=== PATIENT | male | born 1955 | race Caucasian/White ===

== ENCOUNTER 2025-03-08 08:56 | Outpatient (AMB) | payer MEDICARE, SELFPAY ==
--- NOTE | 2025-03-08 09:00 | A.OFFPC_ITS ---
Vital Signs 03/08/25 09:28 Height 5 ft 3 in Weight 154 lb BMI 27.3 BP 122/62 Blood Pressure Location Rt brachial Pulse 94 Pulse Source Pulse Oximeter Temp 97.7 F Pulse Oximetry (%) 96 Intake Visit Reasons: establish care Intake Note: Had a stroke back in April also has been getting shots in his right eye thinks it's from the stroke and two months ago he said he had pain in his chest and when he took a deep breath it hurt went to [facility] now has a hear monitor. He would like an order for complete blood work has not had any in awhile. Patient also ststa that he has been loosing wait since he stopped drinking. Allergies No Known Allergies Allergy (Verified 03/08/25 10:34) Medication List - Last Reconciled 03/08/25 by Martha Benedict PA-C apixaban (Eliquis) 5 mg PO BID metoprolol succinate ER 50 mg PO DAILY rosuvastatin 10 mg PO DAILY sertraline 50 mg PO DAILY umeclidinium-vilanterol 62.5-25 mcg/actuation (Anoro Ellipta) 1 inh inhalation DAILY HPI establish care HPI Details The patient is a 69-year-old male presenting for establishment of primary care and management of multiple chronic conditions. The patient has a history of atrial flutter, which was diagnosed following an episode of shortness of breath. He was prescribed Eliquis and metoprolol to manage the condition, and a heart monitor was used for a week to assess his heart rhythm. The patient reports no current chest pain or shortness of breath. Currently being followed by [facility]. He experienced a stroke on April 24, 2024, with MRI findings showing left cerebellar and occipital infarcts without residual deficits. He has not had recent blood work since the event. The patient has a history of emphysema and is currently using Ellipta for management. He quit smoking in 2014 after many years of tobacco use. He is on rosuvastatin for hyperlipidemia and sertraline for depression and anxiety, which he feels are well-controlled. He denies any thoughts of self-harm and does not feel the need for a therapist. The patient has a history of chronic venous hypertension with ulcer, varicose veins, and rosacea. He has not been wearing compression stockings recently. Preventative care includes a planned colonoscopy, which was delayed due to his use of Eliquis. He has a family history of prostate cancer, as his father had it, but it was not the cause of . Social History - Lives with , Nicolle - Former smoker, quit in 2014 - Reports dietary changes to include jonathan sh foods and reduced sugar intake [facility] Medical History Overweight with body mass index (BMI) of 27 to 27.9 in adult CVA (cerebral vascular accident) Atrial flutter Varicose veins of both lower extremities Rosacea Hyperlipidemia Emphysema/COPD Chronic venous hypertension Depression Anxiety Establishing care with new doctor, encounter for Surgical History History of colonoscopy Questionnaire PHQ-9 Over the last 2 weeks, how often have you been bothered by any of the following problems? 1. Little interest or pleasure in doing things: several days 2. Feeling down, depressed, or hopeless: several days 3. Trouble falling or staying asleep, or sleeping too much: several days 4. Feeling tired or having little energy: several days 5. Poor appetite or overeating: not at all 6. Feeling bad about yourself - or that you are a failure or have let yourself or your family down: not at all 7. Trouble concentrating on things, such as reading the newspaper or watching television: not at all 8. Moving or speaking so slowly that other people could have noticed. Or the opposite - being so fidgety or restless that you have been moving around a lot more than usual: not at all 9. Thoughts that you would be better off or of hurting yourself in some way: not at all Total score: 4 Depression Screening Interpretation: Positive Depression Screening Follow-up: Existing condition and In treatment (On Sertraline ) Depression Screening Done: Yes 92725 - PHQ-9 Billing: Yes Source: Developed by Drs. Ryan Staley, Ivory Abraham, Mata Weinberg and colleagues, with an educational vesna from [employer]. Thrive Questionnaire Date Thrive assessed: 03/08/25 I am a: Patient What is your living situation today?: I have a steady place to live Within the past 12 months, did the food you bought not last and you didn't have the money to get more?: Never true Within the past 12 months, did you worry whether your food would run out before you got money to buy more?: Never true Do you have trouble paying for medicines?: No Do you have trouble getting transportation to medical appointments?: No Do you have trouble paying your heating and electricity bill?: No Do you have trouble taking care of your child, family member or friend?: No Do you have trouble with day-to-day activities such as bathing, preparing meals, shopping, managing finances, etc.?: No Are you currently unemployed and looking for a job?: No Are you interested in more education?: No THRIVE Score: 0 AUDIT C Alcohol Use Questionnaire (AUDIT-C) 1. How often do you have a drink containing alcohol?: 2-4 times a month 2. How many drinks containing alcohol do you have on a typical day when you are drinking?: 3 or 4 3. How often do you have six or more drinks on one occasion?: Never Total Score: 3 Score Reviewed/Action Taken: No Review of Systems Const Details: - Cardiovascular: Denies chest pain, denies dizziness, denies leg swelling - Respiratory: Denies dyspnea - Gastrointestinal: Denies abdominal pain, denies black or bloody stools - Neurological: Denies unintentional weight loss Physical exam (Primary Care) Vital Signs: Last Vital Signs Temp 97.7 F 03/08/25 09:28 Pulse 94 03/08/25 09:28 BP 122/62 03/08/25 09:28 Pulse Ox 96 03/08/25 09:28 Care Plan Goal for BP management: <140/90 at Goal BMI result Body Mass Index 27.3 BMI Assessment/Plan discussion: High BMI High, discussed plan: lifestyle, weight reduction, dietary, physical activity, alcohol moderation and other PHQ-9: PHQ-9 Score PHQ-9: Total score 4 03/08/25 09:31 Depression Screening Interpretation: Positive Depression Screening Follow-up: Existing condition and In treatment (On Sertraline ) Thrive Assessment: Date of Thrive Assessment Date Thrive assessed 03/08/25 03/08/25 09:28 Const Other: Appearance: Alert. Oriented X3. No acute distress. Head: Normal external exam. Normocephalic. Atraumatic. Eyes: Pupils are equal, round, and reactive to light. Extraocular movements intact. Conjunctiva and sclera normal. Eyelids normal. Ears: External auditory canal normal. Tympanic membranes normal. Throat: Pharynx normal. Uvula midline. Moist mucous membranes. Neck: Normal inspection. Neck supple. Full range of motion. No adenopathy. Thyroid Normal. No meningeal signs. No neck mass noted. Cardiovascular: Normal heart rate and rhythm. Heart sound normal. No murmurs noted. Pulses normal throughout. Respiratory: No respiratory distress. Painless inspiration. Breath sounds normal. No wheezes/rales/rhonchi noted. Chest nontender. No accessory muscle usage noted or decreased air movement noted. Abdomen: Soft and nontender. Bowel sounds normal in all 4 quadrants. No distention noted. No organomegaly noted. No visible injury noted. Back: No costovertebral angle tenderness. Full range of motion noted. Skin: Skin warm and dry. Normal skin color. Normal skin turgor. No rashes/lesions/lacerations noted. Extremities: No lower extremity edema. Extremities exhibit normal range of motion. Extremities nontender. Neuro: Oriented X 3. No motor deficit. No sensory deficit. Reflexes normal. Results Reviewed Results Reviewed: - MRI (April 24, 2024): Left cerebellar and occipital infarcts without residual deficits - CTA (April 2024): No significant cerebral atherosclerosis - TTE: Unremarkable - 30-day Holter monitor: Normal Coding Level of Care Code New Pt Level 4 (50792) Complex EM visit Add On G2211 Diagnoses Establishing care with new doctor, encounter for Z76. Atrial flutter I48.92 Anxiety F41.9 Depression F32.A Emphysema/COPD J43.9 Hyperlipidemia E78.5 CVA (cerebral vascular accident) I63.9 Overweight with body mass index (BMI) of 27 to 27.9 in adult E66.3; Z68.27 Varicose veins of both lower extremities I83.93 Rosacea L71.9 Chronic venous hypertension I87.309 Additional Codes PHQ-9 - 86939 - PHQ-9 Billing: Yes ([id number]) Assessment & Plan Assessment & Plan (1) Establishing care with new doctor, encounter for: Code(s): Z76.89 - Persons encountering health services in other specified circumstances Category: Medical (2) Atrial flutter: Code(s): I48.92 - Unspecified atrial flutter Category: Medical Plan: The patient is currently managed with Eliquis and metoprolol for atrial flutter. A heart monitor was used for a week to assess his heart rhythm, and he reports no current symptoms of chest pain or dyspnea. Condition is chronic and stable will continue to monitor. (3) Anxiety: Code(s): F41.9 - Anxiety disorder, unspecified Category: Medical Plan: The patient is on sertraline for anxiety and reports feeling well-controlled without the need for additional therapy. Condition is chronic and stable will continue to monitor. (4) Depression: Code(s): F32.A - Depression, unspecified Category: Medical Plan: The patient is on sertraline for depression and reports feeling well-controlled without the need for additional therapy. Condition is chronic and stable continue to monitor. (5) Emphysema/COPD: Code(s): J43.9 - Emphysema, unspecified Category: Medical Plan: The patient is using Ellipta for management of emphysema and has a history of smoking cessation since 2014. Condition is chronic and stable continue to monitor. (6) Hyperlipidemia: Code(s): E78.5 - Hyperlipidemia, unspecified Category: Medical Plan: The patient is on rosuvastatin for hyperlipidemia management. Condition is chronic and stable will continue to monitor. (7) CVA (cerebral vascular accident): Comment: MRI brain on 04/24/2024 revealed left cerebellar and left occipital infarcts without residual defects. TTE unremarkable at that time. Thirty day ambulatory event monitor at that time normal. Code(s): I63.9 - Cerebral infarction, unspecified Category: Medical Plan: The patient experienced a stroke on April 24, 2024, with MRI findings showing left cerebellar and occipital infarcts without residual deficits. He has not had recent blood work since the event, and further evaluation is planned. Condition is stable will continue to monitor. (8) Overweight with body mass index (BMI) of 27 to 27.9 in adult: Code(s): E66.3 - Overweight; Z68.27 - Body mass index [BMI] 27.0-27.9, adult Category: Medical Plan: Patient has improved diet and exercise regimen. Condition is chronic and stable continue to monitor. (9) Varicose veins of both lower extremities: Code(s): I83.93 - Asymptomatic varicose veins of bilateral lower extremities Category: Medical Plan: The patient has a history of chronic venous hypertension without ulcer and varicose veins. He has not been wearing compression stockings recently, which may need to be addressed. Condition is chronic and stable will continue to monitor. (10) Rosacea: Comment: Being followed by Dermatology Code(s): L71.9 - Rosacea, unspecified Category: Medical Plan: The patient has a history of rosacea, and dietary changes have been made to manage the condition. Condition is chronic and stable continue to monitor. (11) Chronic venous hypertension: Code(s): I87.309 - Chronic venous hypertension (idiopathic) without complications of unspecified lower extremity Category: Medical Plan: The patient has a history of chronic venous hypertension without ulcer and varicose veins. He has not been wearing compression stockings recently, which may need to be addressed. Condition is chronic and stable will continue to monitor. Plan Plan Patient was informed and verbally consented to the use of an ambient scribe for clinic note documentation during this visit. 1. Atrial Flutter The patient is currently managed with Eliquis and metoprolol for atrial flutter. A heart monitor was used for a week to assess his heart rhythm, and he reports no current symptoms of chest pain or dyspnea. 2. Emphysema The patient is using Ellipta for management of emphysema and has a history of smoking cessation since 2014. 3. Hyperlipidemia The patient is on rosuvastatin for hyperlipidemia management. 4. Depression The patient is on sertraline for depression and reports feeling well-controlled without the need for additional therapy. 5. Anxiety The patient is on sertraline for anxiety and reports feeling well-controlled without the need for additional therapy. 6. Stroke The patient experienced a stroke on April 24, 2024, with MRI findings showing left cerebellar and occipital infarcts without residual deficits. He has not had recent blood work since the event, and further evaluation is planned. 7. Chronic Venous Hypertension With Ulcer The patient has a history of chronic venous hypertension without ulcer and varicose veins. He has not been wearing compression stockings recently, which may need to be addressed. Condition is chronic and stable will continue to monitor. 8. Rosacea The patient has a history of rosacea, and dietary changes have been made to manage the condition. 9. Preventative Care: Colonoscopy A colonoscopy is planned but has been delayed due to the patient's use of Eliquis. During the visit, we discussed the management of the patient's atrial flutter with Eliquis and metoprolol, and the use of a heart monitor to assess his heart rhythm. We also reviewed his history of stroke and the need for further blood work to monitor his condition. The patient was advised on the importance of continuing his current medications for hyperlipidemia, depression, and anxiety, and the potential need for compression stockings for his chronic venous hypertension. Preventative care measures, including a delayed colonoscopy due to Eliquis use, were also discussed. Orders: Orders C Reactive Protein Today Z00.00 - Encounter for general adult medical examination without abnormal findings Lipid Panel Today Z00.00 - Encounter for general adult medical examination without abnormal findings Liver Panel Today Z00.00 - Encounter for general adult medical examination without abnormal findings Hemoglobin A1c Today Z00.00 - Encounter for general adult medical examination without abnormal findings PSA,Total (Free>4and<10) Today Z00.00 - Encounter for general adult medical examination without abnormal findings Complete Blood Count Auto Diff Today Z00.00 - Encounter for general adult medical examination without abnormal findings Comprehensive Antimony. Panel Fast Today Z00.00 - Encounter for general adult medical examination without abnormal findings Vitamin B12 and Folate Today Z00.00 - Encounter for general adult medical examination without abnormal findings Vitamin D 25-OH Total Today Z00.00 - Encounter for general adult medical examination without abnormal findings Magnesium Today Z00.00 - Encounter for general adult medical examination without abnormal findings TSH reflex Free T4 Today Z00.00 - Encounter for general adult medical examination without abnormal findings Patient Instructions: - Continue taking Eliquis and metoprolol as prescribed. - Use Ellipta daily for emphysema management. - Maintain current diet with fresh foods and reduced sugar intake. - Schedule and complete blood work as discussed. - Plan for a colonoscopy once cleared from Eliquis use. - Consider wearing compression stockings for venous hypertension.
[2025-03-08 09:28] VITALS: BP 122/62; PULSE 94; TEMP 36.5; O2SAT 96; BMI 27.3
== END 2025-03-08 09:52 | disposition home or self-care (01) ==
LOC: HO.HMCSH 08:56
PROVIDERS: PCP Internal Medicine; Visit Provider Physician Assistant Medical
DX: Z76.89 Persons encountering health services in other specified circumstances (principal); I48.92 Unspecified atrial flutter; F41.9 Anxiety disorder, unspecified; F32.A Depression, unspecified; J43.9 Emphysema, unspecified; E78.5 Hyperlipidemia, unspecified; I63.9 Cerebral infarction, unspecified; E66.3 Overweight; Z68.27 Body mass index [BMI] 27.0-27.9, adult; I83.93 Asymptomatic varicose veins of bilateral lower extremities; L71.9 Rosacea, unspecified; I87.309 Chronic venous hypertension (idiopathic) without complications of unspecified lower extremity

== ENCOUNTER → 2025-03-08 08:56 | Outpatient (BNVA) | payer MEDICARE, SELFPAY | PROVIDERS: PCP Internal Medicine; Visit Provider Physician Assistant Medical | DX: I48.92 Unspecified atrial flutter (principal); F41.9 Anxiety disorder, unspecified; F32.A Depression, unspecified; J43.9 Emphysema, unspecified; E78.5 Hyperlipidemia, unspecified; I63.9 Cerebral infarction, unspecified; E66.3 Overweight; Z68.27 Body mass index [BMI] 27.0-27.9, adult; I83.93 Asymptomatic varicose veins of bilateral lower extremities; L71.9 Rosacea, unspecified | CPT/HCPCS: 96127; 99202 ==

== ENCOUNTER 2025-03-11 07:16 | Outpatient (REF) | payer MEDICARE, SELFPAY ==
[2025-03-11 07:28] LABS: MANUAL DIFF FLAG NO
[2025-03-11 07:46] LABS: Basophils Percent Auto 0.5 % (0-2); Eosinophils Absolute Auto 0.1 X10*3/uL (0.0-0.4); Eosinophils Percent Auto 0.7 % (0-4); Hematocrit 39.5 % (42.0-52.0); Hemoglobin 13.2 g/dl (14.0-18.0); Imm Gran Abs Auto 0.05 X10*3/uL (0.00-0.03); Imm Gran Pct Auto 0.6 % (0.0-0.4); Lymphocytes Absolute Auto 2.3 X10*3/uL (1.2-4.9); Lymphocytes Percent Auto 26.2 % (20-40); Mean Corpuscular HGB Conc 33.4 g/dl (31.0-36.0); Mean Corpuscular Hemoglobin 29.9 pg (27.0-33.0); Mean Corpuscular Volume 89.6 fL (80.0-98.0); Mean Platelet Volume 9.2 fL (9.4-12.4); Monocytes Absolute Auto 0.8 X10*3/uL (0.1-1.2); Monocytes Percent Auto 8.7 % (2-11); Neutrophils Absolute Auto 5.6 x10*3/uL (2.0-8.3); Neutrophils Percent Auto 63.3 % (45-73); Platelet Count 331 X10*3/uL (160-400); Red Blood Count 4.41 X10*6/uL (4.60-5.80); Red Cell Distribution Width 13.2 % (11.0-16.0); White Blood Count 8.9 X10*3/uL (4.8-10.8)
[2025-03-11 07:53] LABS: Estimated Average Glucose 148 mg/dL; Hemoglobin A1c % 6.8 % (<6.0); Total Hemoglobin (HGBA1C) 3515.6325 umol/L
[2025-03-11 08:22] LABS: Alanine Aminotransferase 48 U/L (0-40); Albumin Level 3.9 g/dL (3.5-5.0); Alkaline Phosphatase 35 U/L (39-117); Anion Gap 13 (12-20); Aspartate Amino Transferase 38 U/L (5-37); Bilirubin Direct 0.2 mg/dL (0.0-0.5); Bilirubin Total 0.5 mg/dL (0.0-1.0); Blood Urea Nitrogen 10 mg/dL (9-16); C Reactive Protein 9.43 mg/dL (< or = 0.50); Calcium 9.7 mg/dL (8.4-10.2); Carbon Dioxide 26 mmol/L (22-29); Chloride 104 mmol/L (96-108); Cholesterol 120 mg/dL (<200); Estimated Glomerular Filt Rate > 60; Glucose Fasting 142 mg/dL (60-99); HDL Cholesterol 41 mg/dL (>40); LDL Cholesterol Calculated 62 mg/dL (<100); Magnesium 2.1 mg/dL (1.6-2.6); Potassium 4.2 mmol/L (3.3-5.1); Sodium 139 mmol/L (135-145); Total Protein 7.5 g/dL (6.5-8.0); Triglycerides 89 mg/dL (<150)
[2025-03-11 08:38] LABS: TSH reflex Free T4 1.67 uIU/mL (0.32-4.0); Vitamin D 25-OH Total 34.7 ng/mL (>30)
[2025-03-11 08:50] LABS: Folate 8.5 ng/mL (> or = 4.0); Vitamin B12 722 pg/mL (200-900)
[2025-03-14 13:33] LABS: Free Prostate Spec Ag 0.4 ng/mL; Percent Free Prostate Spec Ag 7 % (calc) (>25); Prostate Specific Ag Total 5.5 ng/mL (< OR = 4.0)
== END 2025-03-11 07:17 | disposition home or self-care (01) ==
LOC: HO.LAB 07:16
PROVIDERS: PCP Physician Assistant Medical; Visit Provider Physician Assistant Medical
DX: Z00.00 Encounter for general adult medical examination without abnormal findings (principal); Z12.5 Encounter for screening for malignant neoplasm of prostate; Z13.1 Encounter for screening for diabetes mellitus; Z13.0 Encounter for screening for diseases of the blood and blood-forming organs and certain disorders involving the immune mechanism; Z13.220 Encounter for screening for lipoid disorders; Z13.29 Encounter for screening for other suspected endocrine disorder
CPT/HCPCS: 36415; 80053; 80061; 80076; 82248; 82306; 82607; 82746; 83036; 83735; 84153; 84154; 84443; 85025; 86140

== ENCOUNTER 2025-03-21 11:27 | Outpatient (AMB) | payer MEDICARE, SELFPAY ==
--- NOTE | 2025-03-21 11:27 | A.OFFPC_ITS ---
Vital Signs 03/21/25 11:28 Height 5 ft 3 in Weight 151 lb 4 oz BMI 26.8 BP 128/88 Blood Pressure Location Rt brachial Position Sitting Respiration 16 Pulse 70 Pulse Source Pulse Oximeter Temp 97 F Temp Source Temporal Artery Scan Pulse Oximetry (%) 98 Oxygen Delivery Method Room Air Intake Visit Reasons: f/u abnormal lab test results Director Financial Services Required: No Accompanied by: Self / Same As Patient Allergies No Known Allergies Allergy (Verified 03/21/25 12:36) Medication List - Last Reconciled 03/21/25 by Martha Benedict PA-C alcohol swabs (Alcohol Pads) 1 pad topical TIDWMEAL apixaban (Eliquis) 5 mg PO BID blood sugar diagnostic (FreeStyle Lite Strips) CHECK GLUCOSE 3 TIMES A DAY WITH MEALS blood-glucose meter (FreeStyle Lite Meter kit) Check glucose 3 times a day before meals lancets (FreeStyle Lancets) CHECK GLUCOSE 3 TIMES A DAY WITH MEALS metformin ER (Glucophage XR) 500 mg PO DAILY metoprolol succinate ER 50 mg PO DAILY rosuvastatin 10 mg PO DAILY sertraline 50 mg PO DAILY umeclidinium-vilanterol 62.5-25 mcg/actuation (Anoro Ellipta) 1 inh inhalation DAILY Tobacco use date assessed: 03/21/25 Fall risk assessment: No Falls in past year Last assessed Fall Risk: 03/21/25 Dental Screening Dental Screen Date: 03/21/25 Did you have a dental visit in the last 12 months?: Yes Did you have a dental problem in the last 6 months where you did not have access to dental care?: No Was dental information given to patient?: Patient has dentist HPI f/u abnormal lab test results HPI Details The patient is a 69-year-old male presenting with follow-up on blood work, management of newly diagnosed diabetes mellitus, and evaluation of elevated prostate-specific antigen (PSA) levels. The patient was recently diagnosed with diabetes mellitus, with a hemoglobin A1c of 6.8, indicating elevated blood glucose levels over the past three months. Previously, his blood glucose levels ranged from 60 to 100 mg/dL, but they have now increased to an average of 142 mg/dL. The patient has been prescribed metformin 500 mg daily and reports feeling better since starting the medication. The patient has a history of elevated prostate-specific antigen (PSA) levels and has an upcoming appointment with a urologist for further evaluation. He reports urinary frequency, particularly at night, and difficulty emptying his bladder completely, which may be related to his prostate condition. The patient has mild anemia with hemoglobin levels at 13.2 g/dL and hematocrit at 39%, slightly below the normal range. The cause of anemia is being investigated, with considerations including iron deficiency. Liver enzymes are slightly elevated, with AST at 38 U/L and ALT at 48 U/L, but these are not considered concerning at this time. The patient reports a weight loss of approximately 10 pounds over the past month, which he attributes to changes in his diet and reduced alcohol consumption. Social History - Substance Use: Reports reduced alcohol consumption, with [place] beer [place] the [place]. - Weight Management: Reports a weight lo ss of approximately 10 pounds over the past month. [facility] [place] Medical History Weight loss Urinary frequency Elevated alkaline phosphatase level Elevated ALT measurement Elevated AST (SGOT) Elevated PSA Anemia Type 2 diabetes mellitus with hemoglobin A1c goal of less than 7.0% Overweight with body mass index (BMI) of 27 to 27.9 in adult CVA (cerebral vascular accident) Atrial flutter Varicose veins of both lower extremities Rosacea Hyperlipidemia Emphysema/COPD Chronic venous hypertension Depression Anxiety Establishing care with new doctor, encounter for Surgical History History of colonoscopy Family History Father Lung cancer Mother No problems noted. Social History Housing: Condominium Alcohol intake: current Alcohol intake frequency: does not drink Patient Tobacco Use Status: Former Tobacco user service: No Current occupational status: retired Cognitive needs: No Hearing needs: No Vision needs: Yes (rx glasses) Questionnaire PHQ-9 Over the last 2 weeks, how often have you been bothered by any of the following problems? 1. Little interest or pleasure in doing things: several days 2. Feeling down, depressed, or hopeless: several days 3. Trouble falling or staying asleep, or sleeping too much: several days 4. Feeling tired or having little energy: several days 5. Poor appetite or overeating: not at all 6. Feeling bad about yourself - or that you are a failure or have let yourself or your family down: not at all 7. Trouble concentrating on things, such as reading the newspaper or watching television: not at all 8. Moving or speaking so slowly that other people could have noticed. Or the opposite - being so fidgety or restless that you have been moving around a lot more than usual: not at all 9. Thoughts that you would be better off or of hurting yourself in some way: not at all Total score: 4 Depression Screening Interpretation: Positive Depression Screening Follow-up: Existing condition and In treatment (On Sertraline ) Depression Screening Done: Yes 12319 - PHQ-9 Billing: Yes Source: Developed by Drs. Ryan Staley, Ivory Abraham, Mata Weinberg and colleagues, with an educational vesna from [employer]. Thrive Questionnaire Date Thrive assessed: 03/08/25 I am a: Patient What is your living situation today?: I have a steady place to live Within the past 12 months, did the food you bought not last and you didn't have the money to get more?: Never true Within the past 12 months, did you worry whether your food would run out before you got money to buy more?: Never true Do you have trouble paying for medicines?: No Do you have trouble getting transportation to medical appointments?: No Do you have trouble paying your heating and electricity bill?: No Do you have trouble taking care of your child, family member or friend?: No Do you have trouble with day-to-day activities such as bathing, preparing meals, shopping, managing finances, etc.?: No Are you currently unemployed and looking for a job?: No Are you interested in more education?: No THRIVE Score: 0 AUDIT C Alcohol Use Questionnaire (AUDIT-C) 1. How often do you have a drink containing alcohol?: 2-4 times a month 2. How many drinks containing alcohol do you have on a typical day when you are drinking?: 3 or 4 3. How often do you have six or more drinks on one occasion?: Never Total Score: 3 Score Reviewed/Action Taken: No SHERRY-7 AMB Questionnaire SHERRY-7 Date SHERRY - 7 assessed: 03/21/25 Feeling nervous, anxious, or on edge: 0 = Not at all Not being able to stop or control worryin = Not at all Worrying too much about different things: 0 = Not at all Trouble relaxin = Not at all Being so restless that it is hard to sit still: 0 = Not at all Becoming easily annoyed or irritable: 0 = Not at all Feeling afraid as if something awful might happen: 0 = Not at all Total SHERRY-7 score (0-4 normal; 5-9 mild; 10-14 moderate; 15-21 severe): 0 Source: Developed by Drs. Ryan Staley, Ivory Abraham, Mata Weinberg and colleagues, with an educational vesna from [employer]. SHERRY-7 Assessment Billing SHERRY-7 Assessment Tool: SHERRY-7 Assessment 93636 Review of Systems Const Details: - Genitourinary: Reports urinary frequency, particularly at night. Denies abdominal pain. - Gastrointestinal: Reports no abdominal pain. - General: Reports weight loss of approximately 10 pounds over the past month. Physical exam (Primary Care) Vital Signs: Last Vital Signs Temp 97 F 03/21/25 11:28 Pulse 70 03/21/25 11:28 Resp 16 03/21/25 11:28 BP 128/88 03/21/25 11:28 Pulse Ox 98 03/21/25 11:28 Oxygen Delivery Method Room Air 03/21/25 11:28 Care Plan Goal for BP management: <140/90 at Goal BMI result Body Mass Index 26.8 BMI Assessment/Plan discussion: High BMI High, discussed plan: lifestyle, weight reduction, dietary, physical activity and alcohol moderation Tobacco/Smoking Status: Tobacco use Status Tobacco use date assessed 03/21/25 03/21/25 11:34 Patient Tobacco Use Status Former Tobacco user 03/21/25 11:34 PHQ-9: PHQ-9 Score PHQ-9: Total score 4 03/21/25 11:34 Depression Screening Interpretation: Positive Depression Screening Follow-up: Existing condition and In treatment (On Sertraline ) Thrive Assessment: Date of Thrive Assessment Date Thrive assessed 03/08/25 03/21/25 11:34 Const Other: Appearance: Alert. Oriented X3. No acute distress. Head: Normal external exam. Normocephalic. Atraumatic. Eyes: Pupils are equal, round, and reactive to light. Extraocular movements intact. Conjunctiva and sclera normal. Eyelids normal. Throat: Pharynx normal. Uvula midline. Moist mucous membranes. Neck: Normal inspection. Neck supple. Full range of motion. Cardiovascular: Normal heart rate and rhythm. Respiratory: No respiratory distress. Painless inspiration. Back: Full range of motion noted. Skin: Skin warm and dry. Normal skin color. Normal skin turgor. No rashes/lesions/lacerations noted. Extremities: Extremities exhibit normal range of motion. Results Reviewed Results Reviewed: - Labs: Hemoglobin A1c 6.8%, Hemoglobin 13.2 g/dL, Hematocrit 39%, AST 38 U/L, ALT 48 U/L. Coding Level of Care Code Est Pt Level 5 (39429) Complex EM visit Add On G2211 Diagnoses Type 2 diabetes mellitus with hemoglobin A1c goal of less than 7.0% E11.9 Elevated PSA R97.20 Anemia D64.9 Elevated AST (SGOT) R74.01 Elevated ALT measurement R74.01 Urinary frequency R35.0 Additional Codes PHQ-9 - 70261 - PHQ-9 Billing: Yes ([id number]) SHERRY-7 Assessment Billing - SHERRY-7 Assessment Tool: SHERRY-7 Assessment 22770 ([id number]) Assessment & Plan Assessment & Plan (1) Type 2 diabetes mellitus with hemoglobin A1c goal of less than 7.0%: Code(s): E11.9 - Type 2 diabetes mellitus without complications Category: Medical Plan: The patient has been diagnosed with diabetes mellitus, indicated by a hemoglobin A1c of 6.8%. He has been prescribed metformin 500 mg daily and instructed to monitor his blood glucose levels regularly, particularly before meals and when experiencing unusual symptoms. Dietary modifications have been recommended, including a list of suitable foods to manage blood sugar levels. (2) Elevated PSA: Code(s): R97.20 - Elevated prostate specific antigen [PSA] Category: Medical Plan: The patient has elevated PSA levels and is scheduled for a follow-up appointment with a urologist for further evaluation. A CAT scan of the abdomen and pelvis has been ordered to investigate urinary symptoms and potential causes of anemia. (3) Anemia: Code(s): D64.9 - Anemia, unspecified Category: Medical Plan: The patient presents with mild anemia, with hemoglobin at 13.2 g/dL and hematocrit at 39%. An iron profile and ferritin level have been ordered to determine the cause, with considerations including iron deficiency. (4) Elevated AST (SGOT): Code(s): R74.01 - Elevation of levels of liver transaminase levels Category: Medical Plan: The patient has slightly elevated liver enzymes, with AST at 38 U/L and ALT at 48 U/L. These levels are not currently concerning, but will be monitored. (5) Elevated ALT measurement: Code(s): R74.01 - Elevation of levels of liver transaminase levels Category: Medical Plan: The patient has slightly elevated liver enzymes, with AST at 38 U/L and ALT at 48 U/L. These levels are not currently concerning, but will be monitored. (6) Urinary frequency: Code(s): R35.0 - Frequency of micturition Category: Medical Plan: The patient reports urinary frequency, particularly at night, and difficulty emptying his bladder completely. A referral to a urologist has been made for further evaluation, and a CAT scan of the abdomen and pelvis has been ordered. Plan Plan Patient was informed and verbally consented to the use of an ambient scribe for clinic note documentation during this visit. 1. Diabetes Mellitus The patient has been diagnosed with diabetes mellitus, indicated by a hemoglobin A1c of 6.8%. He has been prescribed metformin 500 mg daily and instructed to monitor his blood glucose levels regularly, particularly before meals and when experiencing unusual symptoms. Dietary modifications have been recommended, including a list of suitable foods to manage blood sugar levels. 2. Elevated Prostate-Specific Antigen (Psa) The patient has elevated PSA levels and is scheduled for a follow-up appointment with a urologist for further evaluation. A CAT scan of the abdomen and pelvis has been ordered to investigate urinary symptoms and potential causes of anemia. 3. Anemia The patient presents with mild anemia, with hemoglobin at 13.2 g/dL and hematocrit at 39%. An iron profile and ferritin level have been ordered to determine the cause, with considerations including iron deficiency. 4. Elevated Liver Enzymes The patient has slightly elevated liver enzymes, with AST at 38 U/L and ALT at 48 U/L. These levels are not currently concerning, but will be monitored. 5. Urinary Frequency The patient reports urinary frequency, particularly at night, and difficulty emptying his bladder completely. A referral to a urologist has been made for further evaluation, and a CAT scan of the abdomen and pelvis has been ordered. During the visit, I discussed with the patient the diagnosis of diabetes bonifacio phillip and the importance of monitoring blood glucose levels regularly. We reviewed the use of metformin and dietary modifications to manage his condition. I explained the significance of the elevated PSA levels and the need for further evaluation by a urologist. We also discussed the mild anemia and the plan to investigate its cause through additional blood tests. The patient was informed about the slightly elevated liver enzymes, which will be monitored. A CAT scan of the abdomen and pelvis was ordered to assess urinary symptoms and potential causes of anemia. Orders: Orders Ferritin Today D64.9 - Anemia, unspecified IRON PROFILE Today D64.9 - Anemia, unspecified CT abdomen pelvis w IV con Today R35.0 - Frequency of micturition, R63.4 - Abnormal weight loss, R97.20 - Elevated prostate specific antigen [PSA] Patient Instructions: - Monitor blood glucose levels daily, especially before meals and when experiencing unusual symptoms. - Take metformin 500 mg daily as prescribed. - Follow dietary recommendations to manage blood sugar levels. - Attend the scheduled urology appointment for further evaluation of elevated PSA levels. - Complete the additional blood tests for anemia and liver function as instructed. - Await contact for scheduling the CAT scan of the abdomen and pelvis.
[2025-03-21 11:28] VITALS: BP 128/88; PULSE 70; RESP 16; TEMP 36.1; O2SAT 98; BMI 26.8
== END 2025-03-21 12:15 | disposition home or self-care (01) ==
LOC: HO.HMCSH 11:27
PROVIDERS: PCP Physician Assistant Medical; Visit Provider Physician Assistant Medical
DX: E11.9 Type 2 diabetes mellitus without complications (principal); R97.20 Elevated prostate specific antigen [PSA]; D64.9 Anemia, unspecified; R74.01 Elevation of levels of liver transaminase levels; R35.0 Frequency of micturition

== ENCOUNTER 2025-03-21 11:27 | Outpatient (REF) | payer MEDICARE, SELFPAY ==
[2025-03-21 14:08] LABS: Iron 66 mcg/dL (45-160); Percent Iron Saturation 31 % (15-50); Total Iron Binding Capacity 212 mcg/dL (228-428); Unsaturated Iron Binding 146 ug/dL
[2025-03-21 14:35] LABS: Ferritin 511 ng/mL (20-250)
[2025-03-23 17:13] LABS: Glutamic acid decarboxylase Ab <5 IU/mL (<5)
[2025-03-29 06:59] LABS: Insulin Auto Antibody <0.4 U/mL (<0.4)
== END 2025-03-21 11:28 | disposition home or self-care (01) ==
LOC: HO.LAB 11:27
PROVIDERS: PCP Physician Assistant Medical; Visit Provider Physician Assistant Medical
DX: E11.9 Type 2 diabetes mellitus without complications (principal); R97.20 Elevated prostate specific antigen [PSA]; D64.9 Anemia, unspecified; R74.01 Elevation of levels of liver transaminase levels; R35.0 Frequency of micturition
CPT/HCPCS: 36415; 82728; 83540; 86337; 86341; 96127; 99212

== ENCOUNTER 2025-03-31 12:57 | Outpatient (AMB) | payer MEDICARE, SELFPAY ==
--- NOTE | 2025-03-30 22:03 | A.OFFVIS_ITS ---
Intake Visit Reasons: elevated PSA Intake Note: New patient presents today for initial visit for elevated PSA * 03/11 Total PSA:7.40 Urology Medication:None Blood Thinner:Apixaban Antibiotic Allergies:None PVR:25ml Allergies No Known Allergies Allergy (Verified 03/31/25 13:23) Medication List - Last Reconciled 03/31/25 by Avril Wagner MD alcohol swabs (Alcohol Pads) 1 pad topical TIDWMEAL apixaban (Eliquis) 5 mg PO BID blood sugar diagnostic (FreeStyle Lite Strips) CHECK GLUCOSE 3 TIMES A DAY WITH MEALS blood-glucose meter (FreeStyle Lite Meter kit) Check glucose 3 times a day before meals lancets (FreeStyle Lancets) CHECK GLUCOSE 3 TIMES A DAY WITH MEALS lancing device Check glucose 3 times a day with meals metformin ER (Glucophage XR) 500 mg PO DAILY metoprolol succinate ER 50 mg PO DAILY rosuvastatin 10 mg PO DAILY sertraline 50 mg PO DAILY umeclidinium-vilanterol 62.5-25 mcg/actuation (Anoro Ellipta) 1 inh inhalation DAILY HPI Comments 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 History of Present Illness - The patient is a 69-year-old male presenting with elevated Prostate-Specific Antigen (PSA). - The PSA level was measured at 7.40 on 03/11/25. - The patient has a history of Benign Prostatic Hyperplasia (BPH) and underwent a procedure over 10 years ago - The patient reports nocturia, getting up several times at night, despite limiting fluid intake in the evening. - I have discussed PSA is a blood test, prostate specific antigen and is an enzyme secreted by the prostate gland. Elevated PSA may be due to multiple conditions including prostate inflammatory condition, enlarged prostate or prostate cancer. - There is a family history of prostate cancer, with the patient's father having been diagnosed and treated - prostate exam today-mild to moderately enlarged no suspicious hard nodules palpated - plan schedule prostate biopsy transrectal ultrasound guided, also we will check upper urinary tract with renal US. Results - PSA level: 7.40 on 03/11/25 [facility] Medical History Weight loss Urinary frequency Elevated alkaline phosphatase level Elevated ALT measurement Elevated AST (SGOT) Elevated PSA Anemia Type 2 diabetes mellitus with hemoglobin A1c goal of less than 7.0% Overweight with body mass index (BMI) of 27 to 27.9 in adult CVA (cerebral vascular accident) Atrial flutter Varicose veins of both lower extremities Rosacea Hyperlipidemia Emphysema/COPD Chronic venous hypertension Depression Anxiety Establishing care with new doctor, encounter for Surgical History History of colonoscopy Family History Father Lung cancer Mother No problems noted. Social History Housing: Condominium Alcohol intake: current Alcohol intake frequency: does not drink Patient Tobacco Use Status: Former Tobacco user service: No Current occupational status: retired Cognitive needs: No Hearing needs: No Vision needs: Yes (rx glasses) Review of Systems Const All systems reviewed & are unremarkable except as noted in HPI and below Reports no additional complaints Eyes Reports no additional complaints ENT Reports no additional complaints Card Reports no additional complaints Resp Reports no additional complaints GI Reports no additional complaints Reports as per HPI Musc Reports no additional complaints Skin/Breast Reports system reviewed and no additional complaints, except as documented Neuro Reports no additional complaints Psych Reports no additional complaints Endo Reports no additional complaints Ej/Lymph Reports no additional complaints Aller/Immun Reports no additional complaints Physical Exam Const General: healthy appearing, no acute distress and well developed Orientation/consciousness: patient oriented x3 HEENT Head: Yes normocephalic and Yes atraumatic Eyes Conjunctivae: conjunctivae normal Neck Neck: Yes normal visual inspection Chest Chest palpation & inspection: normal inspection of the chest Resp Effort & Inspection: normal respiratory effort GI Inspection: Yes normal to inspection Palpation (GI): Soft to palpation Other: Prostate Exam: Mild to moderately enlarged, no suspicious hard nodules palpated Neuro General: patient oriented x3 Psych Appearance: grossly normal Affect: normal affect Assessment & Plan Assessment & Plan (1) Elevated PSA: Code(s): R97.20 - Elevated prostate specific antigen [PSA] Category: Medical (2) BPH loc w urin obs/LUTS: Code(s): N40.1 - Benign prostatic hyperplasia with lower urinary tract symptoms Category: Medical (3) Urinary frequency: Code(s): R35.0 - Frequency of micturition Category: Medical (4) Family history of prostate cancer: Code(s): Z80.42 - Family history of malignant neoplasm of prostate Category: Medical Plan Plan schedule prostate biopsy transrectal ultrasound guided, also we will check upper urinary tract with renal US. Patient Instructions: The patient had an opportunity to ask questions regarding treatment plan. The patient expressed understanding and agreement with the above treatment plan. The patient is aware they should contact our office by phone for worsening of their current condition or the appearance of new symptoms. Compliance is encouraged with any medications and followup testing that is ordered. It is a privilege to be allowed the opportunity to participate in the urologic care of your patient. If you have any questions or concerns regarding treatment for the above conditions please do not hesitate to contact me. The office telephone contact is [phone]. This note is constructed in part using voice recognition software. While every effort has been made to ensure accuracy telegraph operator errors may have been included. Yours sincerely, Avril Wagner MD Scribe Plan - Not visible on output: Patient was informed and verbally consented to the use of an ambient scribe for clinic note documentation during this visit. Coding Level of Care Code New Pt Level 4 (13896) Diagnoses Elevated PSA R97.20 BPH loc w urin obs/LUTS N40.1 Urinary frequency R35.0 Family history of prostate cancer Z80.42
== END 2025-03-31 14:24 | disposition home or self-care (01) ==
LOC: HO.HUSH 12:58
PROVIDERS: PCP Physician Assistant Medical; Visit Provider Urology
DX: R97.20 Elevated prostate specific antigen [PSA] (principal); N40.1 Benign prostatic hyperplasia with lower urinary tract symptoms; R35.0 Frequency of micturition; Z80.42 Family history of malignant neoplasm of prostate; Z13.9 Encounter for screening, unspecified
CPT/HCPCS: 99204

== ENCOUNTER → 2025-03-31 12:57 | Outpatient (BNVA) | payer MEDICARE, SELFPAY | PROVIDERS: PCP Physician Assistant Medical; Visit Provider Urology | DX: R97.20 Elevated prostate specific antigen [PSA] (principal); N40.1 Benign prostatic hyperplasia with lower urinary tract symptoms; R35.0 Frequency of micturition; Z80.42 Family history of malignant neoplasm of prostate | CPT/HCPCS: 51798; 81003; 99202 ==

== ENCOUNTER 2025-04-14 13:21 | Outpatient (REF) | payer MEDICARE, SELFPAY ==
--- NOTE | ~2025-04-14 | US_ITS ---
EXAMINATION: US KIDNEY BILATERAL HISTORY: N40.1 - Benign prostatic hyperplasia with lower urinary tract symptoms TECHNIQUE: Real-time grayscale ultrasound imaging of the kidneys was performed and images were reviewed. COMPARISON: There are no prior studies available for comparison. FINDINGS: Right kidney: The right kidney measures 11.0 x 5.3 x 5.9 cm. Renal parenchymal echotexture and thickness are normal. There are no masses. There is no hydronephrosis or renal calculi. Left Kidney: The left kidney measures 11.0 x 5.3 x 5.9 cm. Renal parenchymal echotexture and thickness are normal. There are no masses. There is no hydronephrosis or renal calculi. US/US renal BI IMPRESSION: Unremarkable renal ultrasound. Electronically signed by: Ryan Mckeon MD 04/14/2025 02:10 PM EDT
--- OUTSIDE RECORDS SUMMARY | 2025-04-14 13:28 | XMS_ITS | Encounter Summary ---
Author Organization [facility] Address [address] [facility] [address] [place] [address] Phone Care Team Providers Care Delicatessen Department Manager Name Role Phone Shannon Whipple MD Primary Care Provider [phone] Alicia Thornton Primary Care Provider [phone] Reason for Referral * MRI/CAT Scan - Closed Specialty Diagnoses / Procedures Referred By Contac t Referred To Contact Radiology Diagnoses Screening for lung cancer Procedures CT Chest Lung Cancer Screening CHG COMPUTED TOMOGRAPHY THORAX LW DOSE LNG CA SCR C- Karen Madrigal PA Phone: tel: fax: [email or web address]:[email or web address] Referral ID Status Reason Start Date Expiration Date Visits Re quested Visits Authorized [id number] Closed 06/06/2023 10/06/2023 1 1 Encounter Details Date Type Department Care Team (Latest Contact Info) Description 05/05/2023 Transcribe Orders Virtual Department [address] [place] [address] Karen Madrigal PA [address] [place] [address] [email or web address] Screening for lung cancer (Primary Dx) Social History Tobacco Use Types Packs/Day Years Used Date Smoking Tobacco: Former Cigarettes Q uit: 04/10/2016 Cigars Smokeless Tobacco: Former Alcohol Use Standard Drinks/Week Comments Yes 0 (1 standard drink = 0.6 oz pur e alcohol) 2-3 beers a day Education Answer Date Recorded Are you interested in more education? Not on lorri e 01/17/2023 Are you concerned about learning? Not on file 01/17/2023 No 01/17/2023 No 01/17/2023 Digital Access Answer Date Recorded No 02/15/2023 No 02/15/2023 Reliable internet access at home? Not on file 02/15/2023 Device with a working camera? Not on file Sex and Gender Information Value Date Recorded Sex Assigned at Male 07/23/2019 5:41 AM EDT Legal Sex Male 9:58 PM EDT Gender Identity Male 07/23/2019 5:41 AM EDT Sexual Orientation Straight 07/23/2019 5: 41 AM EDT documented as of this encounter Plan of Treatment Upcoming Encounters Date Type Department Care Team (Late st Contact Info) Description 10/11/2025 9:15 AM EST Office Visit [facility] [address] [place] [address] [address] [facility], [address] [place], [place] [id number] Jaguar Palacios DO [address] [place] [address] [place] [id number] [email or web address] documented as of this encounter Results * CT CHEST LUNG CANCER SCREENING ANNUAL (07/10/2023 4:45 PM EDT) Anatomical Region Laterality Modality Chest Computed Tomogra phy 07/11/2023 5:52 PM EDT Impressions 07/11/2023 10:32 PM EDT Lung-RADS Category: 2. The identified nodule/s have a very low likelihood of becoming a clinically active cancer, due to size and/or lack of growth. RECOMMENDATION: Continue CT Chest Lung Screening Annual exam if patient meets eligibility criteria. To order, please type CT CHEST SCREENING ([email or web address]) and select ANNUAL for patient program status. CITATION: Explanation of the Lung-RADS categories can be found at: [email or web address] Narrative 07/11/2023 10:[address] CHEST LUNG CANCER SCREENING ANNUAL TECHNIQUE: Low dose multidetector CT of the chest was performed without intravenous contrast using tailored dose modulation techniques. COMPARISON: Chest CT 03/21/2022. FINDINGS: Devices/Tubes/Lines: None. Lungs: Central airways are patent. Mild emphysema. 5 mm subpleural left lower lobe nodule on 4:209, stable. No new or enlarging pulmonary nodules. Pleura: Normal. No pleural effusion or pneumothorax. Mediastinum: Left atrial enlargement. Moderate to severe coronary artery calcifications. Aortic calcification. Lymph Nodes: Normal. No enlarged supraclavicular, axillary, mediastinal, or hilar lymph nodes. Upper Abdomen: Partially imaged upper abdomen demonstrates a benign segment 7 hepatic cyst, otherwise grossly unremarkable by low-dose, noncontrast technique. Chest Wall: Normal. No chest wall mass. Bones: Spine degenerative changes. No suspicious focal osseous lesion. Procedure Note Hakeem Grajeda MD - 07/11/2023 CT CHEST LUNG CANCER SCREENING ANNUAL TECHNIQUE: Low dose multidetector CT of the chest was performed withoutintravenous contrast using tailored dose modulation techniques. COMPARISON: Chest CT 03/21/2022. FINDINGS: Devices/Tubes/Lines: None. Lungs: Central airways are patent. Mild emphysema. 5 mm subpleural leftlower lobe nodule on 4:209, stable. No new or enlarging pulmonarynodules. Pleura: Normal. No pleural effusion or pneumothorax. Mediastinum: Left atrial enlargement. Moderate to severe coronary arterycalcifications. Aortic calcification. Lymph Nodes: Normal. No enlarged supraclavicular, axillary, mediastinal,or hilar lymph nodes. Upper Abdomen: Partially imaged upper abdomen demonstrates a benignsegment 7 hepatic cyst, otherwise grossly unremarkable by low-dose,noncontrast technique. Chest Wall: Normal. No chest wall mass. Bones: Spine degenerative changes. No suspicious focal osseous lesion. IMPRESSION: Lung-RADS Category: 2. The identified nodule/s have a very low likelihoodof becoming a clinically active cancer, due to size and/or lack ofgrowth. RECOMMENDATION: Continue CT Chest Lung Screening Annual exam if patient meets eligibilitycriteria. To order, please type CT CHEST SCREENING (CT.[email or web address]) and selectANNUAL for patient program status. CITATION: Explanation of the Lung-RADS categories can be found at:[email or web address] Karen LEWIS IMG CT CHEST Final Result documented in this encounter Visit Diagnoses Diagnosis Screening for lung cancer- Primary Screening for lung cancer documented in this encounter Care Teams Delicatessen Department Manager Relationship Specialty Start Date End Date Shannon Whipple MD [address] [place] [address] [email or web address] PCP - General 07/08/17 04/24/24 Alicia Thornton PA [address] [facility] [address] [place] [address] PCP - General Physician Laundry Housekeeper 04/25/24 documented as of this encounter Additional Source Comments The information contained in this document represents components of the legal health record. It is not the complete legal health record.[facility]
== END 2025-04-14 13:22 | disposition home or self-care (01) ==
LOC: HO.US 13:21
PROVIDERS: PCP Physician Assistant Medical; Visit Provider Urology
DX: N40.1 Benign prostatic hyperplasia with lower urinary tract symptoms (principal); R35.0 Frequency of micturition
CPT/HCPCS: 76775

== ENCOUNTER → 2025-04-14 13:24 | Outpatient (BNV) | payer MEDICARE, SELFPAY | PROVIDERS: PCP Physician Assistant Medical; Visit Provider Radiology Diagnostic Radiology | DX: N40.1 Benign prostatic hyperplasia with lower urinary tract symptoms (principal) | CPT/HCPCS: 76775 ==

== ENCOUNTER 2025-04-22 07:42 | Outpatient (REF) | payer MEDICARE, SELFPAY ==
--- OUTSIDE RECORDS SUMMARY | 2025-04-22 07:44 | XMS_ITS | Encounter Summary ---
Author Organization [facility] Address [address] [facility] [address] [place] [address] Phone Care Team Providers Care Charge Aide Name Role Phone Shannon Whipple MD Primary Care Provider [phone] Alicia Thornton Primary Care Provider [phone] Reason for Referral * MRI/CAT Scan - Closed Specialty Diagnoses / Procedures Referred By Contac t Referred To Contact Radiology Diagnoses Screening for lung cancer Procedures CT Chest Lung Cancer Screening CHG COMPUTED TOMOGRAPHY THORAX LW DOSE LNG CA SCR C- Karen Madrigal PA Phone: tel: fax: [email or web address]:[email or web address] Referral ID Status Reason Start Date Expiration Date Visits Re quested Visits Authorized [id number] Closed 06/06/2023 10/06/2023 1 1 Encounter Details Date Type Department Care Team (Latest Contact Info) Description 05/05/2023 Transcribe Orders Virtual Department [address] [place] [address] Karen aMdrigal PA [address] [place] [address] [email or web address] Screening for lung cancer (Primary Dx) [...] Description 10/11/2025 9:15 AM EST Office Visit [facility] [address] [place] [address] [address] [facility], [address] [place], [place] [id number] Jaguar Palacios DO [address] [place] [address] [place] [id number] [email or web address] documented as of this encounter Results * [...] cancer documented in this encounter Care Teams Charge Aide Relationship Specialty Start Date End Date Shannon Whipple MD [address] [place] [address] [email or web address] PCP - General 07/08/17 04/24/24 Alicia Thornton PA [address] [facility] [address] [place] [address] PCP - General Physician Crusher Tender 04/25/24 documented as of this encounter Additional Source Comments The information contained in this document represents components of the legal health record. It is not the complete legal health record.[facility]
[2025-04-22] MEDS: Lidocaine HCl 1 % MPF 5 ML VIAL 10 ML SUBCUT (08:36)
--- NOTE | 2025-04-22 08:46 | W.PM.OPN ---
Operative Note Operative Note Date of Service: 04/22/25 Narrative: PreOperative Diagnosis:? ? Elevated PSA Post Operative Diagnosis:??Elevated PSA Procedure:?1. Transrectal ultrasound guided biopsy of the prostate 12 core 2. Transrectal ultrasound measurement of prostate 3. Transrectal ultrasound guided pudendal nerve block Surgeon:?Dr Avril Wagner Anesthesia:? Local, Lidocaine plain 1% Indications for procedure: Elevated PSA-03/21/25---7.40 ng/mL Procedure: Preoperative antibiotics confirmed. After informed consent was verified the patient was placed on the procedure table in left lateral position. Patient identity confirmed. Safety pause time-out performed. Digital rectal exam performed to dilate rectal sphincter, iodine mixed with lubricant jelly 30 cc placed per rectum. Ultrasound probe was placed per rectum. The prostate was visualized. The prostate was measured width 5.10 cm, height 2.07 cm, length 4.14 cm with a volume of 22.9 mL. An ultrasound guided pudendal nerve block was performed using 10 cc of 1% lidocaine. A 12 core biopsy was performed from the left base, left mid, left apex and right base, mid, apex 2 biopsies from each section. The ultrasound probe was removed and digital palpation of the prostate for 1 minute for hemostasis was performed. The patient tolerated the procedure well. Complications: None
== END 2025-04-22 07:43 | disposition home or self-care (01) ==
LOC: HO.US 07:42
PROVIDERS: PCP Physician Assistant Medical; Visit Provider Urology
DX: R97.20 Elevated prostate specific antigen [PSA] (principal)
CPT/HCPCS: 55700; 76942; 88305; 88344; J2003

== ENCOUNTER → 2025-04-22 07:42 | Outpatient (BNV) | payer MEDICARE, SELFPAY | PROVIDERS: PCP Physician Assistant Medical; Visit Provider Urology | DX: R97.20 Elevated prostate specific antigen [PSA] (principal) | CPT/HCPCS: 55700; 76872; 76942 ==

== ENCOUNTER 2025-05-13 07:17 | Outpatient (AMB) | payer MEDICARE, SELFPAY ==
--- NOTE | 2025-05-13 07:17 | MHC.OFFVIS ---
Intake Visit Reasons: Prostate biopsy results Intake Note: patient presents today for follow up visit for prostate Biopsy results Urology Medication:None Blood Thinner:Apixaban Antibiotic Allergies:None Renal ULtrasound:04/14/2025 Biopsy done 04/22/2025 LAST PVR:25ml Roguer Required: No Accompanied by: Self / Same As Patient Allergies No Known Allergies Allergy (Verified 05/13/25 07:18) HPI Comments Details: 05/13/25--Moe is status post prostate biopsy on 04/22/2025. He is doing well post procedure. Pathology results--prostate adenocarcinoma group 1 and 2. The prostate was measured estimated volume of 22.9 mL. Renal ultrasound 04/14/2025 within normal limits. I have discussed referral for consultation to both radiation oncology and Urology Oncology for discussion on radical prostatectomy. The patient is interested in surgery. He has comorbidities including diabetes and is on blood thinner Eliquis. 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 History of Present Illness - The patient is a 69-year-old male presenting with elevated Prostate-Specific Antigen (PSA). - The PSA level was measured at 7.40 on 03/11/25. - The patient has a history of Benign Prostatic Hyperplasia (BPH) and underwent a procedure over 10 years ago - The patient reports nocturia, getting up several times at night, despite limiting fluid intake in the evening. - I have discussed PSA is a blood test, prostate specific antigen and is an enzyme secreted by the prostate gland. Elevated PSA may be due to multiple conditions including prostate inflammatory condition, enlarged prostate or prostate cancer. - There is a family history of prostate cancer, with the patient's father having been diagnosed and treated - prostate exam today-mild to moderately enlarged no suspicious hard nodules palpated - plan schedule prostate biopsy transrectal ultrasound guided, also we will check upper urinary tract with renal US. Results - PSA level: 7.40 on 03/11/25 [facility] Medical History Weight loss Urinary frequency Elevated alkaline phosphatase level Elevated ALT measurement Elevated AST (SGOT) Elevated PSA Anemia Type 2 diabetes mellitus with hemoglobin A1c goal of less than 7.0% Overweight with body mass index (BMI) of 27 to 27.9 in adult CVA (cerebral vascular accident) Atrial flutter Varicose veins of both lower extremities Rosacea Hyperlipidemia Emphysema/COPD Chronic venous hypertension Depression Anxiety Establishing care with new doctor, encounter for Surgical History History of colonoscopy Family History Father Lung cancer Mother No problems noted. Social History [facility] Alcohol intake: current Alcohol intake frequency: does not drink Patient Tobacco Use Status: Former Tobacco user service: No Current occupational status: retired Cognitive needs: No Hearing needs: No Vision needs: Yes (rx glasses) Review of Systems Const All systems reviewed & are unremarkable except as noted in HPI and below Reports no additional complaints Eyes Reports no additional complaints ENT Reports no additional complaints Card Reports no additional complaints Resp Reports no additional complaints GI Reports no additional complaints Reports as per HPI Musc Reports no additional complaints Skin/Breast Reports system reviewed and no additional complaints, except as documented Neuro Reports no additional complaints Psych Reports no additional complaints Endo Reports no additional complaints Ej/Lymph Reports no additional complaints Aller/Immun Reports no additional complaints Telehealth Telehealth Telehealth Platform: [employer] Location of provider rendering services: practice address Location of patient: address on file Patient Identification confirmed using: Name, : Yes Telehealth method: voice only Patient verbally consented to treatment: Yes Patient verbally consented to billing insurance company: Yes Patient informed of any privacy concerns related to visit: Yes Minutes spent on Phone/Video with Pt.: 14 Results Reviewed Results Reviewed: Collected: 04/22/25 Location: [facility] Received: 04/22/25 Diagnosis A: Left base lateral: Prostatic adenocarcinoma, Gail score 6 (3+3), grade group 1, 2 discontinuous foci measuring 4 mm in aggregate, involving 25% of the tissue and spanning 37.5% of the core, 1 of 2 cores involved, and high-grade prostatic intraepithelial neoplasia. B: Left base medial: Prostatic adenocarcinoma, [place] score 7 (3+4), grade group 2, 10% pattern 4, 2 discontinuous foci measuring 3.5 mm in aggregate, involving 18% of the tissue and spanning 20% of the core, 1 of 2 cores involved. C: Left mid lateral: Prostatic adenocarcinoma, [place] score 6 (3+3), grade group 1, 0.5 mm, 3% of core. D: Left mid medial: Prostatic adenocarcinoma, Gail score 6 (3+3), grade group 1, 0.2 mm, 1% of core. E: Left apex lateral: Prostatic adenocarcinoma, Gail score 7 (3+4), grade group 2, 20% pattern 4, 1.5 mm, 9% of core and high-grade prostatic intraepithelial neoplasia. F: Left apex medial: Benign prostatic tissue. G: Right base lateral: Prostatic adenocarcinoma, Gail score 7 (3+4), grade group 2, 35% pattern 4, 2 discontinuous foci measuring 7 mm in aggregate, involving 41% of the tissue and spanning 50% of the core, and high-grade prostatic intraepithelial neoplasia. H: Right base medial: Prostatic adenocarcinoma, [place] score 7 (3+4), grade group 2, 40% pattern 4, 7 mm, 32% of core and high-grade prostatic intraepithelial neoplasia. I: Right mid lateral: Prostatic adenocarcinoma, Gail score 7 (3+4), grade group 2, 30% pattern 4, 7 mm, 35% of core and high-grade prostatic intraepithelial neoplasia. J: Right mid medial: Prostatic adenocarcinoma, [place] score 7 (3+4), grade group 2, 30% pattern 4, 7 mm, 50% of core and high-grade prostatic intraepithelial neoplasia. K: Right apex lateral: Prostatic adenocarcinoma, [place] score 7 (3+4), grade group 2, 15% pattern 4, 1.5 mm, 9% of core. L: Right apex medial: Prostatic adenocarcinoma, [place] score 7 (3+4), grade group 2, 0.2 mm, 40% pattern 4, 1% of core. Patient: Moe Castro Age/Sex: 69/M MR#: [id number] Page 1 of 4 Surgical Pathology [id number] Data synopsis - Prostate needle biopsy Histologic type: Prostatic adenocarcinoma, acinar type Histologic grade: Point Lookout score: 7 (3+4) (left base medial, left apex lateral, right base lateral and medial, right mid lateral and medial, and right apex lateral and medial) 6 (3+3) (left base lateral, left mid lateral and medial) % of pattern 4: 26% % of pattern 5: 0% Grade group: 2 and 1 Tumor quantitation: Number cores positive: 11 Total number of cores: 14 % of tissue involved: 19% Periprostatic fat inv.: Not identified Seminal vesicle inv.: Not identified Perineural inv.: Not identified Lymphatic and/or vascular invasion: Not identified Clinical History Elevated PSA Microscopic Description Sections show multiple needle cores of prostate gland parenchyma which are variably involved by prostatic adenocarcinoma ranging from 1-50% of the cores. The tumor is predominantly well-formed glands (pattern 3) with a lesser amount of poorly-formed and fused glands (pattern 4) with focal cribriform structures (B). The malignant cells have mildly pleomorphic nuclei and relatively distinct nucleoli. There is no definitive evidence of perineural invasion, lymphovascular invasion, or extraprostatic extension. PIN4 multiplex stain is performed on A, D and L. There is positive P504S staining and negative HMWkeratin and p63 in invasive tumor, supporting the morphologic diagnoses. P504S, HMWkeratin and p63 are positive in prostatic intraepithelial neoplasia (Part A). Controls stain appropriately. Material Received A: Left base lateral B: Left base medial C: Left mid lateral D: Left mid medial E: Left apex lateral F: Left apex medial G: Right base lateral H: Right base medial I: Right mid lateral J: Right mid medial K: Right apex lateral L: Right apex medial Patient: Moe Castro Age/Sex: 69/M MR#: [id number] Page 2 of 4 Surgical Pathology [id number] Gross Description Received in 12 parts. A. Received in formalin labeled ?left base lateral? are 2 cylindrical portions of white soft tissue measuring 0.6 and 1.0 centimeter in length both with a diameter of 0.1 centimeter which are entirely submitted for microscopic examination, 2 pieces in cassette A. B. Received in formalin labeled ?left base medial? are 2 cylindrical portions of white soft tissue measuring 0.7 and 1.3 centimeter in length both with a diameter of 0.1 centimeter which are entirely submitted for microscopic examination, 2 pieces in cassette B. C. Received in formalin labeled ?left mid lateral? is a cylindrical portion of white soft tissue measuring 1.9 centimeter in length with a diameter of 0.1 centimeter which is entirely submitted for microscopic examination, 1 piece in cassette C. D. Received in formalin labeled ?left mid medial? is a cylindrical portion of white soft tissue measuring 1.7 centimeter in length with a diameter of 0.1 centimeter which is entirely submitted for microscopic examination, 1 piece in cassette D. E. Received in formalin labeled ?left apex lateral? is a cylindrical portion of white soft tissue measuring 1.7 centimeter in length with a diameter of 0.1 centimeter which is entirely submitted for microscopic examination, 1 piece in cassette E. F. Received in formalin labeled ?left apex medial? is a cylindrical portion of white soft tissue measuring 1.6 centimeter in length with a diameter of 0.1 centimeter which is entirely submitted for microscopic examination, 1 piece in cassette F. G. Received in formalin labeled ?right base lateral? is a cylindrical portion of white soft tissue measuring 1.7 centimeter in length with a diameter of 0.1 centimeter which is entirely submitted for microscopic examination, 1 piece in cassette G. H. Received in formalin labeled ?right base medial? is a cylindrical portion of white soft tissue measuring 2.2 centimeter in length with a diameter of 0.1 centimeter which is entirely submitted for microscopic examination, 1 piece in cassette H. I. Received in formalin labeled ?right mid lateral? is a cylindrical portion of white soft tissue measuring 2.0 centimeter in length with a diameter of 0.1 centimeter which is entirely submitted for microscopic examination, 1 piece in cassette I. J. Received in formalin labeled ?right mid medial? is a cylindrical portion of white soft tissue measuring 1.4 centimeter in length with a diameter of 0.1 centimeter which is entirely submitted for microscopic examination, 1 piece in cassette J. K. Received in formalin labeled ?right apex lateral? is a cylindrical portion of white soft tissue measuring 1.7 centimeter in length with a diameter of 0.1 centimeter which is entirely submitted for microscopic examination, 1 piece in cassette K. L. Received in formalin labeled ?right apex medial? is a cylindrical portion of white soft tissue measuring Patient: Moe Castro Age/Sex: 69/M MR#: [id number] Page 3 of 4 Surgical Pathology [id number] 1.5 centimeter in length with a diameter of 0.1 centimeter which is entirely submitted for microscopic examination, 1 piece in cassette L. ([facility]) This case was reviewed intradepartmentally. Results given to Dr. Wagner by secure text by Dr. Reece 04/27/2025 at 09:17 am. Special stains ordered and performed: Multiplex PIN4 stain (HMW keratin, p63, and P504S) on A1, D1 and L1. Copies To Avril Wagner MD [facility] [address] [place] [address] [address] [place] [address] [email or web address] Martha Benedict PA-C [facility] Adult Primary Care,[address], [address] [place] [address] NOTE: Unless otherwise stated, all tissue is formalin-fixed and paraffin-embedded. Some or all of the immunohistochemical tests reported herein may have been developed and their performance characteristics determined by [facility]. They have not been cleared or approved by the U.S. Food and Drug Administration (FDA). However, the FDA has determined that such clearance or approval is not necessary. This laboratory is certified under the Clinical Laboratory Improvement Amendments of 1988 (CLIA) as qualified to perform high complexity clinical laboratory testing. Electronically Signed By: Samantha Reece 04/27/25 0918 Patient: Moe Castro Age/Sex: 69/M MR#: [id number] Assessment & Plan Assessment & Plan (1) Elevated PSA: Code(s): R97.20 - Elevated prostate specific antigen [PSA] Category: Medical (2) BPH loc w urin obs/LUTS: Code(s): N40.1 - Benign prostatic hyperplasia with lower urinary tract symptoms Category: Medical (3) Urinary frequency: Code(s): R35.0 - Frequency of micturition Category: Medical (4) Family history of prostate cancer: Code(s): Z80.42 - Family history of malignant neoplasm of prostate Category: Medical (5) Adenocarcinoma of prostate: Code(s): C61 - Malignant neoplasm of prostate Category: Medical Plan I have discussed referral for consultation to both radiation oncology and Urology Oncology for discussion on radical prostatectomy. The patient is interested in surgery. He has comorbidities including diabetes and is on blood thinner Eliquis. Orders: Referrals Urology Referral C61 - Malignant neoplasm of prostate Radiation Oncology Referral C61 - Malignant neoplasm of prostate Patient Instructions: The patient had an opportunity to ask questions regarding treatment plan. The patient expressed understanding and agreement with the above treatment plan. The patient is aware they should contact our office by phone for worsening of their current condition or the appearance of new symptoms. Compliance is encouraged with any medications and followup testing that is ordered. It is a privilege to be allowed the opportunity to participate in the urologic care of your patient. If you have any questions or concerns regarding treatment for the above conditions please do not hesitate to contact me. The office telephone contact is [phone]. This note is constructed in part using voice recognition software. While every effort has been made to ensure accuracy data examination clerk errors may have been included. Yours sincerely, Avril Wagner MD Coding Level of Care Code Tele Est Pt Level 4 (16784) Diagnoses Elevated PSA R97.20 BPH loc w urin obs/LUTS N40.1 Urinary frequency R35.0 Family history of prostate cancer Z80.42 Adenocarcinoma of prostate C61
--- OUTSIDE RECORDS SUMMARY | 2025-05-13 07:18 | XMS_ITS | Encounter Summary ---
Author Organization [facility] Address [address] [place] [address] Phone Care Team Providers Care Modern And Contemporary Art Curator Name Role Phone Shannon Whipple MD Primary Care Provider [phone] Alicia Thornton Primary Care Provider [phone] Reason for Referral * MRI/CAT Scan - Closed Specialty Diagnoses / Procedures Referred By Contac t Referred To Contact Radiology Diagnoses Screening for lung cancer Procedures CT Chest Lung Cancer Screening CHG COMPUTED TOMOGRAPHY THORAX LW DOSE LNG CA SCR C- Karen Madrigal PA Phone: tel: fax: [email or web address] Referral ID Status Reason Start Date Expiration Date Visits Re quested Visits Authorized [id number] Closed 06/06/2023 10/06/2023 1 1 Encounter Details Date Type Department Care Team (Latest Contact Info) Description 05/05/2023 Transcribe Orders Virtual Department [address] [place] [address] Karen Madrigal PA [address] [place] [address] [email or web address] Screening for lung cancer (Primary Dx) [...] Description 10/11/2025 9:15 AM EST Office Visit [facility] [address] [place] [address] [address] [facility], [address] [place], [place] [id number] Jaguar Palacios DO [address] [place] [address] [place] [address] [email or web address] documented as of this encounter Results * [...] cancer documented in this encounter Care Teams Modern And Contemporary Art Curator Relationship Specialty Start Date End Date Sahnnon Whipple MD [address] [place] [address] [email or web address] PCP - General 07/08/17 04/24/24 Alicia Thornton PA [address] [facility] [address] [place] [address] PCP - General Physician Liquid Natural Gas Plant Operator 04/25/24 documented as of this encounter Additional Source Comments The information contained in this document represents components of the legal health record. It is not the complete legal health record.[facility]
== END 2025-05-13 13:43 | disposition home or self-care (01) ==
LOC: HO.HUSH 07:17
PROVIDERS: PCP Physician Assistant Medical; Visit Provider Urology
DX: R97.20 Elevated prostate specific antigen [PSA] (principal); N40.1 Benign prostatic hyperplasia with lower urinary tract symptoms; R35.0 Frequency of micturition; Z80.42 Family history of malignant neoplasm of prostate; C61 Malignant neoplasm of prostate
CPT/HCPCS: 99214

== ENCOUNTER 2025-05-16 11:56 | Outpatient (REF) | payer MEDICARE, SELFPAY ==
--- NOTE | ~2025-05-16 | CT_ITS ---
EXAMINATION: CT ABDOMEN AND PELVIS WITH CONTRAST CLINICAL INFORMATION: Frequency of micturition. COMPARISON: No prior CT. TECHNIQUE: Multidetector volumetric images were obtained from the superior aspect of the liver through the pubic symphysis following administration 85 mL of Omnipaque 350 intravenous contrast. Sagittal and coronal reformatted images were obtained on the technologist's workstation. Oral contrast: Yes This CT examination was performed using dose optimization techniques as appropriate, variously including the following: *Automated exposure control *Adjustment of mA and/or kV according to patient size (this includes techniques or standardized protocols for targeted exams where dose is matched to indication/reason for exam; i.e. extremities or head) *Use of iterative reconstruction technique FINDINGS: LUNG BASES: Lung bases demonstrate mild dependent atelectasis bilaterally. No effusions. Normal heart size. LIVER, GALLBLADDER, AND BILIARY TREE: The liver is normal in size, shape, and attenuation. No suspicious focal hepatic lesion or biliary ductal dilatation is present. There is a 2.1 cm simple cyst in segment 8. The gallbladder is unremarkable with no evidence of radiopaque gallstones, gallbladder wall thickening, or obvious pericholecystic inflammatory changes. PANCREAS: Mildly atrophic with a calcification in the pancreatic body. SPLEEN: Unremarkable. ADRENAL GLANDS: Unremarkable. KIDNEYS AND URETERS: The kidneys are normal in size, shape, and attenuation. No hydronephrosis, hydroureter, or calculi seen. No perinephric stranding. There is a 3 mm nonobstructing calculus in the right kidney upper pole. BLADDER: Normal in appearance. No wall thickening, calculi, or mass. GASTROINTESTINAL TRACT: The stomach, duodenum, and small bowel are normal in appearance. Normal appendix visualized. The colon is normal in course and caliber. There is moderate diverticulosis of the sigmoid, without evidence of wall thickening or acute inflammation. There is no rectal abnormality. ABDOMINAL WALL: No significant hernia is appreciated. LYMPH NODES: No abnormal lymphadenopathy is present. VASCULAR: There is heavy atheromatous calcification of the aorta and iliac arteries. There is no aneurysm. PELVIC VISCERA: Mild prostate enlargement with a possible central TURP defect. There are dystrophic prosthetic calcifications present. OSSEOUS STRUCTURES: No suspicious lytic or blastic bone lesion. There is a chronic appearing inferior endplate compression deformity of L4 with approximately 30% loss of height. There are mild degenerative changes throughout the spine, and bilateral hip joints. CT/CT abdomen pelvis w IV con IMPRESSION: 1. There are no acute findings in the abdomen or pelvis. 2. There is a 3 mm nonobstructing calculus in the right kidney upper pole. Kidneys and ureters are otherwise normal in appearance. 3. There is no abnormality of the urinary bladder. There is mild prostate enlargement. 4. There are incidental findings as described in the body of report Electronically signed by: Manuel Braga MD 05/16/2025 03:43 PM EDT
--- OUTSIDE RECORDS SUMMARY | 2025-05-16 13:23 | XMS_ITS | Encounter Summary ---
Author Organization [facility] Address [address] [facility] [address] [place] [address] Phone Care Team Providers Care Engraver Tire Mold Name Role Phone Shannon Whipple MD Primary Care Provider [phone] Alicia Thornton Primary Care Provider [phone] Reason for Referral * MRI/CAT Scan - Closed Specialty Diagnoses / Procedures Referred By Contac t Referred To Contact Radiology Diagnoses Screening for lung cancer Procedures CT Chest Lung Cancer Screening CHG COMPUTED TOMOGRAPHY THORAX LW DOSE LNG CA SCR C- Karen Madrigal PA Phone: tel: fax: [email or web address] Referral ID Status Reason Start Date Expiration Date Visits Re quested Visits Authorized [id number] Closed 06/06/2023 10/06/2023 1 1 Encounter Details Date Type Department Care Team (Latest Contact Info) Description 05/05/2023 Transcribe Orders Virtual Department [address] [place] [address] aKren Madrigal PA [address] [place] [address] [email or web address] Screening for lung cancer (Primary Dx) [...] Description 10/11/2025 9:15 AM EST Office Visit [facility] [address] [place] [address] [address] [facility], [address] [place], [place] [phone] Jaguar Palacios DO [address] [place] [address] [place] [address] [email or web address] documented as of this encounter Results * [...] cancer documented in this encounter Care Teams Engraver Tire Mold Relationship Specialty Start Date End Date Shannon Whipple MD [address] [place] [address] [email or web address] PCP - General 07/08/17 04/24/24 Alicia Thornton PA [address] [facility] [address] [place] [address] PCP - General Physician Fiber Optics Engineer 04/25/24 documented as of this encounter Additional Source Comments The information contained in this document represents components of the legal health record. It is not the complete legal health record.[facility]
[2025-05-16] MEDS: iohexoL 350 MG/ML 100 ML INFUS..BTL 85 ML IV (15:11)
[2025-05-16] MEDS: Barium Sulfate Oral (Vanilla) 450 ML ORAL.SUSP 900 ML PO (15:13)
[2025-05-17 08:43] LABS: Creatinine POC 0.7 mg/dL (0.5-1.4); GFR POC > 60
== END 2025-05-16 11:57 | disposition home or self-care (01) ==
LOC: HO.CT 11:56
PROVIDERS: PCP Physician Assistant Medical; Visit Provider Physician Assistant Medical
DX: R35.0 Frequency of micturition (principal); R63.4 Abnormal weight loss; R97.20 Elevated prostate specific antigen [PSA]
CPT/HCPCS: 74177; 82565; Q9967

== ENCOUNTER → 2025-05-16 11:59 | Outpatient (BNV) | payer MEDICARE, SELFPAY | PROVIDERS: PCP Physician Assistant Medical; Visit Provider Radiology Diagnostic Radiology | DX: N20.0 Calculus of kidney (principal) | CPT/HCPCS: 74177 ==

== ENCOUNTER 2025-05-31 11:07 | Outpatient (REF) | payer MEDICARE, SELFPAY ==
[2025-05-31 13:18] LABS: Microalbum/Creatinine Ratio Ur 45.9 ug/mg cr (<30)
--- OUTSIDE RECORDS SUMMARY | 2025-05-31 13:28 | XMS_ITS | Encounter Summary ---
Author Organization [facility] Address [address] [facility] [address] [place] [address] Phone Care Team Providers Care Leather Whitener Name Role Phone Shannon Whipple MD Primary Care Provider Alicia Thornton Primary Care Provider [phone] Encounter Details Date Type Department Care Team (Late st Contact Info) Description 05/05/2023 Procedure Pass [facility], Ct Scan - [address] [id number] Social History Tobacco Use Types Packs/Day Years [...] Care Team (Late st Contact Info) Description 06/15/2025 11:00 AM EDT Office Visit [facility] Rad Onc [address] [place] [address] Bret Sharp MD [address] [place] [address] [email or web address] 10/11/2025 9:15 AM EST Office Visit [facility] [address] [facility] [address] [facility] 3rd Floor, [address] [place] [address] Jaguar Palacios DO [address] [facility] [address] [place] [address] [email or web address] documented as of this encounter Visit Diagnoses Not on filedocumented in this encounter Care Teams Leather Whitener Relationship Specialty Start Date End Date Shannon Whipple MD [address] [place] [address] PCP - General 07/08/17 04/24/24 Alicia Thornton PA [address] [facility] 1 [place] [address] PCP - General Physician Potato Inspector 04/25/24 documented as of this encounter Additional Source Comments The information contained in this document represents components of the legal health record. It is not the complete legal health record.[facility]
--- OUTSIDE RECORDS SUMMARY | 2025-05-31 13:28 | XMS_ITS | Encounter Summary ---
Author Organization [facility] Address [address] [facility] [address] [place] [address] Phone Care Team Providers Care User Interface Designer Name Role Phone Shannon Whipple MD Primary Care Provider [phone] Shannon Whipple MD Unavailable [phone] Alicia Thornton Primary Care Provider [phone] Encounter Details Date Type Department Care Team (Latest Contact Info) Description 06/25/2018 Transcribe Orders [facility] Laboratory 30 [place] [address] Art Christie MD [address] [place] [address], [address] [address] [email or web address] BPH with urinary obstruction (Primary Dx) Social History Tobacco Use Types Packs/Day Years Used Date Smoking Tobacco: Former Cigarettes Q uit: 04/10/2016 Smokeless Tobacco: Former Sex and Gender Information Value Date Recorded Sex Assigned at Male 07/23/2019 5:41 AM EDT Legal Sex Male 9:58 PM EDT Gender Identity Male 07/23/2019 5:41 AM EDT Sexual Orientation Straight 07/23/2019 5: 41 AM EDT documented as of this encounter Plan of Treatment Upcoming Encounters Date Type Department Care Team (Late st Contact Info) Description 06/15/2025 11:00 AM EDT Office Visit [facility] [address] [place] [address] Bret Sharp MD 30 [place] [address] [email or web address] 10/11/2025 9:15 AM EST Office Visit [facility] 22 [facility] 3rd Floor, [address] [place] [address] Jaguar Palacios DO 22 [facility] [address] [place] [address] [email or web address] documented as of this encounter Results * PSA (screening) (06/25/2018 7:06 AM EDT) PSA 2.83 0 - 4.00 ng/mL [facility] Blood 06/25/2018 7:06 AM EDT 06/25/2018 7:08 AM EDT us Art Christie MD LAB BLOOD ORDERABLES Final Resu lt [facility] 30 [place] [address] documented in this encounter Visit Diagnoses Diagnosis BPH with urinary obstruction- Primary Hypertrophy of prostate with urinary obstruction and other lower urinary tract symptoms (LUTS) documented in this encounter Additional Health Concerns Infection Onset Date Last Indicated Resolved Time CoV-Exposed Comment:Recent close contact 04/03/2020 04/03/2020 04/17/2020 4:55 AM EDT documented as of this encounter Care Teams User Interface Designer Relationship Specialty Start Date End Date Shannon Whipple MD 15 [place] [address] [email or web address] PCP - General 07/08/17 04/24/24 Alicia Thornton PA [address] [place] [address] PCP - General Physician Supervisory Historian 04/25/24 Shannon Whipple MD [address] [place] [address] [email or web address] Insurance Assigned Provider 12/26/18 11/25/20 documented as of this encounter Additional Source Comments The information contained in this document represents components of the legal health record. It is not the complete legal health record.[facility]
--- OUTSIDE RECORDS SUMMARY | 2025-05-31 13:28 | XMS_ITS | Encounter Summary ---
Author Organization [facility] Address [address] [facility] [address] [place] [address] Phone Care Team Providers Care Machine Operator Replanter Name Role Phone Shannon Whipple MD Primary Care Provider [phone] Alicia Thornton Primary Care Provider [phone] Reason for Referral * MRI/CAT Scan - Closed Specialty Diagnoses / Procedures Referred By Contac t Referred To Contact Radiology Diagnoses Screening for lung cancer Procedures CT Chest Lung Cancer Screening CHG COMPUTED TOMOGRAPHY THORAX LW DOSE LNG CA SCR C- Karen Madrigal PA Phone: tel: fax: [email or web address] Referral ID Status Reason Start Date Expiration Date Visits Re quested Visits Authorized [id number] Closed 06/06/2023 10/06/2023 1 1 Encounter Details Date Type Department Care Team (Latest Contact Info) Description 05/05/2023 Transcribe Orders Virtual Department 30 [place] [address] Karen Madrigal PA [address] [place] [address] [email or web address] Screening for lung cancer (Primary Dx) [...] Description 06/15/2025 11:00 AM EDT Office Visit [facility] Rad Onc [address] [place] [address] Bret Sharp MD 30 [place] [address] [email or web address] 10/11/2025 9:15 AM EST Office Visit [facility] [address] [place] [address] 3rd Floor, [address] [place] [address] Jaguar Palacios DO 22 [facility] [address] [place] [address] [email or web address] documented as of this encounter Results * [...] cancer documented in this encounter Care Teams Machine Operator Replanter Relationship Specialty Start Date End Date Shannon Whipple MD [address] [place] [email or web address] PCP - General 07/08/17 04/24/24 Alicia Thornton PA [address] [place] [address] PCP - General Physician Sales Relationship Manager 04/25/24 documented as of this encounter Additional Source Comments The information contained in this document represents components of the legal health record. It is not the complete legal health record.[facility]
--- OUTSIDE RECORDS SUMMARY | 2025-05-31 13:28 | XMS_ITS | Encounter Summary ---
Author Organization [facility] Address [address] [facility] [address] [place] [address] Phone Care Team Providers Care News Department Intern Name Role Phone Shannon Whipple MD Primary Care Provider [phone] Alicia Thornton Primary Care Provider [phone] Encounter Details Date Type Department Care Team (Late st Contact Info) Description 03/08/2022 Procedure Pass [facility], Ct Scan - [address] [address] Social History Tobacco Use Types Packs/Day Years Used Date Smoking Tobacco: Former Cigarettes Q uit: 04/10/2016 Cigars Smokeless Tobacco: Former Alcohol Use Standard Drinks/Week Comments Yes 0 (1 standard drink = 0.6 oz pur e alcohol) 2-3 beers a day Sex and Gender Information Value Date Recorded Sex Assigned at Male 07/23/2019 5:41 AM EDT Legal Sex Male 9:58 PM EDT Gender Identity Male 07/23/2019 5:41 AM EDT Sexual Orientation Straight 07/23/2019 5: 41 AM EDT documented as of this encounter Plan of Treatment Upcoming Encounters Date Type Department Care Team (Late st Contact Info) Description 06/15/2025 11:00 AM EDT Office Visit [facility] Rad Onc 30 [place] [address] Bret Sharp MD 30 [place] [address] [email or web address] 10/11/2025 9:15 AM EST Office Visit [facility] [address] [facility] 3rd Floor, [address] [place] [address] Jaguar Palacios DO 22 [facility] [address] [place] [id number] [email or web address] documented as of this encounter Visit Diagnoses Not on filedocumented in this encounter Care Teams News Department Intern Relationship Specialty Start Date End Date Shannon Whipple MD [address] [place] [address] [email or web address] PCP - General 07/08/17 04/24/24 Alicia Thornton PA [address] [place] [address] 1 [place] [address] PCP - General Physician Water Quality Assistant 04/25/24 documented as of this encounter Additional Source Comments The information contained in this document represents components of the legal health record. It is not the complete legal health record.[facility]
--- OUTSIDE RECORDS SUMMARY | 2025-05-31 13:28 | XMS_ITS | Encounter Summary ---
Author Organization [facility] Address [address] [facility] [address] [place] [address] Phone Care Team Providers Care Forest Technician Name Role Phone Shannon Whipple MD Primary Care Provider Alicia Thornton Primary Care Provider Encounter Details Date Type Department Care Team (Latest Contact Info) Description 03/08/2022 Transcribe Orders Virtual Department 30 [place] [address] Karen Madrigal PA [address] [place] [address] [email or web address] Right foot pain (Primary Dx) Social History Tobacco Use Types [...] Description 06/15/2025 11:00 AM EDT Office [place] [facility] 30 [place] [address] Bret Sharp MD 30 [place] [address] [email or web address] 10/11/2025 9:15 AM EST Office Visit [facility] 22 [facility] 3rd Floor, [address] [place] [address] Jaguar Palacios DO 22 [facility] [address] [place], [place] [phone] [email or web address] documented as of this encounter Results * XR FOOT 3 OR MORE VIEWS (RIGHT) (03/14/2022 8:29 AM EDT) Anatomical Region Laterality Modality Foot Right Computed Radiogr aphy 03/14/2022 11:2 6 AM EDT Impressions 03/14/2022 11:27 AM EDT No acute bony abnormality. POS - [id number] Narrative 03/14/2022 11:27 AM EDT COMPARISON: 03/27/2021 FINDINGS: AP, lateral, and oblique views disclose no fracture, subluxation, or other significant interval change in the appearance of the visualized regional skeletal structures. Chronic plantar and posterior calcaneal spurring again demonstrated. Procedure Note Zi Gregory MD - 03/14/2022 COMPARISON: 03/27/2021 FINDINGS: AP, lateral, and oblique views disclose no fracture, subluxation, or othersignificant interval change in the appearance of the visualized regionalskeletal structures. Chronic plantar and posterior calcaneal spurringagain demonstrated. IMPRESSION: No acute bony abnormality. POS - [id number] Karen LEWIS IMG XR LOWER EXTREMITY Final Re sult * XR ANKLE 3 OR MORE VIEWS (RIGHT) (03/14/2022 8:26 AM EDT) Anatomical Region Laterality Modality Ankle Right Computed Radiogr aphy 03/14/2022 11:2 5 AM EDT Impressions 03/14/2022 11:26 AM EDT Probable joint effusion without acute bony abnormality apparent. POS - [id number] Narrative 03/14/2022 11:26 AM EDT COMPARISON: None FINDINGS: Frontal, lateral, and oblique views disclose no fracture, subluxation, or other acute bony abnormality. No significant arthritic change. Soft tissue density ventral to the tibiotalar joint on the lateral view suggest underlying joint effusion. Procedure Note Zi Gregory MD - 03/14/2022 COMPARISON: None FINDINGS: Frontal, lateral, and oblique views disclose no fracture, subluxation, orother acute bony abnormality. No significant arthritic change. Soft tissuedensity ventral to the tibiotalar joint on the lateral view suggestunderlying joint effusion. IMPRESSION: Probable joint effusion without acute bony abnormality apparent. POS - [id number] Karen LEWIS IMG XR LOWER EXTREMITY Final Re sult documented in this encounter Visit Diagnoses Diagnosis Right foot pain- Primary Pain in soft tissues of limb Right foot pain Pain in soft tissues of limb Right foot pain Pain in soft tissues of limb documented in this encounter Care Teams Forest Technician Relationship Specialty Start Date End Date Shannon Whipple MD [address] [place] [email or web address] PCP - General 07/08/17 04/24/24 Alicia Thornton PA [address] [facility] [address] [place] [address] PCP - General Physician Biofuels Product Development Manager 04/25/24 documented as of this encounter Additional Source Comments The information contained in this document represents components of the legal health record. It is not the complete legal health record.[facility]
--- OUTSIDE RECORDS SUMMARY | 2025-05-31 13:28 | XMS_ITS | Encounter Summary ---
Author Organization [facility] Address [address] [facility] [address] [place] [address] Phone Care Team Providers Care Area Director Of Home Health Sales Name Role Phone Sahnnon Whipple MD Primary Care Provider Shannon Whipple MD Unavailable [phone] Alicia Thornton Primary Care Provider Encounter Details Date Type Department Care Team (Late st Contact Info) Description 11/13/2018 Ancillary Orders Virtual Department 30 [place] [address] Karen Madrigal PA [address] [place] [address] [email or web address] Social History Tobacco Use Types Packs/Day Years [...] 06/15/2025 11:00 AM EDT Office Visit [facility] 30 [place] [address] Bret Sharp MD 30 [place] [address] [email or web address] 10/11/2025 9:15 AM EST Office Visit [facility] 22 [facility] 3rd Floor, [address] [place] [address] Jaguar Palacios DO 22 [facility] [address] [place] [address] [email or web address] documented as of this encounter Visit Diagnoses Not on filedocumented in this encounter Additional Health Concerns Infection Onset Date Last Indicated Resolved Time CoV-Exposed Comment:Recent close contact 04/03/2020 04/03/2020 04/17/2020 4:55 AM EDT documented as of this encounter Care Teams Area Director Of Home Health Sales Relationship Specialty Start Date End Date Shannon Whipple MD 15 [place] [address] [email or web address] PCP - General 07/08/17 04/24/24 Alicia Thornton PA [address] [facility] [address] [place] [address] PCP - General Physician Net Fisher 04/25/24 Shannon Whipple MD 15 [place] [address] [email or web address] Insurance Assigned Provider 12/26/18 11/25/20 documented as of this encounter Additional Source Comments The information contained in this document represents components of the legal health record. It is not the complete legal health record.[facility]
--- OUTSIDE RECORDS SUMMARY | 2025-05-31 13:28 | XMS_ITS | Encounter Summary ---
Author Organization [facility] Address [address] [facility] [address] [place] [address] Phone Care Team Providers Care Box Blank Machine Operator Name Role Phone Shannon Whipple MD Primary Care Provider [phone] hSannon Whipple MD Unavailable [phone] Alicia Thornton Primary Care Provider Encounter Details Date Type Department Care Team (Late st Contact Info) Description 11/06/2018 Ancillary Orders [facility], X-Ray [address] [address] Karen Madrigal PA [address] [place] [address] [email or web address] Social History Tobacco Use Types Packs/Day Years [...] Description 06/15/2025 11:00 AM EDT Office Visit [facility] Onc 30 [place] [address] Bret Sharp MD 30 [place] [address] [email or web address] 10/11/2025 9:15 AM EST Office Visit [facility] 22 [facility] 3rd Floor, [address] [place] [address] Jaguar Palacios DO 22 [facility] [address] [place], [place] [phone] [email or web address] documented as of this encounter Results * XR CHEST PA AND LATERAL 2 VIEWS (11/06/2018 3:19 PM EST) Anatomical Region Laterality Modality Chest Radiographic Jennifer ging 11/06/2018 3:22 PM EST Impressions 11/06/2018 3:23 PM EST No acute pulmonary process or explanation for cough is seen. S/S: Cough POS - [id number] Narrative 11/06/2018 3:23 PM EST COMPARISON: Chest x-ray 03/21/2015 FINDINGS: PA and lateral imaging of the chest is obtained. The heart size is normal. The lung perdomo are clear. No pneumothorax or pleural fluid is noted. The aortic contour is unchanged. There are moderately prominent degenerative changes in the thoracic spine. Procedure Note Golden Rashid MD - 11/06/2018 COMPARISON: Chest x-ray 03/21/2015 FINDINGS: PA and lateral imaging of the chest is obtained. The heart size is normal. The lung perdomo are clear. No pneumothorax or pleural fluid is noted. The aortic contour is unchanged. There are moderately prominent degenerative changes in the thoracicspine. IMPRESSION: No acute pulmonary process or explanation for cough is seen. S/S: Cough POS - [id number] Karen LEWIS IMG XR CHEST Final Result documented in this encounter Visit Diagnoses Diagnosis Cough Cough documented in this encounter Additional Health Concerns Infection Onset Date Last Indicated Resolved Time CoV-Exposed Comment:Recent close contact 04/03/2020 04/03/2020 04/17/2020 4:55 AM EDT documented as of this encounter Care Teams Box Blank Machine Operator Relationship Specialty Start Date End Date Shannon Whipple MD 15 [place] [address] PCP - General 07/08/17 04/24/24 Alicia Thornton PA [address] [facility] [address] [place] [address] PCP - General Physician Assistant Paralegal 04/25/24 Shannon Whipple MD 15 [place] [address] [email or web address] Insurance Assigned Provider 12/26/18 11/25/20 documented as of this encounter Additional Source Comments The information contained in this document represents components of the legal health record. It is not the complete legal health record.[facility]
--- OUTSIDE RECORDS SUMMARY | 2025-05-31 13:28 | XMS_ITS | Encounter Summary ---
Author Organization [facility] Address [address] [facility] [address] [place] [address] Phone Care Team Providers Care Cable Technician Name Role Phone Shannon Whipple MD Primary Care Provider [phone] Alicia Thornton Primary Care Provider [phone] Reason for Referral * MRI/CAT Scan - Closed Specialty Diagnoses / Procedures Referred By Contac t Referred To Contact Radiology Diagnoses Screening for lung cancer Procedures CT Chest Lung Cancer Screening Karen Madrigal PA Phone: tel: fax: mailto:[email or web address] Referral ID Status Reason Start Date Expiration Date Visits Re quested Visits Authorized [id number] Closed 03/08/2022 03/08/2023 1 1 Encounter Details Date Type Department Care Team (Latest Contact Info) Description 03/08/2022 Transcribe Orders Virtual Department 30 [place] [address] Karen Madrigal PA [address] [place] [address] [email or web address] Screening for lung cancer (Primary Dx) [...] Description 06/15/2025 11:00 AM EDT Office Visit [facility] Rad Onc [address] [place] [address] Bret Sharp MD [address] [place] [address] [email or web address] 10/11/2025 9:15 AM EST Office Visit [facility] [address] [place] [address] 3rd Floor, [address] [place] [address] Jaguar Palacios DO [address] [place] [address] [place] [address] [phone] [email or web address] documented as of this encounter Results * CT CHEST LUNG CANCER SCREENING ANNUAL (03/21/2022 4:09 PM EDT) Anatomical Region Laterality Modality Chest Computed Tomogra phy 03/22/2022 10:0 8 AM EDT Impressions 03/22/2022 10:18 AM EDT No suspicious pulmonary nodules demonstrated. Lung-RADS Category: 2/S. The identified solid nodule has a very low likelihood of becoming a clinically active cancer, due to size and/or lack of growth. There is a moderate amount of coronary calcifications. RECOMMENDATIONS: Continue CT Chest Lung Screening Annual exam if patient meets eligibility criteria. To order, please type CT CHEST SCREENING (CT.TH.[email or web address]) and select ANNUAL for patient program status. Recommendation for potentially significant incidental finding: follow up as clinically indicated. Explanation of the Lung-RADS categories can be found at: [email or web address] Narrative 03/22/2022 10:[address] CHEST LUNG CANCER SCREENING ANNUAL History: Lung cancer screening. Current smoker, approximately 30 pack year smoking history TECHNIQUE: Low dose multidetector CT of the chest was performed without intravenous contrast using tailored dose modulation techniques. COMPARISON: CT chest 03/27/2021 FINDINGS: Devices/Tubes/Lines: None. Lungs: Redemonstration of mild right apical paraseptal emphysema. Similar appearance of a 5 mm subpleural left lower lobe rounded opacity (image 204). Bibasilar linear atelectasis. No new pulmonary nodules or consolidation. The airways are clear. Pleura: No pleural effusion or pneumothorax. Mediastinum: Atherosclerotic calcification of the aorta and major aortic branch vessels. No thyroid nodules. There is moderate to severe coronary artery atherosclerosis. The heart is normal in size. There is no pericardial effusion. Lymph Nodes: No enlarged supraclavicular, axillary, mediastinal, or hilar lymph nodes. Upper Abdomen: Redemonstration of a hypodense lesion at the hepatic dome in keeping with hepatic cyst. Absence of intravenous contrast and low dose technique limits sensitivity for detecting small lesions, solid organ and vascular findings. No abnormality detected in the visualized upper abdomen. Chest Wall: Normal. No chest wall mass. Bones: Multilevel degenerative changes of the thoracic spine with bridging anterior osteophyte formation. No suspicious lytic or blastic lesions. Procedure Note Luli Watson MD - 03/22/2022 CT CHEST LUNG CANCER SCREENING ANNUAL History: Lung cancer screening. Current smoker, approximately 30 pack yearsmoking history TECHNIQUE: Low dose multidetector CT of the chest was performed withoutintravenous contrast using tailored dose modulation techniques. COMPARISON: CT chest 03/27/2021 FINDINGS: Devices/Tubes/Lines: None. Lungs: Redemonstration of mild right apical paraseptal emphysema. Similarappearance of a 5 mm subpleural left lower lobe rounded opacity ([id number]). Bibasilar linear atelectasis. No new pulmonary nodules orconsolidation. The airways are clear. Pleura: No pleural effusion or pneumothorax. Mediastinum: Atherosclerotic calcification of the aorta and major aorticbranch vessels. No thyroid nodules. There is moderate to severe coronaryartery atherosclerosis. The heart is normal in size. There is nopericardial effusion. Lymph Nodes: No enlarged supraclavicular, axillary, mediastinal, or hilarlymph nodes. Upper Abdomen: Redemonstration of a hypodense lesion at the hepatic domein keeping with hepatic cyst. Absence of intravenous contrast and low dosetechnique limits sensitivity for detecting small lesions, solid organ andvascular findings. No abnormality detected in the visualized upperabdomen. Chest Wall: Normal. No chest wall mass. Bones: Multilevel degenerative changes of the thoracic spine with bridginganterior osteophyte formation. No suspicious lytic or blastic lesions. IMPRESSION: No suspicious pulmonary nodules demonstrated. Lung-RADS Category: 2/S. The identified solid nodule has a very lowlikelihood of becoming a clinically active cancer, due to size and/or lackof growth. There is a moderate amount of coronary calcifications. RECOMMENDATIONS: Continue CT Chest Lung Screening Annual exam if patient meets eligibilitycriteria. To order, please type CT CHEST SCREENING (CT.TH.CHESTSCR) and selectANNUAL for patient program status. Recommendation for potentially significant incidental finding: follow upas clinically indicated. Explanation of the Lung-RADS categories can be found at:[email or web address] Karen [facility] [place] [place] CT CHEST Final Result documented in this encounter Visit Diagnoses Diagnosis Screening for lung cancer- Primary Screening for lung cancer documented in this encounter Care Teams Cable Technician Relationship Specialty Start Date End Date Shannon Whipple MD [address] [place] [phone] [email or web address] PCP - General 07/08/17 04/24/24 Alicia Thornton PA [address] [facility] 1 [place] [address] PCP - General Physician Pneumatic Tester 04/25/24 documented as of this encounter Additional Source Comments The information contained in this document represents components of the legal health record. It is not the complete legal health record.[facility]
--- OUTSIDE RECORDS SUMMARY | 2025-05-31 13:28 | XMS_ITS | Encounter Summary ---
Author Organization [facility] Address [address] [facility] [address] [place] [address] Phone Care Team Providers Care Sales Coach Name Role Phone Shannon Whipple MD Primary Care Provider [phone] Shannon Whipple MD Unavailable [phone] Alicia Thornton Primary Care Provider [phone] Encounter Details Date Type Department Care Team (Late st Contact Info) Description 07/31/2018 Procedure Pass OR Admitting Dept - Virtual Department [address] [place] [address] Social History Tobacco Use Types Packs/Day Years [...] 06/15/2025 11:00 AM EDT Office [place] [facility] Rad Onc 30 [place] [address] Bret Sharp MD 30 [place] [address] [email or web address] 10/11/2025 9:15 AM EST Office Visit [facility] [address] [facility] 3rd Floor, [address] [place] [address] Jaguar Palacios DO [address] [facility] [address] [place] [address] documented as of this encounter Visit Diagnoses Not on filedocumented in this encounter Additional Health Concerns Infection Onset Date Last Indicated Resolved Time CoV-Exposed Comment:Recent close contact 04/03/2020 04/03/2020 04/17/2020 4:55 AM EDT documented as of this encounter Care Teams Sales Coach Relationship Specialty Start Date End Date Shannon Whipple MD [address] [place] [address] [email or web address] PCP - General 07/08/17 04/24/24 Alicia Thornton PA [address] [facility] [address] [place] [address] PCP - General Physician Irs Agent 04/25/24 Shannon Whipple MD [address] [place] [address] [email or web address] Insurance Assigned Provider 12/26/18 11/25/20 documented as of this encounter Additional Source Comments The information contained in this document represents components of the legal health record. It is not the complete legal health record.[facility]
--- OUTSIDE RECORDS SUMMARY | 2025-05-31 13:29 | XMS_ITS | Encounter Summary ---
Author Organization [facility] Address [address] [facility] [address] [place] [address] Phone Care Team Providers Care Paint Pourer Name Role Phone Shannon Whipple MD Primary Care Provider Shannon Whipple MD Unavailable [phone] Alicia Thornton Primary Care Provider [phone] Encounter Details Date Type Department Care Team (Latest Contact Info) Description 10/27/2019 Transcribe Orders Virtual Department 30 [place] [address] Karen Madrigal PA [address] [place] [address] [email or web address] Encounter for screening for lung cancer (Primary Dx) Social History [...] Description 06/15/2025 11:00 AM EDT Office Visit [facility] Rad Onc 30 [place] [address] Bret Sharp MD 30 [place] [address] [email or web address] 10/11/2025 9:15 AM EST Office Visit [facility] [address] [facility] 3rd Floor, [address] [place] [address] Jaguar Palacios DO [address] [facility] [address] [place] [address] [email or web address] documented as of this encounter Visit Diagnoses Diagnosis Encounter for screening for lung cancer- Primary documented in this encounter Additional Health Concerns Infection Onset Date Last Indicated Resolved Time CoV-Exposed Comment:Recent close contact 04/03/2020 04/03/2020 04/17/2020 4:55 AM EDT documented as of this encounter Care Teams Paint Pourer Relationship Specialty Start Date End Date Shannon Whipple MD 15 [place] [address] [email or web address] PCP - General 07/08/17 04/24/24 Alicai Thornton PA [address] [address] PCP - General Physician Synchronizer 04/25/24 Shannon Whippel MD 15 [place] [address] [email or web address] Insurance Assigned Provider 12/26/18 11/25/20 documented as of this encounter Additional Source Comments The information contained in this document represents components of the legal health record. It is not the complete legal health record.[facility]
--- OUTSIDE RECORDS SUMMARY | 2025-05-31 13:29 | XMS_ITS | Encounter Summary ---
Author Organization [facility] Address [address] [place] [address] Phone Care Team Providers Care Isotope Technologist Name Role Phone Alicia Thornton Primary Care Provider [phone] Reason for Visit * Reason Onset Date Comments Atrial Fibrillation 03/03/2025 Encounter Details Date Type Department Care Team (Late st Contact Info) Description 03/03/2025 Telephone [facility] [address] [facility] 3rd Floor, [address] [place] [address] Jaguar Palacios DO 22 [facility] [address] [place] [phone] [email or web address] Atrial Fibrillation Social History Tobacco Use Types Packs/Day Years [...] with a working camera? Not on file Intimate Partner Violence Answer Date R ecorded Are you denied basic needs s uch as food, clothing, or medical care? No 01/05/2025 In the past 12 months have y ou been in a relationship with a person who hurts, threatens, or tries to control you? No 01/05/2025 Are you denied basic needs s uch as food, clothing, or medical care? No 01/05/2025 In the past 12 months have y ou been in a relationship with a person who hurts, threatens, or tries to control you? No 01/05/2025 Sex and Gender Information Value Date Recorded Sex Assigned at Male 07/23/2019 5:41 AM EDT Legal Sex Male 9:58 PM EDT Gender Identity Male 07/23/2019 5:41 AM EDT Sexual Orientation Straight 07/23/2019 5: 41 AM EDT documented as of this encounter Progress Notes * Vimal Rodriguez RN - 03/03/2025 1:47 PM EDT Received notification from [employer] 7 day monitor reporting atrial fibrillation, rate 100 bpm on 03/03 at 11:54 AM,at the time of his monitor hookup. He was seen by Dr. Palacios s/p TIA last April and s/p hospitalization at [facility] on 01/05 for Atrial flutter. He is on Eliquis, and was started on Metoprolol 50mg QD documented in this encounter Plan of Treatment Upcoming Encounters Date Type Department Care Team (Late st Contact Info) Description 06/15/2025 11:00 AM EDT Office [facility] Rad Onc 30 [place] [address] Bret Sharp MD 30 [place] [address] [email or web address] 10/11/2025 9:15 AM EST Office Visit [facility] [address] [place] [address] 3rd Floor, [address] [place] [address] Jaguar Palacios, DO 22 [facility] [address] [place] [address] [email or web address] documented as of this encounter Visit Diagnoses Not on filedocumented in this encounter Care Teams Isotope Technologist Relationship Specialty Start Date End Date Alicia Thornton PA [address] [place] [address] PCP - General Physician Newsroom Intern 04/25/24 documented as of this encounter Additional Source Comments The information contained in this document represents components of the legal health record. It is not the complete legal health record.[facility]
--- OUTSIDE RECORDS SUMMARY | 2025-05-31 13:29 | XMS_ITS | Encounter Summary ---
Author Organization [facility] Address [address] [facility] [address] [place] [address] Phone Care Team Providers Care Aged Or Disabled Care Worker Name Role Phone Shannon Whipple MD Primary Care Provider Shannon Whipple MD Unavailable [phone] Alicia Thornton Primary Care Provider [phone] Encounter Details Date Type Department Care Team (Latest Contact Info) Description 03/09/2020 Transcribe Orders [facility] Laboratory 30 [place] [address] Karen Madrigal PA [address] [place] [address] [email or web address] Hyperlipidemia, unspecified hyperlipidemia type (Primary Dx) Social History Tobacco Use Types [...] Description 06/15/2025 11:00 AM EDT Office Visit [facility] Rad Onc 30 [place] [address] Bret Sharp MD 30 [place] [address] [email or web address] 10/11/2025 9:15 AM EST Office Visit [facility] [address] [facility] 3rd Floor, [address] [place] [address] Jaguar Palacios DO [address] [facility] [address] [place] [address] [email or web address] documented as of this encounter Results * (ABNORMAL) Aspartate aminotransferase (AST) (03/09/2020 8:21 AM EDT) AST 63(H) 0 - 37 U/L [facility] Blood 03/09/2020 8:21 AM EDT 03/09/2020 8:24 AM EDT us Karen LEW[facility] LAB BLOOD ORDERABLES Final Resu lt Performing Organization Address City/[facility]/ZIP Co de Phone Number [address] [address] * (ABNORMAL) Alanine aminotransferase (ALT) (03/09/2020 8:21 AM EDT) ALT 55(H) 0 - 40 U/L [facility] Blood 03/09/2020 8:21 AM EDT 03/09/2020 8:24 AM EDT us Karen [facility] LAB BLOOD ORDERABLES Final Resu lt Performing Organization Address City/[facility]/ZIP Co de Phone Number [address] [address] * (ABNORMAL) Lipid panel (03/09/2020 8:21 AM EDT) HDL 70 mg/dL [facility] Comment: Interpretation <40 mg/dL: Low HDL cholesterol (major risk factor for CHD) Greater than or equal to 60 mg/dL: High HDL cholesterol ( negative risk factor for CHD) HDL - cholesterol is affected by a number of factors, e.g. smoking, excerise, hormones, sex and age. CHOLESTEROL 113 0 - 240 mg/dL [facility] TRIGLYCERIDES 77 30 - 160 mg/dL [facility] LDL 28(L) 50 - 129 mg/dL [facility] Comment: LDL levels in terms of risk for coronary heart disease: <100 mg/dL: Optimal 100-129 mg/dL: Near or above optimal 130-159 mg/dL: Borderline high 160-189 mg/dL: High >190 mg/dL: Very High CARDIAC RISK RATIO 1.6(L) 3.4 - 5.0 C [facility] Blood 03/09/2020 8:21 AM EDT 03/09/2020 8:24 AM EDT us Karen [facility] LAB BLOOD ORDERABLES Final Resu lt [facility] 30 [place] [address] documented in this encounter Visit Diagnoses Diagnosis Hyperlipidemia, unspecified hyperlipidemia type- Primary documented in this encounter Additional Health Concerns Infection Onset Date Last Indicated Resolved Time CoV-Exposed Comment:Recent close contact 04/03/2020 04/03/2020 04/17/2020 4:55 AM EDT documented as of this encounter Care Teams Aged Or Disabled Care Worker Relationship Specialty Start Date End Date Shannon Whipple MD 15 [place] [address] [email or web address] PCP - General 07/08/17 04/24/24 Alicia Thornton PA [address] [place] [address] PCP - General Physician Filter Plant Supervisor 04/25/24 Shannon Whipple MD [address] [place] [address] @[email or web address] Insurance Assigned Provider 12/26/18 11/25/20 documented as of this encounter Additional Source Comments The information contained in this document represents components of the legal health record. It is not the complete legal health record.[facility]
--- OUTSIDE RECORDS SUMMARY | 2025-05-31 13:29 | XMS_ITS | Encounter Summary ---
Author Organization [facility] Address [address] [place] [address] Phone Care Team Providers Care Facilities Painter Name Role Phone Alicia Thornton Primary Care Provider [phone] Encounter Details Date Type Department Care Team (Late st Contact Info) Description 02/11/2025 Procedure Pass [facility] Endoscopy Admitting Dept Virtual Department 30 [place] [address] Social History Tobacco Use Types Packs/Day Years [...] Description 06/15/2025 11:00 AM EDT Office [place] [facility] Rad Onc [address] [place] [address] Bret Sharp MD 30 [place] [address] [email or web address] 10/11/2025 9:15 AM EST Office Visit [facility] 22 [facility] 3rd Floor, [address] [place] [address] Jaguar Palacios DO 22 [facility] [address] [place] [address] [email or web address] documented as of this encounter Visit Diagnoses Not on filedocumented in this encounter Care Teams Facilities Painter Relationship Specialty Start Date End Date Alicia Thornton PA [address] [place] [address] PCP - General Physician Diesel Engineer 04/25/24 documented as of this encounter Additional Source Comments The information contained in this document represents components of the legal health record. It is not the complete legal health record.[facility]
--- OUTSIDE RECORDS SUMMARY | 2025-05-31 13:29 | XMS_ITS | Encounter Summary ---
Author Organization [facility] Address [address] [facility] [address] [place] [address] Phone Care Team Providers Care Decision Analyst Name Role Phone Shannon Whipple MD Primary Care Provider Shannon Whipple MD Unavailable Alicia Thornton Primary Care Provider [phone] Encounter Details Date Type Department Care Team (Latest Contact Info) Description 04/03/2020 Transcribe Orders Virtual Department 30 [place] [address] Karen Madrigal PA [address] [place] [address] [email or web address] Exposure to SARS virus (Primary Dx) Social History Tobacco Use Types [...] Description 06/15/2025 11:00 AM EDT Office [place] [facility] Onc 30 [place] [address] Bret Sharp MD 30 [place] [address] [email or web address] 10/11/2025 9:15 AM EST Office Visit [facility] [address] [facility] 3rd Floor, [address] [place] [address] Jaguar Palacios DO 22 [facility] [address] [place] [address] [email or web address] documented as of this encounter Results * COVID-19 PCR Order (04/03/2020 4:42 PM EDT) Specimen Source NASOPHARYNGEAL SWAB (EGG CRATER) [facility] COVID Testing Status Sent to [facility] Other 04/03/2020 4:42 PM EDT 04/03/2020 6:18 PM EDT us Karen LEWIS BODY FLUIDS AND STOOLS ORDERABL ES Final Result [facility] 30 [place] [address] documented in this encounter Visit Diagnoses Diagnosis Exposure to SARS virus- Primary Exposure to SARS-associated coronavirus documented in this encounter Additional Health Concerns Infection Onset Date Last Indicated Resolved Time CoV-Exposed Comment:Recent close contact 04/03/2020 04/03/2020 04/17/2020 4:55 AM EDT documented as of this encounter Care Teams Decision Analyst Relationship Specialty Start Date End Date Shannon Whipple MD [address] [place] [address] [email or web address] PCP - General 07/08/17 04/24/24 lAicia Thornton PA [address] [facility] [address] [place] [address] PCP - General Physician Gas Regulator Repairer Helper 04/25/24 Shannon Whipple MD 15 [place] [address] @[email or web address] Insurance Assigned Provider 12/26/18 11/25/20 documented as of this encounter Additional Source Comments The information contained in this document represents components of the legal health record. It is not the complete legal health record.[facility]
--- OUTSIDE RECORDS SUMMARY | 2025-05-31 13:29 | XMS_ITS | Encounter Summary ---
Author Organization [facility] Address [address] [employer] [facility] [address] [place] [address] Phone Care Team Providers Care Cafe Worker Name Role Phone Shannon Whipple MD Primary Care Provider Alicia Thornton Primary Care Provider [phone] Encounter Details Date Type Department Care Team (Late st Contact Info) Description 04/24/2024 Procedure Pass [facility], Ct Scan - [address] [id number] Social History Tobacco Use Types Packs/Day Years [...] as food, clothing, or medical care? No 04/24/2024 In the past 12 months have y ou been in a relationship with a person who hurts, threatens, or tries to control you? No 04/24/2024 Are you denied basic needs s uch as food, clothing, or medical care? No 04/24/2024 In the past 12 months have y ou been in a relationship with a person who hurts, threatens, or tries to control you? No 04/24/2024 Sex and Gender Information Value Date Recorded Sex Assigned at Male 07/23/2019 5:41 AM EDT Legal Sex Male 9:58 PM EDT Gender Identity Male 07/23/2019 5:41 AM EDT Sexual Orientation Straight 07/23/2019 5: 41 AM EDT documented as of this encounter Functional Status * Calculated C-SSRS Risk Score (Lifetime/Recent) Answer Date of Assessment Author No Risk Indicated 04/24/2024 5:30 PM EDT Ellen Gutierrez RN * [place] Suicide Severity Rating Scale (Screener/Recent Self-Report) Question Answer Date of Assessment Author 1. Wish to be (Past 1 Month) No 04/24/2024 5:30 PM EDT Ellen Gutierrez RN 2. Non-Specific Active Suicidal Thoughts (Past 1 Month) No 04/24/2024 5:30 PM EDT Ellen Gutierrez RN 6. Suicidal Behavior (Lifetime) No 04/24/2024 5:30 PM EDT Ellen Gutierrez RN documented as of this encounter Plan of Treatment Upcoming Encounters Date Type Department Care Team (Late st Contact Info) Description 06/15/2025 11:00 AM EDT Office Visit [facility] Rad Onc [address] [place] [address] Bret Sharp MD [address] [place] [address] [email or web address] 10/11/2025 9:15 AM EST Office Visit [facility] [address] [place] [address] 3rd Floor, [address] [place] [address] [phone] Jaguar Palacios DO [address] [place] [address] documented as of this encounter Visit Diagnoses Not on filedocumented in this encounter Care Teams Cafe Worker Relationship Specialty Start Date End Date Shannon Whipple MD 15 [place] [address] [email or web address] PCP - General 07/08/17 04/24/24 Alicia Thornton PA [address] [facility] [address] [place] [address] PCP - General Physician Citrix Administrator 04/25/24 documented as of this encounter Additional Source Comments The information contained in this document represents components of the legal health record. It is not the complete legal health record.[facility]
--- OUTSIDE RECORDS SUMMARY | 2025-05-31 13:29 | XMS_ITS | Encounter Summary ---
Author Organization [facility] Address [address] [facility] [address] [place] [address] Phone Care Team Providers Care Medical Sales Specialist Name Role Phone Shannon Whipple MD Primary Care Provider Shannon Whipple MD Unavailable [phone] Alicia Thornton Primary Care Provider [phone] Encounter Details Date Type Department Care Team (Latest Contact Info) Description 03/30/2019 Transcribe Orders [facility] Laboratory [address] [place] [address] Karen Madrigal PA [address] [place] [address] [email or web address] Elevated LFTs (Primary Dx) Social History Tobacco Use Types [...] [facility] Rad Onc [address] [place] [address] Bret Sharp MD 30 [place] [address] [email or web address] 10/11/2025 9:15 AM EST Office Visit [facility] [address] [facility] 3rd Floor, [address] [place] [address] Jaguar Palacios DO 22 [facility] [address] [place] [address] [email or web address] documented as of this encounter Results * (ABNORMAL) LFTs (hepatic panel) (03/30/2019 10:30 AM EDT) ALKALINE PHOSPHATASE 32(L) 39 - 117 U/L [facility] TOTAL BILIRUBIN 0.3 0.0 - 1.2 mg/dL [facility] DIRECT BILIRUBIN <0.2 0 - 0.3 mg/dL [facility] Bilirubin (Indirect) NOT CALCULATED 0 - 1.5 mg/dL [facility] AST 39(H) 0 - 37 U/L [facility] ALT 40 0 - 40 U/L [facility] TOTAL PROTEIN 7.2 6.5 - 8.0 g/dL [facility] ALBUMIN 3.9 3.9 - 4.8 g/dL [facility] GLOBULIN 3.3 1 - 4.8 g/dL [facility] A/G Ratio 1.18 1.00 - 4.80 RATIO [facility] Blood 03/30/2019 10:3 0 AM EDT 03/30/2019 10:33 AM EDT us Karen LEWIS LAB BLOOD ORDERABLES Final Resu lt [facility] 30 [place] [address] documented in this encounter Visit Diagnoses Diagnosis Elevated LFTs- Primary Other abnormal blood chemistry documented in this encounter Additional Health Concerns Infection Onset Date Last Indicated Resolved Time CoV-Exposed Comment:Recent close contact 04/03/2020 04/03/2020 04/17/2020 4:55 AM EDT documented as of this encounter Care Teams Medical Sales Specialist Relationship Specialty Start Date End Date Shannon Whipple MD [address] [place] [address] [email or web address] PCP - General 07/08/17 04/24/24 Alicia Thornton PA 470 [facility] [address] [place] [address] PCP - General Physician Tile Layer 04/25/24 Shannon Whipple MD [address] [place] [address] [email or web address] Insurance Assigned Provider 12/26/18 11/25/20 documented as of this encounter Additional Source Comments The information contained in this document represents components of the legal health record. It is not the complete legal health record.[facility]
--- OUTSIDE RECORDS SUMMARY | 2025-05-31 13:29 | XMS_ITS | Encounter Summary ---
Author Organization [facility] Address [address] [facility] [address] [place] [address] Phone Care Team Providers Care Activities Volunteer Name Role Phone Shannon Whipple MD Primary Care Provider Alicia Thornton Primary Care Provider Encounter Details Date Type Department Care Team (Latest Contact Info) Description 03/12/2021 Transcribe Orders [facility] [address] [place] [address] Karen Madrigal PA [address] [place] [address] [email or web address] Elevated glucose (Primary Dx); Encounter for general adult medical examination with abnormal findings; Hyperlipidemia, unspecified hyperlipidemia type; Benign prostatic hyperplasia, unspecified whether lower urinary tract symptoms present Social History Tobacco Use Types Packs/Day Years [...] Description 06/15/2025 11:00 AM EDT Office Visit [facility] Rad Onc 30 [place] [address] Bret Sharp MD 30 [place] [address] [email or web address] 10/11/2025 9:15 AM EST Office Visit [facility] [address] [facility] 3rd Floor, [address] [place] [address] Jaguar Palacios DO 22 [facility] [address] [place], [place] [phone] [email or web address] documented as of this encounter Results * CBC and differential (03/12/2021 8:11 AM EDT) WBC 5.47 4.00 - 11.00 K/uL [facility] RBC 4.46 3.90 - 5.69 M/uL [facility] HGB 14.3 12.4 - 17.3 g/dL [facility] HCT 42.0 37.0 - 51.0 % [facility] PLT 230 140 - 430 K/uL [facility] MCV 94.2 78.0 - 97.0 fL [facility] MCH 32.1 25.0 - 33.0 pg [facility] MCHC 34.0 32.0 - 36.0 g/dL [facility] RDW 12.9 11.0 - 15.0 % [facility] MPV 10.0 8.4 - 12.8 fl [facility] NRBC 0.00 0 /100 WBCs [facility] ABSOLUTE NRBC 0.00 0 K/uL [facility] DIFF METHOD Auto [facility] NEUTS 54.4 43.0 - 75.0 % [facility] LYMPHS 29.8 18.2 - 47.4 % [facility] MONOS 10.6 4.00 - 11.00 % [facility] EOS 3.7 0.0 - 8.0 % [facility] BASOS 1.1 0.0 - 2.0 % [facility] Granulocytes, immature (%) 0.4 0.0 - 0.9 % [facility] ABSOLUTE NEUTS 2.98 1.80 - 7.70 K/uL [facility] ABSOLUTE LYMPHS 1.63 1.00 - 3.10 K/uL [facility] ABSOLUTE MONOS 0.58 0.20 - 0.80 K/uL [facility] ABSOLUTE EOS 0.20 0.00 - 0.80 K/uL [facility] ABSOLUTE BASOS 0.06 0.00 - 0.09 K/uL [facility] Granulocytes, immature 0.02 0.00 - 0.05 K/uL [facility] Blood 03/12/2021 8:11 AM EDT 03/12/2021 8:13 AM EDT [facility] LAB BLOOD ORDERABLES Final Resu lt Performing Organization Address City/[facility]/ZIP Co de Phone Number [address] [address] * PSA (screening) (03/12/2021 8:11 AM EDT) PSA 2.22 0 - 4.00 ng/mL [facility] Blood 03/12/2021 8:11 AM EDT 03/12/2021 8:14 AM EDT [facility] LAB BLOOD ORDERABLES Final Resu lt Performing Organization Address City/[facility]/ZIP Co de Phone Number [address] [address] * (ABNORMAL) Hemoglobin A1c (03/12/2021 8:11 AM EDT) HEMOGLOBIN A1C 6.0(H) 4.3 - 5.8 % [facility] Blood 03/12/2021 8:11 AM EDT 03/12/2021 8:13 AM EDT Karen LEWIS LAB BLOOD ORDERABLES Final Resu lt Performing Organization Address City/[facility]/ZIP Co de Phone Number [address] [address] * (ABNORMAL) Lipid panel (03/12/2021 8:11 AM EDT) HDL 62 mg/dL [facility] Comment: Interpretation <40 mg/dL: Low HDL cholesterol (major risk factor for CHD) Greater than or equal to 60 mg/dL: High HDL cholesterol ( negative risk factor for CHD) HDL - cholesterol is affected by a number of factors, e.g. smoking, excerise, hormones, sex and age. CHOLESTEROL 141 0 - 240 mg/dL [facility] TRIGLYCERIDES 142 30 - 160 mg/dL [facility] LDL 51 50 - 129 mg/dL [facility] Comment: LDL levels in terms of risk for coronary heart disease: <100 mg/dL: Optimal 100-129 mg/dL: Near or above optimal 130-159 mg/dL: Borderline high 160-189 mg/dL: High >190 mg/dL: Very High CARDIAC RISK RATIO 2.3(L) 3.4 - 5.0 C [facility] Blood 03/12/2021 8:11 AM EDT 03/12/2021 8:13 AM EDT us Karen LEWIS LAB BLOOD ORDERABLES Final Resu lt [address] [address] * (ABNORMAL) Comprehensive metabolic panel (03/12/2021 8:11 AM EDT) SODIUM 139 133 - 146 mmol/L [facility] POTASSIUM 3.9 3.3 - 5.1 mmol/L [facility] CHLORIDE 103 96 - 108 mmol/L [facility] CO2 22 21 - 35 mmol/L [facility] BUN 15 6 - 19 mg/dL [facility] CREATININE 0.60 0.5 - 1.5 mg/dL [facility] GLUCOSE 92 70 - 99 mg/dL [facility] ALBUMIN 3.9 3.9 - 4.8 g/dL [facility] TOTAL PROTEIN 7.1 6.5 - 8.0 g/dL [facility] CALCIUM 9.1 8.4 - 10.3 mg/dL [facility] ALKALINE PHOSPHATASE 27(L) 39 - 117 U/L [facility] TOTAL BILIRUBIN 0.4 0.0 - 1.2 mg/dL [facility] AST 35 0 - 37 U/L [facility] ALT 29 0 - 40 U/L [facility] GLOBULIN 3.2 1 - 4.8 g/dL [facility] EGFR 104 >59 mL/min/1.7 3m2 [facility] Comment:Estimated glomerular filtration rate calculated using the CKD-EPI equation. ANION GAP 18 10 - 20 mmol/L [facility] Blood 03/12/2021 8:11 AM EDT 03/12/2021 8:13 AM EDT us Karen LEWIS LAB BLOOD ORDERABLES Final Resu lt [facility] [address] [place] [address] documented in this encounter Visit Diagnoses Diagnosis Elevated glucose- Primary Other abnormal glucose Encounter for general adult medical examination with abnormal findings Hyperlipidemia, unspecified hyperlipidemia type Benign prostatic hyperplasia, unspecified whether lower urinary tract symptoms present documented in this encounter Care Teams Activities Volunteer Relationship Specialty Start Date End Date Shannon Whipple MD [address] [place] [address] PCP - General 07/08/17 04/24/24 Alicia Thornton PA [address] [facility] 1 [place] [address] PCP - General Physician Electrician Locomotive 04/25/24 documented as of this encounter Additional Source Comments The information contained in this document represents components of the legal health record. It is not the complete legal health record.[facility]
--- OUTSIDE RECORDS SUMMARY | 2025-05-31 13:29 | XMS_ITS | Encounter Summary ---
Author Organization [facility] Address [address] [employer] [facility] [address] [place] [address] Phone Care Team Providers Care Transfer And Pumphouse Operator Chief Name Role Phone Shannon Whipple MD Primary Care Provider Alicia Thornton Primary Care Provider [phone] Encounter Details Date Type Department Care Team (Late st Contact Info) Description 04/24/2024 Procedure Pass [facility], [address] [address] Social History Tobacco Use Types Packs/Day Years [...] 5:30 PM EDT Ellen Gutierrez RN * [place] Suicide Severity Rating Scale (Screener/Recent Self-Report) Question Answer Date of Assessment Author 1. Wish to be (Past 1 Month) No 04/24/2024 5:30 PM EDT Ellen Gutierrez RN 2. Non-Specific Active Suicidal Thoughts (Past 1 Month) No 04/24/2024 5:30 PM EDT Ellen Guiterrez RN 6. Suicidal Behavior (Lifetime) No 04/24/2024 5:30 PM EDT Ellen Gutierrez RN documented as of this encounter Plan of Treatment Upcoming Encounters Date Type Department Care Team (Late st Contact Info) Description 06/15/2025 11:00 AM EDT Office Visit [facility] Rad Onc [address] [place] [address] Bret Sharp MD 30 [place] [address] [email or web address] 10/11/2025 9:15 AM EST Office Visit [facility] [address] [place] [address] 3rd Floor, [address] [place] [address] [phone] Jaguar Palacios DO [address] [place] [address] [place] [address] documented as of this encounter Visit Diagnoses Not on filedocumented in this encounter Care Teams Transfer And Pumphouse Operator Chief Relationship Specialty Start Date End Date Shannon Whipple MD 15 [place] [address] [email or web address] PCP - General 07/08/17 04/24/24 Alicia Thornton PA 470 [facility] [address] [place] [address] PCP - General Physician Wheel Truing Machine Tender 04/25/24 documented as of this encounter Additional Source Comments The information contained in this document represents components of the legal health record. It is not the complete legal health record.[facility]
--- OUTSIDE RECORDS SUMMARY | 2025-05-31 13:29 | XMS_ITS | Encounter Summary ---
Author Organization [facility] Address [address] [place] [address] Phone Care Team Providers Care Facility Planner Name Role Phone Alicia Thornton Primary Care Provider [phone] Reason for Visit * Auth/Cert (Routine) Specialty Diagnoses / Procedures Referred By Contac t Referred To Contact Diagnoses Screen for colon cancer Screen for colon cancer [Z12.11] Procedures MS COLONOSCOPY FLX DX W/COLLJ SPEC WHEN PFRMD MS COLONOSCOPY W/BIOPSY SINGLE/MULTIPLE MS COLSC FLX W/RMVL OF TUMOR POLYP LESION SNARE TQ COLONOSCOPY Referral ID Status Reason Start Date Expiration Date Visits Re quested Visits Authorized [id number] 1 1 Encounter Details Date Type Department Care Team (Late st Contact Info) Description 02/11/2025 Hospital Encounter [facility] Admitting Dept Virtual Department [address] [place] [address] Steve Clark MD [address] [place] [address] Social History Tobacco Use Types Packs/Day Years [...] Date of Assessment Author No Risk Indicated 01/05/2025 1:43 PM EDT Gen Hare RN * [place] Suicide Severity Rating Scale (Screener/Recent Self-Report) Question Answer Date of Assessment Author 1. Wish to be (Past 1 Month) No 025 1:43 PM EDT Gen Hare, RN 2. Non-Specific Active Suici guerrero Thoughts (Past 1 Month) No 01/05/2025 1:43 PM EDT Gen Hare, RN 6. Suicidal Behavior (Lifetime) No 5 1:43 PM EDT Gen Hare, RN documented as of this encounter Plan of Treatment Upcoming Encounters Date Type Department Care Team (Late st Contact Info) Description 06/15/2025 11:00 AM EDT Office Visit [facility] Rad Onc [address] [place] [address] Bret Sharp MD 30 [place] [address] [email or web address] 10/11/2025 9:15 AM EST Office Visit [facility] [address] [facility] 3rd Floor, [address] [place] [address] Jaguar Palacios DO 22 [facility] [address] [place] [address] [phone] [email or web address] documented as of this encounter Visit Diagnoses Not on filedocumented in this encounter Care Teams Facility Planner Relationship Specialty Start Date End Date Alicia Thornton PA [address] [facility] [address] [place] [address] PCP - General Physician Ink Blender 04/25/24 documented as of this encounter Additional Source Comments The information contained in this document represents components of the legal health record. It is not the complete legal health record.[facility]
--- OUTSIDE RECORDS SUMMARY | 2025-05-31 13:29 | XMS_ITS | Encounter Summary ---
Author Organization [facility] Address [address] [facility] [address] [place] [address] Phone Care Team Providers Care Medicine Aide Name Role Phone Shannon Whipple MD Primary Care Provider [phone] Shannon Whipple MD Unavailable [phone] Alicia Thornton Primary Care Provider [phone] Encounter Details Date Type Department Care Team (Latest Contact Info) Description 11/23/2019 Transcribe Orders [facility] [address] [address] Nan Moreira PA 10 [place] [address] Nonspecific abnormal results of liver function study (Primary Dx) Social History Tobacco Use Types [...] 06/15/2025 11:00 AM EDT Office Visit [facility] Rad Onc [address] [place] [address] Bret Sharp MD [address] [place] [address] [email or web address] 10/11/2025 9:15 AM EST Office Visit [facility] [address] [facility] 3rd Floor, [address] [place] [address] Jaguar Palacios DO [address] [facility] [address] [place] [address] [email or web address] documented as of this encounter Results * PT-INR (11/23/2019 10:14 AM EST) PT 11.0 10.2 - 12.9 sec [facility] INR 1.0 0.9 - 1.1 [facility] Comment:Therapeutic range fo r oral Vitamin K antagonists: 2.0-3.5 Blood 11/23/2019 10:1 4 AM EST 11/23/2019 10:20 AM EST us Nan LEWIS LAB BLOOD ORDERABLES Final Result [facility] [address] [place] [address] * (ABNORMAL) Lipid panel (11/23/2019 10:14 AM EST) HDL 42 mg/dL [facility] Comment: Interpretation <40 mg/dL: Low HDL cholesterol (major risk factor for CHD) Greater than or equal to 60 mg/dL: High HDL cholesterol ( negative risk factor for CHD) HDL - cholesterol is affected by a number of factors, e.g. smoking, excerise, hormones, sex and age. CHOLESTEROL 191 0 - 240 mg/dL [facility] TRIGLYCERIDES 362(H) 30 - 160 mg/dL [facility] LDL 77 50 - 129 mg/dL [facility] Comment: LDL levels in terms of risk for coronary heart disease: <100 mg/dL: Optimal 100-129 mg/dL: Near or above optimal 130-159 mg/dL: Borderline high 160-189 mg/dL: High >190 mg/dL: Very High CARDIAC RISK RATIO 4.5 3.4 - 5.0 C [facility] Blood 11/23/2019 10:1 4 AM EST 11/23/2019 10:20 AM EST us Nan LEWIS LAB BLOOD ORDERABLES Final Result [facility] [address] [place] [address] * (ABNORMAL) Comprehensive metabolic panel (11/23/2019 10:14 AM EST) SODIUM 139 133 - 146 mmol/L [facility] POTASSIUM 4.1 3.3 - 5.1 mmol/L [facility] CHLORIDE 103 96 - 108 mmol/L [facility] CO2 22 21 - 35 mmol/L [facility] BUN 12 6 - 19 mg/dL [facility] CREATININE 0.60 0.5 - 1.5 mg/dL [facility] GLUCOSE 140(H) 70 - 99 mg/dL [facility] ALBUMIN 4.1 3.9 - 4.8 g/dL [facility] TOTAL PROTEIN 7.2 6.5 - 8.0 g/dL [facility] CALCIUM 9.3 8.4 - 10.3 mg/dL [facility] ALKALINE PHOSPHATASE 32(L) 39 - 117 U/L [facility] TOTAL BILIRUBIN 0.4 0.0 - 1.2 mg/dL [facility] AST 32 0 - 37 U/L [facility] ALT 31 0 - 40 U/L [facility] GLOBULIN 3.1 1 - 4.8 g/dL [facility] EGFR 105 >59 mL/min/1.7 3m2 [facility] Comment:If patient is black, multiply result by 1.159. Estimated glomerular filtration rate calculated using the CKD-EPI equation. ANION GAP 18 10 - 20 mmol/L [facility] Blood 11/23/2019 10:1 4 AM EST 11/23/2019 10:20 AM EST Nan LEWIS LAB BLOOD ORDERABLES Final Result Performing Organization Address City/[facility] Co de Phone Number [address] [address] * Smooth Muscle Antibody (11/23/2019 10:14 AM EST) SMOOTH MUSCLE AB NEGATIVE AT 1:20 [facility] Comment: Performing Pathologist, Candelario Nesbitt M.D., Ph.D. [id number] Normal: Negative at 1:20 Blood 11/23/2019 10:1 4 AM EST 11/23/2019 10:21 AM EST Nan LEWIS LAB BLOOD ORDERABLES Final Result Performing Organization Address City/[facility]/ZIP Co de Phone Number [address] [address] * Antinuclear antibody (INGE) (11/23/2019 10:14 AM EST) INGE SCREEN ON HEP 2 Negative Negative [facility] Blood 11/23/2019 10:1 4 AM EST 11/23/2019 10:20 AM EST Nan LEWIS LAB BLOOD ORDERABLES Final Result Performing Organization Address City/[facility]/ZIP Co de Phone Number [address] [address] documented in this encounter Visit Diagnoses Diagnosis Nonspecific abnormal results of liver function study- Primary documented in this encounter Additional Health Concerns Infection Onset Date Last Indicated Resolved Time CoV-Exposed Comment:Recent close contact 04/03/2020 04/03/2020 04/17/2020 4:55 AM EDT documented as of this encounter Care Teams Medicine Aide Relationship Specialty Start Date End Date Shannon Whipple MD [address] [place] [phone] [email or web address] PCP - General 07/08/17 04/24/24 Alicia Thornton PA [address] [facility] [address] [place] [address] PCP - General Physician Aircraft Parts Assembler 04/25/24 Shannon Whipple MD [address] [place] [address] [email or web address] Insurance Assigned Provider 12/26/18 11/25/20 documented as of this encounter Additional Source Comments The information contained in this document represents components of the legal health record. It is not the complete legal health record.[facility]
--- OUTSIDE RECORDS SUMMARY | 2025-05-31 13:29 | XMS_ITS | Encounter Summary ---
Author Organization [facility] Address [address] [facility] [address] [place] [address] Phone Care Team Providers Care Shift Superintendent Name Role Phone Shannon Whipple MD Primary Care Provider [phone] Shannon Whipple MD Unavailable [phone] Alicia Thornton Primary Care Provider [phone] Encounter Details Date Type Department Care Team (Late st Contact Info) Description 11/02/2019 Procedure Pass [facility] Endoscopy Admitting Dept Virtual Department [address] [place] [address] Social History Tobacco Use Types Packs/Day Years [...] Description 06/15/2025 11:00 AM EDT Office Visit [facility] Rad Onc [address] [place] [address] Bret Sharp MD 30 [place] [address] [email or web address] 10/11/2025 9:15 AM EST Office Visit [facility] [address] [facility] 3rd Floor, [address] [place] [address] Jaguar Palacios DO [address] [facility] [address] [place] [address] documented as of this encounter Visit Diagnoses Not on filedocumented in this encounter Additional Health Concerns Infection Onset Date Last Indicated Resolved Time CoV-Exposed Comment:Recent close contact 04/03/2020 04/03/2020 04/17/2020 4:55 AM EDT documented as of this encounter Care Teams Shift Superintendent Relationship Specialty Start Date End Date Shannon Whipple MD [address] [place] [phone] [email or web address] PCP - General 07/08/17 04/24/24 Alicia Thornton PA [address] [facility] [address] [place] [address] PCP - General Physician Senior Planning Manager 04/25/24 Shannon Whipple MD [address] [place] [address] [email or web address] Insurance Assigned Provider 12/26/18 11/25/20 documented as of this encounter Additional Source Comments The information contained in this document represents components of the legal health record. It is not the complete legal health record.[facility]
--- OUTSIDE RECORDS SUMMARY | 2025-05-31 13:29 | XMS_ITS ---
Author Name Ladi Baum Address Unknown Organization [facility] Mallory downs Care Team Providers Care Coatings Inspector Name Role Phone Unavailable Primary Care Physician Unavailab le History Of Present Illness 1. This is a 69 year old male who is following up for rosacea on the face. He was seen on 2023, at which time he was prescribed Doxycycline monohydrate 50 mg capsule (Take 1 pill daily. Take with food. Avoid dairy, may cause sun sensitivity.) and the following treatment recommendationswere given: CONTINUE: doxycycline monohydrate 50 mg dailySodium sulfacetamide 10% lotion. The patient presents for further evaluation and management.The patient reports his rosacea is doing pretty good with Sodium sulfacetamide 10% lotion. Has not had to use the doxycycline for the past six months.. 2. This is a 69 year old male who is following up for seborrheic dermatitis on the face and scalp. He was seen on May 26, 2024, at which time the following treatment recommendations were given: CONTINUE: Ketoconazole cream and shampooTAC cream 0.025% for stubborn areas. PLANS: Advised to stop using Triamcinolone lotion 0.1% on face Written directions provided. The patient presents for further evaluation and management.The patient reports his scalp is a little itchy once in a while but states the shampoo seems to help, his face is doing good with keotconazole cream, has not had to use TAC0.025%Patient has no other complaint or concern at time of visit Medications Medication Generic Name RxNorm Strength Strength Unit Route Dose Dose Form Frequency Date Started Date Ended Status Indication Sig Elidel pimecrol imus 265408 1 % Topica l cream 05/04/20 21 suspend ed Appl y twic e noemí y to scal ing area s on face . ketoconazol e ketocona zole 059097 2 % Topica l shamp oo BIW 02/18/20 19 active Sham poo ever y othe r day as need ed. Leav e on for 5 alia alyssa then rins e. ketoconazol e ketocona zole 241601 2 % Topica l cream 03/27/20 22 active Appl y twic e noemí y to affe cted area s on face as need ed ketoconazol e ketocona zole 962152 2 % Topica l cream 03/21/20 21 suspend ed Appl y twic e noemí y to affe cted area s on face as need ed sulfacetami de sodium (acne) sulfacet amide sodium (acne) 9451421 10 % Topica l suspe nsion 11/29/19 22 active Appl y once noemí y to face . triamcinolo ne acetonide triamcin olone acetonid e 6181823 0.025 % Topica l cream 03/21/20 21 active Appl y twic e noemí y to rash on face for 1 week on, 1 week off as need ed. Can use in comb inat ion with keto cona zole triamcinolo ne acetonide triamcin olone acetonid e 3069114 0.1 % Topica l lotio n 05/04/20 21 suspend ed Appl y 5-10 drop s to scal p 2 week s on 1 week off as need ed for itch ing. Not for face or body fold s. Adult Low Dose Aspirin aspirin 81 mg Oral table t, delay ed relea se (ente jacobo sawyer) active doxycycline monohydrate doxycycl ine monohydr ate 7763416 100 mg Oral capsu le 01/25/20 22 suspend ed Take 1 pill twic e noemí y with food . Avoi d calc ium. May caus e sun sens itiv ity doxycycline monohydrate doxycycl ine monohydr ate 6317948 50 mg Oral table t 06/03/20 22 active take one tab noemí y for noelle cea. Take with food , do not lie down afte r taki ng doxycycline monohydrate doxycycl ine monohydr ate 4200153 50 mg Oral capsu le 05/26/20 24 suspend ed Take 1 pill noemí y. Take with food . Avoi d dair y, january caus e sun sens itiv ity. sertraline sertrali ne 75 mg Oral table t active Problems Problem Code Type Status Date of Diagnosis Da te of Resolution Rosacea (disorder) 362251509(SN OMED) Diagnosis active 05/26/2025 Seborrheic dermatitis (disorder) 66897531(SNO MED) Diagnosis active 05/26/2025 Inflamed seborrheic keratosis (disorder) 803434166(SN OMED) Diagnosis active 05/26/2024 Seborrheic dermatitis (disorder) 51111284(SNO MED) Diagnosis active 05/26/2024 Rosacea (disorder) 505593961(SN OMED) Diagnosis active 05/26/2024 Long-term current use of drug therapy (situation) 304161094(SN OMED) Diagnosis active 03/01/2024 Long-term current use of drug therapy (situation) 186556962(SN OMED) Diagnosis active 12/10/2022 Long-term current use of drug therapy (situation) 664592706(SN OMED) Diagnosis active 10/17/2022 Long-term current use of drug therapy (situation) 381389249(SN OMED) Diagnosis active 09/26/2022 Rosacea (disorder) 838888220(SN OMED) Diagnosis active 09/26/2022 Seborrheic dermatitis (disorder) 74575217(SNO MED) Diagnosis active 09/26/2022 Rosacea (disorder) 156337040(SN OMED) Diagnosis active 03/27/2022 Seborrheic dermatitis (disorder) 30147859(SNO MED) Diagnosis active 03/27/2022 Seborrheic dermatitis (disorder) 78339575(SNO MED) Diagnosis active 01/24/2022 Rosacea (disorder) 772635331(SN OMED) Diagnosis active 01/24/2022 Disorder of capillaries (disorder) 16529640(SNO MED) Diagnosis active 11/28/2021 Seborrheic dermatitis (disorder) 73106512(SNO MED) Diagnosis active 11/28/2021 Seborrheic dermatitis (disorder) 59142373(SNO MED) Diagnosis active 05/04/2021 Hemangioma of skin and subcutaneous tissue (disorder) 553967300(SN OMED) Diagnosis active 03/21/2021 Seborrheic dermatitis (disorder) 40856836(SNO MED) Diagnosis active 03/21/2021 Other seborrheic keratosis L82.1(ICD-10 ) Diagnosis active 02/17/2019 Hemangioma of skin and subcutaneous tissue D18.01(ICD-1 0) Diagnosis active 02/17/2019 Other seborrheic dermatitis L21.8(ICD-10 ) Diagnosis active 02/17/2019 Asteatosis cutis (disorder) 01733552(SNO MED) Problem active 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 Office fax number is [phone]. Encounter Diagnosis Location Date / Time Type Rosacea (L71.8)Seborrheic Dermatitis (L21.8)[facility] () [facility] 05/26/2025 12:50:00 [facility] [address] Reason For Referral No data Procedures Procedure Date Cryotherapy of skin lesion with liquid n itrogen (procedure) 05/26/2024 12:00 am [facility] Documentation of past medical history (p rocedure) Review Of Systems Provider reviewed on May 26, 2025.A focused review of systems was performed including Allergic / Immunologic and was notable for Rash. Assessment 1.RosaceaCounselingPrescription Medication Management: Discontinue Regimen - Doxycycline. He prefers to treat with topicals. .; Continue Regimen - Sodium sulfacetamide 10% lotion. No refills needed. .; Plan - Discussed intermittent course of doxycycline for flares but patient declined.;.2.Seborrheic DermatitisCounselingPrescription Medication Management: Continue Regimen - Ketoconazole 2% cream. For the face. Refills sentKetoconazole 2% shampoo. For the scalp. No refills needed. TAC 0.025% cream. For the face. As needed for flares. No refills needed. .;.3.[facility] Quality Plan of Care Future visit for 05/26/2026 - Follow up in 1 year for: Focused Visit. Other Instructions: Seborrheic dermatitis/rosacea f/u. Other Instructions: Seborrheic dermatitis/rosacea f/u. Code Detail Instructions 20300429 ketoconazole 2 % topical cream A pply twice daily to affected areas on face as needed 20300429 ketoconazole 2 % topical cream A pply twice daily to affected areas on face as needed 9730015 doxycycline monohydrate 50 mg ca psule Take 1 pill daily. Take with food. Avoid dairy, may cause sun sensitivity. 2213045 doxycycline monohydrate 50 mg ta blet take one tab daily for rosacea. Take with food, do not lie down after taking 9043899 doxycycline monohydrate 50 mg ta blet take one tab daily for rosacea. Take with food, do not lie down after taking 0819213 doxycycline monohydrate 50 mg ta blet take one tab daily for rosacea. Take with food, do not lie down after taking 2896277 doxycycline monohydrate 50 mg ta blet take one tab daily for rosacea. Take with food, do not lie down after taking 5488787 triamcinolone acetonide 0.1 % lo tion Apply 5-10 drops to scalp 2 weeks on 1 week off as needed for itching. Not for face or body folds. 5616315 doxycycline monohydrate 50 mg ta blet take one tab daily for rosacea. Take with food, do not lie down after taking 7777128 doxycycline monohydrate 50 mg ta blet take one tab daily for rosacea. Take with food, do not lie down after taking 6810254 doxycycline monohydrate 50 mg ta blet take one tab daily for rosacea. Take with food, do not lie down after taking 162918 ketoconazole 2 % shampoo Apply t o damp scalp every day, leave on 15 min then rinse. When controlled use 2 times a week for maintenance 0556128 doxycycline monohydrate 50 mg ta blet take one tab daily for rosacea. Take with food, do not lie down after taking 20300429 ketoconazole 2 % topical cream A pply twice daily to affected areas on face as needed 0918282 sulfacetamide sodium (acne) 10 % lotion (suspension) Apply once daily to face. 0408804 doxycycline monohydrate 100 mg c apsule Take 1 pill twice daily with food. Avoid calcium. May cause sun sensitivity 4293584 triamcinolone acetonide 0.1 % lo tion Apply 5-10 drops to scalp 2 weeks on 1 week off as needed for itching. Not for face or body folds. 4124470 doxycycline monohydrate 100 mg c apsule Take 1 pill twice daily with food. Avoid calcium. May cause sun sensitivity 1190795 triamcinolone acetonide 0.1 % lo tion Apply 5-10 drops to scalp 2 weeks on 1 week off as needed for itching. Not for face or body folds. 6450184 sulfacetamide sodium (acne) 10 % lotion (suspension) Apply once daily to face. 925151 ketoconazole 2 % shampoo Apply t o damp scalp every day, leave on 15 min then rinse. When controlled use 2 times a week for maintenance 5876938 triamcinolone acetonide 0.1 % lo tion Apply 5-10 drops to scalp 2 weeks on 1 week off as needed for itching. Not for face or body folds. 004475 Elidel 1 % topical cream Apply t wice daily to scaling areas on face. 664329 ketoconazole 2 % shampoo Apply t o damp scalp every day, leave on 15 min then rinse. When controlled use 2 times a week for maintenance 4053883 triamcinolone aceton ezekiel 0.025 % topical cream Apply twice daily to rash on face for 1 week on, 1 week off as needed. Can use in combination with ketoconazole 132729 ketoconazole 2 % topical cream A pply twice daily to affected areas on face as needed 026115 ketoconazole 2 % shampoo Shampoo every other day as needed. Leave on for 5 minutes then rinse. 927924 ketoconazole 2 % shampoo Shampoo every other day as needed. Leave on for 5 minutes then rinse. Instructions * I counseled the patient regarding the following:Skin care: Patient instructed to wear broad spectrum sunscreen. Moisturizers with green tints can hide redness.Expectations: Rosacea is chronic. Flushing and pimples can be triggered by: alcohol, stress, exercise, hot temperatures or spicy foods, wind and sun exposure. Telangiectasias can be improved with laser.Contact office if: Rosacea worsens or fails to improve despite months of treatment; patient develops nodules or cysts. * I counseled the patient regarding the following:Skin care: Emollients, shampoos with tar, selenium or zinc pyrithione can improve seborrheic dermatitis.Expectations: Seborrheic Dermatitis is chronic in nature with periods of remissions and flares. Flares can be triggered by stress.Contact office if: Seborrheic dermatitis worsens, or fails to improve despite several months of treatment. Social History Code Activity Start Date End Date 6702309 (SNOMED) Former smoker Sex male Vital Signs No data
--- OUTSIDE RECORDS SUMMARY | 2025-05-31 13:29 | XMS_ITS | Encounter Summary ---
Author Organization [facility] Address [address] [facility] [address] [place] [phone] Phone Care Team Providers Care Compliance Administrator Name Role Phone Shannon Whipple MD Primary Care Provider [phone] Shannon Whipple MD Unavailable [phone] Alicia Thornton Primary Care Provider [phone] Reason for Referral * MRI/CAT Scan - Closed Specialty Diagnoses / Procedures Referred By Holly zhu Referred To Contact Radiology Diagnoses Encounter for screening for lung cancer Procedures CT Chest Lung Cancer Screening Karen Madrigal PA Phone: tel: fax: [email or web address] Referral ID Status Reason Start Date Expiration Date Visits Re quested Visits Authorized [id number] Closed 11/13/2018 12/13/2018 1 1 Encounter Details Date Type Department Care Team (Late st Contact Info) Description 11/13/2018 Ancillary Orders [facility] Department [address] [place] [address] Karen Madrigal PA [address] [place] [address] [email or web address] Encounter for screening for lung cancer Social History Tobacco Use Types Packs/Day Years [...] Description 06/15/2025 11:00 AM EDT Office Visit [facility] [place] Rad Onc [address] [place] [id number] Bret Sharp MD [address] [place] [id number] [email or web address] 10/11/2025 9:15 AM EST Office Visit [facility] [address] [place] [address] 3rd [facility], [address] [place] [address] Jaguar Palacios DO [address] [place] [address] [place] [address] [email or web address] documented as of this encounter Results * CT CHEST LUNG CANCER SCREENING FOLLOW UP (11/24/2018 3:28 PM EST) Anatomical Region Laterality Modality Chest Computed Tomogra phy 11/24/2018 3:51 PM EST Impressions 11/24/2018 4:09 PM EST Stable COPD. No findings suspicious for malignancy. LUNG RAD: LUNG RAD CATEGORY 1 - NEGATIVE TOTAL CTDIvol: 1.3 mGy POS [email or web address] Narrative 11/24/2018 4:09 PM EST HISTORY: Low dose CT lung cancer screening. TECHNIQUE: Non-contrast, low dose axial CT with sagittal and coronal reconstructions. Automated exposure control utilized. COMPARISON EXAM: Chest radiograph 11/06/2018. CT chest 02/04/2017. This is a 63 year old patient referred for Low Dose CT Lung Cancer Screening (LDCT). The patient has no signs or symptoms of lung cancer and has a 30-pack year or greater history of tobacco smoking. They are a current smoker or have quit smoking within the last 15 years and have a written order for LDCT from a qualified health professional following a lung cancer screening counseling that attests to shared decision-making having taken place before their first screening CT. The patient is also offered smoking cessation material at the time of the LDCT. CT LOW DOSE LUNG CANCER SCREENING RESULTS: Lungs: No airway masses or bronchiectasis. Stable focal subpleural bronchiolectasis in the left lower lobe base. Stable hyperinflation and mild diffuse centrilobular emphysema and right apical paraseptal emphysema. Bibasilar dependent atelectasis versus scarring. No pulmonary masses, consolidation or pleural effusions. No nodules. Mediastinum and patrica: Esophagus is normal. No mediastinal or hilar lymphadenopathy. Cardiovascular:Heart is normal in size. No pericardial effusion. Stable moderate coronary artery calcified plaque. Thoracic aortic tortuosity. No aneurysm. Stable mild thoracic aorta calcified plaque. Pulmonary artery outflow tract is normal in size. Chest wall and thoracic inlet: Imaged thyroid gland is within normal limits. No supraclavicular or axillary lymphadenopathy. Stable mild bilateral gynecomastia. Upper abdomen: No adrenal gland masses. Posterior right hepatic dome bilobed hypodense lesion is relatively stable in size measuring up to 1.7 cm with Hounsfield units measuring 15. This has been present since a CT abdomen pelvis dated 07/30/2013 and consistent with a cyst. Musculoskeletal: Stable osteopenia, mild thoracic kyphosis and diffuse endplate spurring. No advanced degenerative changes, compression fractures or bone lesions. Procedure Note Eliot Owens MD - 11/24/2018 HISTORY: Low dose CT lung cancer screening. TECHNIQUE: Non-contrast, low dose axial CT with sagittal and coronalreconstructions. Automated exposure control utilized. COMPARISON EXAM: Chest radiograph 11/06/2018. CT chest 02/04/2017. This is a 63 year old patient referred for Low Dose CT Lung CancerScreening (LDCT). The patient has no signs or symptoms of lung cancer andhas a 30-pack year or greater history of tobacco smoking. They are acurrent smoker or have quit smoking within the last 15 years and have awritten order for LDCT from a qualified health professional following alung cancer screening counseling that attests to shared decision-makinghaving taken place before their first screening CT. The patient is alsooffered smoking cessation material at the time of the LDCT. CT LOW DOSE LUNG CANCER SCREENING RESULTS: Lungs: No airway masses or bronchiectasis. Stable focal subpleuralbronchiolectasis in the left lower lobe base. Stable hyperinflation andmild diffuse centrilobular emphysema and right apical paraseptalemphysema. Bibasilar dependent atelectasis versus scarring. No pulmonarymasses, consolidation or pleural effusions. No nodules. Mediastinum and patrica: Esophagus is normal. No mediastinal or hilarlymphadenopathy. Cardiovascular:Heart is normal in size. No pericardial effusion. Stablemoderate coronary artery calcified plaque. Thoracic aortic tortuosity.No aneurysm. Stable mild thoracic aorta calcified plaque. Pulmonaryartery outflow tract is normal in size. Chest wall and thoracic inlet: Imaged thyroid gland is within normallimits. No supraclavicular or axillary lymphadenopathy. Stable mildbilateral gynecomastia. Upper abdomen: No adrenal gland masses. Posterior right hepatic domebilobed hypodense lesion is relatively stable in size measuring up to 1.7cm with Hounsfield units measuring 15. This has been present since a CTabdomen pelvis dated 07/30/2013 and consistent with a cyst. Musculoskeletal: Stable osteopenia, mild thoracic kyphosis and diffuseendplate spurring. No advanced degenerative changes, compressionfractures or bone lesions. IMPRESSION: Stable COPD. No findings suspicious for malignancy. LUNG RAD: LUNG RAD CATEGORY 1 - NEGATIVE TOTAL CTDIvol: 1.3 mGy POS [email or web address] Karen BARCENAS CT CHEST Final Result documented in this encounter Visit Diagnoses Diagnosis Encounter for screening for lung cancer Encounter for screening for lung cancer documented in this encounter Additional Health Concerns Infection Onset Date Last Indicated Resolved Time CoV-Exposed Comment:Recent close contact 04/03/2020 04/03/2020 04/17/2020 4:55 AM EDT documented as of this encounter Care Teams Compliance Administrator Relationship Specialty Start Date End Date Shannon Whipple MD [address] [place] [address] [email or web address] PCP - General 07/08/17 04/24/24 Alicia Thornton PA [address] [facility] [address] [place] [address] PCP - General Physician Manager Sourcing 04/25/24 Shannon Whipple MD [address] [place] [address] [email or web address] Insurance Assigned Provider 12/26/18 11/25/20 documented as of this encounter Additional Source Comments The information contained in this document represents components of the legal health record. It is not the complete legal health record.[facility]
--- OUTSIDE RECORDS SUMMARY | 2025-05-31 13:29 | XMS_ITS | Encounter Summary ---
Author Organization [facility] Address [address] [facility] [address] [place] [phone] Phone Care Team Providers Care Door Repairman Name Role Phone Shannon Whipple MD Primary Care Provider Shannon Whipple MD Unavailable [phone] Alicia Thornton Primary Care Provider [phone] Encounter Details Date Type Department Care Team (Latest Contact Info) Description 08/09/2020 Transcribe Orders Virtual Department [address] [place] [address] Karen Madrigal PA [address] [place] [address] [email or web address] Low back pain, unspecified back pain laterality, unspecified chronicity, unspecified whether sciatica present (Primary Dx) Social History Tobacco Use Types [...] Description 06/15/2025 11:00 AM EDT Office [place] [facility] [address] [place] [address] Bret Sharp MD [address] [place] [address] [email or web address] 10/11/2025 9:15 AM EST Office Visit [facility] [address] [facility] 3rd Floor, [address] [place], [place] [id number] Jaguar Palacios DO [address] [facility] [address] [place] [address] [email or web address] documented as of this encounter Results * XR LUMBOSACRAL SPINE 4 OR MORE VIEWS (08/10/2020 10:31 AM EST) Anatomical Region Laterality Modality L-spine Computed Radiogr aphy 08/10/2020 10:5 3 AM EST Impressions 08/10/2020 10:59 AM EST Mild degenerative changes. No explanation for right-sided radicular pain. Narrative 08/10/2020 10:59 AM EST HISTORY: Lower back pain radiating down right leg. COMPARISON: CT abdomen/pelvis 07/30/2013. VIEWS: AP, lateral and bilateral oblique views. FINDINGS: Mild concavity of the inferior endplate of L4, likely due to degenerative Schmorl's node. No findings suspicious for compression fractures. Overall, disc height well-maintained. Moderate-sized bridging anterior osteophytes at T12-L1. Tiny anterior osteophytes at the levels more inferiorly. Mild facet arthropathy in the lower levels. No definite SI joint abnormalities. Diffuse calcification of the abdominal aorta. Procedure Note Stvee Liao MD - 08/10/2020 HISTORY: Lower back pain radiating down right leg. COMPARISON: CT abdomen/pelvis 07/30/2013. VIEWS: AP, lateral and bilateral oblique views. FINDINGS: Mild concavity of the inferior endplate of L4, likely due to degenerativeSchmorl's node. No findings suspicious for compression fractures. Overall, disc height well-maintained. Moderate-sized bridging anteriorosteophytes at T12-L1. Tiny anterior osteophytes at the levels moreinferiorly. Mild facet arthropathy in the lower levels. No definite SI joint abnormalities. Diffuse calcification of the abdominal aorta. IMPRESSION: Mild degenerative changes. No explanation for right-sided radicularpain. Karen LEWIS IMG XR SPINE Final Result documented in this encounter Visit Diagnoses Diagnosis Low back pain, unspecified back pain laterality, unspecified chronicity, unspecified whether sciatica present- Primary Low back pain, unspecified back pain laterality, unspecified chronicity, unspecified whether sciatica present documented in this encounter Care Teams Door Repairman Relationship Specialty Start Date End Date Shannon Whipple MD [address] [place] [id number] PCP - General 07/08/17 04/24/24 Alicia Thornton PA [address] [address] PCP - General Physician Farm Machinery Erector 04/25/24 Shannon Whipple MD [address] [place] [email or web address] Insurance Assigned Provider 12/26/18 11/25/20 documented as of this encounter Additional Source Comments The information contained in this document represents components of the legal health record. It is not the complete legal health record.[facility]
--- OUTSIDE RECORDS SUMMARY | 2025-05-31 13:29 | XMS_ITS | Clinical Summary ---
Author Organization [facility] Address [address] [facility] [address] [place] [address] Phone Care Team Providers Care Elementary Instructional Coach Name Role Phone Alicia Thornton Primary Care Provider [phone] Allergies Active Allergy Reactions Criticality Noted Date Comments Lactose Unknown 04/24/2024 Medications sertraline (ZOLOFT) 50 MG tablet Take 75 mg by mouth daily. Active rosuvastatin (CRESTOR) 10 MG tablet Take 10 mg by mouth daily. Active tiotropium (SPIRIVA HANDIHALER) 18 mcg inhalation capsule Inhale 18 mcg into the lungs daily. Active aspirin 81 mg chewable tablet Take 1 tablet (81 mg total) by mouth daily. 30 tablet 2 4 Active Additional Information Patient not taking.Reported on 03/28/2025 apixaban (ELIQUIS) 5 mg tabletIndication s:Cerebrovascula r accident (CVA) due to embolism of precerebral artery Take 1 tablet (5 mg total) by mouth 2 (two) times a day. 180 tablet 3 5 Active metFORMIN (GLUCOPHAGE-XR) 500 MG 24 hr tablet Take 1 tablet by mouth every morning. 5 Active metoprolol succinate (TOPROL-XL) 50 MG 24 hr tablet Take 1.5 tablets (75 mg total) by mouth daily. 90 tablet 3 5 Active Active Problems Problem Noted Date Diagnosed Date Atypical atrial flutter 01/26/2025 Assessment & Plan (03/28/2025 9:27 AM EDT): Nearly rate controlled I am going to bump up his metoprolol to 75 mg and switch it to the evening time Assessment & Plan (01/26/2025 12:08 PM EDT): As mentioned heart rate is elevated and erratic I am going to start him on some metoprolol and get a 1 week MCT monitor to be done in 2 to 3 weeks I will see him thereafter in follow-up. If he has not converted to sinus rhythm I will then schedule cardioversion Cerebrovascular accident (CVA) due to embolism 0 04/25/2024 Assessment & Plan (03/28/2025 9:27 AM EDT): He is now on anticoagulation with no bleeding issues in the form of Eliquis 5 twice a day Assessment & Plan (01/26/2025 12:08 PM EDT): This patient had a CVA before which he recovered from but this was all likely due to atrial fibrillation or flutter which was not diagnosed at that time Assessment & Plan (04/25/2024 3:46 PM EDT): - presented with episode of left eye vision loss - and then an episode of diplopia, nausea, episode emesis - discussed with radiology, MRI brain with small foci acute infarcts in left cerebellum and left occipital region micro areas of ischemia - eval for afib with nurse monitoring, plan for nurse monitoring at discharge - await TTE - CTA head and neck no large vessel occlusion/stenosis - neuro: Dual antiplatelet therapy -He has been continued on his home dose of rosuvastatin 10 mg daily as his LDL with this is below 36 -Hemoglobin A1c borderline 6.1 he will need follow-up with PCP for prediabetes -TSH is normal -Inflammatory markers are not elevated -Would request PT OT speech eval -He and his feel they will likely follow-[facility] with [facility] neurology as his sees them we discussed the requesting to get records to the office ahead of his visit Visual disturbance 04/24/2024 Assessment & Plan (03/28/2025 9:28 AM EDT): No further neurovascular complaints Assessment & Plan (01/26/2025 12:08 PM EDT): 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 Encounters Date Type Department Care Team Description 03/28/2025 9:30 AM EDT Office Visit [facility] [address], [address] [place] [address] Jaguar Palacios, DO Atypical atrial flutter (Primary Dx); Cerebrovascular accident (CVA) due to embolism of precerebral artery; Visual disturbance 03/24/2025 Orders Only [facility] [address], [address] [place] [address] Jaguar Palacios, DO 03/03/2025 Telephone [facility] [address], [address] [place] [address] Jaguar Palacios, DO Atrial Fibrillation 03/01/2025 Telephone [facility] [address], [address] [place] [address] Merline Moe MA from Last 3 Months Social History Tobacco Use Types Packs/Day Years Used Date Smoking Tobacco: Former Cigarettes Q uit: 04/10/2016 Cigars Smokeless Tobacco: Former Tobacco Cessation:Counseling Given: Not Answered Alcohol Use Standard Drinks/Week Comments Yes 0 [...] Orientation Straight 07/23/2019 5: 41 AM EDT Last Filed Vital Signs Vital Sign Reading Time Taken Comments Blood Pressure 120/72 03/28/2025 9:12 AM EDT Pulse 73 03/28/2025 9:12 AM EDT Temperature 36.3 C (97.3 F) 01/05/2025 5:49 PM EDT Respiratory Rate 19 01/05/2025 5:49 PM EDT Oxygen Saturation 96% 01/26/2025 11:31 AM EDT Inhaled Oxygen Concentration - - Weight 68.9 kg (152 lb) 03/28/2025 9:12 AM EDT Height 165.1 cm (5' 5 ) 03/28/2025 9:12 AM EDT Body Mass Index 25.29 03/28/2025 9:12 AM EDT Plan of Treatment Upcoming Encounters Date Type Department Care Team (Late st Contact Info) Description 06/15/2025 11:00 AM EDT Office Visit [facility] Rad Onc [address] [place] [address] Bret Sharp MD [address] [place] [address] [email or web address] 10/11/2025 9:15 AM EST Office Visit [facility] [address] [place] [address] 3rd Floor, [address] [place] [address] Jaguar Palacios DO [address] [facility] [address] [place] [address] Health Maintenance Due Date Last Done Comments Adult Td,Tdap Booster 1955 DEPRESSION SCREENING 1965 COLOGUARD 1998 FIT TEST 1998 FOBT 1998 SIGMOIDOSCOPY 1998 VIRTUAL COLONOSCOPY 1998 RSV VACCINE (1 - Risk 60-74 years 1-dose series) 2013 ABDOMINAL AORTIC ANEURYSM (AAA) SCREENING 2018 PNEUMOCOCCAL VACCINES (50+ years) (2 of 2 - PPSV23) 04/02/2020 04/02/2019 INFLUENZA VACCINE (#1) 2025 LIPID PANEL 04/24/2025 04/24/2024, 08/0 10/2022, 03/11/2022, Additional history exists COVID-19 VACCINE (3 - season) 2025 01/15/2021, 12/25/2020 CREATININE LEVEL 01/05/2026 01/05/2025, 01/2024, 04/25/2024, Additional history exists SMOKING Hx and SMOKELESS TOBACCO SCREENING 01/26/2026 01/26/2025 COLONOSCOPY 11/02/2029 11/02/2019 COLORECTAL CANCER SCREENING 11/02/2029 ZOSTER VACCINES Completed 07/06/2019, 04/02/2019 HEPATITIS C SCREENING Completed 09/20/2019 , 04/12/2019, 04/12/2019 HEPATITIS A VACCINES Aged Out No long er eligible based on patient's age to complete this topic HIB VACCINES Aged Out No longer eligi ble based on patient's age to complete this topic MENINGOCOCCAL VACCINES (ACWY) Aged Out No longer eligible based on patient's age to complete this topic MENINGOCOCCAL VACCINES (B) Aged Out N o longer eligible based on patient's age to complete this topic Medical Devices Not on file Procedures Procedure Name Priority Date/Time Associated Diagnosis Comments OUTSIDE MONITOR Routine 03/24/2025 12:55 PM EDT BASIC METABOLIC PANEL STAT 01/05/2025 1:49 PM EDT LIPID PANEL STAT 04/24/2024 5:50 PM EDT ENDOSCOPY, COLON 11/02/2019 1:01 PM EST LIVER FIBROSIS TEST Routine 09/20/2019 8 :36 AM EST Nonspecific abnormal results of liver function study from Last 3 Months or Most Recently Relevant to Health Maintenance Results * Outside Monitor Report Only (03/24/2025 12:55 PM EDT) us Jaguar Palacios DO CV CARDIAC SERVICES ORDERABLE S Final Result * (ABNORMAL) Basic metabolic panel (01/05/2025 1:49 PM EDT) SODIUM 137 133 - 146 mmol/L [facility] CHLORIDE 100 96 - 108 mmol/L [facility] POTASSIUM 3.9 3.3 - 5.1 mmol/L [facility] Comment:Specimen slightly he molyzed, result may be falsely elevated. CO2 26 21 - 35 mmol/L [facility] BUN 16 6 - 19 mg/dL [facility] CREATININE 0.80 0.5 - 1.5 mg/dL [facility] GLUCOSE 149(H) 70 - 99 mg/dL [facility] CALCIUM 10.4(H) 8.4 - 10.3 mg/dL [facility] EGFR 95 >59 mL/min/1.7 3m2 [facility] Comment:Estimated glomerular filtration rate calculated using the CKD-EPI refit equation. ANION GAP 15 10 - 20 mmol/L [facility] Blood 01/05/2025 1:49 PM EDT 01/05/2025 1:52 PM EDT us Tracy Acuña MD LAB BLOOD ORDERABLES Kamla l Result [facility] [address] [place], [place] [id number] * (ABNORMAL) Lipid panel (04/24/2024 5:50 PM EDT) HDL 70 mg/dL [facility] Comment: Interpretation <40 mg/dL: Low HDL cholesterol (major risk factor for CHD) Greater than or equal to 60 mg/dL: High HDL cholesterol ( negative risk factor for CHD) HDL - cholesterol is affected by a number of factors, e.g. smoking, excerise, hormones, sex and age. CHOLESTEROL 161 0 - 240 mg/dL [facility] TRIGLYCERIDES 277(H) 30 - 160 mg/dL [facility] LDL 36(L) 50 - 129 mg/dL [facility] Comment: LDL levels in terms of risk for coronary heart disease: <100 mg/dL: Optimal 100-129 mg/dL: Near or above optimal 130-159 mg/dL: Borderline high 160-189 mg/dL: High >190 mg/dL: Very High CARDIAC RISK RATIO 2.3(L) 3.4 - 5.0 C [facility] Blood 04/24/2024 5:50 PM EDT 04/24/2024 5:58 PM EDT us Stewart Simmons MD LAB BLOOD ORDERABLES Final Resu lt [address] [address] * ENDOSCOPY, COLON (11/02/2019 1:01 PM EST) Narrative Transcriptions Steve Parish MD - 11/02/2019 1:01 PM EST Patient Name: Moe Castro Attending MD:: STEVE PARISH MD Procedure Date: 11/02/2019 1:01 PM Date of : 1955 Age: 64 Admit Type: Outpatient Gender: Male Room: [place] [address] Referring MD: SHANNON FRANZ MD Exam Type: Colonoscopy Indications: High risk colon cancer surveillance: Personal historyof colonic polyps, Last colonoscopy: 2013 Medications: Monitored Anesthesia Care Procedure: Informed consent was obtained from the patient after discussion of the indications, limitations,alternatives, benefits, and risks of the procedure. Risksspecifically discussed include but are not limited to medication reactions, missed lesions, bleeding, perforation, orthe need for emergent surgery. Throughout the procedure, the patient's blood pressure, pulse, end-tidal CO2, and oxygen saturations were monitored continuously. The Olympus adult variable colonoscope [id number] #2 was introduced through the anus and advanced to theterminal ileum. The colonoscopy was performed withoutdifficulty. The patient tolerated the procedure well. The qualityof the bowel preparation was good. Complications: No immediate complications. Estimated blood loss:None. Findings: The perianal and digital rectal examinations werenormal. The rectum, recto-sigmoid colon, sigmoid colon,descending colon, splenic flexure, transverse colon, hepaticflexure, ascending colon, cecum, appendiceal orifice, ileocecal valve, ileum, rectum (on retroflexion) and ascendingcolon (on retroflexion) appeared normal. Impression: - The rectum, recto-sigmoid colon, sigmoid colon, descending colon, splenic flexure, transverse colon, hepatic flexure, ascending colon, cecum, appendiceal orifice, ileocecal valve and terminal ileum arenormal. - No specimens collected. Recommendation: - Discharge patient to home. - Resume previous diet. - Continue present medications. - Await pathology results. - Repeat colonoscopy in 5 years for surveillance. - Your colonoscopy was normal with no polyps orcolitis. STEVE PARISH MD 11/02/2019 1:21:19 PM This report has been signed electronically. Number of Addenda: 0 Note Initiated On: 11/02/2019 1:01 PM Procedure Code(s): --- Professional --- 34664, Colonoscopy, flexible; diagnostic, including collection of specimen(s) by brushing or washing, when performed (separateprocedure) --- Technical --- 86625, Colonoscopy, flexible; diagnostic, including collection of specimen(s) by brushing or washing, when performed (separateprocedure) Diagnosis Code(s): --- Professional --- Z86.010, Personal history of colonic polyps --- Technical --- Z86.010, Personal history of colonic polyps CPT copyright 2018 [employer]. All rights reserved. The codes documented in this report are preliminary and upon supply chain business analyst reviewmay be revised to meet current compliance requirements. Procedure Date: 11/02/2019 1:01:[address] [place] [address] Shannon Franz MD GI PROCEDURE ORDERABLES Fin al Result * (ABNORMAL) Liver fibrosis test (09/20/2019 8:36 AM EST) Fibrosis score 0.29 [facility] Interpretation (Fibrosis) SEE NOTE [facility] Comment: (NOTE) minimal fibrosis Fibro Test Score (f) Metavir Score f>=0 and f<=0.21 : F0 (no fibrosis) f>0.21 and f<=0.27 : F0-F1 (no fibrosis) f>0.27 and f<=0.31 : F1 (minimal fibrosis) f>0.31 and f<=0.48 : F1-F2 (minimal fibrosis) f>0.48 and f<=0.58 : F2 (moderate fibrosis) f>0.58 and f<=0.72 : F3 (advanced fibrosis) f>0.72 and f<=0.74 : F3-F4 (advanced fibrosis) f>0.74 and f<=1.00 : F4 (severe fibrosis) HCV Fibrosis Grade F1 [facility] NECROINFLAMM SCORE 0.14 [facility] NECROINFLAMM GRADE A0 [facility] NECROINFLAMM INTERP SEE NOTE [facility] Comment: (NOTE) no activity ActiTest Score (a) Metavir Score a>=0 and a<=0.17 : A0 (no activity) a>0.17 and a<=0.29 : A0-A1 (no activity) a>0.29 and a<=0.36 : A1 (minimal activity) a>0.36 and a<=0.52 : A1-A2 (minimal activity) a>0.52 and a<=0.60 : A2 (significant activity) a>0.60 and a<=0.62 : A2-A3 (significant activity) a>0.62 and a<=1.00 : A3 (severe activity) A2 Macroglobulin 300(H) 106 - 279 mg/dL [facility] Haptoglobin 279(H) 43 - 212 mg/dL [facility] Apolipoprotein A1 226(H) 94 - 176 mg/dL [facility] TOTAL BILIRUBIN 0.5 0.2 - 1.2 mg/dL [facility] GGT 98(H) 3 - 70 U/L [facility] ALT 30 9 - 46 U/L [facility] Specimen/Product ID [id number] [facility] Comments (Chemistry) SEE NOTE [facility] Comment: (NOTE) The reliability of results is dependent on compliance with the preanalytical and analytical conditions recommended by [employer]. The tests have to be deferred for: acute hemolysis, acute hepatitis, acute inflammation, extra hepatic cholestasis. The advice of a specialist should be sought for interpretation in chronic hemolysis and Gilbert's syndrome. The test interpretation is not validated in liver transplant patients. Isolated extreme values of one of the components should lead to caution in interpreting the results. In case of discordance between a biopsy result and a test, it is recommended to seek the advice of a specialist. The causes of these discordances could be due to a flaw of the test or to a flaw in the biopsy: i.e. a liver biopsy has a 33% variability rate for one fibrosis stage. FibroTest is interpretable for chronic hepatitis B and C, alcoholic and non alcoholic steatosis. ActiTest is interpretable for chronic hepatitis B and C. The performance characteristics have been determined by [facility]. It has not been cleared or approved by the U.S. Food and Drug Administration. Performance characteristics refer to the analytical performance of the test. Fliplingo, the associated logo, Digital Karma and all associated [employer] wiseman are the registered trademarks of [employer]. All third republican wiseman - (R) and (TM) - are the property of their respective owners. (C) [id number] [employer]. All rights reserved. Test performed at [facility] [address] [place] [address] Director: DAVID MITCHELL MD,PHD,CHARISSA Blood 09/20/2019 8:36 AM EST 09/20/2019 8:38 AM EST Nan LEWIS LAB BLOOD ORDERABLES Final Result [facility] [address] [place] [address] from Last 3 Months or Most Recently Relevant to Health Maintenance Insurance [facility] REPLAC[facility] MEDICARE REPLACEMENT [employer] PREF VALUE MEDICARE REPLACEMENT Member Subscriber Plan / Payer (Ef fective 2022-) Name:Moe Castro Relation to Subscriber:Self Name:Moe Castro Payer ID:[id number] (NAIC) Group ID:[id number] Type:Medicare Address: [address] [facility] MEDICARE REPLACEMENT [place] [id number] [facility] MEDICARE REPLACEMENT MEDICARE REPLACEMENT [place] [id number] [facility] MEDICARE REPLACEMENT MEDICARE REPLACEMENT [facility] MEDICARE REPLACEMENT Member Subscriber Plan / Payer (Ef fective 2022-) Name:Moe Castro Relation to Subscriber:Self Name:Moe Castro Payer ID:[id number] (NAIC) Group ID:[id number] Type:Medicare Address: [address] [place] [id number] [facility] MEDICARE REPLACEMENT [facility] MEDICARE REPLACEMENT [facility] MEDICARE REPLACEMENT Advance Directives For more information, please contact: [phone] (9AM - 5PM [facility], Friday-Friday) Documents on File Type Date Recorded Patient Disk Operator Expl anation Healthcare Proxy 04/27/2024 1:54 PM Healthcare Proxy 04/26/2024 9:51 AM Health Care Proxy * Full Code (Latest Code Status on File) Date Activated Date Inactivated Comments 04/24/2024 7:24 PM Question Answer Comments Code Status Confirmed With: Patient Code Status Communicated To: Inpatient Attending Healthcare Agents on File Name Relationship Healthcare Agent Relationshi p Communication Devora Castro Spouse .Primary Health Care Agent (Proxy form on file) Care Teams Elementary Instructional Coach Relationship Specialty Start Date End Date Alicia Thornton PA [address] [place] [address] PCP - General Physician Sleeve Maker 04/25/24 Additional Source Comments The information contained in this document represents components of the legal health record. It is not the complete legal health record.[facility]
--- OUTSIDE RECORDS SUMMARY | 2025-05-31 13:29 | XMS_ITS | Encounter Summary ---
Author Organization [facility] Address [address] [facility] [address] [place] [address] Phone Care Team Providers Care Retail Client Solutions Consultant Name Role Phone Shannon Whipple MD Primary Care Provider Alicia Thornton Primary Care Provider [phone] Encounter Details Date Type Department Care Team (Latest Contact Info) Description 12/06/2022 Transcribe Orders [facility] [address] [facility] 2nd [place] [address] Ladi Baum, PB [address] [place] [address] Encounter for long-term (current) use of other medications (Primary Dx) Social History Tobacco Use Types [...] Office Visit [facility] Rad Onc [address] [place] [address] Bret Sharp MD [address] [place] [address] [email or web address] 10/11/2025 9:15 AM EST Office Visit [facility] [address] [facility] 3rd Floor, [address] [place] [address] Jaguar Palacios DO [address] [facility] [address] [place] [address] [email or web address] documented as of this encounter Results * (ABNORMAL) Aspartate aminotransferase (AST) (12/06/2022 10:39 AM EDT) AST 57(H) 0 - 37 U/L [facility] Blood 12/06/2022 10:3 9 AM EDT 12/06/2022 10:42 AM EDT Ladi Baum INFECTION CONTROL RN LAB BLOOD ORDERABLES Final Result [address] [address] * (ABNORMAL) Alanine aminotransferase (ALT) (12/06/2022 10:39 AM EDT) ALT 43(H) 0 - 40 U/L [facility] Blood 12/06/2022 10:3 9 AM EDT 12/06/2022 10:42 AM EDT Ladi Baum INFECTION CONTROL RN LAB BLOOD ORDERABLES Final Result [address] [address] documented in this encounter Visit Diagnoses Diagnosis Encounter for long-term (current) use of other medications- Primary documented in this encounter Care Teams Retail Client Solutions Consultant Relationship Specialty Start Date End Date Shannon Whipple MD [address] [place] [address] [email or web address] PCP - General 07/08/17 04/24/24 Alicia Thornton PA [address] [email or web address] [address] [place] [address] PCP - General Physician Tone Artist Apprentice 04/25/24 documented as of this encounter Additional Source Comments The information contained in this document represents components of the legal health record. It is not the complete legal health record.[facility]
--- OUTSIDE RECORDS SUMMARY | 2025-05-31 13:29 | XMS_ITS | Encounter Summary ---
Author Organization [facility] Address [address] [facility] [address] [place] [address] Phone Care Team Providers Care Testboard Operator Name Role Phone Shannon Whipple MD Primary Care Provider Alicia Thornton Primary Care Provider [phone] Encounter Details Date Type Department Care Team (Late st Contact Info) Description 04/24/2024 Procedure Pass [facility], Ct Scan - [address] [id number] Social History Tobacco Use Types Packs/Day Years [...] 5:30 PM EDT Ellen Gutierrez RN * [place] Suicide Severity Rating Scale (Screener/Recent Self-Report) Question [...] Description 06/15/2025 11:00 AM EDT Office Visit [facility] Rad Onc [address] [place] [address] Bret Sharp MD [address] [place] [address] [email or web address] 10/11/2025 9:15 AM EST Office Visit [facility] [address] [place] [address] 3rd Floor, [address] [place] [phone] Jaguar Palacios DO [address] [place] [address] documented as of this encounter Visit Diagnoses Not on filedocumented in this encounter Care Teams Testboard Operator Relationship Specialty Start Date End Date Shannon Whipple MD [address] [place] [address] [email or web address] PCP - General 07/08/17 04/24/24 Alicia Thornton PA [address] [facility] [address] [place] [address] PCP - General Physician Drawing Kiln Operator 04/25/24 documented as of this encounter Additional Source Comments The information contained in this document represents components of the legal health record. It is not the complete legal health record.[facility]
--- OUTSIDE RECORDS SUMMARY | 2025-05-31 13:29 | XMS_ITS | Encounter Summary ---
Author Organization [facility] Address [address] [facility] [address] [place] [address] Phone Care Team Providers Care Process Expert Name Role Phone Shannon Whipple MD Primary Care Provider [phone] Alicia Thornton Primary Care Provider [phone] Reason for Referral * MRI/CAT Scan - Closed Specialty Diagnoses / Procedures Referred By Contac t Referred To Contact Radiology Diagnoses Pain of right heel Procedures CT Chest Lung Cancer Screening Karen Madrigal PA Phone: tel: fax: mailto: t Referral ID Status Reason Start Date Expiration Date Visits Re quested Visits Authorized [id number] Closed 03/08/2021 03/08/2022 1 1 Encounter Details Date Type Department Care Team (Latest Contact Info) Description 03/08/2021 Transcribe Orders Virtual Department [address] [place] [address] Karen Madrigal PA [address] [place] [address] [email or web address] Pain of right heel (Primary Dx) Social History Tobacco Use Types [...] Description 06/15/2025 11:00 AM EDT Office Visit [facility] Rad Onc [address] [place] [address] Bret Sharp MD [address] [place] [address] [email or web address] 10/11/2025 9:15 AM EST Office Visit [facility] [address] [place] [address] 3rd Floor, [address] [place] [address] Jaguar Palacios DO [address] [facility] [address] [place] [address] [id number] [email or web address] documented as of this encounter Results * CT CHEST LUNG CANCER SCREENING INITIAL (03/27/2021 8:19 AM EDT) Anatomical Region Laterality Modality Chest Computed Tomogra phy 03/27/2021 8:50 AM EDT Impressions 03/27/2021 9:08 AM EDT No suspicious pulmonary nodules are identified. No findings suspicious for malignancy in the thorax. No significant changes from 11/24/2018. CT chest 11/24/2018 Lung-RADS Category: Lung-RADS CATEGORY 2 - BENIGN FINDINGS Explanation of the Lung-RADS categories can be found at: https://www.acr.org/Quality-Safety/Resources/LungRADS This report has been forwarded to an automated communication system which will electronically notify appropriate providers of potentially important findings. Narrative 03/27/2021 9:08 AM EDT TECHNIQUE: Diagnostic CT CHEST LUNG CANCER SCREENING INITIAL COMPARISON: CT chest 11/24/2018. FINDINGS: Lines/tubes: None. Lungs and Airways: No suspicious pulmonary nodules or masses. A 5 mm subpleural rounded opacity with a lucent center in the lower lobe posterior laterally (image 216) does not appear significant changed. Mild paraseptal emphysema in the right apex is stable. Mild bilateral postinflammatory changes are stable. No evidence of acute infiltrates. Pleura: No pleural effusions or pneumothorax. Heart and mediastinum: The thyroid gland is normal. No significant mediastinal, hilar or axillary lymphadenopathy is seen. The heart and pericardium are within normal limits. Stable coronary artery calcifications and calcification of the aortic arch, descending thoracic aorta and abdominal aorta. Soft tissues: No evidence of chest wall masses. Abdomen: This study was performed without contrast and with lower than standard dose. These factors reduce the sensitivity for detection of small lesions in the upper abdomen. Given these technical limitations, no new focal lesion is seen within the visualized liver, spleen, pancreas, kidneys and adrenal glands. An approximate 2 cm cyst within the right lobe of the liver Bones: The visualized bony thorax is within normal limits. Procedure Note Steve Liao MD - 03/27/2021 TECHNIQUE: Diagnostic CT CHEST LUNG CANCER SCREENING INITIAL COMPARISON: CT chest 11/24/2018. FINDINGS: Lines/tubes: None. Lungs and Airways: No suspicious pulmonary nodules or masses. A 5 mmsubpleural rounded opacity with a lucent center in the lower lobeposterior laterally (image 216) does not appear significant changed. Mildparaseptal emphysema in the right apex is stable. Mild bilateralpostinflammatory changes are stable. No evidence of acute infiltrates. Pleura: No pleural effusions or pneumothorax. Heart and mediastinum: The thyroid gland is normal. No significantmediastinal, hilar or axillary lymphadenopathy is seen. The heart andpericardium are within normal limits. Stable coronary arterycalcifications and calcification of the aortic arch, descending thoracicaorta and abdominal aorta. Soft tissues: No evidence of chest wall masses. Abdomen: This study was performed without contrast and with lower thanstandard dose. These factors reduce the sensitivity for detection of smalllesions in the upper abdomen. Given these technical limitations, no newfocal lesion is seen within the visualized liver, spleen, pancreas,kidneys and adrenal glands. An approximate 2 cm cyst within the right lobeof the liver Bones: The visualized bony thorax is within normal limits. IMPRESSION: No suspicious pulmonary nodules are identified. No findings suspicious formalignancy in the thorax. No significant changes from 11/24/2018. CT chest 11/24/2018 Lung-RADS Category: Lung-RADS CATEGORY 2 - BENIGN FINDINGS Explanation of the Lung-RADS categories can be found at: https://www.acr.org/Quality-Safety/Resources/LungRADS This report has been forwarded to an automated communication system whichwill electronically notify appropriate providers of potentially importantfindings. Karen LEWIS IMG CT CHEST Final Result * XR FOOT 3 OR MORE VIEWS (RIGHT) (03/27/2021 8:17 AM EDT) Anatomical Region Laterality Modality Foot Right Computed Radiogr aphy 03/27/2021 10:2 8 AM EDT Impressions 03/27/2021 10:29 AM EDT Mild plantar calcaneal spurring and Achilles enthesopathy. No acute bony abnormality suggested. POS - [id number] Narrative 03/27/2021 10:29 AM EDT COMPARISON: None FINDINGS: Frontal, lateral, and oblique views disclose no fracture, subluxation, or other acute bony abnormality. There is accentuation the plantar arch is a 7 mm calcaneal spur present and additional mild dorsal spurring at the Achilles tendon insertion point. No evidence of erosive arthropathy. Procedure Note Zi Gregory MD - 03/27/2021 COMPARISON: None FINDINGS: Frontal, lateral, and oblique views disclose no fracture, subluxation, orother acute bony abnormality. There is accentuation the plantar arch is a7 mm calcaneal spur present and additional mild dorsal spurring at theAchilles tendon insertion point. No evidence of erosive arthropathy. IMPRESSION: Mild plantar calcaneal spurring and Achilles enthesopathy. No acute bonyabnormality suggested. POS - [id number] us Karen LEWIS IMG XR LOWER EXTREMITY Final Re sult documented in this encounter Visit Diagnoses Diagnosis Pain of right heel- Primary Pain of right heel Pain of right heel documented in this encounter Care Teams Process Expert Relationship Specialty Start Date End Date Shannon Whipple MD [address] [place] [address] [email or web address] PCP - General 07/08/17 04/24/24 Alicia Thornton PA [address] [facility] 1 [place] [address] PCP - General Physician Trucker 04/25/24 documented as of this encounter Additional Source Comments The information contained in this document represents components of the legal health record. It is not the complete legal health record.[facility]
--- OUTSIDE RECORDS SUMMARY | 2025-05-31 13:29 | XMS_ITS | Encounter Summary ---
Author Organization [facility] Address [address] [facility] [address] [place] [address] Phone Care Team Providers Care Patient Support Associate Name Role Phone Shannon Whipple MD Primary Care Provider Alicia Thornton Primary Care Provider [phone] Encounter Details Date Type Department Care Team (Late st Contact Info) Description 03/08/2021 Procedure Pass [facility], Ct Scan - [address] [address] Social History Tobacco Use Types Packs/Day Years [...] 11:00 AM EDT Office [place] [facility] Rad Onc [address] [place] [address] Bret Sharp MD [address] [place] [address] [email or web address] 10/11/2025 9:15 AM EST Office Visit [facility] [address] [facility] 3rd Floor, [address] [place] [address] Jaguar Palacios DO [address] [facility] [address] [place] [address] [id number] [email or web address] documented as of this encounter Visit Diagnoses Not on filedocumented in this encounter Care Teams Patient Support Associate Relationship Specialty Start Date End Date Shannon Whipple MD [address] [place] [address] [email or web address] PCP - General 07/08/17 04/24/24 Alicia Thornton PA [address] [place] [address] 1 [place] [address] PCP - General Physician Oil Field Rig Builder 04/25/24 documented as of this encounter Additional Source Comments The information contained in this document represents components of the legal health record. It is not the complete legal health record.[facility]
--- OUTSIDE RECORDS SUMMARY | 2025-05-31 13:30 | XMS_ITS | Encounter Summary ---
Author Organization [facility] Address [address] [facility] [address] [place] [address] Phone Care Team Providers Care Nurse Emergency Name Role Phone Shannon Whipple MD Primary Care Provider [phone] Shannon Whipple MD Unavailable [phone] Alicia Thornton Primary Care Provider [phone] Encounter Details Date Type Department Care Team (Latest Contact Info) Description 06/24/2019 Transcribe Orders [facility] Laboratory [address] [place] [address] Nan Moreira PA 10 [place] [address] Elevated triglycerides with high cholesterol (Primary Dx) Social History Tobacco Use Types [...] [facility] [place] On[facility] [address] [place] [address] Bret Sharp MD 30 [place] [address] [email or web address] 10/11/2025 9:15 AM EST Office Visit [facility] [address] [facility] 3rd Floor, [address] [place] [address] Jaguar Palacios DO 22 [facility] [address] [place] [address] [email or web address] documented as of this encounter Procedures Procedure Name Priority Date/Time Associated Diagnosis Comments COMPREHENSIVE METABOLIC PANEL Routine 06/24/2019 7:35 AM EDT Elevated triglycerides with high cholesterol SMOOTH MUSCLE ANTIBODY Routine 06/24/2019 7:35 AM EDT Elevated triglycerides with high cholesterol LIPID PANEL Routine 06/24/2019 7:35 AM EDT Elevated triglycerides with high cholesterol documented in this encounter Results * Smooth Muscle Antibody (06/24/2019 7:35 AM EDT) SMOOTH MUSCLE AB POSITIVE AT 1:160 [facility] Comment:Normal: Negative at 1:20 Blood 06/24/2019 7:35 AM EDT 06/24/2019 7:37 AM EDT us Nan LEWIS LAB BLOOD ORDERABLES Final Result [facility] [address] [place] [address] * (ABNORMAL) Lipid panel (06/24/2019 7:35 AM EDT) HDL 56 mg/dL [facility] Comment: Interpretation <40 mg/dL: Low HDL cholesterol (major risk factor for CHD) Greater than or equal to 60 mg/dL: High HDL cholesterol ( negative risk factor for CHD) HDL - cholesterol is affected by a number of factors, e.g. smoking, excerise, hormones, sex and age. CHOLESTEROL 181 0 - 240 mg/dL [facility] TRIGLYCERIDES 239(H) 30 - 160 mg/dL [facility] LDL 77 50 - 129 mg/dL [facility] Comment: LDL levels in terms of risk for coronary heart disease: <100 mg/dL: Optimal 100-129 mg/dL: Near or above optimal 130-159 mg/dL: Borderline high 160-189 mg/dL: High >190 mg/dL: Very High CARDIAC RISK RATIO 3.2(L) 3.4 - 5.0 [facility] Blood 06/24/2019 7:35 AM EDT 06/24/2019 7:39 AM EDT us Nan LEWIS LAB BLOOD ORDERABLES Final Result Performing Organization Address City/State/[facility] Co de Phone Number [address] [address] * (ABNORMAL) Comprehensive metabolic panel (06/24/2019 7:35 AM EDT) SODIUM 138 133 - 146 mmol/L [facility] POTASSIUM 4.2 3.3 - 5.1 mmol/L [facility] CHLORIDE 102 96 - 108 mmol/L [facility] CO2 23 21 - 35 mmol/L [facility] BUN 20(H) 6 - 19 mg/dL [facility] CREATININE <0.50(L) 0.5 - 1.5 mg/dL [facility] GLUCOSE 108(H) 70 - 99 mg/dL [facility] ALBUMIN 3.9 3.9 - 4.8 g/dL [facility] TOTAL PROTEIN 7.3 6.5 - 8.0 g/dL [facility] CALCIUM 9.5 8.4 - 10.3 mg/dL [facility] ALKALINE PHOSPHATASE 31(L) 39 - 117 U/L [facility] TOTAL BILIRUBIN 0.4 0.0 - 1.2 mg/dL [facility] AST 34 0 - 37 U/L [facility] ALT 31 0 - 40 U/L [facility] GLOBULIN 3.4 1 - 4.8 g/dL [facility] EGFR Not Done >59 mL/min/1.7 3m2 [facility] ANION GAP 17 10 - 20 mmol/L [facility] Blood 06/24/2019 7:35 AM EDT 06/24/2019 7:39 AM EDT us Nan LEWIS LAB BLOOD ORDERABLES Final Result [facility] [address] [place] [address] documented in this encounter Visit Diagnoses Diagnosis Elevated triglycerides with high cholesterol- Primary Mixed hyperlipidemia documented in this encounter Additional Health Concerns Infection Onset Date Last Indicated Resolved Time CoV-Exposed Comment:Recent close contact 04/03/2020 04/03/2020 04/17/2020 4:55 AM EDT documented as of this encounter Care Teams Nurse Emergency Relationship Specialty Start Date End Date Shannon Whipple MD [address] [place] [address] [email or web address] PCP - General 07/08/17 04/24/24 Alicia Thornton PA [address] [facility] 1 [place] [address] PCP - General Physician Vegetable Tester 04/25/24 Shannon Whipple MD [address] [place] [address] [email or web address] Insurance Assigned Provider 12/26/18 11/25/20 documented as of this encounter Additional Source Comments The information contained in this document represents components of the legal health record. It is not the complete legal health record.[facility]
--- OUTSIDE RECORDS SUMMARY | 2025-05-31 13:30 | XMS_ITS | Encounter Summary ---
Author Organization [facility] Address [address] [facility] [address] [place] [address] Phone Care Team Providers Care Tannery Worker Name Role Phone Shannon Whipple MD Primary Care Provider Shannon Whipple MD Unavailable [phone] Alicia Thornton Primary Care Provider Encounter Details Date Type Department Care Team (Latest Contact Info) Description 04/26/2019 Transcribe Orders Virtual Department 30 [place] [address] Karen Madrigal PA [address] [place] [address] [email or web address] Elevated LFTs (Primary Dx) Social History Tobacco [...] Description 06/15/2025 11:00 AM EDT Office Visit [facility] Rad Onc [address] [place] [address] Bret Sharp MD 30 [place] [address] [email or web address] 10/11/2025 9:15 AM EST Office Visit [facility] [address] [facility] 3rd Floor, [address] [place] [address] Jaguar Palacios DO 22 [facility] [address] [place] [address] [email or web address] documented as of this encounter Results * US Abdomen Complete (05/11/2019 9:23 AM EDT) Anatomical Region Laterality Modality Abdomen Ultrasound 05/11/2019 9:29 AM EDT Impressions 05/11/2019 9:32 AM EDT Chronic right hepatic lobe cyst. No other significant abnormality of the visualized upper abdominal visceral structures. POS - [id number] Narrative 05/11/2019 9:32 AM EDT COMPARISON: 07/30/2013 and 11/24/2018 CT studies FINDINGS: The gallbladder is within normal limits in appearance without evidence of cholelithiasis or focal wall thickening. Intrahepatic bile ducts are nondilated and the common duct is within normal limits at 4 mm in diameter. Liver is within normal limits in size and displays homogeneous parenchymal echo-texture when allowing for the presence of a chronic cyst in the right lobe measuring 1.7 x 1.6 x 1.6 cm in span. No solid hepatic mass identified. Spleen, pancreas, kidneys, and visualized portions of the upper abdominal aorta and IVC are within normal limits in size and sonographic appearance. Procedure Note Quincy Manjarrez MD - 05/11/2019 COMPARISON: 07/30/2013 and 11/24/2018 CT studies FINDINGS: The gallbladder is within normal limits in appearance without evidence ofcholelithiasis or focal wall thickening. Intrahepatic bile ducts arenondilated and the common duct is within normal limits at 4 mm indiameter. Liver is within normal limits in size and displays homogeneous parenchymalecho-texture when allowing for the presence of a chronic cyst in the rightlobe measuring 1.7 x 1.6 x 1.6 cm in span. No solid hepatic massidentified. Spleen, pancreas, kidneys, and visualized portions of the upper abdominalaorta and IVC are within normal limits in size and sonographicappearance. IMPRESSION: Chronic right hepatic lobe cyst. No other significant abnormality of thevisualized upper abdominal visceral structures. POS - [id number] us Karen LEWIS IMG US ABDOMEN Final Result documented in this encounter Visit Diagnoses Diagnosis Elevated LFTs- Primary Other abnormal blood chemistry Elevated LFTs Other abnormal blood chemistry documented in this encounter Additional Health Concerns Infection Onset Date Last Indicated Resolved Time CoV-Exposed Comment:Recent close contact 04/03/2020 04/03/2020 04/17/2020 4:55 AM EDT documented as of this encounter Care Teams Tannery Worker Relationship Specialty Start Date End Date Shannon Whipple MD [address] [place] [address] [email or web address] PCP - General 07/08/17 04/24/24 Alicia Thornton PA [address] [place] [address] PCP - General Physician Crop Duster 04/25/24 Shannon Whipple MD [address] [place] [address] [email or web address] Insurance Assigned Provider 12/26/18 11/25/20 documented as of this encounter Additional Source Comments The information contained in this document represents components of the legal health record. It is not the complete legal health record.[facility]
--- OUTSIDE RECORDS SUMMARY | 2025-05-31 13:30 | XMS_ITS | Encounter Summary ---
Author Organization [facility] Address [address] [facility] [address] [place] [address] Phone Care Team Providers Care Pulmonary Physical Therapist Name Role Phone Shannon Whipple MD Primary Care Provider [phone] Shannon Whipple MD Unavailable [phone] Alicia Thornton Primary Care Provider [phone] Encounter Details Date Type Department Care Team (Late st Contact Info) Description 03/06/2018 Ancillary Orders [facility], X-Ray - Yolanda [address] [place] [address] Karen Madrigal PA [address] [place], [place] [id number] [email or web address] Social History Tobacco Use Types Packs/Day Years Used Date Smoking Tobacco: Never Assessed Sex and Gender Information Value Date Recorded Sex Assigned at Male 07/23/2019 5:41 AM EDT Legal Sex Male 9:58 PM EDT Gender Identity Male 07/23/2019 5:41 AM EDT Sexual Orientation Straight 07/23/2019 5: 41 AM EDT documented as of this encounter Plan of Treatment Upcoming Encounters Date Type Department Care Team (Late st Contact Info) Description 06/15/2025 11:00 AM EDT Office [place] [facility] Rad Onc [address] [place] [address] Bret Sharp MD 30 [place] [address] [email or web address] 10/11/2025 9:15 AM EST Office Visit [facility] [address] [facility] 3rd Floor, [address] [place] [address] Jaguar Palacios DO 22 [facility] [address] [place] [address] documented as of this encounter Results * XR RIBS 2 VIEWS (RIGHT) (03/06/2018 1:59 PM EDT) Anatomical Region Laterality Modality Chest Radiographic Jennifer ging 03/06/2018 2:16 PM EDT Impressions 03/06/2018 2:18 PM EDT Unremarkable evaluation of the right ribs. No explanation for right chest wall pain is seen. S/S: Anterior right chest wall pain, trauma POS - [id number] Narrative 03/06/2018 2:18 PM EDT COMPARISON: Chest x-ray March 21, 2015 FINDINGS: 6 views of the right ribs are obtained. The right lung is clear. No complication of an occult rib injury is seen. In particular no pneumothorax or pleural effusion is evident. No rib fracture or explanation for right chest wall pain is seen. Procedure Note Golden Rashid MD - 03/06/2018 COMPARISON: Chest x-ray March 21, 2015 FINDINGS: 6 views of the right ribs are obtained. The right lung is clear. No complication of an occult rib injury is seen.In particular no pneumothorax or pleural effusion is evident. No rib fracture or explanation for right chest wall pain is seen. IMPRESSION: Unremarkable evaluation of the right ribs. No explanation for right chestwall pain is seen. S/S: Anterior right chest wall pain, trauma POS - [id number] Karen LEWIS IMG XR CHEST Final Result * XR SHOULDER 2 VIEWS (LEFT) (03/06/2018 1:59 PM EDT) Anatomical Region Laterality Modality Shoulder Left Radiographic Jennifer ging 03/06/2018 2:13 PM EDT Impressions 03/06/2018 2:16 PM EDT Minor arthritic changes. The most prominent finding is extensive calcific tendinitis related to the supraspinatus tendon adjacent to the greater trochanter. S/S: Left shoulder pain times months, calcific tendinitis POS - [id number] Narrative 03/06/2018 2:16 PM EDT COMPARISON: None FINDINGS: 4 views of the left shoulder are obtained. There is minor spurring in the AC joint. There is also minor spurring in the inferior glenoid. No acute bony injury or bony displacement is evident. There is calcific density evident adjacent to the greater tuberosity consistent with calcific tendinitis/bursitis. The upper left lung is clear. Procedure Note Golden Rashid MD - 03/06/2018 COMPARISON: None FINDINGS: 4 views of the left shoulder are obtained. There is minor spurring in the AC joint. There is also minor spurring inthe inferior glenoid. No acute bony injury or bony displacement is evident. There is calcific density evident adjacent to the greater tuberosityconsistent with calcific tendinitis/bursitis. The upper left lung is clear. IMPRESSION: Minor arthritic changes. The most prominent finding is extensive calcifictendinitis related to the supraspinatus tendon adjacent to the greatertrochanter. S/S: Left shoulder pain times months, calcific tendinitis POS - [id number] Karen LEWIS IMG XR UPPER EXTREMITY Final Re sult documented in this encounter Visit Diagnoses Diagnosis Pain Generalized pain Pain Generalized pain Pain Generalized pain documented in this encounter Additional Health Concerns Infection Onset Date Last Indicated Resolved Time CoV-Exposed Comment:Recent close contact 04/03/2020 04/03/2020 04/17/2020 4:55 AM EDT documented as of this encounter Care Teams Pulmonary Physical Therapist Relationship Specialty Start Date End Date Shannon Whipple MD [address] [place] [address] [email or web address] PCP - General 07/08/17 04/24/24 Alicia Thornton PA [address] [facility] [address] [place] [address] PCP - General Physician Advanced Quality Engineer 04/25/24 Shannon Whipple MD [address] [place] [address] [email or web address] Insurance Assigned Provider 12/26/18 11/25/20 documented as of this encounter Additional Source Comments The information contained in this document represents components of the legal health record. It is not the complete legal health record.[facility]
--- OUTSIDE RECORDS SUMMARY | 2025-05-31 13:30 | XMS_ITS | Encounter Summary ---
Author Organization [facility] Address [address] [facility] [address] [place] [address] Phone Care Team Providers Care Furnace Unloader Name Role Phone Alicia Thornton Primary Care Provider [phone] Encounter Details Date Type Department Care Team (Late st Contact Info) Description 04/25/2024 Procedure Pass Non-Invasive Cardiology 30 [place] [address] Social History Tobacco Use Types Packs/Day Years [...] [facility] Rad Onc [address] [place] [address] Bret Sharp MD 30 [place] [address] [email or web address] 10/11/2025 9:15 AM EST Office Visit [facility] 22 [facility] 3rd Floor, [address] [place] [address] Jaguar Palacios DO 22 [facility] [address] [place] [address] [email or web address] documented as of this encounter Visit Diagnoses Not on filedocumented in this encounter Care Teams Furnace Unloader Relationship Specialty Start Date End Date Alicia Thornton PA [address] [facility] [address] [place] [address] PCP - General Physician State Tested Nursing Assistant 04/25/24 documented as of this encounter Additional Source Comments The information contained in this document represents components of the legal health record. It is not the complete legal health record.[facility]
--- OUTSIDE RECORDS SUMMARY | 2025-05-31 13:30 | XMS_ITS | Encounter Summary ---
Author Organization [facility] Address [address] [facility] [address] [place] [address] Phone Care Team Providers Care Sports Physiologist Name Role Phone Shannon Whipple MD Primary Care Provider [phone] Shannon Whipple MD Unavailable [phone] Alicia Thornton Primary Care Provider [phone] Encounter Details Date Type Department Care Team (Latest Contact Info) Description 12/11/2017 Transcribe Orders [facility] Laboratory [address] [place] [address] Karen Madrigal PA [address] [place] [address] [email or web address] Enlarged prostate (Primary Dx) Social History Tobacco Use Types [...] Description 06/15/2025 11:00 AM EDT Office [facility] Rad Onc [address] [place] [address] Bret Sharp MD 30 [place] [address] [email or web address] 10/11/2025 9:15 AM EST Office Visit [facility] 22 [facility] 3rd Floor, [address] [place] [address] Jaguar Palacios DO 22 [facility] [address] [place] [address] documented as of this encounter Results * TSH with reflex (12/11/2017 7:19 AM EDT) Pathologist [facility] TSH 1.74 0.27 - 4.20 uIU/mL [facility] Blood 12/11/2017 7:19 AM EDT 12/11/2017 7:22 AM EDT [facility] Final Resu lt [address] [address] * Hemoglobin A1c (12/11/2017 7:19 AM EDT) Pathologist [facility] HEMOGLOBIN A1C 5.8 4.3 - 5.8 % [facility] Blood 12/11/2017 7:19 AM EDT 12/11/2017 7:22 AM EDT Critical access hospital LAB BLOOD ORDERABLES Final Resu lt [address] [address] * (ABNORMAL) CBC and differential (12/11/2017 7:19 AM EDT) Pathologist [facility] WBC 5.43 3.40 - 11.20 K/uL [facility] RBC 4.26(L) 4.50 - 5.50 M/uL [facility] HGB 13.4 13.0 - 17.0 g/dL [facility] HCT 40.8 40.0 - 51.0 % [facility] PLT 273 130 - 400 K/uL [facility] MCV 95.8 79.0 - 98.0 fL [facility] MCH 31.5 27.0 - 34.8 pg [facility] MCHC 32.8 31.5 - 36.0 g/dL [facility] RDW 12.9 10.8 - 14.6 % [facility] MPV 9.6 9.4 - 12.4 fl [facility] NRBC 0.00 /100 WBCs [facility] ABSOLUTE NRBC 0.00 K/uL [facility] DIFF METHOD Auto [facility] NEUTS 54.1 45.30 - 77.70 % [facility] LYMPHS 30.9 12.30 - 39.70 % [facility] MONOS 10.9 4.10 - 12.80 % [facility] EOS 3.1 0 - 7.2 % [facility] BASOS 0.6 0 - 2.80 % [facility] Granulocytes, immature (%) 0.4 0.0 - 0.9 % [facility] ABSOLUTE NEUTS 2.94 1.40 - 7.70 K/uL [facility] ABSOLUTE LYMPHS 1.68 0.60 - 3.20 K/uL [facility] ABSOLUTE MONOS 0.59 0.11 - 0.59 K/uL [facility] ABSOLUTE EOS 0.17 0.01 - 0.50 K/uL [facility] ABSOLUTE BASOS 0.03 0.00 - 0.08 K/uL [facility] Granulocytes, immature 0.02 0.00 - 0.05 K/uL [facility] Blood 12/11/2017 7:19 AM EDT 12/11/2017 7:22 AM EDT us Karen LEWIS LAB BLOOD ORDERABLES Final Resu lt [facility] [address] [place] [address] * (ABNORMAL) Comprehensive metabolic panel (12/11/2017 7:19 AM EDT) SODIUM 144 133 - 146 mmol/L [facility] POTASSIUM 3.9 3.3 - 5.1 mmol/L [facility] CHLORIDE 105 96 - 108 mmol/L [facility] CO2 24 21 - 35 mmol/L [facility] BUN 19 6 - 19 mg/dL [facility] CREATININE 0.60 0.5 - 1.5 mg/dL [facility] GLUCOSE 105(H) 70 - 99 mg/dL [facility] ALBUMIN 3.4(L) 3.9 - 4.8 g/dL [facility] TOTAL PROTEIN 6.8 6.5 - 8.0 g/dL [facility] CALCIUM 8.9 8.4 - 10.3 mg/dL [facility] ALKALINE PHOSPHATASE 26(L) 39 - 117 U/L [facility] TOTAL BILIRUBIN 0.4 0.0 - 1.2 mg/dL [facility] AST 36 0 - 37 U/L [facility] ALT 35 0 - 40 U/L [facility] GLOBULIN 3.4 1 - 4.8 g/dL [facility] EGFR 106 >59 mL/min/1.7 3m2 [facility] Comment:If patient is black, multiply result by 1.159. The eGFR calculation has changed from the MDRD equation to the CKD-EPI equation as of November 25, 2017. ANION GAP 19 10 - 20 mmol/L [facility] Blood 12/11/2017 7:19 AM EDT 12/11/2017 7:22 AM EDT us Karen LEWIS LAB BLOOD ORDERABLES Final Resu lt [facility] [address] [place] [address] * (ABNORMAL) Lipid panel (12/11/2017 7:19 AM EDT) HDL 60 mg/dL [facility] Comment: Interpretation: Risk Level Males Decreased >45 mg/dL Average 40-45 mg/dL Increased <40 mg/dL CHOLESTEROL 163 0 - 240 mg/dL [facility] TRIGLYCERIDES 175(H) 30 - 160 mg/dL [facility] LDL 68 50 - 129 mg/dL [facility] Comment: LDL levels in terms of risk for coronary heart disease: <100 mg/dL: Optimal 100-129 mg/dL: Near or above optimal 130-159 mg/dL: Borderline high 160-189 mg/dL: High >190 mg/dL: Very High CARDIAC RISK RATIO 2.7(L) 3.4 - 5.0 [facility] Blood 12/11/2017 7:19 AM EDT 12/11/2017 7:22 AM EDT us Karen LEWIS LAB BLOOD ORDERABLES Final Resu lt [facility] [address] [place] [address] documented in this encounter Visit Diagnoses Diagnosis Enlarged prostate- Primary Hypertrophy of prostate without urinary obstruction and other lower urinary tract symptoms (LUTS) documented in this encounter Additional Health Concerns Infection Onset Date Last Indicated Resolved Time CoV-Exposed Comment:Recent close contact 04/03/2020 04/03/2020 04/17/2020 4:55 AM EDT documented as of this encounter Care Teams Sports Physiologist Relationship Specialty Start Date End Date Shannon Whipple MD [address] [place] [address] [email or web address] PCP - General 07/08/17 04/24/24 Alicia Thornton PA [address] [place] [address] 1 [place] [address] PCP - General Physician Ethylene Plant Operator 04/25/24 Shannon Whipple MD [address] [place] [address] [email or web address] Insurance Assigned Provider 12/26/18 11/25/20 documented as of this encounter Additional Source Comments The information contained in this document represents components of the legal health record. It is not the complete legal health record.[facility]
--- OUTSIDE RECORDS SUMMARY | 2025-05-31 13:30 | XMS_ITS | Encounter Summary ---
Author Organization [facility] Address [address] [facility] [address] [place] [address] Phone Care Team Providers Care Base Filler Operator Name Role Phone Shannon Whipple MD Primary Care Provider [phone] Alicia Thornton Primary Care Provider Encounter Details Date Type Department Care Team (Late st Contact Info) Description 04/24/2024 Procedure Pass [facility] Lab 30 [place] [address] Social History Tobacco Use Types Packs/Day Years [...] 5:30 PM EDT Ellen Gutierrez RN * [place] Suicide Severity Rating Scale (Screener/Recent Self-Report) Question [...] [facility] Rad Onc [address] [place] [address] Bret Sharp MD 30 [place] [address] [email or web address] 10/11/2025 9:15 AM EST Office [facility] [address] [place] [address] 3rd Floor, [address] [place] [address] Jaguar Palacios DO 22 [facility] [address] [place] [address] [email or web address] documented as of this encounter Visit Diagnoses Not on filedocumented in this encounter Care Teams Base Filler Operator Relationship Specialty Start Date End Date Shannon Whipple MD [address] [place] [address] [email or web address] PCP - General 07/08/17 04/24/24 Alicia Thornton PA [address] [place] [address] PCP - General Physician Molded Frames Assembler 04/25/24 documented as of this encounter Additional Source Comments The information contained in this document represents components of the legal health record. It is not the complete legal health record.[facility]
--- OUTSIDE RECORDS SUMMARY | 2025-05-31 13:30 | XMS_ITS | Encounter Summary ---
Author Organization [facility] Address [address] [facility] [address] [place] [address] Phone Care Team Providers Care Hospitality House Supervisor Name Role Phone Shannon Whipple MD Primary Care Provider Shannon Whipple MD Unavailable [phone] Alicia Thornton Primary Care Provider [phone] Encounter Details Date Type Department Care Team (Latest Contact Info) Description 04/12/2019 Transcribe Orders [facility] Laboratory [address] [place] [address] Karen Madrigal PA [address] [place] [address] [email or web address] Elevated LFTs (Primary Dx) Social History Tobacco [...] 11:00 AM EDT Office [place] [facility] Rad Onc [address] [place] [address] Bret Sharp MD 30 [place] [address] [email or web address] 10/11/2025 9:15 AM EST Office Visit [facility] 22 [facility] 3rd Floor, [address] [place] [address] Jaguar Palacios DO 22 [facility] [address] [place] [address] [email or web address] documented as of this encounter Results * Anti-Mitochondrial Antibody (AMA) (04/12/2019 12:59 PM EDT) Pathologist [facility] MITOCHONDRIAL AB NEGATIVE AT 1:20 [facility] Comment:Normal: Negative at 1:20 Blood 04/12/2019 12:5 9 PM EDT 04/12/2019 1:03 PM EDT Karen LEWIS LAB BLOOD ORDERABLES Final Resu lt Performing Organization Address [facility] Co de Phone Number [address] [address] * Ceruloplasmin (04/12/2019 12:59 PM EDT) Pathologist [facility] CERULOPLASMIN 25 20 - 60 mg/dL [facility] Blood 04/12/2019 12:5 9 PM EDT 04/12/2019 1:03 PM EDT Karen LEWIS LAB BLOOD ORDERABLES Final Resu lt Performing Organization Address City/[facility]/ZIP Co de Phone Number [address] [address] * Hepatitis C antibody, qualitative (04/12/2019 12:59 PM EDT) Pathologist [facility] HCV NON-REACTIV E NON-REACTI VE [facility] Blood 04/12/2019 12:5 9 PM EDT 04/12/2019 1:02 PM EDT us Karen Blume PA LAB BLOOD ORDERABLES Final Resu lt Performing Organization Address [facility]/ZIP Co de Phone Number [address] [address] * Hepatitis B core antibody, total (04/12/2019 12:59 PM EDT) HEP B CORE AB, TOT NON-REACTI VE NON-REACTI VE [facility] Blood 04/12/2019 12:5 9 PM EDT 04/12/2019 1:02 PM EDT us Karen Blume PA LAB BLOOD ORDERABLES Final Resu lt Performing Organization Address [facility]/ZIP Co de Phone Number [address] [address] * Hepatitis B surface antigen (04/12/2019 12:59 PM EDT) HBV SURFACE ANTIGEN NON-REACTI VE NON-REACTI VE [facility] Blood 04/12/2019 12:5 9 PM EDT 04/12/2019 1:02 PM EDT Karen Estate Assistume PA LAB BLOOD ORDERABLES Final Resu lt Performing Organization Address [facility]/ZIP Co de Phone Number [address] [address] * Hepatitis B surface antibody (04/12/2019 12:59 PM EDT) HBV SURFACE ANTIBODY Negative [facility] Blood 04/12/2019 12:5 9 PM EDT 04/12/2019 1:02 PM EDT us Karen Blume PA LAB BLOOD ORDERABLES Final Resu lt [facility] [address] [place] [address] * Smooth Muscle Antibody (04/12/2019 12:59 PM EDT) SMOOTH MUSCLE AB POSITIVE AT 1:160 [facility] Comment:Normal: Negative at 1:20 Blood 04/12/2019 12:5 9 PM EDT 04/12/2019 1:03 PM EDT us Karen Rohan LEWIS LAB BLOOD ORDERABLES Final Resu lt [facility] [address] [place] [address] documented in this encounter Visit Diagnoses Diagnosis Elevated LFTs- Primary Other abnormal blood chemistry documented in this encounter Additional Health Concerns Infection Onset Date Last Indicated Resolved Time CoV-Exposed Comment:Recent close contact 04/03/2020 04/03/2020 04/17/2020 4:55 AM EDT documented as of this encounter Care Teams Hospitality House Supervisor Relationship Specialty Start Date End Date Shannon Whipple MD [address] [place] [address] [email or web address] PCP - General 07/08/17 04/24/24 Alicia Thornton PA [address] [facility] [address] [place] [address] PCP - General Physician Graphic Designer 04/25/24 Shannon Whipple MD [address] [place] [address] [email or web address] Insurance Assigned Provider 12/26/18 11/25/20 documented as of this encounter Additional Source Comments The information contained in this document represents components of the legal health record. It is not the complete legal health record.[facility]
== END 2025-05-31 11:08 | disposition home or self-care (01) ==
LOC: HO.LAB 11:07
PROVIDERS: PCP Physician Assistant Medical; Visit Provider Physician Assistant Medical
DX: E11.9 Type 2 diabetes mellitus without complications (principal)
CPT/HCPCS: 82043; 82570

== ENCOUNTER 2025-09-06 08:52 | Outpatient (AMB) | payer MEDICARE, SELFPAY ==
--- NOTE | 2025-09-06 08:53 | A.OFFPC_ITS ---
Vital Signs 09/06/25 08:56 Height 5 ft 3 in Weight 150 lb 0.2 oz BMI 26.6 BP 107/65 Blood Pressure Location Rt brachial Pulse 96 Pulse Source Pulse Oximeter Temp 96.7 F L Pulse Oximetry (%) 98 Intake Visit Reasons: Annual & 6 month f/u - see comments Intake Note: no issues he is going for radiation tomorrow. Allergies No Known Allergies Allergy (Verified 09/06/25 10:09) Medication List - Last Reconciled 09/06/25 by Martha Benedict PA-C alcohol swabs (Alcohol Pads) 1 pad topical TIDWMEAL apixaban (Eliquis) 5 mg PO BID blood sugar diagnostic (FreeStyle Lite Strips) CHECK GLUCOSE 3 TIMES A DAY WITH MEALS blood-glucose meter (FreeStyle Lite Meter kit) Check glucose 3 times a day before meals lancets (FreeStyle Lancets) CHECK GLUCOSE 3 TIMES A DAY WITH MEALS lancing device Check glucose 3 times a day with meals lisinopril 5 mg PO DAILY metformin ER 500 mg PO DAILY metoprolol succinate ER 50 mg PO DAILY rosuvastatin 10 mg PO DAILY sertraline 100 mg PO DAILY 90 days umeclidinium-vilanterol 62.5-25 mcg/actuation (Anoro Ellipta) 1 ea inhalation DAILY Tobacco use date assessed: 03/21/25 Dental Screening Dental Screen Date: 09/06/25 Did you have a dental visit in the last 12 months?: No Did you have a dental problem in the last 6 months where you did not have access to dental care?: No Was dental information given to patient?: Patient has dentist HPI HPI Comments History of Present Illness Details History of Present Illness The patient is a 70 year old male presenting for his annual physical exam and six-month follow-up. The patient has a history of prostate cancer and is scheduled to begin radiation therapy tomorrow. He opted for radiation over surgery to avoid potential complications such as infection, bleeding, and the need for a catheter. The patient carries a significant family history of prostate cancer, affecting his father and brother. His PSA level was 7.4 in February, and a subsequent biopsy showed 11 of 12 cores were positive. A prior CAT scan to check for metastasis was clean, though it did identify a benign spot on his liver and a kidney stone. The patient has type 2 diabetes mellitus, managed with metformin 500 mg daily. His hemoglobin A1c was 6.8 in February 2025 and is now 6.2. He developed microalbuminuria, noted in May, which is attributed to diabetes. The patient has a history of atrial flutter, for which he takes metoprolol extended-release 50 mg daily and Eliquis 5 mg twice a day. He also takes rosuvastatin 10 mg for hyperlipidemia, with a recent total cholesterol of 120 mg/dL and LDL of 60 mg/dL. His lab work from February 2025 indicated mild anemia with an H&H of 13.2 and 39.5, slightly elevated liver enzymes (AST 38, ALT 48), and normal B12, vitamin D, folate, and thyroid levels. He has a history of anxiety and has been taking sertraline 75 mg for a long time, reporting recent increased anxiety and stress. Regarding preventative care, a colonoscopy was due within the last year but was deferred due to a recent CVA and is currently on hold because of his ongoing prostate cancer treatment. He uses an Ellipta inhaler for a respiratory condition. Social History - Marital Status: Lives with his . - Family: He does not have any children of his own. - Functional Status: The patient is inde pendent and states he will not need help at home post-radiation. - Activity Level: Reports he has not bee n very active recently. [facility] Medical History (Updated 09/06/25 @ 10:13 by Martha Benedict PA-C) Healthcare maintenance Prostate cancer Annual physical exam Left thyroid nodule Weight loss Urinary frequency Elevated alkaline phosphatase level Elevated ALT measurement Elevated AST (SGOT) Elevated PSA Anemia Type 2 diabetes mellitus with hemoglobin A1c goal of less than 7.0% Overweight with body mass index (BMI) of 27 to 27.9 in adult CVA (cerebral vascular accident) Atrial flutter Varicose veins of both lower extremities Rosacea Hyperlipidemia Emphysema/COPD Chronic venous hypertension Depression Anxiety Establishing care with new doctor, encounter for Surgical History History of colonoscopy Family History Father Lung cancer Mother No problems noted. Social History Housing: Condominium Alcohol intake: current Alcohol intake frequency: does not drink Patient Tobacco Use Status: Former Tobacco user service: No Current occupational status: retired Cognitive needs: No Hearing needs: No Vision needs: Yes (rx glasses) Questionnaire PHQ-9 Over the last 2 weeks, how often have you been bothered by any of the following problems? 1. Little interest or pleasure in doing things: several days 2. Feeling down, depressed, or hopeless: several days 3. Trouble falling or staying asleep, or sleeping too much: several days 4. Feeling tired or having little energy: several days 5. Poor appetite or overeating: not at all 6. Feeling bad about yourself - or that you are a failure or have let yourself or your family down: not at all 7. Trouble concentrating on things, such as reading the newspaper or watching television: not at all 8. Moving or speaking so slowly that other people could have noticed. Or the opposite - being so fidgety or restless that you have been moving around a lot more than usual: not at all 9. Thoughts that you would be better off or of hurting yourself in some way: not at all Total score: 4 Depression Screening Interpretation: Positive Depression Screening Follow-up: Existing condition and In treatment (On Sertraline ) Depression Screening Done: Yes 93414 - PHQ-9 Billing: Yes Source: Developed by Drs. Ryan Staley, Ivory Abraham, Mata Weinberg and colleagues, with an educational vesna from [employer]. Thrive Questionnaire Date Thrive assessed: 03/08/25 I am a: Patient What is your living situation today?: I have a steady place to live Within the past 12 months, did the food you bought not last and you didn't have the money to get more?: Never true Within the past 12 months, did you worry whether your food would run out before you got money to buy more?: Never true Do you have trouble paying for medicines?: No Do you have trouble getting transportation to medical appointments?: No Do you have trouble paying your heating and electricity bill?: No Do you have trouble taking care of your child, family member or friend?: No Do you have trouble with day-to-day activities such as bathing, preparing meals, shopping, managing finances, etc.?: No Are you currently unemployed and looking for a job?: No Are you interested in more education?: No THRIVE Score: 0 AUDIT C Alcohol Use Questionnaire (AUDIT-C) 1. How often do you have a drink containing alcohol?: 2-4 times a month 2. How many drinks containing alcohol do you have on a typical day when you are drinking?: 3 or 4 3. How often do you have six or more drinks on one occasion?: Never Total Score: 3 Score Reviewed/Action Taken: No SHERRY-7 AMB Questionnaire SHERRY-7 Date SHERRY - 7 assessed: 03/21/25 Feeling nervous, anxious, or on edge: 0 = Not at all Not being able to stop or control worryin = Not at all Worrying too much about different things: 0 = Not at all Trouble relaxin = Not at all Being so restless that it is hard to sit still: 0 = Not at all Becoming easily annoyed or irritable: 0 = Not at all Feeling afraid as if something awful might happen: 0 = Not at all Total SHERRY-7 score (0-4 normal; 5-9 mild; 10-14 moderate; 15-21 severe): 0 Source: Developed by Drs. Ryan Staley, Ivory Abraham, Mata Weinberg and colleagues, with an educational vesna from [employer]. SHERRY-7 Assessment Billing SHERRY-7 Assessment Tool: SHERRY-7 Assessment 47945 Review of Systems Narrative Review of Systems - General: Denies unintentional weight loss and reports maintaining his weight. - Cardiovascular: Denies chest pain. - Respiratory: Denies shortness of breath on exertion, when lying flat, or with activity. - Gastrointestinal: Reports daily bowel movements of normal shape, unless he consumes cheese. Denies black or bloody stools. - Neurological: Denies recent falls. - Endocrine: Reports slight soreness in the neck when the thyroid area is palpated. - Psychiatric: Reports feeling more anxious or stressed out sometimes. - Integumentary: Denies skin lesions. - Eyes: Reports receiving monthly eye injections for a condition that is currently only being maintained. He is scheduled to try a new, more expensive treatment this week. Const All systems reviewed & are unremarkable except as noted in HPI and below Physical exam (Primary Care) Vital Signs: Last Vital Signs Temp 96.7 F L 09/06/25 08:56 Pulse 96 09/06/25 08:56 BP 107/65 09/06/25 08:56 Pulse Ox 98 09/06/25 08:56 Care Plan Goal for BP management: <140/90 at Goal BMI result Body Mass Index 26.6 Normal BMI Tobacco/Smoking Status: Tobacco use Status Tobacco use date assessed 03/21/25 09/06/25 08:55 Patient Tobacco Use Status Former Tobacco user 09/06/25 08:55 PHQ-9: PHQ-9 Score PHQ-9: Total score 4 09/06/25 09:36 Depression Screening Interpretation: Positive Depression Screening Follow-up: Existing condition and In treatment (On Sertraline ) Thrive Assessment: Date of Thrive Assessment Date Thrive assessed 03/08/25 09/06/25 08:55 Narrative Physical Exam Appearance: Alert. Oriented X3. No acute distress. Head: Normal external exam. Normocephalic. Atraumatic. Eyes: Pupils are equal, round, and reactive to light. Extraocular movements intact. Conjunctiva and sclera normal. Eyelids normal. Ears: External auditory canal normal. Tympanic membranes normal. Throat: Pharynx normal. Uvula midline. Moist mucous membranes. Neck: Normal inspection. Neck supple. Full range of motion. No adenopathy. No meningeal signs. No neck mass noted. Slight tenderness on palpation of the thyroid possible upper left thyroid nodule; ultrasound of the thyroid ordered to check for nodules. Cardiovascular: Normal heart rate and rhythm. Heart sound normal. No murmurs noted. Pulses normal throughout. Respiratory: No respiratory distress. Painless inspiration. Breath sounds normal. No wheezes/rales/rhonchi noted. Chest nontender. No accessory muscle usage noted or decreased air movement noted. Abdomen: Soft and nontender. Bowel sounds normal in all 4 quadrants. No distention noted. No organomegaly noted. No visible injury noted. Back: No costovertebral angle tenderness. Full range of motion noted. Skin: Skin warm and dry. Normal skin color. Normal skin turgor. No rashes/lesions/lacerations noted. Extremities: No lower extremity edema. Extremities exhibit normal range of motion. Extremities nontender. Neuro: Oriented X 3. No motor deficit. No sensory deficit. Reflexes normal. Office Procedures Flu Questionnaire Does the patient have a severe egg allergy?: No Does the patient have severe life threatening allergies?: No Does the patient have a fever or illness today?: No Has the patient ever had Guillain-Liberty Syndrome?: No Has the patient ever had any past reaction to a flu shot?: No Results AMB Hemoglobin A1c AMB Hemoglobin A1c 6.2 % Last Edit by LEONARDO Lancaster on 09/06/25 09:36 Immunizations Fluarix [id number] (PF) 45 mcg (15 mcg x 3)/0.5 mL IM syringe Performing Provider: Martha Benedict PA-C Performing Location: [facility] Documented (not given) by: Dona Haro on 09/06/25 09:06 Reason Not Given: Patient Refused Results Reviewed Results Reviewed: Laboratory Last Values Hgb A1c (Clinic) 6.2 % (4.0-6.0) H 09/06/25 09:35 Results - Labs (February 2025): - Hemoglobin: 13.2 g/dL and Hematocrit: 39.5%. - Platelet count: Normal. - Comprehensive Metabolic Panel: Sodium, potassium, and kidney function were normal. AST was 38 U/L (normal <37), ALT was 48 U/L (normal <40), and alkaline phosphatase was low. - Hemoglobin A1c: 6.8%. - PSA: 7.4 ng/mL. - Lipid Panel: Total cholesterol 120 mg/dL, LDL 60 mg/dL. - Vitamins/Thyroid: B12, vitamin D, folate, and thyroid levels were normal. - Labs (May): - Urinalysis: Positive for microalbuminuria. - Labs (Current Visit): - Hemoglobin A1c: 6.2%. - Procedures: - Prostate Biopsy: 11 of 12 cores positive for cancer. - Imaging: - Past CAT scan: Revealed a benign spot in the liver and a kidney stone; otherwise, it was clean with no evidence of cancer spread. Coding Level of Care Code Est Pt Prev Care >65y(31076) Add On Preventative Visit Only Diagnoses Annual physical exam Z00.00 Type 2 diabetes mellitus with hemoglobin A1c goal of less than 7.0% E11.9 Prostate cancer C61 Anxiety F41.9 Left thyroid nodule E04.1 Healthcare maintenance Z00.00 Additional Codes SHERRY-7 Assessment Billing - SHRERY-7 Assessment Tool: SHERRY-7 Assessment 45920 ([id number]) PHQ-9 - 26692 - PHQ-9 Billing: Yes ([id number]) Time Spent (min) 60 Assessment & Plan Assessment & Plan (1) Annual physical exam: Code(s): Z00.00 - Encounter for general adult medical examination without abnormal findings Category: Medical (2) Type 2 diabetes mellitus with hemoglobin A1c goal of less than 7.0%: Code(s): E11.9 - Type 2 diabetes mellitus without complications Category: Medical Plan: The patient's Hemoglobin A1c has improved to 6.2%, indicating good glycemic control on metformin 500 mg daily. However, due to microalbuminuria found in May, indicating early kidney involvement from diabetes, a kidney- protective medication is warranted. Lisinopril 5 mg daily will be initiated to reduce proteinuria and slow the progression of diabetic nephropathy. The patient's usual blood pressure is around 120 systolic, so he will be started on a low dose and monitored to ensure his blood pressure does not become too low. A follow-up visit is scheduled in one month to check for side effects. (3) Prostate cancer: Code(s): C61 - Malignant neoplasm of prostate Category: Medical Plan: The patient will begin radiation therapy tomorrow for his prostate cancer. This was decided after consultation and considering the risks of surgery. He has a strong family history of prostate cancer. It is important to follow up with his job boss regarding colonoscopy to ensure there is no cancer elsewhere. (4) Anxiety: Code(s): F41.9 - Anxiety disorder, unspecified Category: Medical Plan: The patient reports feeling more anxious and stressed, possibly related to his health issues. Although he feels his current sertraline 75 mg dose is working, an increase will be trialed to see if it provides better symptom control. The dose will be increased to sertraline 100 mg daily. He will be reassessed at the one-month follow-up visit. (5) Left thyroid nodule: Code(s): E04.1 - Nontoxic single thyroid nodule Category: Medical Plan: A palpable, slightly tender nodule, approximately 1 cm, was found on the left side of the thyroid during the physical exam. Given the finding and the patient's history of cancer, further evaluation is necessary. An ultrasound of the thyroid will be ordered to characterize the nodule. The patient will be contacted with the results as soon as they are available. (6) Healthcare maintenance: Code(s): Z00.00 - Encounter for general adult medical examination without abnormal findings Category: Medical Plan: The patient's hyperlipidemia is well-controlled on rosuvastatin 10 mg. He will continue his current medications for atrial flutter, including metoprolol and Eliquis. A prescription for his Ellipta inhaler with three refills will be sent. No new bloodwork is needed at this time, as recent labs were good. He is due for another A1c check in three months. Plan Plan Patient was informed and verbally consented to the use of an ambient scribe for clinic note documentation during this visit. 1. Type 2 Diabetes Mellitus With Chronic Kidney Disease The patient's Hemoglobin A1c has improved to 6.2%, indicating good glycemic control on metformin 500 mg daily. However, due to microalbuminuria found in May, indicating early kidney involvement from diabetes, a kidney- protective medication is warranted. Lisinopril 5 mg daily will be initiated to reduce proteinuria and slow the progression of diabetic nephropathy. The patient's usual blood pressure is around 120 systolic, so he will be started on a low dose and monitored to ensure his blood pressure does not become too low. A follow-up visit is scheduled in one month to check for side effects. 2. Prostate Cancer The patient will begin radiation therapy tomorrow for his prostate cancer. This was decided after consultation and considering the risks of surgery. He has a strong family history of prostate cancer. It is important to follow up with his job boss regarding colonoscopy to ensure there is no cancer elsewhere. 3. Anxiety The patient reports feeling more anxious and stressed, possibly related to his health issues. Although he feels his current sertraline 75 mg dose is working, an increase will be trialed to see if it provides better symptom control. The dose will be increased to sertraline 100 mg daily. He will be reassessed at the one-month follow-up visit. 4. Thyroid Nodule A palpable, slightly tender nodule, approximately 1 cm, was found on the left side of the thyroid during the physical exam. Given the finding and the patient's history of cancer, further evaluation is necessary. An ultrasound of the thyroid will be ordered to characterize the nodule. The patient will be contacted with the results as soon as they are available. 5. Health Maintenance The patient's hyperlipidemia is well-controlled on rosuvastatin 10 mg. He will continue his current medications for atrial flutter, including metoprolol and Eliquis. A prescription for his Ellipta inhaler with three refills will be sent. No new bloodwork is needed at this time, as recent labs were good. He is due for another A1c check in three months. Discussion Notes I conducted an annual physical exam and reviewed the patient's recent lab results. We discussed his diagnosis of prostate cancer, and I acknowledged his decision to proceed with radiation therapy, which begins tomorrow, as a re asonable choice to avoid surgical complications. I explained that his HgbA1c has improved to 6.2, but the presence of microalbuminuria indicates some kidney stress from diabetes. To protect his kidneys, I recommended starting a low dose of lisinopril 5 mg daily, explaining it would help stop the progression of protein spillage. I advised him to monitor his blood pressure to ensure it does not drop too low. In response to his report of increased anxiety, we discussed increasing his sertraline dose from 75 mg to 100 mg daily to see if it helps. During the physical exam, I identified a palpable nodule on his left thyroid. I explained that an ultrasound is needed to investigate this further, especially given his history of cancer, and that he will be called with the results promptly. I emphasized the importance of his family history of prostate cancer and encouraged him to ensure his male relatives are aware so they can be screened. I also reinforced the need to follow up on his deferred colonoscopy. A follow-up visit is scheduled in one month to review his response to the new medications and discuss the ultrasound results. Orders: Orders US thyroid Today E04.1 - Nontoxic single thyroid nodule Influenza [id number] Immunization Today Z23 - Encounter for immunization AMB Hemoglobin A1c Today E11.9 - Type 2 diabetes mellitus without complications Medications: New lisinopril 5 mg PO DAILY 90 tabs 3RF Changed From sertraline 75 mg (1.5 x 50 mg) PO DAILY 135 tabs 3RF 90 days To sertraline 100 mg PO DAILY 90 tabs 3RF 90 days Patient Instructions: Patient Instructions - Start taking Lisinopril 5 mg once a day to protect your kidneys from the effects of diabetes. - Please check your blood pressure at home to make sure it doesn't get too low on the new medication. - Increase your anxiety medication, Sertraline, to 100 mg once a day as prescribed. - Continue all your other current medications as prescribed, including those for cholesterol, diabetes, and your heart. - You will receive a call within a month to schedule an ultrasound of your thyroid to check the small lump that was found. Please get this done. - Talk to your brothers and other male relatives about your family's history of prostate cancer so they can talk to their own doctors about getting checked. - Follow up with your colon doctor to see when you should have your next colonoscopy. - Please return to the clinic for a follow-up appointment in one month to check on your new medications. - You will need to have your A1c lab test repeated in three months.
[2025-09-06 08:56] VITALS: BP 107/65; PULSE 96; TEMP 35.9; O2SAT 98; BMI 26.6
--- OUTSIDE RECORDS SUMMARY | 2025-09-06 09:44 | XMS_ITS | Encounter Summary ---
Author Organization [facility] Address [address] [place] [address] Phone Care Team Providers Care Vascular Neurologist Name Role Phone Shannon Whipple MD Primary Care Provider [phone] Alicia Thornton Primary Care Provider [phone] Reason for Referral * MRI/CAT Scan - Closed Specialty Diagnoses / Procedures Referred By Contac t Referred To Contact Radiology Diagnoses Screening for lung cancer Procedures CT Chest Lung Cancer Screening CHG COMPUTED TOMOGRAPHY THORAX LW DOSE LNG CA SCR C- Karen Madrigal PA Phone: tel: fax: mailto:[email or web address] Referral ID Status Reason Start Date Expiration Date Visits Re quested Visits Authorized [id number] Closed 06/06/2023 10/06/2023 1 1 Encounter Details Date Type Department Care Team (Latest Contact Info) Description 05/05/2023 Transcribe Orders Virtual Department [address] [place] [address] Karen Madrigal PA [address] [place] [address] [email or web address] Screening for lung cancer (Primary Dx) Social [...] Care Team (Late st Contact Info) Description 09/07/2025 10:20 AM EST Treatment [facility] Rad Onc [address] [place] [address] 27210 Bret Sharp MD [address] [place] [address] 59078 [email or web address] 09/08/2025 1:10 PM EST Treatment [facility] Rad Onc [address] [place] [address] Bret Sharp MD [address] [place] [address] 93297 [email or web address] 09/09/2025 10:20 AM EST Treatment [facility] Rad Onc [address] [place] [address] Bret Sharp MD [address] [place] [address] 40747 [email or web address] 09/12/2025 10:20 AM EST Treatment [facility] Rad Onc [address] [place] [address] Bret Sharp MD [address] [place] [address] 44157 [email or web address] 09/12/2025 10:30 AM EST Procedure visit [facility] Rad Onc [address] [place] [address] 6[address]99 Bret Sharp MD [address] [place] [address] 53616 [email or web address] 09/13/2025 10:20 AM EST Treatment [facility] Rad Onc [address] [place] [address] 55421 Bret Sharp MD [address] [place] [address] 36849 [email or web address] 09/14/2025 10:20 AM EST Treatment [facility] Rad Onc [address] [place] [address] 83159 Bret Sharp MD [address] [place] [address] 83102 [email or web address] 09/16/2025 10:20 AM EST Treatment [facility] Rad Onc [address] [place] [address] Bret Sharp MD [address] [place] [address] 71360 [email or web address] 09/19/2025 10:20 AM EST Treatment [facility] Rad Onc [address] [place] [address] Bret Sharp MD [address] [place] [address] 22534 [email or web address] 09/19/2025 10:30 AM EST Procedure visit [facility] Rad Onc [address] [place] [address] 05593 Bret Sharp MD [address] [place] [address] 53828 [email or web address] 09/20/2025 10:20 AM EST Treatment [facility] Rad Onc [address] [place] [address] 86793 rBet Sharp MD [address] [place] [address] 65953 [email or web address] 09/21/2025 10:20 AM EST Treatment [facility] Rad Onc [address] [place] [address] 32521 Bret Sharp MD [address] [place] [address] 14183 [email or web address] 09/23/2025 10:20 AM EST Treatment [facility] Rad Onc [address] [place] [address] 21815 Bret Sharp MD [address] [place] [address] 10704 [email or web address] 09/26/2025 10:20 AM EST Treatment [facility] Rad Onc [address] [place] [address] Bret Sharp MD [address] [place] [address] 26110 [email or web address] 09/26/2025 10:30 AM EST Procedure visit [facility] Rad Onc [address] [place] [address] 75635 Bret Sharp MD [address] [place] [address] 43692 [email or web address] 09/27/2025 10:20 AM EST Treatment [facility] Rad Onc [address] [place] [address] 56453 Bret Sharp MD [address] [place] [address] 98285 [email or web address] 09/28/2025 10:20 AM EST Treatment [facility] Rad Onc [address] [place] [address] 57900 Bret Sharp MD [address] [place] [address] 69165 [email or web address] 09/29/2025 10:20 AM EST Treatment [facility] Rad Onc [address] [place] [address] 53003 Bret Sharp MD [address] [place] [address] 07826 [email or web address] 09/30/2025 10:20 AM EST Treatment [facility] Rad Onc [address] [place] [address] Bret Sharp MD [address] [place] [address] 95712 [email or web address] 10/03/2025 10:20 AM EST Treatment [facility] Rad Onc [address] [place] [address] 17422 Bret Sharp MD [address] [place] [address] 43666 [email or web address] 10/03/2025 10:30 AM EST Procedure visit [facility] Rad Onc [address] [place] [address] 53754 Bret Sharp MD [address] [place] [address] 32893 [email or web address] 10/04/2025 10:20 AM EST Treatment [facility] Rad Onc [address] [place] [address] 26172 Bret Sharp MD [address] [place] [address] 29731 [email or web address] 10/05/2025 10:20 AM EST Treatment [facility] Rad Onc [address] [place] [address] 86519 Bret Sharp MD [address] [place] [address] 56612 [email or web address]@[email or web address] 10/06/2025 10:20 AM EST Treatment [facility] Rad Onc [address] [place] [address] 12249 Bret Sharp MD [address] [place] [address] 46127 [email or web address] 10/07/2025 10:20 AM EST Treatment [facility] Rad Onc [address] [place] [address] Bret Sharp MD [address] [place] [address] 02582 [email or web address] 10/11/2025 9:15 AM EST Office Visit [facility] [address] [facility] 3rd Floor, [address] [place] [address] Jaguar Palacios DO [address] [facility] [address] [place] [address] 10/11/2025 10:20 AM EST Treatment [facility] Rad Onc [address] [place] [address] 45060 Bret Sharp MD [address] [place] [address] 76141 [email or web address] 10/11/2025 10:30 AM EST Procedure visit [facility] Rad Onc [address] [place] [address] 81185 Bret Sharp MD [address] [place] [address] 74707 [email or web address] 10/12/2025 10:20 AM EST Treatment [facility] Rad Onc [address] [place] [address] Bret Sharp MD [address] [place] [address] 53756 [email or web address] 10/13/2025 10:20 AM EST Treatment [facility] Rad Onc [address] [place] [address] Bret Sharp MD [address] [place] [address] 68460 [email or web address] 10/14/2025 10:20 AM EST Treatment [facility] Rad Onc [address] [place] [address] 16729 Bret Sharp MD [address] [place] [address] 24156 [email or web address] 10/17/2025 10:20 AM EST Treatment [facility] Rad Onc [address] [place] [address] Bret Sharp MD [address] [place] [address] 15049 [email or web address] 10/17/2025 10:30 AM EST Procedure visit [facility] Rad Onc [address] [place] [address] 87824 Bret Sharp MD [address] [place] [address] 65050 [email or web address] 10/18/2025 10:20 AM EST Treatment [facility] Rad Onc [address] [place] [address] 73958 Bret Sharp MD [address] [place] [address] 54083 [email or web address]@[email or web address] 10/19/2025 10:20 AM EST Treatment [facility] Rad Onc [address] [place] [address] 83798 Bret Sharp MD [address] [place] [address] 24669 [email or web address] 10/19/2025 10:30 AM EST Procedure visit [facility] Rad Onc [address] [place] [address] Bret Sharp MD [address] [place] [address] 84883 [email or web address] documented as of this encounter Results [...] categories can be found at:[email or web address] Karen [facility] CT CHEST Final Result documented in this encounter Visit Diagnoses Diagnosis Screening for lung cancer- Primary Screening for lung cancer documented in this encounter Care Teams Vascular Neurologist Relationship Specialty Start Date End Date Shannon Whipple MD [address] [place] [address] 55279 [email or web address] PCP - General 07/08/17 04/24/24 Alicia Thornton PA [address] [place] [address] 59[address] PCP - General Physician Adjusto Writer Operator 04/25/24 documented as of this encounter Additional Source Comments The information contained in this document represents components of the legal health record. It is not the complete legal health record.[facility]
--- OUTSIDE RECORDS SUMMARY | 2025-09-06 09:45 | XMS_ITS | Encounter Summary ---
Author Organization [facility] Address [address] [facility] [address] [place] [address] Phone Care Team Providers Care Journeyman Powerhouse Operator Name Role Phone Shanonn Whipple MD Primary Care Provider [phone] Alicia Thornton Primary Care Provider [phone] Reason for Referral * MRI/CAT Scan - Closed Specialty Diagnoses / Procedures Referred By Holly zhu Referred To Contact Radiology Diagnoses Screening for lung cancer Procedures CT Chest Lung Cancer Screening Karen Madrigal PA Phone: tel: fax: mailto:[email or web address] Referral ID Status Reason Start Date Expiration Date Visits Re quested Visits Authorized [id number] Closed 03/08/2022 03/08/2023 1 1 Encounter Details Date Type Department Care Team (Latest Contact Info) Description 03/08/2022 Transcribe Orders Virtual Department [address] [place] [address] Karen Madrigal PA [address] [place] [address] [email or web address] Screening for lung cancer (Primary Dx) Social [...] Info) Description 09/07/2025 10:20 AM EST Treatment [facility] Rad Onc [address] [place] [address] 57189 Bret Sharp MD [address] [place] [address] 95911 [email or web address] 09/08/2025 1:10 PM EST Treatment [facility] Rad Onc [address] [place] [address] 97540 Bret Sharp MD [address] [place] [address] 68190 [email or web address] 09/09/2025 10:20 AM EST Treatment [facility] Rad Onc [address] [place] [address] 69155 Bret Sharp MD [address] [place] [address] 94194 [email or web address] 09/12/2025 10:20 AM EST Treatment [facility] Rad Onc [address] [place] [address] 99867 Bret Sharp MD [address] [place] [address] 17751 [email or web address]@[facility] 09/12/2025 10:30 AM EST Procedure visit [facility] Rad Onc [address] [place] [address] 72103 Bret Sharp MD [address] [place] [address] 02589 [email or web address] 09/13/2025 10:20 AM EST Treatment [facility] Rad Onc [address] [place] [address] 80014 Bret Sharp MD [address] [place] [address] 61783 [email or web address]@[facility] 09/14/2025 10:20 AM EST Treatment [facility] Rad Onc [address] [place] [address] 85400 Bret Sharp MD [address] [place] [address] 37919 [email or web address]@[facility] 09/16/2025 10:20 AM EST Treatment [facility] Rad Onc [address] [place] [address] 97348 Bret Sharp MD [address] [place] [address] 09815 RAMIREZ@[facility] 09/19/2025 10:20 AM EST Treatment [facility] Rad Onc [address] [place] [address] Bret Sharp MD [address] [place] [address] 95464 [email or web address]@[facility] 09/19/2025 10:30 AM EST Procedure visit [facility] Rad Onc [address] [place] [address] 14184 Bret Sharp MD [address] [place] [address] 24935 [email or web address]@[facility] 09/20/2025 10:20 AM EST Treatment [facility] Rad Onc [address] [place] [address] Bret Sharp MD [address] [place] [address] 92922 [email or web address]@[facility] 09/21/2025 10:20 AM EST Treatment [facility] Rad Onc [address] [place] [address] 22142 Bret Sharp MD [address] [place] [address] 47263 [email or web address]@[facility] 09/23/2025 10:20 AM EST Treatment [facility] Rad Onc [address] [place] [address] 93774 Bret Sharp MD [address] [place] [address] 43460 [email or web address]@[facility] 09/26/2025 10:20 AM EST Treatment [facility] Rad Onc [address] [place] [address] 81700 Bret Sharp MD [address] [place] [address] 69050 RAMIREZ@[email or web address] 09/26/2025 10:30 AM EST Procedure visit [facility] Rad Onc [address] [place] [address] 30475 Bret Sharp MD [address] [place] [address] 80426 RAMIREZ@[facility] 09/27/2025 10:20 AM EST Treatment [facility] Rad Onc [address] [place] [address] Bret Sharp MD [address] [place] [address] 01357 [email or web address]@[facility] 09/28/2025 10:20 AM EST Treatment [facility] Rad Onc [address] [place] [address] 95689 Bret Sharp MD [address] [place] [address] 22175 [email or web address]@[facility] 09/29/2025 10:20 AM EST Treatment [facility] Rad Onc [address] [place] [address] 73005 Bret Sharp MD [address] [place] [address] 38078 [email or web address]@[facility] 09/30/2025 10:20 AM EST Treatment [facility] Rad Onc [address] [place] [address] 36335 Bret Sharp MD [address] [place] [address] [id number] [email or web address]@[facility] 10/03/2025 10:20 AM EST Treatment [facility] Rad Onc [address] [place] [address] Bret Sharp MD [address] [place] [address] 56598 [email or web address]@[facility] 10/03/2025 10:30 AM EST Procedure visit [facility] Rad Onc [address] [place] [address] 31623 Bret Sharp MD [address] [place] [address] 76344 [email or web address]@[facility] 10/04/2025 10:20 AM EST Treatment [facility] Rad Onc [address] [place] [address] Bret Sharp MD [address] [place] [address] 29176 [email or web address]@[facility] 10/05/2025 10:20 AM EST Treatment [facility] Rad Onc [address] [place] [address] 76333 Bret Sharp MD [address] [place] [address] 20615 [email or web address]@[facility] 10/06/2025 10:20 AM EST Treatment [facility] Rad Onc [address] [place] [address] Bret Sharp MD [address] [place] [address] 09338 [email or web address]@[facility] 10/07/2025 10:20 AM EST Treatment [facility] Rad Onc [address] [place] [address] 79150 Bret Sharp MD [address] [place] [address] 92875 RAMIREZ@[email or web address] 10/11/2025 9:15 AM EST Office Visit [facility] [address] [place] [address] 3rd Floor, [address] [place] [address]404 Jaguar Palacios DO [address] [facility] [address] [place] [address] 6[address] 10/11/2025 10:20 AM EST Treatment [facility] Rad Onc [address] [place] [address] 30605 Bret Sharp MD [address] [place] [address] 94938 [email or web address]@[facility] 10/11/2025 10:30 AM EST Procedure visit [facility] Rad Onc [address] [place] [address] 25077 Bret Sharp MD [address] [place] [address] 32850 [email or web address]@[facility] 10/12/2025 10:20 AM EST Treatment [facility] Rad Onc [address] [place] [address] 87527 Bret Sharp MD [address] [place] [address] 15887 [email or web address]@[facility] 10/13/2025 10:20 AM EST Treatment [facility] Rad Onc [address] [place] [address] 91097 Bret Sharp MD [address] [place] [address] 75156 RAMIREZ@[email or web address] 10/14/2025 10:20 AM EST Treatment [facility] Rad Onc [address] [place] [address] 50136 Bret Sharp MD [address] [place] [address] 63363 RAMIREZ@[email or web address] 10/17/2025 10:20 AM EST Treatment [facility] Rad Onc [address] [place] [address] 35296 Bret Sharp MD [address] [place] [address] 39120 [email or web address] 10/17/2025 10:30 AM EST Procedure visit [facility] Rad Onc [address] [place] [address] Bret Sharp MD [address] [place] [address] 44988 [email or web address]@[facility] 10/18/2025 10:20 AM EST Treatment [facility] Rad Onc [address] [place] [address] 86493 Bret Sharp MD [address] [place] [address] 92996 [email or web address]@[facility] 10/19/2025 10:20 AM EST Treatment [facility] Rad Onc [address] [place] [address] 29583 Bret Sharp MD [address] [place] [address] 08871 RAMIREZ@[email or web address] 10/19/2025 10:30 AM EST Procedure visit [facility] Rad Onc [address] [place] [address] 87829 Bret Sharp MD [address] [place] [address] 89398 [email or web address] documented as of this encounter Results * [...] mm subpleural left lower lobe rounded opacity ([id number]). Bibasilar linear atelectasis. No new pulmonary nodules [...] categories can be found at:[email or web address] Karen [facility] [place] CHEST Final Result documented in this encounter Visit Diagnoses Diagnosis Screening for lung cancer- Primary Screening for lung cancer documented in this encounter Care Teams Journeyman Powerhouse Operator Relationship Specialty Start Date End Date Shannon Whipple MD [address] [place] [address] 82412 [email or web address] PCP - General 07/08/17 04/24/24 Alicia Thornton PA [address] [facility] [address] [place] [address] PCP - General Physician Patent Solicitor 04/25/24 documented as of this encounter Additional Source Comments The information contained in this document represents components of the legal health record. It is not the complete legal health record.[facility]
--- OUTSIDE RECORDS SUMMARY | 2025-09-06 09:45 | XMS_ITS | Encounter Summary ---
Author Organization [facility] Address [address] [facility] [address] [place] [address] Phone Care Team Providers Care Wrist Hemmer Name Role Phone Shannon Whipple MD Primary Care Provider Alicia Thornton Primary Care Provider [phone] Encounter Details Date Type Department Care Team (Late st Contact Info) Description 03/08/[address] [facility], Ct Scan - [address] [address] Social History Tobacco Use Types Packs/Day Years [...] Info) Description 09/07/2025 10:20 AM EST Treatment [facility] On[facility] [address] [place] [address] Bret Sharp MD [address] [place] [address] [id number] [email or web address] 09/08/2025 1:10 PM EST Treatment [facility] Onc [address] [place] [address] Bret Sharp MD [address] [place] [id number] [email or web address] 09/09/2025 10:20 AM EST Treatment [facility] Onc [address] [place] [address] Bret Sharp MD [address] [place] [address] [id number] [email or web address] 09/12/2025 10:20 AM EST Treatment [facility] Onc [address] [place] [address] Bret Sharp MD [address] [place] [address] [id number] [email or web address] 09/12/2025 10:30 AM EST Procedure visit [facility] Onc [address] [place] [address] 19123 Bret Sharp MD [address] [place] [address] [phone] [email or web address] 09/13/2025 10:20 AM EST Treatment [facility] Onc [address] [place] [address] 15504 Bret Sharp MD [address] [place] [address] [phone] [email or web address] 09/14/2025 10:20 AM EST Treatment [facility] Rad Onc [address] [place] [address] Bret Sharp MD [address] [place] [address] [phone] [email or web address] 09/16/2025 10:20 AM EST Treatment [facility] Onc [address] [place] [address] 59464 Bret Sharp MD [address] [place] [address] 86412 [email or web address] 09/19/2025 10:20 AM EST Treatment [facility] Onc [address] [place] [address] Bret Sharp MD [address] [place] [address] 47501 [email or web address] 09/19/2025 10:30 AM EST Procedure visit [facility] Onc [address] [place] [address] 57633 Bret Sharp MD [address] [place] [address] [phone] [email or web address] 09/20/2025 10:20 AM EST Treatment [facility] Onc [address] [place] [address] 72669 Bret Sharp MD [address] [place] [address] [id number] [email or web address] 09/21/2025 10:20 AM EST Treatment [facility] Onc [address] [place] [address] 5[address] Bret Sharp MD [address] [place] [address] [phone] [email or web address] 09/23/2025 10:20 AM EST Treatment [facility] Onc [address] [place] [address] 79398 Bret Sharp MD [address] [place] [address] 23037 [email or web address] 09/26/2025 10:20 AM EST Treatment [facility] Onc [address] [place] [address] 53566 Bret Sharp MD [address] [place] [address] [id number] [email or web address] 09/26/2025 10:30 AM EST Procedure visit [facility] Onc [address] [place] [address] 96469 Bret Sharp MD [address] [place] [address] [id number] [email or web address] 09/27/2025 10:20 AM EST Treatment [facility] Onc [address] [place] [address] 13767 Bret Sharp MD [address] [place] [address] 19414 [email or web address] 09/28/2025 10:20 AM EST Treatment [facility] Onc [address] [place] [address] 50748 Bret Sharp MD [address] [place] [address] [id number] [email or web address] 09/29/2025 10:20 AM EST Treatment [facility] Rad Onc [address] [place] [address] 37089 Bret Sharp MD [address] [place] [address] 77741 [email or web address] 09/30/2025 10:20 AM EST Treatment [facility] Rad Onc [address] [place] [address] 9[address] Bret Sharp MD [address] [place] [address] [phone] [email or web address] 10/03/2025 10:20 AM EST Treatment [facility] Onc [address] [place] [address] 29174 Bret Sharp MD [address] [place] [address] 45725 [email or web address] 10/03/2025 10:30 AM EST Procedure visit [facility] Onc [address] [place] [address] 7[address]01 Bret Sharp MD [address] [place] [address] [id number] [email or web address] 10/04/2025 10:20 AM EST Treatment [facility] Rad Onc [address] [place] [address] 80169 Bret Sharp MD [address] [place] [address] 37039 [email or web address] 10/05/2025 10:20 AM EST Treatment [facility] Rad Onc [address] [place] [address] 80051 Bret Sharp MD [address] [place] [address] [id number] [email or web address] 10/06/2025 10:20 AM EST Treatment [facility] Rad Onc [address] [place] [address] Bret Sharp MD [address] [place] [address] [id number] [email or web address] 10/07/2025 10:20 AM EST Treatment [facility] Rad Onc [address] [place] [address] Bret Sharp MD [address] [place] [address] [phone] [email or web address] 10/11/2025 9:15 AM EST Office Visit [facility] [address] [place] [address] 3rd Floor, [address] [place] [address] Jaguar Palacios DO [address] [place] [phone] [email or web address] 10/11/2025 10:20 AM EST Treatment [facility] Onc [address] [place] [address] 587[address] Bret Sharp MD [address] [place] [address] 59082 [email or web address] 10/11/2025 10:30 AM EST Procedure visit [facility] Rad Onc [address] [place] [address] Bret Sharp MD [address] [place] [address] 53384 [email or web address] 10/12/2025 10:20 AM EST Treatment [facility] Rad Onc [address] [place] [address] Bret Sharp MD [address] [place] [address] 42699 [email or web address] 10/13/2025 10:20 AM EST Treatment [facility] Onc [address] [place] [address] 50566 Bret Sharp MD [address] [place] [address] 46850 [email or web address] 10/14/2025 10:20 AM EST Treatment [facility] Rad Onc [address] [place] [address] 38286 Bret Sharp MD [address] [place] [address] 78204 [email or web address] 10/17/2025 10:20 AM EST Treatment [facility] Rad Onc [address] [place] [address] 88118 Bret Sharp MD [address] [place] [address] 40311 [email or web address] 10/17/2025 10:30 AM EST Procedure visit [facility] Onc [address] [place] [address] 56011 Bret Sharp MD [address] [place] [address] [phone] [email or web address] 10/18/2025 10:20 AM EST Treatment [facility] Onc [address] [place] [address] 59748 Bret Sharp MD [address] [place] [address] [id number] [email or web address] 10/19/2025 10:20 AM EST Treatment [facility] Rad Onc [address] [place] [address] Bret Sharp MD [address] [place] [address] [email or web address] 10/19/2025 10:30 AM EST Procedure visit [facility] Rad Onc [address] [place] [address] Bret Sharp MD [address] [place] [address] [id number] [email or web address] documented as of this encounter Visit Diagnoses Not on filedocumented in this encounter Care Teams Wrist Hemmer Relationship Specialty Start Date End Date Shannon Whipple MD [address] [place] [phone] [email or web address] PCP - General 07/08/17 04/24/24 Alicia Thornton PA [address] [facility] [address] [place] [address] PCP - General Physician [employer] 04/25/24 documented as of this encounter Additional Source Comments The information contained in this document represents components of the legal health record. It is not the complete legal health record.[facility]
--- OUTSIDE RECORDS SUMMARY | 2025-09-06 09:45 | XMS_ITS | Encounter Summary ---
Author Organization [facility] Address [address] [facility] [address] [place] [address] Phone Care Team Providers Care Coil Winding Supervisor Name Role Phone Shannon Whipple MD Primary Care Provider Shannon Whipple MD Unavailable [phone] Alicia Thornton Primary Care Provider Encounter Details Date Type Department Care Team (Late st Contact Info) Description 11/13/2018 Ancillary Orders Virtual Department [address] [place] [address] Karen Madrigal PA [address] [place] [address] [email or web address] Social History Tobacco Use Types Packs/Day Years [...] Info) Description 09/07/2025 10:20 AM EST Treatment [facility] [address] [place] [address] Bret Sharp MD [address] [place] [address] [phone] [email or web address] 09/08/2025 1:10 PM EST Treatment [facility] Rad On[facility] [address] [place] [address] Bret Sharp MD [address] [place] [address] [phone] [email or web address] 09/09/2025 10:20 AM EST Treatment [facility]c [address] [place] [address] Bret Sharp MD [address] [place] [address] [id number] [email or web address] 09/12/2025 10:20 AM EST Treatment [facility] [address] [place] [address] 9[address]73 Bret Sharp MD [address] [place] [address] [phone] [email or web address] 09/12/2025 10:30 AM EST Procedure visit [facility] Rad Onc [address] [place] [address] Bret Sharp MD [address] [place] [address] 60174 [email or web address] 09/13/2025 10:20 AM EST Treatment [facility] [address] [place] [address] 11322 Bret Sharp MD [address] [place] [address] [phone] [email or web address] 09/14/2025 10:20 AM EST Treatment [facility] Onc [address] [place] [address] Bret Sharp MD [address] [place] [address] [id number] [email or web address] 09/16/2025 10:20 AM EST Treatment [facility] [address] [place] [address] 21253 Bret Sharp MD [address] [place] [address] [id number] [email or web address] 09/19/2025 10:20 AM EST Treatment [facility] [address] [place] [address] 8[address]39 Bret Sharp MD [address] [place] [address] [id number] [email or web address] 09/19/2025 10:30 AM EST Procedure visit [facility] [address] [place] [address] 80179 Bret Sharp MD [address] [place] [address] [id number] [email or web address] 09/20/2025 10:20 AM EST Treatment [facility] Onc [address] [place] [address] Bret Sharp MD [address] [place] [address] [phone] [email or web address] 09/21/2025 10:20 AM EST Treatment [facility] Rad Onc [address] [place] [address] Bret Sharp MD [address] [place] [address] [phone] [email or web address] 09/23/2025 10:20 AM EST Treatment [facility] Onc [address] [place] [address] Bret Sharp MD [address] [place] [address] [phone] [email or web address] 09/26/2025 10:20 AM EST Treatment [facility] [address] [place] [address] 88944 Bret Sharp MD [address] [place] [address] [id number] [email or web address] 09/26/2025 10:30 AM EST Procedure visit [facility] [address] [place] [address] 96442 Bret Sharp MD [address] [place] [address] [phone] [email or web address] 09/27/2025 10:20 AM EST Treatment [facility] Onc [address] [place] [address] Bret Sharp MD [address] [place] [address] [phone] [email or web address] 09/28/2025 10:20 AM EST Treatment [facility] [address] [place] [address] 09853 Bret Sharp MD [address] [place] [address] [id number] [email or web address] 09/29/2025 10:20 AM EST Treatment [facility] [address] [place] [address] Bret Sharp MD [address] [place] [address] [phone] [email or web address] 09/30/2025 10:20 AM EST Treatment [facility] [address] [place] [address] 61797 Bret Sharp MD [address] [place] [address] [id number] [email or web address] 10/03/2025 10:20 AM EST Treatment [facility] [address] [place] [address] 67132 Bret Sharp MD [address] [place] [address] [phone] [email or web address] 10/03/2025 10:30 AM EST Procedure visit [facility] [address] [place] [address] 22688 Bret Sharp MD [address] [place] [address] [phone] [email or web address] 10/04/2025 10:20 AM EST Treatment [facility] [address] [place] [address] 83189 Bret Sharp MD [address] [place] [address] [phone] [email or web address] 10/05/2025 10:20 AM EST Treatment [facility] [address] [place] [address] Bret Sharp MD [address] [place] [address] [phone] [email or web address] 10/06/2025 10:20 AM EST Treatment [facility] [address] [place] [address] 93883 Bret Sharp MD [address] [place] [address] [id number] [email or web address] 10/07/2025 10:20 AM EST Treatment [facility] [address] [place] [address] 88245 Bret Sharp MD [address] [place] [address] [id number] [email or web address] 10/11/2025 9:15 AM EST Office Visit [facility] [address] [place] [address], [address] [place] [address] Jaguar Palacios DO [address] [place] [address] [phone] [email or web address] 10/11/2025 10:20 AM EST Treatment [facility] Onc [address] [place] [address] Bret Sharp MD [address] [place] [address] [phone] [email or web address] 10/11/2025 10:30 AM EST Procedure visit [facility] [address] [place] [address] 83104 Brte Sharp MD [address] [place] [address] [phone] [email or web address] 10/12/2025 10:20 AM EST Treatment [facility] [address] [place] [address] Bret Sharp MD [address] [place] [address] [phone] [email or web address] 10/13/2025 10:20 AM EST Treatment [facility] [address] [place] [address] 60310 Bret Sharp MD [address] [place] [address] [id number] [email or web address] 10/14/2025 10:20 AM EST Treatment [facility] [address] [place] [address] 44374 Bret Sharp MD [address] [place] [address] [phone] [email or web address] 10/17/2025 10:20 AM EST Treatment [facility] [address] [place] [address] 85108 Bret Sharp MD [address] [place] [address] [phone] [email or web address] 10/17/2025 10:30 AM EST Procedure visit [facility] [address] [place] [address] 21843 Bret Sharp MD [address] [place] [address] [phone] [email or web address] 10/18/2025 10:20 AM EST Treatment [facility] On[facility] [address] [place] [address] Bret Sharp MD [address] [place] [address] [phone] [email or web address] 10/19/2025 10:20 AM EST Treatment [facility] [address] [place] [address] 45002 Bret Sharp MD [address] [place] [address] [phone] [email or web address] 10/19/2025 10:30 AM EST Procedure visit [facility] [address] [place] [address] 68545 Bret Sharp MD [address] [place] [address] [phone] [email or web address] documented as of this encounter Visit Diagnoses Not on filedocumented in this encounter Additional Health Concerns Infection Onset Date Last Indicated Resolved Time CoV-Exposed Comment:Recent close contact 04/03/2020 04/03/2020 04/17/2020 4:55 AM EDT documented as of this encounter Care Teams Coil Winding Supervisor Relationship Specialty Start Date End Date Shannon Whipple MD [address] [place] [address] [email or web address] PCP - General 07/08/17 04/24/24 Alicia Thornton PA [address] [facility] [address] [place] [address] PCP - General Physician Human Capital Analyst 04/25/24 Shannon Whipple MD [address] [place] [address] [email or web address] Insurance Assigned Provider 12/26/18 11/25/20 documented as of this encounter Additional Source Comments The information contained in this document represents components of the legal health record. It is not the complete legal health record.[facility]
--- OUTSIDE RECORDS SUMMARY | 2025-09-06 09:45 | XMS_ITS | Encounter Summary ---
Author Organization [facility] Address [address] [facility] [address] [place] [phone] Phone Care Team Providers Care Returned Goods Repairer Name Role Phone Shannon Whipple MD Primary Care Provider Alicia Thornton Primary Care Provider [phone] Encounter Details Date Type Department Care Team (Late st Contact Info) Description 05/05/2023 Procedure Pass [facility], Ct Scan - [address] [id number] Social History Tobacco Use Types Packs/Day Years [...] Info) Description 09/07/2025 10:20 AM EST Treatment [facility] Rad Onc [address] [place] [address] Bret Sharp MD [address] [place] [phone] [email or web address] 09/08/2025 1:10 PM EST Treatment [facility] Onc [address] [place] [address] Bret Sharp MD [address] [place] [phone] [email or web address] 09/09/2025 10:20 AM EST Treatment [facility] Onc [address] [place] [phone] Bret Sharp MD [address] [place] [address] [phone] [email or web address] 09/12/2025 10:20 AM EST Treatment [facility] Rad Onc [address] [place] [address] 38678 Bret Sharp MD [address] [place] [phone] [email or web address] 09/12/2025 10:30 AM EST Procedure visit [facility] Rad Onc [address] [place] [address] 33098 Bret Sharp MD [address] [place] [address] [phone] [email or web address] 09/13/2025 10:20 AM EST Treatment [facility] Rad Onc [address] [place] [address] Bret Sharp MD [address] [place] [address] [phone] [email or web address] 09/14/2025 10:20 AM EST Treatment [facility] Rad Onc [address] [place] [address] Bret Sharp MD [address] [place] [address] [phone] [email or web address] 09/16/2025 10:20 AM EST Treatment [facility] Rad Onc [address] [place] [address] 33891 Bret Sharp MD [address] [place] [address] [phone] [email or web address] 09/19/2025 10:20 AM EST Treatment [facility] Rad Onc [address] [place] [address] 71088 Bret Sharp MD [address] [place] [address] [phone] [email or web address] 09/19/2025 10:30 AM EST Procedure visit [facility] Rad Onc [address] [place] [address] Bret Sharp MD [address] [place] [address] [id number] [email or web address] 09/20/2025 10:20 AM EST Treatment [facility] Rad Onc [address] [place] [address] Bret Sharp MD [address] [place] [address] [phone] [email or web address] 09/21/2025 10:20 AM EST Treatment [facility] Rad Onc [address] [place] [address] Bret Sharp MD [address] [place] [address] [phone] [email or web address] 09/23/2025 10:20 AM EST Treatment [facility] Rad Onc [address] [place] [address] 59336 Bret Sharp MD [address] [place] [address] [phone] [email or web address] 09/26/2025 10:20 AM EST Treatment [facility] Rad Onc [address] [place] [address]40[address] Bret Sharp MD [address] [place] [address] [phone] [email or web address] 09/26/2025 10:30 AM EST Procedure visit [facility] Rad Onc [address] [place] [address] 49120 Bret Sharp MD [address] [place] [address] [phone] [email or web address] 09/27/2025 10:20 AM EST Treatment [facility] Rad Onc [address] [place] [address] 33379 Bret Sharp MD [address] [place] [address] [phone] [email or web address] 09/28/2025 10:20 AM EST Treatment [facility] Rad Onc [address] [place] [address] Bret Sharp MD [address] [place] [address] [phone] [email or web address] 09/29/2025 10:20 AM EST Treatment [facility] Rad Onc [address] [place] [address] 60732 Bret Sharp MD [address] [place] [address] [phone] [email or web address] 09/30/2025 10:20 AM EST Treatment [facility] Rad Onc [address] [place] [address] 73283 Bret Sharp MD [address] [place] [address] [phone] [email or web address] 10/03/2025 10:20 AM EST Treatment [facility] Rad Onc [address] [place] [address] 40872 Bret Sharp MD [address] [place] [address] [phone] [email or web address] 10/03/2025 10:30 AM EST Procedure visit [facility] Rad Onc [address] [place] [address] 39082 Bret Sharp MD [address] [place] [address] [phone] [email or web address] 10/04/2025 10:20 AM EST Treatment [facility] Rad Onc [address] [place] [address] 57408 Bret Sharp MD [address] [place] [address] [phone] [email or web address] 10/05/2025 10:20 AM EST Treatment [facility] Rad Onc [address] [place] [address] 43409 Bret Sharp MD [address] [place] [address] [phone] [email or web address] 10/06/2025 10:20 AM EST Treatment [facility] Rad Onc [address] [place] [address] [phone] Bret Sharp MD [address] [place] [address] [phone] [email or web address] 10/07/2025 10:20 AM EST Treatment [facility] Rad Onc [address] [place] [address] 12915 Bret Sharp MD [address] [place] [address] [phone] [email or web address] 10/11/2025 9:15 AM EST Office Visit [facility] [address] [place] [address], [address] [address] Jaguar Palacios DO [address] [place] [address] 10/11/2025 10:20 AM EST Treatment [facility] Rad Onc [address] [place] [address] 43726 Bret Sharp MD [address] [place] [address] [phone] [email or web address] 10/11/2025 10:30 AM EST Procedure visit [facility] Rad Onc [address] [place] [address] 53620 Bret Sharp MD [address] [place] [address] [phone] [email or web address] 10/12/2025 10:20 AM EST Treatment [facility] Rad Onc [address] [place] [address] 61529 Bret Sharp MD [address] [place] [address] [phone] [email or web address] 10/13/2025 10:20 AM EST Treatment [facility] Rad Onc [address] [place] [address] 50425 Bret Sharp MD [address] [place] [address] [phone] [email or web address] 10/14/2025 10:20 AM EST Treatment [facility] Rad Onc [address] [place] [address] 9[address]47 Bret Sharp MD [address] [place] [address] [phone] [email or web address] 10/17/2025 10:20 AM EST Treatment [facility] Rad Onc [address] [place] [address] 47099 Bret Sharp MD [address] [place] [address] [phone] [email or web address] 10/17/2025 10:30 AM EST Procedure visit [facility] Rad Onc [address] [place] [address] 75442 Bret Sharp MD [address] [place] [address] [phone] [email or web address] 10/18/2025 10:20 AM EST Treatment [facility] Rad Onc [address] [place] [address] Bret Sharp MD [address] [place] [address] [phone] [email or web address] 10/19/2025 10:20 AM EST Treatment [facility] Rad Onc [address] [place] [address] Bret Sharp MD [address] [place] [address] [phone] [email or web address] 10/19/2025 10:30 AM EST Procedure visit [facility] Rad Onc [address] [place] [address] Bret Sharp MD [address] [place] [address] [phone] [email or web address] documented as of this encounter Visit Diagnoses Not on filedocumented in this encounter Care Teams Returned Goods Repairer Relationship Specialty Start Date End Date Shannon Whipple MD [address] [place] [phone] [email or web address] PCP - General 07/08/17 04/24/24 Alicia Thornton PA [address] [facility] [place] [address] [place] [phone] PCP - General Physician Military Pay Clerk 04/25/24 documented as of this encounter Additional Source Comments The information contained in this document represents components of the legal health record. It is not the complete legal health record.[facility]
--- OUTSIDE RECORDS SUMMARY | 2025-09-06 09:45 | XMS_ITS | Clinical Summary ---
Author Organization [facility] Address [address] [place] [phone] Phone Care Team Providers Care Docket Clerk Name Role Phone Alicia Thornton Primary Care Provider [phone] Allergies Active Allergy Reactions Criticality Noted Date [...] Active Additional Information Patient not taking.Reported on 06/15/2025 apixaban (ELIQUIS) 5 mg tabletIndication s:Cerebrovascula r [...] mouth daily. 90 tablet 3 5 Active cholecalciferol (VITAMIN D3) 3,000 unit tablet Take 1,000 Units by mouth daily. 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 Malignant neoplasm of prostate 06/22/2025 Atypical atrial flutter 01/26/2025 Assessment & Plan [...] of ischemia - eval for afib with computer sciences professor, plan for computer sciences professor at discharge - await TTE - CTA [...] his feel they will likely follow-up with [facility] neurology as his sees them we discussed the requesting to get records to the office ahead of his visit Visual disturbance 04/24/2024 Assessment & Plan (03/28/2025 9:28 AM EDT): No further neurovascular complaints Assessment & Plan (01/26/2025 12:08 PM EDT): 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 Encounters Date Type Department Care Team Description 08/25/2025 11:00 AM EST Office Visit [facility] At [facility] Rad Onc [address] [place] [id number] Bret Sharp MD Malignant neoplasm of prostate (Primary Dx) 08/25/2025 Telephone [facility] At [facility] Rad Onc [address] [place] [phone] Bret Sharp MD [facility] 08/25/2025 Documentation [facility] At [facility] Rad Onc [address] [place] [id number] Wanda Pacheco, TAM 07/25/2025 Telephone [facility] At [facility] Rad Onc [address] [place] [phone] Bret Sharp MD 07/25/2025 Telephone [facility] At [facility] Rad Onc [address] [place] [phone] Bret Sharp MD 06/15/2025 11:00 AM EDT Office Visit [facility] At [facility] Rad Onc [address] [place] [id number] Bret Sharp MD Malignant neoplasm of prostate (Primary Dx) 06/13/2025 Ancillary Orders [facility] [address] [place] [address] Theresa, MD Theresa 06/10/2025 - 06/10/2025 11:59 PM EDT Hospital Encounter [facility] [address] [place] [address] Unknown, UnknownMD Discharge Disposition: Home or Self Care from Last 3 Months Family History Medical History Relation Comments Cancer Brother Cancer Father Relation Status Comments Brother Alive Father Social History Tobacco Use Types Packs/Day Years Used Date Smoking Tobacco: Former Cigarettes Q uit: 04/10/2016 Cigars Smokeless Tobacco: Former Tobacco Cessation:Counseling Given: Not Answered Alcohol Use Standard Drinks/Week Comments Not Currently 0 (1 standard drink = 0.6 oz [...] Sign Reading Time Taken Comments Blood Pressure 137/87 06/15/2025 2:13 PM EDT Pulse 67 06/15/2025 2:13 PM EDT Temperature 36.3 C (97.3 F) 01/05/2025 5:49 PM EDT Respiratory Rate 19 01/05/2025 5:49 PM EDT Oxygen Saturation 99% 06/15/2025 2:13 PM EDT Inhaled Oxygen Concentration - - Weight 68 kg (150 lb) 06/15/2025 2:13 PM EDT Height 165.1 cm (5' 5 ) 03/28/2025 9:12 AM EDT Body Mass Index 24.96 03/28/2025 9:12 AM EDT Plan of Treatment Upcoming Encounters Date Type Department Care Team (Late st Contact Info) Description 09/07/2025 10:20 AM EST Treatment [facility] At [facility] Rad [address] [address] Bret Sharp MD [address] [place] [id number] [email or web address] 09/08/2025 1:10 PM EST Treatment [facility] Cancer [facility] At [address] [address] Bret Sharp MD [address] [place] [id number] [email or web address] 09/09/2025 10:20 AM EST Treatment [facility] At [facility] Rad Onc [address] [place] [phone] Bret Sharp MD [address] [place] [id number] [email or web address] 09/12/2025 10:20 AM EST Treatment [facility] At [facility] Rad Onc [address] [place] [address] Bret Sharp MD [address] [place] [phone] [email or web address] 09/12/2025 10:30 AM EST Procedure visit [facility] At [facility] Rad Onc [address] [place] [phone] Bret Sharp MD [address] [place] [id number] [email or web address] 09/13/2025 10:20 AM EST Treatment [facility] At [facility] Rad Onc [address] [place] [address] Bret Sharp MD [address] [place] [id number] [email or web address] 09/14/2025 10:20 AM EST Treatment [facility] At [facility] Rad Onc [address] [place] [address] Bret Sharp MD [address] [place] [id number] [email or web address] 09/16/2025 10:20 AM EST Treatment [facility] At [facility] Rad Onc [address] [place] [phone] Bret Sharp MD [address] [place] [id number] [email or web address] 09/19/2025 10:20 AM EST Treatment [facility] At [facility] Rad Onc [address] [place] [address] Bret Sharp MD [address] [place] [id number] [email or web address] 09/19/2025 10:30 AM EST Procedure visit [facility] At [facility] Rad Onc [address] [place] [address] Bret Sharp MD [address] [place] [address] [id number] [email or web address] 09/20/2025 10:20 AM EST Treatment [facility] At [facility] Rad Onc [address] [place] [phone] Bret Sharp MD [address] [place] [id number] [email or web address] 09/21/2025 10:20 AM EST Treatment [facility] At [facility] Rad Onc [address] [place] [address] Bret Sharp MD [address] [place] [phone] [email or web address] 09/23/2025 10:20 AM EST Treatment [facility] At [facility] Rad Onc [address] [place] [phone] Bret Sharp MD [address] [place] [id number] [email or web address] 09/26/2025 10:20 AM EST Treatment [facility] At [facility] Rad Onc [address] [place] [address] Bret Sharp MD [address] [place] [phone] [email or web address] 09/26/2025 10:30 AM EST Procedure visit [facility] At [facility] Rad Onc [address] [place] [phone] Bret Sharp MD [address] [place] [id number] [email or web address] 09/27/2025 10:20 AM EST Treatment [facility] At [facility] Rad Onc [address] [place] [address] Bret Sharp MD [address] [place] [phone] [email or web address] 09/28/2025 10:20 AM EST Treatment [facility] At [facility] Rad Onc [address] [place] [address] Bret Sharp MD [address] [place] [address] [id number] [email or web address] 09/29/2025 10:20 AM EST Treatment [facility] At [facility] Rad Onc [address] [place] [address] Bret Sharp MD [address] [place] [address] [id number] [email or web address] 09/30/2025 10:20 AM EST Treatment [facility] At [facility] Rad Onc [address] [place] [phone] Bret Sharp MD [address] [place] [address] [id number] [email or web address] 10/03/2025 10:20 AM EST Treatment [facility] At [facility] Rad Onc [address] [place] [phone] Bret Sharp MD [address] [place] [address] [id number] [email or web address] 10/03/2025 10:30 AM EST Procedure visit [facility] At [facility] Rad Onc [address] [place] [address] Bret Sharp MD [address] [place] [id number] [email or web address] 10/04/2025 10:20 AM EST Treatment [facility] At [facility] Rad Onc [address] [place] [address] Bret Sharp MD [address] [place] [address] [id number] [email or web address] 10/05/2025 10:20 AM EST Treatment [facility] At [facility] Rad Onc [address] [place] [address] Bret Sharp MD [address] [place] [id number] [email or web address] 10/06/2025 10:20 AM EST Treatment [facility] At [facility] Rad Onc [address] [place] [phone] Bret Sharp MD [address] [place] [id number] [email or web address] 10/07/2025 10:20 AM EST Treatment [facility] At [facility] Rad Onc [address] [place] [address] Bret Sharp MD [address] [place] [phone] [email or web address] 10/11/2025 9:15 AM EST Office Visit [facility] [address] [place] [address], [address] [place] [phone] Jaguar Palacios DO [address] [place] [phone] 10/11/2025 10:20 AM EST Treatment [facility] At [facility] Rad Onc [address] [place] [address] 187[address] Bret Sharp MD [address] [place] [address] [id number] [email or web address] 10/11/2025 10:30 AM EST Procedure visit [facility] At [facility] Rad Onc [address] [place] [phone] Bret Sharp MD [address] [place] [address] [phone] [email or web address] 10/12/2025 10:20 AM EST Treatment [facility] At [facility] Rad Onc [address] [place] [address] 32889 Bret Sharp MD [address] [place] [address] [id number] [email or web address] 10/13/2025 10:20 AM EST Treatment [facility] At [facility] Rad Onc [address] [place] [phone] Bret Sharp MD [address] [place] [id number] [email or web address] 10/14/2025 10:20 AM EST Treatment [facility] At [facility] Rad Onc [address] [place] [address] Bret Sharp MD [address] [place] [phone] [email or web address] 10/17/2025 10:20 AM EST Treatment [facility] At [facility] Rad Onc [address] [place] [address] 780[address] Bret Sharp MD [address] [place] [address] [phone] [email or web address] 10/17/2025 10:30 AM EST Procedure visit [facility] At [facility] Rad Onc [address] [place] [address] Bret Sharp MD [address] [place] [id number] [email or web address] 10/18/2025 10:20 AM EST Treatment [facility] At [facility] Rad Onc [address] [place] [address] Bret Sharp MD [address] [place] [address] [id number] [email or web address] 10/19/2025 10:20 AM EST Treatment [facility] At [facility] Rad Onc [address] [place] [address] Bret Sharp MD [address] [place] [id number] [email or web address] 10/19/2025 10:30 AM EST Procedure visit [facility] At [facility] Rad Onc [address] [place] [address] Bret Sharp MD [address] [place] [address] [phone] [email or web address] Health Maintenance Due Date Last Done Comments Adult Td,Tdap Booster 1955 DEPRESSION SCREENING 1965 COLOGUARD 1998 FIT TEST 1998 FOBT 1998 SIGMOIDOSCOPY 1998 VIRTUAL COLONOSCOPY 1998 RSV VACCINE (1 - Risk 50-74 years 1-dose series) 2003 ABDOMINAL AORTIC ANEURYSM (AAA) SCREENING 2018 PNEUMOCOCCAL VACCINES (50+ years) (2 of 2 - PPSV23, PCV20, or PCV21) 05/28/2019 04/02/2019 INFLUENZA VACCINE (#1) 2025 LIPID PANEL 04/24/2025 04/24/2024, 08/0 10/2022, 03/11/2022, Additional history exists COVID-19 VACCINE (3 - season) 2025 01/15/2021, 12/25/2020 CREATININE LEVEL 01/05/2026 01/05/2025, 01/2024, 04/25/2024, Additional history exists SMOKING Hx and SMOKELESS TOBACCO SCREENING 06/15/2026 06/15/2025 COLONOSCOPY 11/02/2029 11/02/2019 COLORECTAL CANCER SCREENING 11/02/2029 ZOSTER VACCINES Completed 07/06/2019, 04/02/2019 HEPATITIS C SCREENING Completed 09/20/2019 , 04/12/2019, 04/12/2019, Additional history exists HEPATITIS A VACCINES Aged Out No long [...] Procedure Name Priority Date/Time Associated Diagnosis Comments MRI PELVIS (SOFT TISSUE) OUTSIDE (NO INTERPRETATION) Routine 06/10/2025 12:00 AM EDT BASIC METABOLIC PANEL (BMP) STAT 01/05/2025 1:49 PM EDT LIPID PANEL STAT 04/24/2024 5:50 PM EDT ENDOSCOPY, COLON 11/02/2019 1:01 PM EST LIVER FIBROSIS TEST Routine 09/20/2019 8 :36 AM EST Nonspecific abnormal results of liver function study from Last 3 Months or Most Recently Relevant to Health Maintenance Results * MRI Pelvis (Soft Tissue) Outside (No Interpretation) (06/10/2025 12:00 AM EDT) Narrative SYSTEMGENERATED, DOCUMENTATION - 06/13/2025 2:08 PM EDT This study is for PACS storage only and not for interpretation. us Unknown Unknown MD BARCENAS OUTSIDE IMAGING W/OUT INT ERPRETATION Final Result * (ABNORMAL) Basic metabolic panel (01/05/2025 1:49 PM EDT) SODIUM 137 133 - 146 mmol/L [facility] CHLORIDE 100 96 - 108 mmol/L [facility] POTASSIUM 3.9 3.3 - 5.1 mmol/L [facility] Comment:Specimen slightly he molyzed, result may be falsely elevated. CO2 26 21 - 35 mmol/L [facility] BUN 16 6 - 19 mg/dL [facility] CREATININE 0.80 0.5 - 1.5 mg/dL [facility] GLUCOSE 149(H) 70 - 99 mg/dL [facility] CALCIUM 10.4(H) 8.4 - 10.3 mg/dL [facility] EGFR 95 >59 mL/min/1.7 3m2 [facility] Comment:Estimated glomerular filtration rate calculated using the CKD-EPI refit equation. ANION GAP 15 10 - 20 mmol/L [facility] Blood 01/05/2025 1:49 PM EDT 01/05/2025 1:52 PM EDT us Tracy Acuña MD LAB BLOOD BKR ORDERABLES Final Result [facility] [address] [place] [address] * (ABNORMAL) Lipid panel (04/24/2024 5:50 PM EDT) HDL 70 mg/dL [facility] Comment: Interpretation <40 mg/dL: Low HDL cholesterol (major risk factor for CHD) Greater than or equal to 60 mg/dL: High HDL cholesterol ( negative risk factor for CHD) HDL - cholesterol is affected by a number of factors, e.g. smoking, excerise, hormones, sex and age. CHOLESTEROL 161 0 - 240 mg/dL [facility] TRIGLYCERIDES 277(H) 30 - 160 mg/dL [facility] LDL 36(L) 50 - 129 mg/dL [facility] Comment: LDL levels in terms of risk for coronary heart disease: <100 mg/dL: Optimal 100-129 mg/dL: Near or above optimal 130-159 mg/dL: Borderline high 160-189 mg/dL: High >190 mg/dL: Very High CARDIAC RISK RATIO 2.3(L) 3.4 - 5.0 C [facility] Blood 04/24/2024 5:50 PM EDT 04/24/2024 5:58 PM EDT us Stewart Simmons MD LAB BLOOD BKR ORDERABLES Final Result [address] [address] * ENDOSCOPY, COLON (11/02/2019 1:01 PM EST) Narrative Transcriptions Steve Parish MD - 11/02/2019 1:01 PM EST Patient Name: Moe Castro Attending MD:: STEVE PARISH MD Procedure Date: 11/02/2019 1:01 PM Date of : 1955 Age: 64 Admit Type: Outpatient Gender: Male Room: [place] [address] Referring MD: SHANNON FRANZ MD Exam Type: [...] monitored continuously. The Olympus adult variable colonoscope [id number] #2 was introduced through the anus and [...] 1:01 PM Procedure Code(s): --- Professional --- 51163, Colonoscopy, flexible; diagnostic, including collection of specimen(s) by brushing or washing, when performed (separateprocedure) --- Technical --- 79247, Colonoscopy, flexible; diagnostic, including collection of specimen(s) by brushing or washing, when performed (separateprocedure) Diagnosis Code(s): --- Professional --- Z86.010, Personal history of colonic polyps --- Technical --- Z86.010, Personal history of colonic polyps CPT copyright 2018 [employer]. All rights reserved. The codes documented in this report are preliminary and upon auditing coder reviewmay be revised to meet current compliance requirements. Procedure Date: 11/02/2019 1:01:[address] [place] [address] us Shannon Franz MD GI PROCEDURE ORDERABLES Fin al Result * (ABNORMAL) Liver fibrosis test (09/20/2019 8:36 AM EST) Fibrosis score 0.29 [facility] Interpretation (Fibrosis) SEE NOTE [facility] Comment: (NOTE) minimal fibrosis Fibro Test Score [...] F4 (severe fibrosis) HCV Fibrosis Grade F1 C [facility] NECROINFLAMM SCORE 0.14 [facility] NECROINFLAMM GRADE A0 [facility] NECROINFLAMM INTERP SEE NOTE [facility] Comment: (NOTE) no activity ActiTest Score (a) [...] A2 Macroglobulin 300(H) 106 - 279 mg/dL [facility] Haptoglobin 279(H) 43 - 212 mg/dL [facility] Apolipoprotein A1 226(H) 94 - 176 mg/dL [facility] TOTAL BILIRUBIN 0.5 0.2 - 1.2 mg/dL [facility] GGT 98(H) 3 - 70 U/L [facility] ALT 30 9 - 46 U/L [facility] Specimen/Product ID [id number] [facility] Comments (Chemistry) SEE NOTE [facility] Comment: (NOTE) The reliability of results is dependent on compliance with the preanalytical and analytical conditions recommended by [employer]. The tests have to be deferred for: [...] The performance characteristics have been determined by [facility]. It has not been cleared or approved by the U.S. Food and Drug Administration. Performance characteristics refer to the analytical performance of the test. [employer], the associated logo, [employer] and all associated [employer] wiseman are the registered trademarks of [employer]. All third republican wiseman - (R) and (TM) - are the property of their respective owners. (C) 4569-5048 [employer]. All rights reserved. Test performed at [facility] [facility] [address] [place] [address] Director: DAVID MITCHELL MD,PHD,CHARISSA Blood 09/20/2019 8:36 AM EST 09/20/2019 8:38 AM EST us Nan LEWIS LAB BLOOD BKR ORDERABLES Fi nal Result [address] [address] from Last 3 Months or Most Recently Relevant to Health Maintenance Insurance [facility] MEDICARE REPLACEMENT Member Subscriber Plan / Payer (Ef fective 2022-Present) Name:Moe Castro Relation to Subscriber:Self Name:Moe Castro Payer ID:[id number] (NAIC) Group ID:[id number] Type:Medicare Address: [address] MEDICARE REPLACEMENT [facility] MEDICARE REPLACEMENT MEDICARE REPLACEMENT Member Subscriber Plan / Payer (Ef fective 2024-Present) Name:Moe Castro Relation to Subscriber:Self Name:Moe Castro Payer ID:[id number] (NAIC) Type:Medicare Address: [place] [id number] [place] [id number] [facility] MEDICARE REPLACEMENT Member Subscriber Plan / Payer ( fective 2022-) Name:Moe Castor Relation to Subscriber:Self Name:Moe Castro Payer ID:[id number] (NAIC) Group ID:[id number] Type:Medicare Address: [address] MEDICARE REPLACEMENT [facility] MEDICARE REPLACEMENT [place] [address] [address] MEDICARE REPLACEMENT [facility] MEDICARE REPLACEMENT MEDICARE REPLACEMENT [facility] MEDICARE REPLACEMENT [facility] MEDICARE REPLACEMENT Advance Directives For more information, please contact: [phone] (9AM - 5PM [facility], Friday-Friday) Documents on File Type Date Recorded Patient Body Shop Technician Expl anation Healthcare Proxy 04/27/2024 1:54 PM Healthcare Proxy 04/26/2024 9:51 AM Health Care Proxy * Full Code (Latest Code Status on File) Date Activated Date Inactivated Comments 04/24/2024 7:24 PM Question Answer Comments Code Status Confirmed With: Patient Code Status Communicated To: Inpatient Attending Healthcare Agents on File Name Relationship Healthcare Agent Relationsma p Communication Devorafátima Castro Spouse .Primary Health Care Agent (Proxy form on file) Care Teams Docket Clerk Relationship Specialty Start Date End Date Alicia Thornton PA [address] [place] [address] PCP - General Physician Retail Buyer 04/25/24 Additional Source Comments The information contained in this document represents components of the legal health record. It is not the complete legal health record.[facility]
--- OUTSIDE RECORDS SUMMARY | 2025-09-06 09:45 | XMS_ITS | Encounter Summary ---
Author Organization [facility] Address [address] [facility] [address] [place] [address] Phone Care Team Providers Care Contract Clerk Automobile Name Role Phone Shannon Whipple MD Primary Care Provider Shannon Whipple MD Unavailable [phone] Alicia Thornton Primary Care Provider Encounter Details Date Type Department Care Team (Late st Contact Info) Description 11/06/2018 Ancillary Orders [facility], X-Ray - [address] [address] Karen Madrigal PA [address] [place] [address] [email or web address] Cough Social History Tobacco Use Types Packs/Day [...] [facility] Rad Onc [address] [place] [address] Bret Sharp MD [address] [place] [address] 16225 [email or web address] 09/08/2025 1:10 PM EST Treatment [facility] Rad Onc [address] [place] [address] 19276 Bret Sharp MD [address] [place] [address] [email or web address] 09/09/2025 10:20 AM EST Treatment [facility] Rad Onc [address] [place] [address] 45678 Bret Sharp MD [address] [place] [id number] [email or web address] 09/12/2025 10:20 AM EST Treatment [facility] Rad Onc [address] [place] [address] Bret Sharp MD [address] [place] [address] [email or web address] 09/12/2025 10:30 AM EST Procedure visit [facility] Rad Onc [address] [place] [address] 89292 Bret Sharp MD [address] [place] [address] [email or web address] 09/13/2025 10:20 AM EST Treatment [facility] Rad Onc [address] [place] [address] Bret Sharp MD [address] [place] [address] 10801 [email or web address] 09/14/2025 10:20 AM EST Treatment [facility] Rad Onc [address] [place] [address] Bret Sharp MD [address] [place] [address] 77700 [email or web address] 09/16/2025 10:20 AM EST Treatment [facility] Rad Onc [address] [place] [address] Bret Sharp MD [address] [place] [address] 74251 [email or web address] 09/19/2025 10:20 AM EST Treatment [facility] Rad Onc [address] [place] [address] Bret Sharp MD [address] [place] [address] 6[address] [email or web address] 09/19/2025 10:30 AM EST Procedure visit [facility] Rad Onc [address] [place] [address] Bret Sharp MD [address] [place] [address] 05982 [email or web address] 09/20/2025 10:20 AM EST Treatment [facility] Rad Onc [address] [place] [address] Bret Sharp MD [address] [place] [address] 39115 [email or web address] 09/21/2025 10:20 AM EST Treatment [facility] Rad Onc [address] [place] [address] 22440 Bret Sharp MD [address] [place] [address] [id number] [email or web address] 09/23/2025 10:20 AM EST Treatment [facility] Rad Onc [address] [place] [address] 25930 Bret Sharp MD [address] [place] [address] 72036 [email or web address] 09/26/2025 10:20 AM EST Treatment [facility] Rad Onc [address] [place] [address] 7[address]67 Bret Sharp MD [address] [place] [address] 50869 [email or web address] 09/26/2025 10:30 AM EST Procedure visit [facility] Rad Onc [address] [place] [address] 500[address] Bret Sharp MD [address] [place] [address] 7[address] [email or web address] 09/27/2025 10:20 AM EST Treatment [facility] Rad Onc [address] [place] [address] 31599 Bret Sharp MD [address] [place] [address] 61696 [email or web address] 09/28/2025 10:20 AM EST Treatment [facility] Rad Onc [address] [place] [address] 8[address] Bret Sharp MD [address] [place] [address] 84874 [email or web address] 09/29/2025 10:20 AM EST Treatment [facility] Rad Onc [address] [place] [address] Bret Sharp MD [address] [place] [address] 13058 [email or web address] 09/30/2025 10:20 AM EST Treatment [facility] Rad Onc [address] [place] [address] 35322 Bret Sharp MD [address] [place] [address] 54647 [email or web address] 10/03/2025 10:20 AM EST Treatment [facility] Rad Onc [address] [place] [address] 94013 Bret Sharp MD [address] [place] [address] 25786 [email or web address] 10/03/2025 10:30 AM EST Procedure visit [facility] Rad Onc [address] [place] [address] 20502 Bret Sharp MD [address] [place] [address] 17415 [email or web address] 10/04/2025 10:20 AM EST Treatment [facility] Rad Onc [address] [place] [address] Bret Sharp MD [address] [place] [address] 84157 [email or web address] 10/05/2025 10:20 AM EST Treatment [facility] Rad Onc [address] [place] [address] Bret Sharp MD [address] [place] [address] 60159 [email or web address] 10/06/2025 10:20 AM EST Treatment [facility] Rad Onc [address] [place] [address] Bret Sharp MD [address] [place] [address] 92684 [email or web address] 10/07/2025 10:20 AM EST Treatment [facility] Rad Onc [address] [place] [address] 51292 Bret Sharp MD [address] [place] [address] [id number] [email or web address] 10/11/2025 9:15 AM EST Office Visit [facility] [address] [place] [address] [address]rd Floor, [address] [address] Jaguar Palacios DO [address] [place] [address] 10/11/2025 10:20 AM EST Treatment [facility] Rad Onc [address] [place] [address] Bret Sharp MD [address] [place] [address] [phone] [email or web address] 10/11/2025 10:30 AM EST Procedure visit [facility] Rad Onc [address] [place] [address] 79966 Bret Sharp MD [address] [place] [address] 89934 [email or web address] 10/12/2025 10:20 AM EST Treatment [facility] Rad Onc [address] [place] [address] Bret Sharp MD [address] [place] [address] 74146 [email or web address] 10/13/2025 10:20 AM EST Treatment [facility] Rad Onc [address] [place] [address] 16355 Bret Sharp MD [address] [place] [address] 02128 [email or web address] 10/14/2025 10:20 AM EST Treatment [facility] Rad Onc [address] [place] [address] 28527 Bret Sharp MD [address] [place] [address] 36028 [email or web address] 10/17/2025 10:20 AM EST Treatment [facility] Rad Onc [address] [place] [address] 17781 Bret Sharp MD [address] [place] [address] 92314 [email or web address] 10/17/2025 10:30 AM EST Procedure visit [facility] Rad Onc [address] [place] [address] 01888 Bret Sharp MD [address] [place] [address] 83106 [email or web address] 10/18/2025 10:20 AM EST Treatment [facility] Rad Onc [address] [place] [address] Bret Sharp MD [address] [place] [address] 80091 [email or web address] 10/19/2025 10:20 AM EST Treatment [facility] Rad Onc [address] [place] [address] Bret Sharp MD [address] [place] [address] [id number] [email or web address] 10/19/2025 10:30 AM EST Procedure visit [facility] Rad Onc [address] [place] [address] 01436 Bret Sharp MD [address] [place] [address] [id number] [email or web address] documented as of this encounter Results * XR CHEST PA AND LATERAL 2 VIEWS (11/06/2018 3:19 PM EST) Anatomical Region Laterality Modality Chest Radiographic Jennifer ging 11/06/2018 3:22 PM EST Impressions 11/06/2018 3:23 PM EST No acute pulmonary process or explanation for cough is seen. S[facility] Narrative 11/06/2018 3:23 PM EST COMPARISON: Chest [...] documented as of this encounter Care Teams Contract Clerk Automobile Relationship Specialty Start Date End Date Shannon Whipple MD [address] [place] [address] PCP - General 07/08/17 04/24/24 Alicia Thornton PA [address] [facility] [address] [place] [address] PCP - General Physician Instrumentation Technologist 04/25/24 Shannon Whipple MD [address] [place] [address] Insurance Assigned Provider 12/26/18 11/25/20 documented as of this encounter Additional Source Comments The information contained in this document represents components of the legal health record. It is not the complete legal health record.[facility]
--- OUTSIDE RECORDS SUMMARY | 2025-09-06 09:45 | XMS_ITS | Encounter Summary ---
Author Organization [facility] Address [address] [facility] [address] [place] [address] Phone Care Team Providers Care Lead Software Development Engineer Name Role Phone Shannon Whipple MD Primary Care Provider Shannon Whipple MD Unavailable [phone] Alicia Thornton Primary Care Provider [phone] Encounter Details Date Type Department Care Team (Latest Contact Info) Description 08/09/2020 Transcribe Orders Virtual Department [address] [place] [address] Karen Madrigal PA [address] [place] [address] [email or web address] Low back pain, unspecified back pain laterality, [...] [facility] Rad Onc [address] [place] [address] Bret Sharp MD [address] [place] [address] [id number] [email or web address] 09/08/2025 1:10 PM EST Treatment [facility] Rad Onc [address] [place] [address] 9[address]34 Bret Sharp MD [address] [place] [address] [id number] [email or web address] 09/09/2025 10:20 AM EST Treatment [facility] Rad Onc [address] [place] [address] Bret Sharp MD [address] [place] [address] [id number] [email or web address] 09/12/2025 10:20 AM EST Treatment [facility] Rad Onc [address] [place] [address] 74303 Bret Sharp MD [address] [place] [address] 31586 [email or web address] 09/12/2025 10:30 AM EST Procedure visit [facility] Rad Onc [address] [place] [address] 15823 Bret Sharp MD [address] [place] [address] [id number] [email or web address] 09/13/2025 10:20 AM EST Treatment [facility] Rad Onc [address] [place] [address] 56583 Bret Sharp MD [address] [place] [address] [id number] [email or web address] 09/14/2025 10:20 AM EST Treatment [facility] Rad Onc [address] [place] [address] 97409 Bret Sharp MD [address] [place] [address] [id number] [email or web address] 09/16/2025 10:20 AM EST Treatment [facility] Rad Onc [address] [place] [address] 80210 Bret Sharp MD [address] [place] [address] [id number] [email or web address] 09/19/2025 10:20 AM EST Treatment [facility] Rad Onc [address] [place] [address] 02524 Bret Sharp MD [address] [place] [address] [id number] [email or web address] 09/19/2025 10:30 AM EST Procedure visit [facility] Rad Onc [address] [place] [address] 38729 Bret Sharp MD [address] [place] [address] [id number] [email or web address] 09/20/2025 10:20 AM EST Treatment [facility] Rad Onc [address] [place] [address] 60683 Bret Sharp MD [address] [place] [address] [id number] [email or web address] 09/21/2025 10:20 AM EST Treatment [facility] Rad Onc [address] [place] [address] Bret Sharp MD [address] [place] [address] [id number] [email or web address] 09/23/2025 10:20 AM EST Treatment [facility] Rad Onc [address] [place] [address] 80550 Bret Sharp MD [address] [place] [address] [id number] [email or web address] 09/26/2025 10:20 AM EST Treatment [facility] Rad Onc [address] [place] [address] 79016 Bret Sharp MD [address] [place] [address] 16041 [email or web address] 09/26/2025 10:30 AM EST Procedure visit [facility] Rad Onc [address] [place] [address] 39699 Bret Sharp MD [address] [place] [address] [id number] [email or web address] 09/27/2025 10:20 AM EST Treatment [facility] Rad Onc [address] [place] [address] 07824 Bret Sharp MD [address] [place] [address] [id number] [email or web address] 09/28/2025 10:20 AM EST Treatment [facility] Rad Onc [address] [place] [address] 19744 Bret Sharp MD [address] [place] [address] [id number] [email or web address] 09/29/2025 10:20 AM EST Treatment [facility] Rad Onc [address] [place] [address] 11936 Bret Sharp MD [address] [place] [address] [id number] [email or web address] 09/30/2025 10:20 AM EST Treatment [facility] Rad Onc [address] [place] [address] 50452 Bret Sharp MD [address] [place] [address] [id number] [email or web address] 10/03/2025 10:20 AM EST Treatment [facility] Rad Onc [address] [place] [address] 49241 Bret Sharp MD [address] [place] [address] [id number] [email or web address] 10/03/2025 10:30 AM EST Procedure visit [facility] Rad Onc [address] [place] [address] 40954 Bret Sharp MD [address] [place] [address] [phone] [email or web address] 10/04/2025 10:20 AM EST Treatment [facility] Rad Onc [address] [place] [address] 26852 Bret Sharp MD [address] [place] [address] [id number] [email or web address] 10/05/2025 10:20 AM EST Treatment [facility] Rad Onc [address] [place] [address] Bret Sharp MD [address] [place] [address] [id number] [email or web address] 10/06/2025 10:20 AM EST Treatment [facility] Rad Onc [address] [place] [address] Bret Sharp MD [address] [place] [address] [id number] [email or web address] 10/07/2025 10:20 AM EST Treatment [facility] Rad Onc [address] [place] [address] 70348 Bret Sharp MD [address] [place] [address] [id number] [email or web address] 10/11/2025 9:15 AM EST Office Visit [facility] [address] [place] [address], [address] [address] Jaguar Palacios DO [address] [place] [address] [id number] [email or web address] 10/11/2025 10:20 AM EST Treatment [facility] Rad Onc [address] [place] [address] Bret Sharp MD [address] [place] [address] [id number] [email or web address] 10/11/2025 10:30 AM EST Procedure visit [facility] Rad Onc [address] [place] [address] 7[address]11 Bret Sharp MD [address] [place] [address] [id number] [email or web address] 10/12/2025 10:20 AM EST Treatment [facility] Rad Onc [address] [place] [address] Bret Sharp MD [address] [place] [address] [id number] [email or web address] 10/13/2025 10:20 AM EST Treatment [facility] Rad Onc [address] [place] [address] 38537 Bret Sharp MD [address] [place] [address] [id number] [email or web address] 10/14/2025 10:20 AM EST Treatment [facility] Rad Onc [address] [place] [address] 91780 Bret Sharp MD [address] [place] [address] [id number] [email or web address] 10/17/2025 10:20 AM EST Treatment [facility] Rad Onc [address] [place] [address] 66681 Bret Sharp MD [address] [place] [address] [phone] [email or web address] 10/17/2025 10:30 AM EST Procedure visit [facility] Rad Onc [address] [place] [address] Bret Sharp MD [address] [place] [address] [phone] [email or web address] 10/18/2025 10:20 AM EST Treatment [facility] Rad Onc [address] [place] [address] Bret Sharp MD [address] [place] [address] [id number] [email or web address] 10/19/2025 10:20 AM EST Treatment [facility] Rad Onc [address] [place] [address] Bret Sharp MD [address] [place] [address] [id number] [email or web address] 10/19/2025 10:30 AM EST Procedure visit [facility] Rad Onc [address] [place] [address] 07660 Bret Sharp MD [address] [place] [address] [id number] [email or web address] documented as of this encounter Results * [...] calcification of the abdominal aorta. Procedure Note Steve Liao MD - 08/10/2020 HISTORY: Lower back [...] present documented in this encounter Care Teams Lead Software Development Engineer Relationship Specialty Start Date End Date Shannon Whipple MD [address] [place] [address] [email or web address] PCP - General 07/08/17 04/24/24 Alicia Thornton PA [address] [place] [address] [address] [place] [address] PCP - General Physician Photogrammetric Engineer 04/25/24 Shannon Whipple MD [address] [place] [address] [email or web address] Insurance Assigned Provider 12/26/18 11/25/20 documented as of this encounter Additional Source Comments The information contained in this document represents components of the legal health record. It is not the complete legal health record.[facility]
--- OUTSIDE RECORDS SUMMARY | 2025-09-06 09:45 | XMS_ITS | Encounter Summary ---
Author Organization [facility] Address [address] [facility] [place] [address] Phone Care Team Providers Care Correctional Substance Abuse Counselor Name Role Phone Shannon Whipple MD Primary Care Provider [phone] Shannon Whipple MD Unavailable [phone] Alicia Thornton Primary Care Provider [phone] Encounter Details Date Type Department Care Team (Late st Contact Info) Description 07/31/2018 Procedure Pass OR Admitting Dept - Virtual Department [address] [place] [address] 05307 Social History Tobacco Use Types Packs/Day Years [...] Info) Description 09/07/2025 10:20 AM EST Treatment [facility] Onc [address] [place] [address] Bret Sharp MD [address] [place] [address] [id number] [email or web address] 09/08/2025 1:10 PM EST Treatment [facility] [address] [place] [address] 17168 Bret Sharp MD [address] [place] [address] [phone] [email or web address] 09/09/2025 10:20 AM EST Treatment [facility] Onc [address] [place] [address] 39454 Bret Sharp MD [address] [place] [address] 76798 [email or web address] 09/12/2025 10:20 AM EST Treatment [facility] [address] [place] [address] 15727 Bret Sharp MD [address] [place] [address] [phone] [email or web address] 09/12/2025 10:30 AM EST Procedure visit [facility] [address] [place] [address] 54758 Bret Sharp MD [address] [place] [address] 92049 [email or web address] 09/13/2025 10:20 AM EST Treatment [facility] Onc [address] [place] [address] 87641 Bret Sharp MD [address] [place] [address] 32485 [email or web address]@[email or web address] 09/14/2025 10:20 AM EST Treatment [facility] Rad Onc [address] [place] [address] Bret Sharp MD [address] [place] [address] 29633 [email or web address] 09/16/2025 10:20 AM EST Treatment [facility] Onc [address] [place] [address] 71146 Bret Sharp MD [address] [place] [address] 26538 [email or web address] 09/19/2025 10:20 AM EST Treatment [facility] Onc [address] [place] [address] 59005 Bret Sharp MD [address] [place] [address] 14760 [email or web address] 09/19/2025 10:30 AM EST Procedure visit [facility] Onc [address] [place] [address] 93615 Bret Sharp MD [address] [place] [address] [id number] [email or web address] 09/20/2025 10:20 AM EST Treatment [facility] Rad Onc [address] [place] [address] Bret Sharp MD [address] [place] [address] [phone] [email or web address] 09/21/2025 10:20 AM EST Treatment [facility] Onc [address] [place] [address] 82772 Bret Sharp MD [address] [place] [address] [phone] [email or web address]@[email or web address] 09/23/2025 10:20 AM EST Treatment [facility] Rad Onc [address] [place] [address] Bret Sharp MD [address] [place] [address] [phone] [email or web address]@[email or web address] 09/26/2025 10:20 AM EST Treatment [facility] Onc [address] [place] [address] 61226 Brte Sharp MD [address] [place] [address] 36474 [email or web address] 09/26/2025 10:30 AM EST Procedure visit [facility] Onc [address] [place] [address] 79783 Bret Sharp MD [address] [place] [address] 20617 [email or web address]@[email or web address] 09/27/2025 10:20 AM EST Treatment [facility] Onc [address] [place] [address] 99148 Bret Sharp MD [address] [place] [address] [phone] [email or web address] 09/28/2025 10:20 AM EST Treatment [facility] Rad Onc [address] [place] [address] Bret Sharp MD [address] [place] [address] [phone] [email or web address]@[email or web address] 09/29/2025 10:20 AM EST Treatment [facility] Rad Onc [address] [place] [address] Bret Sharp MD [address] [place] [address] 68610 [email or web address] 09/30/2025 10:20 AM EST Treatment [facility] Onc [address] [place] [address] 56414 Bret Sharp MD [address] [place] [address] 73659 [email or web address] 10/03/2025 10:20 AM EST Treatment [facility] Onc [address] [place] [address] 09836 Bret Sharp MD [address] [place] [address] [phone] [email or web address] 10/03/2025 10:30 AM EST Procedure visit [facility] Onc [address] [place] [address] 59768 Bret Sharp MD [address] [place] [address] [phone] [email or web address] [email or web address] 10/04/2025 10:20 AM EST Treatment [facility] Onc [address] [place] [address] 06411 Bret Sharp MD [address] [place] [address] [phone] [email or web address] [email or web address] 10/05/2025 10:20 AM EST Treatment [facility] Rad Onc [address] [place] [address] 72156 Bret Sharp MD [address] [place] [address] [id number] [email or web address]@[email or web address] 10/06/2025 10:20 AM EST Treatment [facility] Rad Onc [address] [place] [address] Bret Sharp MD [address] [place] [address] [phone] [email or web address] 10/07/2025 10:20 AM EST Treatment [facility] Onc [address] [place] [address] 35256 Bret Sharp MD [address] [place] [address] [phone] [email or web address] 10/11/2025 9:15 AM EST Office Visit [facility] [address] [place] [address], [address] [place] [address] Jaguar Palacios DO [address] [place] [address]57 [email or web address] 10/11/2025 10:20 AM EST Treatment [facility] Onc [address] [place] [address] 95208 Bret Sharp MD [address] [place] [address] [phone] [email or web address] 10/11/2025 10:30 AM EST Procedure visit [facility] Onc [address] [place] [address] 23493 Bret Sharp MD [address] [place] [address] [phone] [email or web address]@[email or web address] 10/12/2025 10:20 AM EST Treatment [facility] Rad Onc [address] [place] [address] Bret Sharp MD [address] [place] [address] [phone] [email or web address]@[email or web address] 10/13/2025 10:20 AM EST Treatment [facility] Onc [address] [place] [address] 65907 Bret Sharp MD [address] [place] [address] [phone] [email or web address] 10/14/2025 10:20 AM EST Treatment [facility] Rad Onc [address] [place] [address] 90799 Bret Sharp MD [address] [place] [address] [id number] [email or web address] 10/17/2025 10:20 AM EST Treatment [facility] Onc [address] [place] [address] 19751 Bret Sharp MD [address] [place] [address] [phone] [email or web address] 10/17/2025 10:30 AM EST Procedure visit [facility] Onc [address] [place] [address] 78789 Bret Sharp MD [address] [place] [address] [phone] [email or web address] 10/18/2025 10:20 AM EST Treatment [facility] Onc [address] [place] [address] 22513 Bret Sharp MD [address] [place] [address] 13417 [email or web address] 10/19/2025 10:20 AM EST Treatment [facility] Rad Onc [address] [place] [address] Bret Sharp MD [address] [place] [address] [phone] [email or web address] 10/19/2025 10:30 AM EST Procedure visit [facility] Rad Onc [address] [place] [address] Bret Sharp MD [address] [place] [address] [phone] [email or web address] documented as of this encounter Visit Diagnoses Not on filedocumented in this encounter Additional Health Concerns Infection Onset Date Last Indicated Resolved Time CoV-Exposed Comment:Recent close contact 04/03/2020 04/03/2020 04/17/2020 4:55 AM EDT documented as of this encounter Care Teams Correctional Substance Abuse Counselor Relationship Specialty Start Date End Date Shannon Whipple MD [address] [place] [address] [email or web address] PCP - General 07/08/17 04/24/24 Alicia Thronton PA [address] [place] [address] 09097 PCP - General Physician Superintendent Local 04/25/24 Shannon Whipple MD [address] [place] [address] [email or web address] Insurance Assigned Provider 12/26/18 11/25/20 documented as of this encounter Additional Source Comments The information contained in this document represents components of the legal health record. It is not the complete legal health record.[facility]
--- OUTSIDE RECORDS SUMMARY | 2025-09-06 09:45 | XMS_ITS | Encounter Summary ---
Author Organization [facility] Address [address] [place] [address] Phone Care Team Providers Care Cat Operator Name Role Phone Shannon Whipple MD Primary Care Provider Alicia Thornton Primary Care Provider [phone] Encounter Details Date Type Department Care Team (Latest Contact Info) Description 03/08/2022 Transcribe Orders Virtual Department [address] [place] [address] Karen Madrigal PA [address] [place] [address] [email or web address] Right foot pain (Primary Dx) Social History [...] Info) Description 09/07/2025 10:20 AM EST Treatment [facility] Rad Onc [address] [place] [address] Bert Sharp MD [address] [place] [address] 31056 [email or web address] 09/08/2025 1:10 PM EST Treatment [facility] Rad Onc [address] [place] [address] 16328 Bret Sharp MD [address] [place] [address] 77761 [email or web address] 09/09/2025 10:20 AM EST Treatment [facility] Rad Onc [address] [place] [address] 55219 Bret Sharp MD [address] [place] [address] 53108 [email or web address] 09/12/2025 10:20 AM EST Treatment [facility] Rad Onc [address] [place] [address] 45284 Bret Sharp MD [address] [place] [address] 13129 [email or web address] 09/12/2025 10:30 AM EST Procedure visit [facility] Rad Onc [address] [place] [address] Bret Sharp MD [address] [place] [address] 26091 [email or web address] 09/13/2025 10:20 AM EST Treatment [facility] Rad Onc [address] [place] [address] Bret Sharp MD [address] [place] [address] 10863 [email or web address] 09/14/2025 10:20 AM EST Treatment [facility] Rad Onc [address] [place] [address] Bret Sharp MD [address] [place] [address] 89503 [email or web address] 09/16/2025 10:20 AM EST Treatment [facility] Rad Onc [address] [place] [address] 83752 Bret Sharp MD [address] [place] [address] 46302 [email or web address] 09/19/2025 10:20 AM EST Treatment [facility] Rad Onc [address] [place] [address] 33529 Bret Sharp MD [address] [place] [address] 21470 [email or web address] 09/19/2025 10:30 AM EST Procedure visit [facility] Rad Onc [address] [place] [address] 33658 Bret Sharp MD [address] [place] [address] [phone] [email or web address] 09/20/2025 10:20 AM EST Treatment [facility] Rad Onc [address] [place] [address] Bret Sharp MD [address] [place] [address] 99112 [email or web address] 09/21/2025 10:20 AM EST Treatment [facility] Rad Onc [address] [place] [address] Bret Sharp MD [address] [place] [address] 51975 [email or web address] 09/23/2025 10:20 AM EST Treatment [facility] Rad Onc [address] [place] [address] 75714 Bret Sharp MD [address] [place] [address] [id number] [email or web address] 09/26/2025 10:20 AM EST Treatment [facility] Rad Onc [address] [place] [address] 04992 Bret Sharp MD [address] [place] [address] 49563 [email or web address] 09/26/2025 10:30 AM EST Procedure visit [facility] Rad Onc [address] [place] [address] 97142 Bret Sharp MD [address] [place] [address] 28102 [email or web address] 09/27/2025 10:20 AM EST Treatment [facility] Rad Onc [address] [place] [address] 66809 Bret Sharp MD [address] [place] [address] 54537 [email or web address] 09/28/2025 10:20 AM EST Treatment [facility] Rad Onc [address] [place] [address] 58675 Bret Sharp MD [address] [place] [address] 37155 [email or web address] 09/29/2025 10:20 AM EST Treatment [facility] Rad Onc [address] [place] [address] 63636 Bret Sharp MD [address] [place] [address] 08991 [email or web address] 09/30/2025 10:20 AM EST Treatment [facility] Rad Onc [address] [place] [address] 11834 Bret Sharp MD [address] [place] [address] 47262 [email or web address] 10/03/2025 10:20 AM EST Treatment [facility] Rad Onc [address] [place] [address] 55817 Bret Sharp MD [address] [place] [address] 85189 [email or web address] 10/03/2025 10:30 AM EST Procedure visit [facility] Rad Onc [address] [place] [address] 63271 Bret Sharp MD [address] [place] [address] [phone] [email or web address] 10/04/2025 10:20 AM EST Treatment [facility] Rad Onc [address] [place] [address] 06565 Bret Sharp MD [address] [place] [address] 11682 [email or web address] 10/05/2025 10:20 AM EST Treatment [facility] Rad Onc [address] [place] [address] Bret Sharp MD [address] [place] [address] 06006 [email or web address] 10/06/2025 10:20 AM EST Treatment [facility] Rad Onc [address] [place] [address] 84541 Bret Sharp MD [address] [place] [address] 05519 [email or web address] 10/07/2025 10:20 AM EST Treatment [facility] Rad Onc [address] [place] [address] 24029 Bret Sharp MD [address] [place] [address] 63096 [email or web address] 10/11/2025 9:15 AM EST Office Visit [facility] [address] [place] [address] 3rd Floor, [address] [place] [address] 12618 Jaguar Palacios DO [address] [place] [address] 9[address]78 [email or web address] 10/11/2025 10:20 AM EST Treatment [facility] Rad Onc [address] [place] [address] 03996 Bret Sharp MD [address] [place] [address] 30031 [email or web address] 10/11/2025 10:30 AM EST Procedure visit [facility] Rad Onc [address] [place] [address] 67678 Bret Sharp MD [address] [place] [address] 01057 [email or web address] 10/12/2025 10:20 AM EST Treatment [facility] Rad Onc [address] [place] [address] Bret Sharp MD [address] [place] [address] [phone] [email or web address] 10/13/2025 10:20 AM EST Treatment [facility] Onc [address] [place] [address] 72125 Bret Sharp MD [address] [place] [address] 30977 [email or web address] 10/14/2025 10:20 AM EST Treatment [facility] Onc [address] [place] [address] 52898 Bret Sharp MD [address] [place] [address] 58862 [email or web address] 10/17/2025 10:20 AM EST Treatment [facility] Rad Onc [address] [place] [address] 31659 Bret Sharp MD [address] [place] [address] [phone] [email or web address] 10/17/2025 10:30 AM EST Procedure visit [facility] Rad Onc [address] [place] [address] 23858 Bret Sharp MD [address] [place] [address] 93057 [email or web address] 10/18/2025 10:20 AM EST Treatment [facility] Rad Onc [address] [place] [address] Bret Sharp MD [address] [place] [address] 06786 [email or web address] 10/19/2025 10:20 AM EST Treatment [facility] Rad Onc [address] [place] [address] rBet Sharp MD [address] [place] [address] 65482 [email or web address] 10/19/2025 10:30 AM EST Procedure visit [facility] Rad Onc [address] [place] [address] Bret Sharp MD [address] [place] [address] [phone] [email or web address] documented as of this encounter Results * XR FOOT 3 OR MORE VIEWS (RIGHT) (03/14/2022 8:29 AM EDT) Anatomical Region Laterality Modality Foot Right Computed Radiogr aphy 03/14/2022 11:2 6 AM EDT Impressions 03/14/2022 11:27 AM EDT No acute bony abnormality. POS - [id number] Narrative 03/14/2022 11:27 AM EDT COMPARISON: 03/27/2021 [...] IMPRESSION: No acute bony abnormality. POS - [id number] Karen LEWIS IMG XR LOWER EXTREMITY Final Re sult * XR ANKLE 3 OR MORE VIEWS (RIGHT) (03/14/2022 8:26 AM EDT) Anatomical Region Laterality Modality Ankle Right Computed Radiogr aphy 03/14/2022 11:2 5 AM EDT Impressions 03/14/2022 11:26 AM EDT Probable joint effusion without acute bony abnormality apparent. POS - [id number] Narrative 03/14/2022 11:26 AM EDT COMPARISON: None [...] without acute bony abnormality apparent. POS - [id number] Karen LEWIS IMG XR LOWER EXTREMITY Final Re sult documented in this encounter Visit Diagnoses Diagnosis Right foot pain- Primary Pain in soft tissues of limb Right foot pain Pain in soft tissues of limb Right foot pain Pain in soft tissues of limb documented in this encounter Care Teams Cat Operator Relationship Specialty Start Date End Date Shannon Whipple MD [address] [place] [address] 0[address] [email or web address] PCP - General 07/08/17 04/24/24 Alicia Thornton PA [address] [place] [address] PCP - General Physician Pipe Finishing Supervisor 04/25/24 documented as of this encounter Additional Source Comments The information contained in this document represents components of the legal health record. It is not the complete legal health record.[facility]
--- OUTSIDE RECORDS SUMMARY | 2025-09-06 09:45 | XMS_ITS | Encounter Summary ---
Author Organization [facility] Address [address] [facility] [address] [place] [address] Phone Care Team Providers Care Human Resource Statistician Name Role Phone Shannon Whipple MD Primary Care Provider [phone] Shannon Whipple MD Unavailable [phone] Alicia Thornton Primary Care Provider [phone] Encounter Details Date Type Department Care Team (Latest Contact Info) Description 06/25/2018 Transcribe Orders [address] [address] Art Christie MD [address] [place] [address], [address] [place] [phone] [email or web address] BPH with urinary obstruction (Primary Dx) Social [...] Info) Description 09/07/2025 10:20 AM EST Treatment [facility] Rad Onc [address] [place] [address] Bret Sharp MD [address] [place] [id number] [email or web address] 09/08/2025 1:10 PM EST Treatment [facility] Onc [address] [place] [address] Bret Sharp MD [address] [place] [address] [email or web address] 09/09/2025 10:20 AM EST Treatment [facility] Onc [address] [place] [address] Bret Sharp MD [address] [place] [address] [email or web address] 09/12/2025 10:20 AM EST Treatment [facility] Onc [address] [place] [address] Bret Sharp MD [address] [place] [address] [email or web address] 09/12/2025 10:30 AM EST Procedure visit [facility] Onc [address] [place] [address] 37012 Bret Sharp MD [address] [place] [id number] [email or web address] 09/13/2025 10:20 AM EST Treatment [facility] Rad Onc [address] [place] [address] 30785 Bret Sharp MD [address] [place] [address] [phone] [email or web address] 09/14/2025 10:20 AM EST Treatment [facility] Rad Onc [address] [place] [address] Bret Sharp MD [address] [place] [address]69 [email or web address] 09/16/2025 10:20 AM EST Treatment [facility] Rad Onc [address] [place] [address] Bret Sharp MD [address] [place] [address] [email or web address] 09/19/2025 10:20 AM EST Treatment [facility] Onc [address] [place] [address] Bret Sharp MD [address] [place] [phone] [email or web address] 09/19/2025 10:30 AM EST Procedure visit [facility] Rad Onc [address] [place] [address] Bret Sharp MD [address] [place] [address] [email or web address] 09/20/2025 10:20 AM EST Treatment [facility] Rad Onc [address] [place] [address] Bret Sharp MD [address] [place] [address] [email or web address] 09/21/2025 10:20 AM EST Treatment [facility] Rad Onc [address] [place] [address] Bret Sharp MD [address] [place] [phone] [email or web address] 09/23/2025 10:20 AM EST Treatment [facility] Onc [address] [place] [address] Bret Sharp MD [address] [place] [address] [phone] [email or web address] 09/26/2025 10:20 AM EST Treatment [facility] Onc [address] [place] [address] 213[address] Bret Sharp MD [address] [place] [address] [email or web address] 09/26/2025 10:30 AM EST Procedure visit [facility] Onc [address] [place] [address] Bret Sharp MD [address] [place] [address] [phone] [email or web address] 09/27/2025 10:20 AM EST Treatment [facility] Rad Onc [address] [place] [address] 109[address] Bret Sharp MD [address] [place] [address] [phone] [email or web address]@[email or web address] 09/28/2025 10:20 AM EST Treatment [facility] Onc [address] [place] [address] 00789 Bret Sharp MD [address] [place] [address] 28031 [email or web address] 09/29/2025 10:20 AM EST Treatment [facility] Rad Onc [address] [place] [address] Bret Sharp MD [address] [place] [address] [phone] [email or web address] 09/30/2025 10:20 AM EST Treatment [facility] Rad Onc [address] [place] [address] Bret Sharp MD [address] [place] [address] [phone] [email or web address] 10/03/2025 10:20 AM EST Treatment [facility] Onc [address] [place] [address] Bret Sharp MD [address] [place] [address] [phone] [email or web address] 10/03/2025 10:30 AM EST Procedure visit [facility] Onc [address] [place] [address] 27904 Bret Sharp MD [address] [place] [address] [phone] [email or web address] 10/04/2025 10:20 AM EST Treatment [facility] Rad Onc [address] [place] [address] Bret Sharp MD [address] [place] [address] [phone] [email or web address] 10/05/2025 10:20 AM EST Treatment [facility] Onc [address] [place] [address] 47[address] Bret Sharp MD [address] [place] [address] 29552 [email or web address] 10/06/2025 10:20 AM EST Treatment [facility] Rad Onc [address] [place] [address] Bret Sharp MD [address] [place] [address] [phone] [email or web address] 10/07/2025 10:20 AM EST Treatment [facility] Onc [address] [place] [address] Bret Sharp MD [address] [place] [address] [id number] [email or web address] 10/11/2025 9:15 AM EST Office Visit [facility] [address] [place] [address], [address] [place] [address] Jaguar Palacios DO [address] [place] [phone] [email or web address] 10/11/2025 10:20 AM EST Treatment [facility] Onc [address] [place] [address] Bret Sharp MD [address] [place] [phone] [email or web address] 10/11/2025 10:30 AM EST Procedure visit [facility] Onc [address] [place] [address]98 Bret Sharp MD [address] [place] [phone] [email or web address] 10/12/2025 10:20 AM EST Treatment [facility] Rad Onc [address] [place] [address] Bret Sharp MD [address] [place] [address] 99037 [email or web address] 10/13/2025 10:20 AM EST Treatment [facility] Rad Onc [address] [place] [address] Bret Sharp MD [address] [place] [address] [phone] [email or web address] 10/14/2025 10:20 AM EST Treatment [facility] Onc [address] [place] [address] 8[address]15 Bret Sharp MD [address] [place] [address] [phone] [email or web address] 10/17/2025 10:20 AM EST Treatment [facility] Onc [address] [place] [address] Bret Sharp MD [address] [place] [phone] [email or web address] 10/17/2025 10:30 AM EST Procedure visit [facility] Onc [address] [place] [address] 78653 Bret Sharp MD [address] [place] [phone] [email or web address] 10/18/2025 10:20 AM EST Treatment [facility] Rad Onc [address] [place] [address] 76685 Bret Sharp MD [address] [place] [address] [phone] [email or web address] 10/19/2025 10:20 AM EST Treatment [facility] Rad Onc [address] [place] [address] Bret Sharp MD [address] [place] [address] [phone] [email or web address] 10/19/2025 10:30 AM EST Procedure visit [facility] Onc [address] [place] [address] 11280 Bret Sharp MD [address] [place] [address] [phone] [email or web address] documented as of this encounter Results * PSA (screening) (06/25/2018 7:06 AM EDT) PSA 2.83 0 - 4.00 ng/mL [facility] Blood 06/25/2018 7:06 AM EDT 06/25/2018 7:08 AM EDT us Art Christie MD LAB BLOOD BKR ORDERABLES Final Result [address] [address] documented in this encounter Visit Diagnoses Diagnosis BPH with urinary obstruction- Primary Hypertrophy of prostate with urinary obstruction and other lower urinary tract symptoms (LUTS) documented in this encounter Additional Health Concerns Infection Onset Date Last Indicated Resolved Time CoV-Exposed Comment:Recent close contact 04/03/2020 04/03/2020 04/17/2020 4:55 AM EDT documented as of this encounter Care Teams Human Resource Statistician Relationship Specialty Start Date End Date Shannon Whipple MD [address] [place] [address] [phone] [email or web address] PCP - General 07/08/17 04/24/24 Alicia Thornton PA [address] [place] [address] PCP - General Physician Tool Maker Apprentice 04/25/24 Shannon Whipple MD [address] [place] [phone] [email or web address] Insurance Assigned Provider 12/26/18 11/25/20 documented as of this encounter Additional Source Comments The information contained in this document represents components of the legal health record. It is not the complete legal health record.[facility]
--- OUTSIDE RECORDS SUMMARY | 2025-09-06 09:46 | XMS_ITS | Encounter Summary ---
Author Organization [facility] Address [address] [facility] [address] [place] [address] Phone Care Team Providers Care Cytometry Technologist Name Role Phone Shannon Whipple MD Primary Care Provider [phone] Shannon Whipple MD Unavailable [phone] Alicia Thornton Primary Care Provider [phone] Encounter Details Date Type Department Care Team (Latest Contact Info) Description 03/09/2020 Transcribe Orders [facility] Main [address] [place] [address] Karen Madrigal PA [address] [place] [address] [email or web address] Hyperlipidemia, unspecified hyperlipidemia type (Primary Dx) Social [...] Info) Description 09/07/2025 10:20 AM EST Treatment [facility] Onc [address] [place] [address] Bret Sharp MD [address] [place] [phone] [email or web address] 09/08/2025 1:10 PM EST Treatment [facility] Onc [address] [place] [address] Bret Sharp MD [address] [place] [phone] [email or web address] 09/09/2025 10:20 AM EST Treatment [facility]c [address] [place] [address] Bret Sharp MD [address] [place] [phone] [email or web address] 09/12/2025 10:20 AM EST Treatment [facility] [address] [place] [address] Bret Sharp MD [address] [place] [phone] [email or web address] 09/12/2025 10:30 AM EST Procedure visit [facility] [address] [place] [address] Bret Sharp MD [address] [place] [id number] [email or web address] 09/13/2025 10:20 AM EST Treatment [facility] Onc [address] [place] [address] Bret Sharp MD [address] [place] [phone] [email or web address] 09/14/2025 10:20 AM EST Treatment [facility] [address] [place] [address] Bret Sharp MD [address] [place] [phone] [email or web address] 09/16/2025 10:20 AM EST Treatment [facility] [address] [place] [address] Bret Sharp MD [address] [place] [phone] [email or web address] 09/19/2025 10:20 AM EST Treatment [facility] Onc [address] [place] [address] Bret Sharp MD [address] [place] [phone] [email or web address] 09/19/2025 10:30 AM EST Procedure visit [facility] [address] [place] [address] Bret Sharp MD [address] [place] [phone] [email or web address] 09/20/2025 10:20 AM EST Treatment [facility] Onc [address] [place] [address] Bret Sharp MD [address] [place] [phone] [email or web address] 09/21/2025 10:20 AM EST Treatment [facility] Onc [address] [place] [address] Bret Sharp MD [address] [place] [phone] [email or web address] 09/23/2025 10:20 AM EST Treatment [facility] [address] [place] [address] Bret Sharp MD [address] [place] [address] [phone] [email or web address] 09/26/2025 10:20 AM EST Treatment [facility] [address] [place] [address] Bret Sharp MD [address] [place] [phone] [email or web address] 09/26/2025 10:30 AM EST Procedure visit [facility] On[facility] [address] [place] [address] Bret Sharp MD [address] [place] [address] [phone] [email or web address] 09/27/2025 10:20 AM EST Treatment [facility] Onc [address] [place] [address] Bret Sharp MD [address] [place] [phone] [email or web address] 09/28/2025 10:20 AM EST Treatment [facility] Onc [address] [place] [address] Bret Sharp MD [address] [place] [phone] [email or web address] 09/29/2025 10:20 AM EST Treatment [facility] Rad Onc [address] [place] [address] Bret Sharp MD [address] [place] [address] [phone] [email or web address] 09/30/2025 10:20 AM EST Treatment [facility] Onc [address] [place] [address] Bret Sharp MD [address] [place] [address] [phone] [email or web address] 10/03/2025 10:20 AM EST Treatment [facility] Onc [address] [place] [address] Bret Sharp MD [address] [place] [address] [phone] [email or web address] 10/03/2025 10:30 AM EST Procedure visit [facility] Onc [address] [place] [address] Bret Sharp MD [address] [place] [phone] [email or web address] 10/04/2025 10:20 AM EST Treatment [facility] Onc [address] [place] [address] Bret Sharp MD [address] [place] [phone] [email or web address] 10/05/2025 10:20 AM EST Treatment [facility] Onc [address] [place] [address] Bret Sharp MD [address] [place] [phone] [email or web address] 10/06/2025 10:20 AM EST Treatment [facility] Onc [address] [place] [address] Bret Sharp MD [address] [place] [phone] [email or web address] 10/07/2025 10:20 AM EST Treatment [facility] Onc [address] [place] [address] Bret Sharp MD [address] [place] [address] [phone] [email or web address] 10/11/2025 9:15 AM EST Office Visit [facility] [address] [place] [address], [address] [address] Jaguar Palacios DO [address] [place] [address] 10/11/2025 10:20 AM EST Treatment [facility] Rad Onc [address] [place] [address] Bret Sharp MD [address] [place] [phone] [email or web address] 10/11/2025 10:30 AM EST Procedure visit [facility] Onc [address] [place] [address] Bret Sharp MD [address] [place] [phone] [email or web address] 10/12/2025 10:20 AM EST Treatment [facility] [place] [facility] Onc [address] [place] [address] Bret Sharp MD [address] [place] [phone] [email or web address] 10/13/2025 10:20 AM EST Treatment [facility] [facility] Onc [address] [place] [address] Bret Sharp MD [address] [place] [phone] [email or web address] 10/14/2025 10:20 AM EST Treatment [facility] Onc [address] [place] [address] Bret Sharp MD [address] [place] [address] [phone] [email or web address] 10/17/2025 10:20 AM EST Treatment [facility] Onc [address] [place] [address] Bret Sharp MD [address] [place] [phone] [email or web address] 10/17/2025 10:30 AM EST Procedure visit [facility] Onc [address] [place] [address] Bret Sharp MD [address] [place] [phone] [email or web address] 10/18/2025 10:20 AM EST Treatment [facility] Onc [address] [place] [address] Bret Sharp MD [address] [place] [phone] [email or web address] 10/19/2025 10:20 AM EST Treatment [facility] Onc [address] [place] [address] Bret Sharp MD [address] [place] [address] [phone] [email or web address] 10/19/2025 10:30 AM EST Procedure visit [facility] Onc [address] [place] [address] Bret Sharp MD [address] [place] [phone] [email or web address] documented as of this encounter Results * (ABNORMAL) Aspartate aminotransferase (AST) (03/09/2020 8:21 AM EDT) AST 63(H) 0 - 37 U/L [facility] Blood 03/09/2020 8:21 AM EDT 03/09/2020 8:24 AM EDT us Karen LEWIS LAB BLOOD BKR ORDERABLES Final Result [address] [address] * (ABNORMAL) Alanine aminotransferase (ALT) (03/09/2020 8:21 AM EDT) ALT 55(H) 0 - 40 U/L [facility] Blood 03/09/2020 8:21 AM EDT 03/09/2020 8:24 AM EDT Karen LEWIS LAB BLOOD BKR ORDERABLES Final Result Performing Organization Address [facility] Co de Phone Number [address] [address] * (ABNORMAL) Lipid panel (03/09/2020 8:21 AM EDT) HDL 70 mg/dL [facility] Comment: Interpretation <40 mg/dL: Low HDL cholesterol (major risk factor for CHD) Greater than or equal to 60 mg/dL: High HDL cholesterol ( negative risk factor for CHD) HDL - cholesterol is affected by a number of factors, e.g. smoking, excerise, hormones, sex and age. CHOLESTEROL 113 0 - 240 mg/dL [facility] TRIGLYCERIDES 77 30 - 160 mg/dL [facility] LDL 28(L) 50 - 129 mg/dL [facility] Comment: LDL levels in terms of risk for coronary heart disease: <100 mg/dL: Optimal 100-129 mg/dL: Near or above optimal 130-159 mg/dL: Borderline high 160-189 mg/dL: High >190 mg/dL: Very High CARDIAC RISK RATIO 1.6(L) 3.4 - 5.0 C [facility] Blood 03/09/2020 8:21 AM EDT 03/09/2020 8:24 AM EDT Karen LEWIS LAB BLOOD BKR ORDERABLES Final Result Performing Organization Address [facility] Co de Phone Number [address] [address] documented in this encounter Visit Diagnoses Diagnosis Hyperlipidemia, unspecified hyperlipidemia type- Primary documented in this encounter Additional Health Concerns Infection Onset Date Last Indicated Resolved Time CoV-Exposed Comment:Recent close contact 04/03/2020 04/03/2020 04/17/2020 4:55 AM EDT documented as of this encounter Care Teams Cytometry Technologist Relationship Specialty Start Date End Date Shannon Whipple MD [address] [place] [id number] [email or web address] PCP - General 07/08/17 04/24/24 Alicia Thornton PA [address] [facility] [address] [place] [address] PCP - General Physician Sushi Chef 04/25/24 Shannon Whipple MD [address] [place] [address] [email or web address] Insurance Assigned Provider 12/26/18 11/25/20 documented as of this encounter Additional Source Comments The information contained in this document represents components of the legal health record. It is not the complete legal health record.[facility]
--- OUTSIDE RECORDS SUMMARY | 2025-09-06 09:46 | XMS_ITS | Encounter Summary ---
Author Organization [facility] Address [address] [place] [address] Phone Care Team Providers Care Assistant Clinical Director Name Role Phone Shannon Whipple MD Primary Care Provider [phone] Shannon Whipple MD Unavailable Alicia Thornton Primary Care Provider [phone] Encounter Details Date Type Department Care Team (Latest Contact Info) Description 10/27/2019 Transcribe Orders Virtual Department [address] [place] [address] Karen Madrigal PA [address] [place] [address] [email or web address] Encounter for screening for lung cancer (Primary [...] Description 09/07/2025 10:20 AM EST Treatment [facility] Rad Onc [address] [place] [address] Bret Sharp MD [address] [place] [address] RAMIREZ@[facility] 09/08/2025 1:10 PM EST Treatment [facility] Onc [address] [place] [address] Bret Sharp MD [address] [place] [address] 11024 RAMIREZ@[facility] 09/09/2025 10:20 AM EST Treatment [facility] Onc [address] [place] [address] 88093 Bret Sharp MD [address] [place] [address] 40426 RAMIREZ@[facility] 09/12/2025 10:20 AM EST Treatment [facility] Rad Onc [address] [place] [address] Bret Sharp MD [address] [place] [address] 50063 RAMIREZ@[facility] 09/12/2025 10:30 AM EST Procedure visit [facility] Onc [address] [place] [address] 86[address] Bret Sharp MD [address] [place] [address] 85287 RAMIREZ@[facility] 09/13/2025 10:20 AM EST Treatment [facility] Onc [address] [place] [address] 69345 Bret Sharp MD [address] [place] [address] 80155 RAMIREZ@[facility] 09/14/2025 10:20 AM EST Treatment [facility] Rad Onc [address] [place] [address] Bret Sharp MD [address] [place] [address] [id number] [email or web address]@[email or web address] 09/16/2025 10:20 AM EST Treatment [facility] Onc [address] [place] [address] 11802 Bret Sharp MD [address] [place] [address] 75151 [email or web address]@[facility] 09/19/2025 10:20 AM EST Treatment [facility] Rad Onc [address] [place] [address] Bret Sharp MD [address] [place] [address] [phone] [email or web address]@[email or web address] 09/19/2025 10:30 AM EST Procedure visit [facility] Onc [address] [place] [address] 86392 Bret Sharp MD [address] [place] [address] 76473 [email or web address]@[facility] 09/20/2025 10:20 AM EST Treatment [facility] Rad Onc [address] [place] [address] Bret Sharp MD [address] [place] [address] 06418 RAMIREZ@[facility] 09/21/2025 10:20 AM EST Treatment [facility] Onc [address] [place] [address] 90091 Bret Sharp MD [address] [place] [address] 88677 RAMIREZ@[facility] 09/23/2025 10:20 AM EST Treatment [facility] Onc [address] [place] [address] 86726 Bret Sharp MD [address] [place] [address] 25259 RAMIREZ@[facility] 09/26/2025 10:20 AM EST Treatment [facility] Onc [address] [place] [address] 98535 Bret Sharp MD [address] [place] [address] [phone] RAMIREZ@[facility] 09/26/2025 10:30 AM EST Procedure visit [facility] Rad Onc [address] [place] [address] 00825 Bret Sharp MD [address] [place] [address] [phone] RAMIREZ@[facility] 09/27/2025 10:20 AM EST Treatment [facility] Rad Onc [address] [place] [address] 11559 Bret Sharp MD [address] [place] [address] 10106 RAMIREZ@[facility] 09/28/2025 10:20 AM EST Treatment [facility] Rad Onc [address] [place] [address] 30132 Bret Sharp MD [address] [place] [address] 06965 RAMIREZ@[facility] 09/29/2025 10:20 AM EST Treatment [facility] Rad Onc [address] [place] [address] 80979 Bret Sharp MD [address] [place] [address] 30591 RAMIREZ@[facility] 09/30/2025 10:20 AM EST Treatment [facility] Rad Onc [address] [place] [address] 87271 Bret Sharp MD [address] [place] [address] 48096 [email or web address]@[facility] 10/03/2025 10:20 AM EST Treatment [facility] Rad Onc [address] [place] [address] 92152 Bret Sharp MD [address] [place] [address] 69610 RAMIREZ@[facility] 10/03/2025 10:30 AM EST Procedure visit [facility] Rad Onc [address] [place] [address] 57180 Bret Sharp MD [address] [place] [address] 09626 [email or web address] 10/04/2025 10:20 AM EST Treatment [facility] Rad Onc [address] [place] [address] Bret Sharp MD [address] [place] [address] 78810 RAMIREZ@[facility] 10/05/2025 10:20 AM EST Treatment [facility] Rad Onc [address] [place] [address] Bret Sharp MD [address] [place] [address] 93351 [email or web address]@[facility] 10/06/2025 10:20 AM EST Treatment [facility] Rad Onc [address] [place] [address] Bret Sharp MD [address] [place] [address] 02689 RAMIREZ@[facility] 10/07/2025 10:20 AM EST Treatment [facility] Rad Onc [address] [place] [address] 75873 Bret Sharp MD [address] [place] [address] 36336 RAMIREZ@[facility] 10/11/2025 9:15 AM EST Office Visit [facility] [address] [place] [address] 3rd [facility], [address] [address] aJguar Palacios DO [address] [place] [address] 10/11/2025 10:20 AM EST Treatment [facility] Rad Onc [address] [place] [address] Bret Sharp MD [address] [place] [address] [phone] RAMIREZ@[facility] 10/11/2025 10:30 AM EST Procedure visit [facility] Rad Onc [address] [place] [address] 06999 Bret Sharp MD [address] [place] [address] 74818 RAMIREZ@[facility] 10/12/2025 10:20 AM EST Treatment [facility] Rad Onc [address] [place] [address] Bret Sharp MD [address] [place] [address] 84781 RAMIREZ@[facility] 10/13/2025 10:20 AM EST Treatment [facility] Rad Onc [address] [place] [address] 87716 Bret Sharp MD [address] [place] [address] 62352 RAMIREZ@[facility] 10/14/2025 10:20 AM EST Treatment [facility] Rad Onc [address] [place] [address] 61607 Bret Sharp MD [address] [place] [address] 94734 RAMIREZ@[facility] 10/17/2025 10:20 AM EST Treatment [facility] Rad Onc [address] [place] [address] 64594 Bret Sharp MD [address] [place] [address] [phone] RAMIREZ@[facility] 10/17/2025 10:30 AM EST Procedure visit [facility] Rad Onc [address] [place] [address] 88139 Bret Sharp MD [address] [place] [address] 14685 RAMIREZ@[facility] 10/18/2025 10:20 AM EST Treatment [facility] Rad Onc [address] [place] [address] Bret Sharp MD [address] [place] [address] 77669 [email or web address]@[facility] 10/19/2025 10:20 AM EST Treatment [facility] Rad Onc [address] [place] [address] Bret Sharp MD [address] [place] [address] 11393 [email or web address]@[facility] 10/19/2025 10:30 AM EST Procedure visit [facility] Onc [address] [place] [address] 17221 Bret Sharp MD [address] [place] [address] 81349 [email or web address]@[email or web address] documented as of this encounter Visit Diagnoses Diagnosis Encounter for screening for lung cancer- Primary documented in this encounter Additional Health Concerns Infection Onset Date Last Indicated Resolved Time CoV-Exposed Comment:Recent close contact 04/03/2020 04/03/2020 04/17/2020 4:55 AM EDT documented as of this encounter Care Teams Assistant Clinical Director Relationship Specialty Start Date End Date Shannon Whipple MD [address] [place] [address] [email or web address] PCP - General 07/08/17 04/24/24 Alicia Thornton PA [address] [address] PCP - General Physician Shop Mechanic Helper 04/25/24 Shannon Whipple MD [address] [place] [address] [email or web address] Insurance Assigned Provider 12/26/18 11/25/20 documented as of this encounter Additional Source Comments The information contained in this document represents components of the legal health record. It is not the complete legal health record.[facility]
--- OUTSIDE RECORDS SUMMARY | 2025-09-06 09:46 | XMS_ITS | Encounter Summary ---
Author Organization [facility] Address [address] [facility] [address] [place] [address] Phone Care Team Providers Care Machine Setter Supervisor Name Role Phone Shannon Whipple MD Primary Care Provider Alicia Thornton Primary Care Provider [phone] Encounter Details Date Type Department Care Team (Late st Contact Info) Description 04/24/2024 Procedure [facility], Ct Scan - [address] [id number] Social History Tobacco Use Types Packs/Day Years [...] 5:30 PM EDT Ellen Gutierrez RN * [place] Suicide Severity Rating Scale (Screener/Recent Self-Report) Question [...] Info) Description 09/07/2025 10:20 AM EST Treatment [facility] Rad Onc [address] [place] [address] Bret Sharp MD [address] [place] [address] [phone] [email or web address] 09/08/2025 1:10 PM EST Treatment [facility] Rad Onc [address] [place] [address] Bret Sharp MD [address] [place] [address] 15035 RAMIREZ@[facility] 09/09/2025 10:20 AM EST Treatment [facility] Rad Onc [address] [place] [address] 30283 Bret Sharp MD [address] [place] [address] [phone] RAMIREZ@[facility] 09/12/2025 10:20 AM EST Treatment [facility] Rad Onc [address] [place] [address] 83250 Bret Sharp MD [address] [place] [address] 18130 RAMIREZ@[facility] 09/12/2025 10:30 AM EST Procedure visit [facility] Rad Onc [address] [place] [address] 02104 Bret Sharp MD [address] [place] [address] [id number] RAMIREZ@[facility] 09/13/2025 10:20 AM EST Treatment [facility] Rad Onc [address] [place] [address] 29345 Bret Sharp MD [address] [place] [address] [id number] RAMIREZ@[facility] 09/14/2025 10:20 AM EST Treatment [facility] Rad Onc [address] [place] [address] 62425 Bret Sharp MD [address] [place] [address] 92272 RAMIREZ@[facility] 09/16/2025 10:20 AM EST Treatment [facility] Rad Onc [address] [place] [address] 00561 Bret Sharp MD [address] [place] [address] [id number] RAMIREZ@[facility] 09/19/2025 10:20 AM EST Treatment [facility] Rad Onc [address] [place] [address] 64679 Bret Sharp MD [address] [place] [address] [phone] RAMIREZ@[facility] 09/19/2025 10:30 AM EST Procedure visit [facility] Rad Onc [address] [place] [address] 37871 Bret Sharp MD [address] [place] [address] 75113 [email or web address]@[facility] 09/20/2025 10:20 AM EST Treatment [facility] Rad Onc [address] [place] [address] 99254 Bret Sharp MD [address] [place] [address] [id number] RAMIREZ@[facility] 09/21/2025 10:20 AM EST Treatment [facility] Rad Onc [address] [place] [address] 07518 Bret Sharp MD [address] [place] [address] [id number] RAMIREZ@[email or web address] 09/23/2025 10:20 AM EST Treatment [facility] Rad Onc [address] [place] [address] 35128 Bret Sharp MD [address] [place] [address] [id number] RAMIREZ@[facility] 09/26/2025 10:20 AM EST Treatment [facility] Rad Onc [address] [place] [address] 49726 Bret Sharp MD [address] [place] [address] [phone] RAMIREZ@[facility] 09/26/2025 10:30 AM EST Procedure visit [facility] Rad Onc [address] [place] [address] 58486 Bret Sharp MD [address] [place] [address] [id number] RAMIREZ@[facility] 09/27/2025 10:20 AM EST Treatment [facility] Rad Onc [address] [place] [address] 13484 Bret Sharp MD [address] [place] [address] [id number] RAMIREZ@[facility] 09/28/2025 10:20 AM EST Treatment [facility] Rad Onc [address] [place] [address] 17354 Bret Sharp MD [address] [place] [address] [phone] RAMIREZ@[email or web address] 09/29/2025 10:20 AM EST Treatment [facility] Rad Onc [address] [place] [address] Bret Sharp MD [address] [place] [address] [phone] RAMIREZ@[email or web address] 09/30/2025 10:20 AM EST Treatment [facility] Rad Onc [address] [place] [address] 71833 Bret Sharp MD [address] [place] [address] 74950 RAMIREZ@[facility] 10/03/2025 10:20 AM EST Treatment [facility] Rad Onc [address] [place] [address] 02219 Bret Sharp MD [address] [place] [address] [id number] [email or web address]@[facility] 10/03/2025 10:30 AM EST Procedure visit [facility] Rad Onc [address] [place] [address] 24570 Bret Sharp MD [address] [place] [address] 20063 [email or web address]@[facility] 10/04/2025 10:20 AM EST Treatment [facility] Rad Onc [address] [place] [address] 32646 Bret Sharp MD [address] [place] [address] [phone] RAMIREZ@[facility] 10/05/2025 10:20 AM EST Treatment [facility] Rad Onc [address] [place] [address] 16510 Bret Sharp MD [address] [place] [address] 63280 [email or web address] 10/06/2025 10:20 AM EST Treatment [facility] Rad Onc [address] [place] [address] 90388 Bret Sharp MD [address] [place] [address] 94060 RAMIREZ@[facility] 10/07/2025 10:20 AM EST Treatment [facility] Rad Onc [address] [place] [address] Bret Sharp MD [address] [place] [address] [id number] RAMIREZ@[facility] 10/11/2025 9:15 AM EST Office Visit [facility] [address] [place] [address] 3rd Floor, [address] [place] [address] Jaguar Palacios DO [address] [place] [address] [place] [address] [phone] [email or web address] 10/11/2025 10:20 AM EST Treatment [facility] Rad Onc [address] [place] [address] 97059 Bret Sharp MD [address] [place] [address] [id number] RAMIREZ@[facility] 10/11/2025 10:30 AM EST Procedure visit [facility] Rad Onc [address] [place] [address] 09261 Bret Sharp MD [address] [place] [address] 81025 [email or web address]@[email or web address] 10/12/2025 10:20 AM EST Treatment [facility] Rad Onc [address] [place] [address] 55779 Bret Sharp MD [address] [place] [address] [id number] RAMIREZ@[facility] 10/13/2025 10:20 AM EST Treatment [facility] Rad Onc [address] [place] [address] 97689 Bret Sharp MD [address] [place] [address] 20027 RAMIREZ@[facility] 10/14/2025 10:20 AM EST Treatment [facility] Rad Onc [address] [place] [address] 13547 Bret Sharp MD [address] [place] [address] 11478 RAMIREZ@[facility] 10/17/2025 10:20 AM EST Treatment [facility] Rad Onc [address] [place] [address] 90404 Bret Sharp MD [address] [place] [address] 39380 [email or web address]@[facility] 10/17/2025 10:30 AM EST Procedure visit [facility] Rad Onc [address] [place] [address] 27909 Bret Sharp MD [address] [place] [address] [id number] RAMIREZ@[facility] 10/18/2025 10:20 AM EST Treatment [facility] Rad Onc [address] [place] [address] 07600 Bret Sharp MD [address] [place] [address] [id number] [email or web address] 10/19/2025 10:20 AM EST Treatment [facility] Rad Onc [address] [place] [address] Bret Sharp MD [address] [place] [address] 11175 RAMIREZ@[facility] 10/19/2025 10:30 AM EST Procedure visit [facility] Rad Onc [address] [place] [address] Bret Sharp MD [address] [place] [address] [email or web address] documented as of this encounter Visit Diagnoses Not on filedocumented in this encounter Care Teams Machine Setter Supervisor Relationship Specialty Start Date End Date Shannon Whipple MD [address] [place] [address] [email or web address] PCP - General 07/08/17 04/24/24 Alicia Thornton PA [address] [facility] [place] [address] [place] [address] PCP - General Physician Brick Pitcher 04/25/24 documented as of this encounter Additional Source Comments The information contained in this document represents components of the legal health record. It is not the complete legal health record.[facility]
--- OUTSIDE RECORDS SUMMARY | 2025-09-06 09:46 | XMS_ITS | Encounter Summary ---
Author Organization [facility] Address [address] [place] [phone] Phone Care Team Providers Care Manager Employment Name Role Phone Shannon Whipple MD Primary Care Provider [phone] Alicia Thornton Primary Care Provider [phone] Reason for Referral * MRI/CAT Scan - Closed Specialty Diagnoses / Procedures Referred By Contaidan t Referred To Contact Radiology Diagnoses Pain of right heel Procedures CT Chest Lung Cancer Screening Karen Madrigal PA Phone: tel: fax: mailto:[email or web address] Referral ID Status Reason Start Date Expiration Date Visits Re quested Visits Authorized [id number] Closed 03/08/2021 03/08/2022 1 1 Encounter Details Date Type Department Care Team (Latest Contact Info) Description 03/08/2021 Transcribe Orders Virtual Department [address] [place] [address] Karen Madrigal PA [address] [place] [address] [email or web address] Pain of right heel (Primary Dx) Social [...] Info) Description 09/07/2025 10:20 AM EST Treatment [facility] Rad Onc [address] [place] [address] Bret Sharp MD [address] [place] [id number] [email or web address] 09/08/2025 1:10 PM EST Treatment [facility] Rad Onc [address] [place] [address] Bret Sharp MD [address] [place] [address] [id number] [email or web address] 09/09/2025 10:20 AM EST Treatment [facility] Rad Onc [address] [place] [address] 27867 Bret Sharp MD [address] [place] [address] [id number] [email or web address] 09/12/2025 10:20 AM EST Treatment [facility] Rad Onc [address] [place] [address] Bret Sharp MD [address] [place] [address] [id number] [email or web address] 09/12/2025 10:30 AM EST Procedure visit [facility] Rad Onc [address] [place] [address] Bret Sharp MD [address] [place] [address] [id number] [email or web address] 09/13/2025 10:20 AM EST Treatment [facility] Rad Onc [address] [place] [address] 22595 Bert Sharp MD [address] [place] [address] 32296 [email or web address] 09/14/2025 10:20 AM EST Treatment [facility] Rad Onc [address] [place] [address] 81106 Bret Sharp MD [address] [place] [address] [id number] [email or web address] 09/16/2025 10:20 AM EST Treatment [facility] Rad Onc [address] [place] [address] 80291 Bret Sharp MD [address] [place] [address] [id number] [email or web address] 09/19/2025 10:20 AM EST Treatment [facility] Rad Onc [address] [place] [address] Bret Sharp MD [address] [place] [address] [id number] [email or web address] 09/19/2025 10:30 AM EST Procedure visit [facility] Rad Onc [address] [place] [address] 24103 Bret Sharp MD [address] [place] [address] [id number] [email or web address] 09/20/2025 10:20 AM EST Treatment [facility] Rad Onc [address] [place] [address] Bret Sharp MD [address] [place] [address] [id number] [email or web address] 09/21/2025 10:20 AM EST Treatment [facility] Rad Onc [address] [place] [address] 77410 Bret Sharp MD [address] [place] [address] 34621 [email or web address] 09/23/2025 10:20 AM EST Treatment [facility] Rad Onc [address] [place] [address] 46675 Bret Sharp MD [address] [place] [address] [id number] [email or web address] 09/26/2025 10:20 AM EST Treatment [facility] Rad Onc [address] [place] [address] 13608 Bret Sharp MD [address] [place] [address] [id number] [email or web address] 09/26/2025 10:30 AM EST Procedure visit [facility] Rad Onc [address] [place] [address] 035[address] Bret Sharp MD [address] [place] [address] [id number] [email or web address] 09/27/2025 10:20 AM EST Treatment [facility] Rad Onc [address] [place] [address] Bret Sharp MD [address] [place] [address] [id number] [email or web address] 09/28/2025 10:20 AM EST Treatment [facility] Rad Onc [address] [place] [address] 11031 Bret Sharp MD [address] [place] [address] 24515 [email or web address] 09/29/2025 10:20 AM EST Treatment [facility] Rad Onc [address] [place] [address] 28995 Bret Sharp MD [address] [place] [address] [id number] [email or web address] 09/30/2025 10:20 AM EST Treatment [facility] Rad Onc [address] [place] [address] 13839 Bret Sharp MD [address] [place] [address] [id number] [email or web address] 10/03/2025 10:20 AM EST Treatment [facility] Rad Onc [address] [place] [address] Bret Sharp MD [address] [place] [address] 37083 [email or web address] 10/03/2025 10:30 AM EST Procedure visit [facility] Rad Onc [address] [place] [address] 45276 Bret Sharp MD [address] [place] [address] [id number] [email or web address] 10/04/2025 10:20 AM EST Treatment [facility] Rad Onc [address] [place] [address] Bret Sharp MD [address] [place] [address] 17077 [email or web address] 10/05/2025 10:20 AM EST Treatment [facility] Rad Onc [address] [place] [address] 755[address] Bret Sharp MD [address] [place] [address] [id number] [email or web address] 10/06/2025 10:20 AM EST Treatment [facility] Rad Onc [address] [place] [address] Bret Sharp MD [address] [place] [address] [id number] [email or web address] 10/07/2025 10:20 AM EST Treatment [facility] Rad Onc [address] [place] [address] 21852 Bret Sharp MD [address] [place] [address] [id number] [email or web address] 10/11/2025 9:15 AM EST Office Visit [facility] [address] [place] [address] [address]rd Floor, [address] [place] [address] Jaguar Palacios DO [address] [facility] [address] [place] [address] 10/11/2025 10:20 AM EST Treatment [facility] Rad Onc [address] [place] [address] 03561 Bret Sharp MD [address] [place] [address] [id number] [email or web address] 10/11/2025 10:30 AM EST Procedure visit [facility] Rad Onc [address] [place] [address] 43062 Bret Sharp MD [address] [place] [address] [id number] [email or web address] 10/12/2025 10:20 AM EST Treatment [facility] Rad Onc [address] [place] [address] 24144 Bret Sharp MD [address] [place] [address] 16255 [email or web address] 10/13/2025 10:20 AM EST Treatment [facility] Rad Onc [address] [place] [address] 31235 Bret Sharp MD [address] [place] [address] [id number] [email or web address] 10/14/2025 10:20 AM EST Treatment [facility] Rad Onc [address] [place] [address] 05377 Bret Sharp MD [address] [place] [address] [id number] [email or web address] 10/17/2025 10:20 AM EST Treatment [facility] Rad Onc [address] [place] [address] 62367 Bret Sharp MD [address] [place] [address] [id number] [email or web address] 10/17/2025 10:30 AM EST Procedure visit [facility] Rad Onc [address] [place] [address] Bret Sharp MD [address] [place] [address] [id number] [email or web address] 10/18/2025 10:20 AM EST Treatment [facility] Rad Onc [address] [place] [address] 81402 Bret Sharp MD [address] [place] [address] [id number] [email or web address] 10/19/2025 10:20 AM EST Treatment [facility] Rad Onc [address] [place] [address] 90062 Bret Sharp MD [address] [place] [address] [id number] [email or web address] 10/19/2025 10:30 AM EST Procedure visit [facility] Rad Onc [address] [place] [address] 12912 Bret Sharp MD [address] [place] [address] [id number] [email or web address] documented as of this encounter [...] No acute bony abnormality suggested. POS - [id number] Narrative 03/27/2021 10:29 AM EDT COMPARISON: None [...] enthesopathy. No acute bonyabnormality suggested. POS - [id number] us Karen LEWIS IMG XR LOWER EXTREMITY Final Re sult documented in this encounter Visit Diagnoses Diagnosis Pain of right heel- Primary Pain of right heel Pain of right heel documented in this encounter Care Teams Manager Employment Relationship Specialty Start Date End Date Shannon Whipple MD [address] [place] [address] PCP - General 07/08/17 04/24/24 Alicia Thornton PA [address] [facility] [address] [place] [address] PCP - General Physician [employer] 04/25/24 documented as of this encounter Additional Source Comments The information contained in this document represents components of the legal health record. It is not the complete legal health record.[facility]
--- OUTSIDE RECORDS SUMMARY | 2025-09-06 09:46 | XMS_ITS | Encounter Summary ---
Author Organization [facility] Address [address] [facility] [address] [place] [phone] Phone Care Team Providers Care Nicker And Breaker Name Role Phone Shannon Whipple MD Primary Care Provider [phone] Alicia Thornton Primary Care Provider [phone] Encounter Details Date Type Department Care Team (Latest Contact Info) Description 03/12/2021 Transcribe Orders [address] [place] [address] Karen Madrigal PA [address] [place] [address] [email or web address] Elevated glucose (Primary Dx); Encounter for general [...] Info) Description 09/07/2025 10:20 AM EST Treatment [facility] Rad Onc [address] [place] [address] 26918 Bret Sharp MD [address] [place] [id number] [email or web address] 09/08/2025 1:10 PM EST Treatment [facility] Rad Onc [address] [place] [address]677 Bret Sharp MD [address] [place] [address] [id number] [email or web address] 09/09/2025 10:20 AM EST Treatment [facility] Rad Onc [address] [place] [address] 6[address] Bret Sharp MD [address] [place] [address] [id number] [email or web address] 09/12/2025 10:20 AM EST Treatment [facility] Rad [address] [address] Bret Sharp MD [address] [place] [address] [phone] [email or web address] 09/12/2025 10:30 AM EST Procedure visit [facility] Onc [address] [place] [address] Bret Sharp MD [address] [place] [address] [id number] [email or web address] 09/13/2025 10:20 AM EST Treatment [facility] Rad Onc [address] [place] [address] Bret Sharp MD [address] [place] [address] [id number] [email or web address] 09/14/2025 10:20 AM EST Treatment [facility] Rad Onc [address] [place] [address] Bret Sharp MD [address] [place] [address] 12795 [email or web address] 09/16/2025 10:20 AM EST Treatment [facility] Rad Onc [address] [place] [address] 88[address] Bret Sharp MD [address] [place] [phone] [email or web address] 09/19/2025 10:20 AM EST Treatment [facility] Rad Onc [address] [place] [address] 94[address] Bret Sharp MD [address] [place] [address] [phone] [email or web address] 09/19/2025 10:30 AM EST Procedure visit [facility] Rad Onc [address] [place] [address] 33904 Bret Sharp MD [address] [place] [address] [phone] [email or web address] 09/20/2025 10:20 AM EST Treatment [facility] Rad Onc [address] [place] [address] 16286 Bret Sharp MD [address] [place] [address] [phone] [email or web address] 09/21/2025 10:20 AM EST Treatment [facility] Rad Onc [address] [place] [address] Bret Sharp MD [address] [place] [address] [phone] [email or web address] 09/23/2025 10:20 AM EST Treatment [facility] Rad Onc [address] [place] [address] Bret Sharp MD [address] [place] [address] [id number] [email or web address] 09/26/2025 10:20 AM EST Treatment [facility] Rad Onc [address] [place] [address] Bret Sharp MD [address] [place] [address] [phone] [email or web address] 09/26/2025 10:30 AM EST Procedure visit [facility] Rad Onc [address] [place] [address] 27190 Bret Sharp MD [address] [place] [address] [phone] [email or web address] 09/27/2025 10:20 AM EST Treatment [facility] Rad Onc [address] [place] [address] Bret Sharp MD [address] [place] [address] [phone] [email or web address] 09/28/2025 10:20 AM EST Treatment [facility] Rad Onc [address] [place] [address] Bret Sharp MD [address] [place] [address] [phone] [email or web address] 09/29/2025 10:20 AM EST Treatment [facility] Rad Onc [address] [place] [address] 11052 Bret Sharp MD [address] [place] [address] [id number] [email or web address] 09/30/2025 10:20 AM EST Treatment [facility] Rad Onc [address] [place] [address] 0[address] Bret Sharp MD [address] [place] [address] 50102 [email or web address] 10/03/2025 10:20 AM EST Treatment [facility] Rad Onc [address] [place] [address] 27013 Bret Sharp MD [address] [place] [address] [phone] [email or web address] 10/03/2025 10:30 AM EST Procedure visit [facility] Rad Onc [address] [place] [address] 56569 Bret Sharp MD [address] [place] [address] [phone] [email or web address] 10/04/2025 10:20 AM EST Treatment [facility] Rad Onc [address] [place] [address] 45036 Bret Sharp MD [address] [place] [address] [phone] [email or web address] 10/05/2025 10:20 AM EST Treatment [facility] Rad Onc [address] [place] [address] Bret Sharp MD [address] [place] [address] [phone] [email or web address] 10/06/2025 10:20 AM EST Treatment [facility] Rad Onc [address] [place] [address] Bret Sharp MD [address] [place] [address] [id number] [email or web address] 10/07/2025 10:20 AM EST Treatment [facility] Rad Onc [address] [place] [address] Bret Sharp MD [address] [place] [address] [phone] [email or web address] 10/11/2025 9:15 AM EST Office Visit [facility] [address] [place] [address], [address] [address] Jaguar Palacios DO [address] [place] [phone] [email or web address] 10/11/2025 10:20 AM EST Treatment [facility] Rad Onc [address] [place] [address] Bret Sharp MD [address] [place] [address] [id number] [email or web address] 10/11/2025 10:30 AM EST Procedure visit [facility] Onc [address] [place] [address] 15815 Bret Sharp MD [address] [place] [address] [phone] [email or web address] 10/12/2025 10:20 AM EST Treatment [facility] Rad Onc [address] [place] [address] 84140 Bret Sharp MD [address] [place] [address] [phone] [email or web address] 10/13/2025 10:20 AM EST Treatment [facility] Onc [address] [place] [address] 12711 Bret Sharp MD [address] [place] [address] [phone] [email or web address] 10/14/2025 10:20 AM EST Treatment [facility] Onc [address] [place] [address] 6[address] Bret Sharp MD [address] [place] [address] [phone] [email or web address] 10/17/2025 10:20 AM EST Treatment [facility] Onc [address] [place] [address] 5[address]20 Bret Sharp MD [address] [place] [address] 97817 [email or web address] 10/17/2025 10:30 AM EST Procedure visit [facility] Onc [address] [place] [address] 09582 Bret Sharp MD [address] [place] [address] [phone] [email or web address] 10/18/2025 10:20 AM EST Treatment [facility] Rad Onc [address] [place] [address] Bret Sharp MD [address] [place] [address] [phone] [email or web address] 10/19/2025 10:20 AM EST Treatment [facility] Rad Onc [address] [place] [address] Bret Sharp MD [address] [place] [address] [phone] [email or web address] 10/19/2025 10:30 AM EST Procedure visit [facility] Rad Onc [address] [place] [address] Bret Sharp MD [address] [place] [address] [phone] [email or web address] documented as of this encounter Results * CBC and differential (03/12/2021 8:11 AM EDT) WBC 5.47 4.00 - 11.00 K/uL [facility] RBC 4.46 3.90 - 5.69 M/uL [facility] HGB 14.3 12.4 - 17.3 g/dL [facility] HCT 42.0 37.0 - 51.0 % [facility] PLT 230 140 - 430 K/uL [facility] MCV 94.2 78.0 - 97.0 fL [facility] MCH 32.1 25.0 - 33.0 pg [facility] MCHC 34.0 32.0 - 36.0 g/dL [facility] RDW 12.9 11.0 - 15.0 % [facility] MPV 10.0 8.4 - 12.8 fl [facility] NRBC 0.00 0 /100 WBCs [facility] ABSOLUTE NRBC 0.00 0 K/uL [facility] DIFF METHOD Auto [facility] NEUTS 54.4 43.0 - 75.0 % [facility] LYMPHS 29.8 18.2 - 47.4 % [facility] MONOS 10.6 4.00 - 11.00 % [facility] EOS 3.7 0.0 - 8.0 % [facility] BASOS 1.1 0.0 - 2.0 % [facility] Granulocytes, immature (%) 0.4 0.0 - 0.9 % [facility] ABSOLUTE NEUTS 2.98 1.80 - 7.70 K/uL [facility] ABSOLUTE LYMPHS 1.63 1.00 - 3.10 K/uL [facility] ABSOLUTE MONOS 0.58 0.20 - 0.80 K/uL [facility] ABSOLUTE EOS 0.20 0.00 - 0.80 K/uL [facility] ABSOLUTE BASOS 0.06 0.00 - 0.09 K/uL [facility] Granulocytes, immature 0.02 0.00 - 0.05 K/uL [facility] Blood 03/12/2021 8:11 AM EDT 03/12/2021 8:13 AM EDT Karen Rohan MA LAB BLOOD BKR ORDERABLES Final Result Performing Organization Address City/[facility]/ZIP Co de Phone Number [address] [address] * PSA (screening) (03/12/2021 8:11 AM EDT) PSA 2.22 0 - 4.00 ng/mL [facility] Blood 03/12/2021 8:11 AM EDT 03/12/2021 8:14 AM EDT [facility] LAB BLOOD BKR ORDERABLES Final Result Performing Organization Address City/[facility]/ZIP Co de Phone Number [address] [address] * (ABNORMAL) Hemoglobin A1c (03/12/2021 8:11 AM EDT) HEMOGLOBIN A1C 6.0(H) 4.3 - 5.8 % [facility] Blood 03/12/2021 8:11 AM EDT 03/12/2021 8:13 AM EDT Karen LEWIS LAB BLOOD BKR ORDERABLES Final Result Performing Organization Address City/[facility]/ZIP Co de Phone Number [address] [address] * (ABNORMAL) Lipid panel (03/12/2021 8:11 AM EDT) HDL 62 mg/dL [facility] Comment: Interpretation <40 mg/dL: Low HDL cholesterol (major risk factor for CHD) Greater than or equal to 60 mg/dL: High HDL cholesterol ( negative risk factor for CHD) HDL - cholesterol is affected by a number of factors, e.g. smoking, excerise, hormones, sex and age. CHOLESTEROL 141 0 - 240 mg/dL [facility] TRIGLYCERIDES 142 30 - 160 mg/dL [facility] LDL 51 50 - 129 mg/dL [facility] Comment: LDL levels in terms of risk for coronary heart disease: <100 mg/dL: Optimal 100-129 mg/dL: Near or above optimal 130-159 mg/dL: Borderline high 160-189 mg/dL: High >190 mg/dL: Very High CARDIAC RISK RATIO 2.3(L) 3.4 - 5.0 C [facility] Blood 03/12/2021 8:11 AM EDT 03/12/2021 8:13 AM EDT Karen LEWIS LAB BLOOD BKR ORDERABLES Final Result [address] [address] * (ABNORMAL) Comprehensive metabolic panel (03/12/2021 8:11 AM EDT) SODIUM 139 133 - 146 mmol/L [facility] POTASSIUM 3.9 3.3 - 5.1 mmol/L [facility] CHLORIDE 103 96 - 108 mmol/L [facility] CO2 22 21 - 35 mmol/L [facility] BUN 15 6 - 19 mg/dL [facility] CREATININE 0.60 0.5 - 1.5 mg/dL [facility] GLUCOSE 92 70 - 99 mg/dL [facility] ALBUMIN 3.9 3.9 - 4.8 g/dL [facility] TOTAL PROTEIN 7.1 6.5 - 8.0 g/dL [facility] CALCIUM 9.1 8.4 - 10.3 mg/dL [facility] ALKALINE PHOSPHATASE 27(L) 39 - 117 U/L [facility] TOTAL BILIRUBIN 0.4 0.0 - 1.2 mg/dL [facility] AST 35 0 - 37 U/L [facility] ALT 29 0 - 40 U/L [facility] GLOBULIN 3.2 1 - 4.8 g/dL [facility] EGFR 104 >59 mL/min/1.7 3m2 [facility] Comment:Estimated glomerular filtration rate calculated using the CKD-EPI equation. ANION GAP 18 10 - 20 mmol/L [facility] Blood 03/12/2021 8:11 AM EDT 03/12/2021 8:13 AM EDT us Karen LEWIS LAB BLOOD BKR ORDERABLES Final Result Performing Organization Address City/State/[facility] Co de Phone Number [facility] [address] [place], [place] [phone] documented in this encounter Visit Diagnoses Diagnosis Elevated glucose- Primary Other abnormal glucose Encounter for general adult medical examination with abnormal findings Hyperlipidemia, unspecified hyperlipidemia type Benign prostatic hyperplasia, unspecified whether lower urinary tract symptoms present documented in this encounter Care Teams Nicker And Breaker Relationship Specialty Start Date End Date Shannon Whipple MD [address] [place] [phone] PCP - General 07/08/17 04/24/24 Alicia Thornton PA [address] [place] [address] [address] [place] [address] PCP - General Physician Locks Inspector 04/25/24 documented as of this encounter Additional Source Comments The information contained in this document represents components of the legal health record. It is not the complete legal health record.[facility]
--- OUTSIDE RECORDS SUMMARY | 2025-09-06 09:46 | XMS_ITS | Encounter Summary ---
Author Organization [facility] Address [address] [facility] [address] [place] [address] Phone Care Team Providers Care Millwork Estimator Name Role Phone Shannon Whipple MD Primary Care Provider Shannon Whipple MD Unavailable [phone] Alicia Thornton Primary Care Provider [phone] Encounter Details Date Type Department Care Team (Latest Contact Info) Description 04/03/2020 Transcribe Orders Virtual Department [address] [place] [address] Karen Madrigal PA [address] [place] [address] [email or web address] Exposure to SARS virus (Primary Dx) Social [...] [facility] Rad Onc [address] [place] [address] Bret Sharp MD [address] [place] [id number] [email or web address] 09/08/2025 1:10 PM EST Treatment [facility] Rad Onc [address] [place] [phone] Bret Sharp MD [address] [place] [id number] [email or web address] 09/09/2025 10:20 AM EST Treatment [facility] Rad Onc [address] [place] [address] Bret Sharp MD [address] [place] [phone] [email or web address] 09/12/2025 10:20 AM EST Treatment [facility] At [facility] Rad Onc [address] [place] [address] Bret Sharp MD [address] [place] [phone] [email or web address] 09/12/2025 10:30 AM EST Procedure visit [facility] Rad Onc [address] [place] [address] Bret Sharp MD [address] [place] [phone] [email or web address] 09/13/2025 10:20 AM EST Treatment [facility] Rad Onc [address] [place] [address] Bret Sharp MD [address] [place] [id number] [email or web address] 09/14/2025 10:20 AM EST Treatment [facility] Rad Onc [address] [place] [address] Bret Sharp MD [address] [place] [id number] [email or web address] 09/16/2025 10:20 AM EST Treatment [facility] Rad Onc [address] [place] [address] Bret Sharp MD [address] [place] [id number] [email or web address] 09/19/2025 10:20 AM EST Treatment [facility] Rad Onc [address] [place] [address] Bret Sharp MD [address] [place] [phone] [email or web address] 09/19/2025 10:30 AM EST Procedure visit [facility] Rad Onc [address] [place] [address] Bret Sharp MD [address] [place] [phone] [email or web address] 09/20/2025 10:20 AM EST Treatment [facility] Rad Onc [address] [place] [address] Bret Sharp MD [address] [place] [id number] [email or web address] 09/21/2025 10:20 AM EST Treatment [facility] Rad Onc [address] [place] [address] Bret Sharp MD [address] [place] [phone] [email or web address] 09/23/2025 10:20 AM EST Treatment [facility] Rad Onc [address] [place] [address] Bret Sharp MD [address] [place] [id number] [email or web address] 09/26/2025 10:20 AM EST Treatment [facility] Rad Onc [address] [place] [address] Bret Sharp MD [address] [place] [id number] [email or web address] 09/26/2025 10:30 AM EST Procedure visit [facility] Rad Onc [address] [place] [address] Bret Sharp MD [address] [place] [id number] [email or web address] 09/27/2025 10:20 AM EST Treatment [facility] Rad Onc [address] [place] [address] 78[address] Bret Sharp MD [address] [place] [address] [id number] [email or web address] 09/28/2025 10:20 AM EST Treatment [facility] Rad Onc [address] [place] [address] Bret Sharp MD [address] [place] [address] [phone] [email or web address] 09/29/2025 10:20 AM EST Treatment [facility] Rad Onc [address] [place] [address] Bret Sharp MD [address] [place] [phone] [email or web address] 09/30/2025 10:20 AM EST Treatment [facility] Rad Onc [address] [place] [address]455 Bret Sharp MD [address] [place] [phone] [email or web address] 10/03/2025 10:20 AM EST Treatment [facility] Rad Onc [address] [place] [address] Bret Sharp MD [address] [place] [phone] [email or web address] 10/03/2025 10:30 AM EST Procedure visit [facility] Rad Onc [address] [place] [address] 616[address] Bret Sharp MD [address] [place] [phone] [email or web address] 10/04/2025 10:20 AM EST Treatment [facility] Rad Onc [address] [place] [address] Bret Shrap MD [address] [place] [phone] [email or web address] 10/05/2025 10:20 AM EST Treatment [facility] Rad Onc [address] [place] [address] Bret Sharp MD [address] [place] [phone] [email or web address] 10/06/2025 10:20 AM EST Treatment [facility] Rad Onc [address] [place] [address] Bret Sharp MD [address] [place] [address] [id number] [email or web address] 10/07/2025 10:20 AM EST Treatment [facility] At [facility] Rad Onc [address] [place] [address] Bret Sharp MD [address] [place] [id number] [email or web address] 10/11/2025 9:15 AM EST Office Visit [facility] [address] [place] [address] [address]rd Floor, [address] [address] Jaguar Palacios DO [address] [place] [phone] [email or web address] 10/11/2025 10:20 AM EST Treatment [facility] At [facility] Rad Onc [address] [place] [address] Bret Sharp MD [address] [place] [address] [phone] [email or web address] 10/11/2025 10:30 AM EST Procedure visit [facility] Rad Onc [address] [place] [address] Bret Sharp MD [address] [place] [id number] [email or web address] 10/12/2025 10:20 AM EST Treatment [facility] Rad Onc [address] [place] [address] Bret Sharp MD [address] [place] [address] [id number] [email or web address] 10/13/2025 10:20 AM EST Treatment [facility] Rad Onc [address] [place] [address] Bret Sharp MD [address] [place] [address] [phone] [email or web address] 10/14/2025 10:20 AM EST Treatment [facility] Rad Onc [address] [place] [address] 8[address] Bret Sharp MD [address] [place] [phone] [email or web address] 10/17/2025 10:20 AM EST Treatment [facility] Rad Onc [address] [place] [address] 14973 Bret Sharp MD [address] [place] [address] [phone] [email or web address] 10/17/2025 10:30 AM EST Procedure visit [facility] Rad Onc [address] [place] [address]19 Bret Sharp MD [address] [place] [address] [phone] [email or web address] 10/18/2025 10:20 AM EST Treatment [facility] Rad Onc [address] [place] [address] Bret Sharp MD [address] [place] [address] [phone] [email or web address] 10/19/2025 10:20 AM EST Treatment [facility] At [facility] Rad Onc [address] [place] [address] Bret Sharp MD [address] [place] [address] [phone] [email or web address] 10/19/2025 10:30 AM EST Procedure visit [facility] Rad Onc [address] [place] [address] Bret Sharp MD [address] [place] [id number] 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) [facility] COVID Testing Status Sent to [facility] Other 04/03/2020 4:42 PM EDT 04/03/2020 6:18 PM EDT us Karen [facility] GENERAL ORDERABLES Final Re sult [address] [address] documented in this encounter Visit Diagnoses Diagnosis Exposure to SARS virus- Primary Exposure to SARS-associated coronavirus documented in this encounter Additional Health Concerns Infection Onset Date Last Indicated Resolved Time CoV-Exposed Comment:Recent close contact 04/03/2020 04/03/2020 04/17/2020 4:55 AM EDT documented as of this encounter Care Teams Millwork Estimator Relationship Specialty Start Date End Date Shannon Whipple MD [address] [place] [address] [email or web address] PCP - General 07/08/17 04/24/24 Alicia Thornton PA [address] [facility] [address] [place] [address] PCP - General Physician Criminology Professor 04/25/24 Shannon Whipple MD [address] [place] [address] [email or web address] Insurance Assigned Provider 12/26/18 11/25/20 documented as of this encounter Additional Source Comments The information contained in this document represents components of the legal health record. It is not the complete legal health record.[facility]
--- OUTSIDE RECORDS SUMMARY | 2025-09-06 09:46 | XMS_ITS | Encounter Summary ---
Author Organization [facility] Address [address] [facility] [address] [place] [phone] Phone Care Team Providers Care Lead Tinner Name Role Phone Shannon Whipple MD Primary Care Provider Alicia Thornton Primary Care Provider Encounter Details Date Type Department Care Team (Latest Contact Info) Description 12/06/2022 Transcribe Orders [facility] Phleb Cynthia [address] [facility] 2nd [place] [address] Ladi Baum, PB [address] [place] [address] Encounter for long-term (current) use of other [...] [facility] Rad Onc [address] [place] [address] Bret Sharp MD [address] [place] [id number] [email or web address] 09/08/2025 1:10 PM EST Treatment [facility] Onc [address] [place] [address] Bret Sharp MD [address] [place] [phone] [email or web address] 09/09/2025 10:20 AM EST Treatment [facility] Rad Onc [address] [place] [address] Bret Sharp MD [address] [place] [id number] [email or web address] 09/12/2025 10:20 AM EST Treatment [facility] Rad Onc [address] [place] [address] Bret Sharp MD [address] [place] [phone] [email or web address] 09/12/2025 10:30 AM EST Procedure visit [facility] Rad Onc [address] [place] [address] Bret Sharp MD [address] [place] [phone] [email or web address] 09/13/2025 10:20 AM EST Treatment [facility] Rad Onc [address] [place] [address] Bret Sharp MD [address] [place] [id number] [email or web address] 09/14/2025 10:20 AM EST Treatment [facility] Rad Onc [address] [place] [address] Bret Sharp MD [address] [place] [phone] [email or web address] 09/16/2025 10:20 AM EST Treatment [facility] Rad Onc [address] [place] [address] Bret Sharp MD [address] [place] [address] [phone] [email or web address] 09/19/2025 10:20 AM EST Treatment [facility] Rad Onc [address] [place] [address] Bret Sharp MD [address] [place] [id number] [email or web address] 09/19/2025 10:30 AM EST Procedure visit [facility] Rad Onc [address] [place] [address] Bret Sharp MD [address] [place] [phone] [email or web address] 09/20/2025 10:20 AM EST Treatment [facility] Rad Onc [address] [place] [address] Bret Sharp MD [address] [place] [phone] [email or web address] 09/21/2025 10:20 AM EST Treatment [facility] Rad Onc [address] [place] [address] Bret Sharp MD [address] [place] [id number] [email or web address] 09/23/2025 10:20 AM EST Treatment [facility] Rad Onc [address] [place] [address] Bret Sharp MD [address] [place] [address] [phone] [email or web address] 09/26/2025 10:20 AM EST Treatment [facility] Rad Onc [address] [place] [address]758 Bret Sharp MD [address] [place] [address] [id number] [email or web address] 09/26/2025 10:30 AM EST Procedure visit [facility] Rad Onc [address] [place] [address]107 Bret Sharp MD [address] [place] [phone] [email or web address] 09/27/2025 10:20 AM EST Treatment [facility] Rad Onc [address] [place] [address] Bret Sharp MD [address] [place] [address] [phone] [email or web address] 09/28/2025 10:20 AM EST Treatment [facility] Rad Onc [address] [place] [address] Bret Sharp MD [address] [place] [address] [phone] [email or web address] 09/29/2025 10:20 AM EST Treatment [facility] Rad Onc [address] [place] [address] Bret Sharp MD [address] [place] [address] [phone] [email or web address] 09/30/2025 10:20 AM EST Treatment [facility] Rad Onc [address] [place] [address] 38783 Bret Sharp MD [address] [place] [address] [id number] [email or web address] 10/03/2025 10:20 AM EST Treatment [facility] Rad Onc [address] [place] [address]149 Bret Sharp MD [address] [place] [address] [phone] [email or web address] 10/03/2025 10:30 AM EST Procedure visit [facility] Rad Onc [address] [place] [address]92 Bret Sharp MD [address] [place] [address] [id number] [email or web address] 10/04/2025 10:20 AM EST Treatment [facility] Rad Onc [address] [place] [address] 28596 Bret Sharp MD [address] [place] [address] [id number] [email or web address] 10/05/2025 10:20 AM EST Treatment [facility] Rad Onc [address] [place] [address] Bret Sharp MD [address] [place] [address] [id number] [email or web address] 10/06/2025 10:20 AM EST Treatment [facility] Rad Onc [address] [place] [address]89 Bret Sharp MD [address] [place] [address] [id number] [email or web address] 10/07/2025 10:20 AM EST Treatment [facility] Rad Onc [address] [place] [address] Bret Sharp MD [address] [place] [address] [phone] [email or web address] 10/11/2025 9:15 AM EST Office Visit [facility] [address] [place] [address] 3rd [facility], [address] [place] [address] Jaguar Palacios DO [address] [place] [address] 10/11/2025 10:20 AM EST Treatment [facility] Rad Onc [address] [place] [address] 03134 Bret Sharp MD [address] [place] [address] [phone] [email or web address] 10/11/2025 10:30 AM EST Procedure visit [facility] Rad Onc [address] [place] [address]505 Bret Sharp MD [address] [place] [address] [phone] [email or web address] 10/12/2025 10:20 AM EST Treatment [facility] Rad Onc [address] [place] [address] Bret Sharp MD [address] [place] [address] [phone] [email or web address] 10/13/2025 10:20 AM EST Treatment [facility] Rad Onc [address] [place] [address] 23609 Bret Sharp MD [address] [place] [address] [phone] [email or web address] 10/14/2025 10:20 AM EST Treatment [facility] Rad Onc [address] [place] [address]57 Bret Sharp MD [address] [place] [address] [phone] [email or web address] 10/17/2025 10:20 AM EST Treatment [facility] Rad Onc [address] [place] [address] 6[address]25 Bret Sharp MD [address] [place] [address] [phone] [email or web address] 10/17/2025 10:30 AM EST Procedure visit [facility] Rad Onc [address] [place] [address] 9[address]69 Bret Sharp MD [address] [place] [address] [phone] [email or web address] 10/18/2025 10:20 AM EST Treatment [facility] Rad Onc [address] [place] [address] Bret Sharp MD [address] [place] [address] [phone] [email or web address] 10/19/2025 10:20 AM EST Treatment [facility] Rad Onc [address] [place] [address]36 Bret Sharp MD [address] [place] [address] [id number] [email or web address] 10/19/2025 10:30 AM EST Procedure visit [facility] Rad Onc [address] [place] [address] 8[address]22 Bret Sharp MD [address] [place] [address] [phone] [email or web address] documented as of this encounter Results * (ABNORMAL) Aspartate aminotransferase (AST) (12/06/2022 10:39 AM EDT) AST 57(H) 0 - 37 U/L [facility] Blood 12/06/2022 10:3 9 AM EDT 12/06/2022 10:42 AM EDT Ladi Baum [employer]MET[employer] MACHINE OPERATOR LAB BLOOD BKR ORDERAB LES Final Result [address] [address] * (ABNORMAL) Alanine aminotransferase (ALT) (12/06/2022 10:39 AM EDT) ALT 43(H) 0 - 40 U/L [facility] Blood 12/06/2022 10:3 9 AM EDT 12/06/2022 10:42 AM EDT us Ladi Baum COSMETICS MACHINE OPERATOR LAB BLOOD BKR ORDERAB LES Final Result [facility] [address] [place] [address] documented in this encounter Visit Diagnoses Diagnosis Encounter for long-term (current) use of other medications- Primary documented in this encounter Care Teams Lead Tinner Relationship Specialty Start Date End Date Shannon Whipple MD [address] [place] [address] [email or web address] PCP - General 07/08/17 04/24/24 Alicia Thornton PA [address] [place] [address] PCP - General Physician Marine Fire Fighter 04/25/24 documented as of this encounter Additional Source Comments The information contained in this document represents components of the legal health record. It is not the complete legal health record.[facility]
--- OUTSIDE RECORDS SUMMARY | 2025-09-06 09:46 | XMS_ITS | Encounter Summary ---
Author Organization [facility] Address [address] [facility] [address] [place] [phone] Phone Care Team Providers Care Litigation Examiner Name Role Phone Shannon Whipple MD Primary Care Provider [phone] Shannon Whipple MD Unavailable [phone] Alicia Thornton Primary Care Provider [phone] Encounter Details Date Type Department Care Team (Latest Contact Info) Description 11/23/2019 Transcribe Orders [facility] Phleb Cynthia [address] [address] Nan Moreira PA [address] [place] [address] Nonspecific abnormal results of liver function study [...] Info) Description 09/07/2025 10:20 AM EST Treatment [facility] Rad Onc [address] [place] [address] Bret Sharp MD [address] [place] [id number] [email or web address] 09/08/2025 1:10 PM EST Treatment [facility] Rad Onc [address] [place] [address] Bret Sharp MD [address] [place] [id number] [email or web address] 09/09/2025 10:20 AM EST Treatment [facility] Rad Onc [address] [place] [address] Bret Sharp MD [address] [place] [id number] [email or web address] 09/12/2025 10:20 AM EST Treatment [facility] Rad Onc [address] [place] [address] Bret Sharp MD [address] [place] [id number] [email or web address] 09/12/2025 10:30 AM EST Procedure visit [facility] Rad Onc [address] [place] [address] Bret Sharp MD [address] [place] [address] [email or web address] 09/13/2025 10:20 AM EST Treatment [facility] Rad Onc [address] [place] [address] Bret Sharp MD [address] [place] [address] [email or web address] 09/14/2025 10:20 AM EST Treatment [facility] Rad Onc [address] [place] [address] Bret Sharp MD [address] [place] [id number] [email or web address] 09/16/2025 10:20 AM EST Treatment [facility] Rad Onc [address] [place] [address] Bret Sharp MD [address] [place] [address] [email or web address] 09/19/2025 10:20 AM EST Treatment [facility] Rad Onc [address] [place] [address] Bret Sharp MD [address] [place] [address] [email or web address] 09/19/2025 10:30 AM EST Procedure visit [facility] Rad Onc [address] [place] [address] Bret Sharp MD [address] [place] [address] [email or web address] 09/20/2025 10:20 AM EST Treatment [facility] Rad Onc [address] [place] [address] Bret Sharp MD [address] [place] [id number] [email or web address] 09/21/2025 10:20 AM EST Treatment [facility] Rad Onc [address] [place] [address] Bret Sharp MD [address] [place] [id number] [email or web address] 09/23/2025 10:20 AM EST Treatment [facility] Rad Onc [address] [place] [address] Bret Sharp MD [address] [place] [id number] [email or web address] 09/26/2025 10:20 AM EST Treatment [facility] Rad Onc [address] [place] [address] Bret Sharp MD [address] [place] [address] [email or web address] 09/26/2025 10:30 AM EST Procedure visit [facility] Rad Onc [address] [place] [address] Bret Sharp MD [address] [place] [phone] [email or web address] 09/27/2025 10:20 AM EST Treatment [facility] Rad Onc [address] [place] [address] Bret Sharp MD [address] [place] [phone] [email or web address] 09/28/2025 10:20 AM EST Treatment [facility] Rad Onc [address] [place] [address] Bret Sharp MD [address] [place] [id number] [email or web address] 09/29/2025 10:20 AM EST Treatment [facility] Rad Onc [address] [place] [address] Bret Sharp MD [address] [place] [id number] [email or web address] 09/30/2025 10:20 AM EST Treatment [facility] Rad Onc [address] [place] [address] Bret Sharp MD [address] [place] [address] [email or web address] 10/03/2025 10:20 AM EST Treatment [facility] Rad Onc [address] [place] [address] Bret Sharp MD [address] [place] [id number] [email or web address] 10/03/2025 10:30 AM EST Procedure visit [facility] Rad Onc [address] [place] [address] Bret Sharp MD [address] [place] [phone] [email or web address] 10/04/2025 10:20 AM EST Treatment [facility] Rad Onc [address] [place] [address] Bret Sharp MD [address] [place] [phone] [email or web address] 10/05/2025 10:20 AM EST Treatment [facility] Rad Onc [address] [place] [address] Bret Sharp MD [address] [place] [phone] [email or web address] 10/06/2025 10:20 AM EST Treatment [facility] Rad Onc [address] [place] [address] Bret Sharp MD [address] [place] [address] [email or web address] 10/07/2025 10:20 AM EST Treatment [facility] Rad Onc [address] [place] [address] Bret Sharp MD [address] [place] [address] [email or web address] 10/11/2025 9:15 AM EST Office Visit [facility] [address] [place] [address] [address] [facility], [address] [address] Jaguar Palacios DO [address] [place] [phone] [email or web address] 10/11/2025 10:20 AM EST Treatment [facility] Rad Onc [address] [place] [address] Bret Sharp MD [address] [place] [phone] [email or web address] 10/11/2025 10:30 AM EST Procedure visit [facility] Rad Onc [address] [place] [address] Bret Sharp MD [address] [place] [address] [email or web address] 10/12/2025 10:20 AM EST Treatment [facility] Rad Onc [address] [place] [address] Bret Sharp MD [address] [place] [address] [email or web address] 10/13/2025 10:20 AM EST Treatment [facility] Rad Onc [address] [place] [address] Bret Sharp MD [address] [place] [address] [email or web address] 10/14/2025 10:20 AM EST Treatment [facility] Rad Onc [address] [place] [address] Bret Sharp MD [address] [place] [address] [email or web address] 10/17/2025 10:20 AM EST Treatment [facility] Rad Onc [address] [place] [address] Bret Sharp MD [address] [place] [phone] [email or web address] 10/17/2025 10:30 AM EST Procedure visit [facility] Rad Onc [address] [place] [address] Bret Sharp MD [address] [place] [address] [email or web address] 10/18/2025 10:20 AM EST Treatment [facility] Rad Onc [address] [place] [address] Bret Sharp MD [address] [place] [phone] [email or web address] 10/19/2025 10:20 AM EST Treatment [facility] Rad Onc [address] [place] [address] Bret Sharp MD [address] [place] [id number] [email or web address] 10/19/2025 10:30 AM EST Procedure visit [facility] Rad Onc [address] [place] [address] Bret Sharp MD [address] [place] [phone] [email or web address] documented as of this encounter Results * PT-INR (11/23/2019 10:14 AM EST) [facility] PT 11.0 10.2 - 12.9 sec [facility] INR 1.0 0.9 - 1.1 [facility] Comment:Therapeutic range fo r oral Vitamin K antagonists: 2.0-3.5 Blood 11/23/2019 10:1 4 AM EST 11/23/2019 10:20 AM EST us Nan [facility] BLOOD BKR ORDERABLES Fi nal Result [address] [address] * (ABNORMAL) Lipid panel (11/23/2019 10:14 AM EST) [facility] HDL 42 mg/dL [facility] Comment: Interpretation <40 mg/dL: Low HDL cholesterol (major risk factor for CHD) Greater than or equal to 60 mg/dL: High HDL cholesterol ( negative risk factor for CHD) HDL - cholesterol is affected by a number of factors, e.g. smoking, excerise, hormones, sex and age. CHOLESTEROL 191 0 - 240 mg/dL [facility] TRIGLYCERIDES 362(H) 30 - 160 mg/dL [facility] LDL 77 50 - 129 mg/dL [facility] Comment: LDL levels in terms of risk for coronary heart disease: <100 mg/dL: Optimal 100-129 mg/dL: Near or above optimal 130-159 mg/dL: Borderline high 160-189 mg/dL: High >190 mg/dL: Very High CARDIAC RISK RATIO 4.5 3.4 - 5.0 C [facility] Blood 11/23/2019 10:1 4 AM EST 11/23/2019 10:20 AM EST us Nan [facility] BLOOD BKR ORDERABLES Fi nal Result Performing Organization Address City/State/[facility] Co de Phone Number [address] [address] * (ABNORMAL) Comprehensive metabolic panel (11/23/2019 10:14 AM EST) SODIUM 139 133 - 146 mmol/L [facility] POTASSIUM 4.1 3.3 - 5.1 mmol/L [facility] CHLORIDE 103 96 - 108 mmol/L [facility] CO2 22 21 - 35 mmol/L [facility] BUN 12 6 - 19 mg/dL [facility] CREATININE 0.60 0.5 - 1.5 mg/dL [facility] GLUCOSE 140(H) 70 - 99 mg/dL [facility] ALBUMIN 4.1 3.9 - 4.8 g/dL [facility] TOTAL PROTEIN 7.2 6.5 - 8.0 g/dL [facility] CALCIUM 9.3 8.4 - 10.3 mg/dL [facility] ALKALINE PHOSPHATASE 32(L) 39 - 117 U/L [facility] TOTAL BILIRUBIN 0.4 0.0 - 1.2 mg/dL [facility] AST 32 0 - 37 U/L [facility] ALT 31 0 - 40 U/L [facility] GLOBULIN 3.1 1 - 4.8 g/dL [facility] EGFR 105 >59 mL/min/1.7 3m2 [facility] Comment:If patient is black, multiply result by 1.159. Estimated glomerular filtration rate calculated using the CKD-EPI equation. ANION GAP 18 10 - 20 mmol/L [facility] Blood 11/23/2019 10:1 4 AM EST 11/23/2019 10:20 AM EST Nan [facility] BLOOD BKR ORDERABLES Fi nal Result Performing Organization Address City/[facility] Co de Phone Number [address] [address] * Smooth Muscle Antibody (11/23/2019 10:14 AM EST) SMOOTH MUSCLE AB NEGATIVE AT 1:20 [facility] Comment: Performing Pathologist, Candelario Nesbitt M.D., Ph.D. [id number] Normal: Negative at 1:20 Blood 11/23/2019 10:1 4 AM EST 11/23/2019 10:21 AM EST Nan [facility] BLOOD ORDERABLES Final Result Performing Organization Address [facility] Co de Phone Number [address] [address] * Antinuclear antibody (INGE) (11/23/2019 10:14 AM EST) INGE SCREEN ON HEP 2 Negative Negative [facility] Blood 11/23/2019 10:1 4 AM EST 11/23/2019 10:20 AM EST Nan [facility] BLOOD BKR ORDERABLES Fi nal Result Performing Organization Address [facility] Co de Phone Number [address] [address] documented in this encounter Visit Diagnoses Diagnosis Nonspecific abnormal results of liver function study- Primary documented in this encounter Additional Health Concerns Infection Onset Date Last Indicated Resolved Time CoV-Exposed Comment:Recent close contact 04/03/2020 04/03/2020 04/17/2020 4:55 AM EDT documented as of this encounter Care Teams Litigation Examiner Relationship Specialty Start Date End Date Shannon Whipple MD [address] [place] [address] [email or web address] PCP - General 07/08/17 04/24/24 Alicia Thornton PA [address] [facility] [address] [place] [address] PCP - General Physician Cloth Finisher 04/25/24 Shannon Whipple MD [address] [place] [address] [email or web address] Insurance Assigned Provider 12/26/18 11/25/20 documented as of this encounter Additional Source Comments The information contained in this document represents components of the legal health record. It is not the complete legal health record.[facility]
--- OUTSIDE RECORDS SUMMARY | 2025-09-06 09:46 | XMS_ITS | Encounter Summary ---
Author Organization [facility] Address [address] [facility] [address] [place] [address] Phone Care Team Providers Care Solar Development Engineer Name Role Phone Shannon Whipple MD Primary Care Provider [phone] Shannon Whipple MD Unavailable [phone] Alicia Thornton Primary Care Provider [phone] Encounter Details Date Type Department Care Team (Late st Contact Info) Description 11/02/2019 Procedure Pass [facility] Endoscopy Admitting Dept Virtual Department [address] [place] [address] Social History Tobacco Use Types Packs/Day Years [...] Info) Description 09/07/2025 10:20 AM EST Treatment [facility] Rad Onc [address] [place] [address] Bret Sharp MD [address] [place] [address] 10856 [email or web address] 09/08/2025 1:10 PM EST Treatment [facility] Rad Onc [address] [place] [address] 50396 Bret Sharp MD [address] [place] [address] 40039 [email or web address] 09/09/2025 10:20 AM EST Treatment [facility] At [facility] Rad Onc [address] [place] [address] 04021 Bret Sharp MD [address] [place] [address] 33757 [email or web address] 09/12/2025 10:20 AM EST Treatment [facility] At [facility] Rad Onc [address] [place] [address] 77653 Bret Sharp MD [address] [place] [address] 47402 [email or web address] 09/12/2025 10:30 AM EST Procedure visit [facility] At [facility] Rad Onc [address] [place] [address] 95563 Bret Sharp MD [address] [place] [address] 71190 [email or web address] 09/13/2025 10:20 AM EST Treatment [facility] At [facility] Rad Onc [address] [place] [address] 12861 Bret Sharp MD [address] [place] [address] 48143 [email or web address] 09/14/2025 10:20 AM EST Treatment [facility] Rad Onc [address] [place] [address] Bret Sharp MD [address] [place] [address] 24060 [email or web address] 09/16/2025 10:20 AM EST Treatment [facility] At [facility] Rad Onc [address] [place] [address] 52929 Bret Sharp MD [address] [place] [address] 93249 [email or web address] 09/19/2025 10:20 AM EST Treatment [facility] Rad Onc [address] [place] [address] 35430 Bret Sharp MD [address] [place] [address] 15858 [email or web address] 09/19/2025 10:30 AM EST Procedure visit [facility] Rad Onc [address] [place] [address] 71550 Bret Sharp MD [address] [place] [address] 92371 [email or web address] 09/20/2025 10:20 AM EST Treatment [facility] Rad Onc [address] [place] [address] Bret Sharp MD [address] [place] [address] 83015 [email or web address] 09/21/2025 10:20 AM EST Treatment [facility] Rad Onc [address] [place] [address] 71377 Bret Sharp MD [address] [place] [address] 65775 [email or web address] 09/23/2025 10:20 AM EST Treatment [facility] Rad Onc [address] [place] [address] Bret Sharp MD [address] [place] [address] 40156 [email or web address] 09/26/2025 10:20 AM EST Treatment [facility] Rad Onc [address] [place] [address] 81925 Bret Sharp MD [address] [place] [address] 48696 [email or web address] 09/26/2025 10:30 AM EST Procedure visit [facility] Rad Onc [address] [place] [address] 32168 Bret Sharp MD [address] [place] [address] 14373 [email or web address] 09/27/2025 10:20 AM EST Treatment [facility] Rad Onc [address] [place] [address] 95329 Bret Sharp MD [address] [place] [address] 33949 RAMIRZE@[email or web address] 09/28/2025 10:20 AM EST Treatment [facility] Rad Onc [address] [place] [address] Bret Sharp MD [address] [place] [address] 76947 [email or web address] 09/29/2025 10:20 AM EST Treatment [facility] Rad Onc [address] [place] [address] Bret Sharp MD [address] [place] [address] [phone] [email or web address] 09/30/2025 10:20 AM EST Treatment [facility] At [facility] Rad Onc [address] [place] [address] 43167 Bret Sharp MD [address] [place] [address] 97912 [email or web address] 10/03/2025 10:20 AM EST Treatment [facility] Rad Onc [address] [place] [address] 96422 Bret Sharp MD [address] [place] [address] 17588 [email or web address]@[email or web address] 10/03/2025 10:30 AM EST Procedure visit [facility] Rad Onc [address] [place] [address] 69719 Bret Sharp MD [address] [place] [address] 61842 [email or web address]@[email or web address] 10/04/2025 10:20 AM EST Treatment [facility] Rad Onc [address] [place] [address] 04080 Bret Sharp MD [address] [place] [address] 42741 RAMIREZ@[email or web address] 10/05/2025 10:20 AM EST Treatment [facility] Rad Onc [address] [place] [address] 46570 Bret Sharp MD [address] [place] [address] 74648 [email or web address]@[facility] 10/06/2025 10:20 AM EST Treatment [facility] Rad Onc [address] [place] [address] Bret Sharp MD [address] [place] [address] 84931 [email or web address] 10/07/2025 10:20 AM EST Treatment [facility] Rad Onc [address] [place] [address] 05592 Bret Sharp MD [address] [place] [address] 84495 [email or web address] 10/11/2025 9:15 AM EST Office Visit [facility] [address] [place] [address], [address] [place] [address] 87912 Jaguar Palacios DO [address] [place] [address] 10674 [email or web address] 10/11/2025 10:20 AM EST Treatment [facility] Rad Onc [address] [place] [address] 15909 Bret Sharp MD [address] [place] [address] 45184 [email or web address]@[email or web address] 10/11/2025 10:30 AM EST Procedure visit [facility] Rad Onc [address] [place] [address] 02460 Bret Sharp MD [address] [place] [address] 37047 [email or web address] 10/12/2025 10:20 AM EST Treatment [facility] Rad Onc [address] [place] [address] Bret Sharp MD [address] [place] [address] 77946 [email or web address]@[facility] 10/13/2025 10:20 AM EST Treatment [facility] Rad Onc [address] [place] [address] 27461 Bret Sharp MD [address] [place] [address] 12389 [email or web address] 10/14/2025 10:20 AM EST Treatment [facility] Rad Onc [address] [place] [address] 77644 Bret Sharp MD [address] [place] [address] 05040 [email or web address] 10/17/2025 10:20 AM EST Treatment [facility] Rad Onc [address] [place] [address] 34895 Bret Sharp MD [address] [place] [address] [phone] RAMIREZ@[email or web address] 10/17/2025 10:30 AM EST Procedure visit [facility] Rad Onc [address] [place] [address] 88829 Bret Sharp MD [address] [place] [address] 86592 [email or web address]@[email or web address] 10/18/2025 10:20 AM EST Treatment [facility] Rad Onc [address] [place] [address] 50124 Bret Sharp MD [address] [place] [address] [phone] [email or web address] 10/19/2025 10:20 AM EST Treatment [facility] Rad Onc [address] [place] [address] Bret Sharp MD [address] [place] [address] 71253 [email or web address] 10/19/2025 10:30 AM EST Procedure visit [facility] Rad Onc [address] [place] [address] Bret Sharp MD [address] [place] [address] 52075 [email or web address] documented as of this encounter Visit Diagnoses Not on filedocumented in this encounter Additional Health Concerns Infection Onset Date Last Indicated Resolved Time CoV-Exposed Comment:Recent close contact 04/03/2020 04/03/2020 04/17/2020 4:55 AM EDT documented as of this encounter Care Teams Solar Development Engineer Relationship Specialty Start Date End Date Shannon Whipple MD [address] [place] [address] @[email or web address] PCP - General 07/08/17 04/24/24 Alicia Thornton PA [address] [place] [address] 82268 PCP - General Physician Field Adjuster 04/25/24 Shannon Whipple MD [address] [place] [address] @[email or web address] Insurance Assigned Provider 12/26/18 11/25/20 documented as of this encounter Additional Source Comments The information contained in this document represents components of the legal health record. It is not the complete legal health record.[facility]
--- OUTSIDE RECORDS SUMMARY | 2025-09-06 09:46 | XMS_ITS | Encounter Summary ---
Author Organization [facility] Address [address] [facility] [address] [place] [address] 84084 Phone Care Team Providers Care Medical Staff Director Name Role Phone Shannon Whipple MD Primary Care Provider Alicia Thornton Primary Care Provider [phone] Encounter Details Date Type Department Care Team (Late st Contact Info) Description 04/24/2024 Procedure Pass [facility] Ct Scan - [address] [id number] Social History Tobacco Use Types Packs/Day Years [...] 5:30 PM EDT Ellen Gutierrez RN * [facility] Suicide Severity Rating Scale (Screener/Recent Self-Report) Question [...] Info) Description 09/07/2025 10:20 AM EST Treatment [facility] Rad Onc [address] [place] [address] Bret Sharp MD [address] [place] [address] [phone] [email or web address] 09/08/2025 1:10 PM EST Treatment [facility] At [facility] Rad Onc [address] [place] [address] Bret Sharp MD [address] [place] [address] [phone] [email or web address]@[email or web address] 09/09/2025 10:20 AM EST Treatment [facility] At [facility] Rad Onc [address] [place] [address] 49157 Bret Sharp MD [address] [place] [address] 85717 [email or web address]@[email or web address] 09/12/2025 10:20 AM EST Treatment [facility] At [facility] Rad Onc [address] [place] [address] 04942 Bret Sharp MD [address] [place] [address] [phone] [email or web address]@[email or web address] 09/12/2025 10:30 AM EST Procedure visit [facility] At [facility] Rad Onc [address] [place] [address] 83983 Bret Sharp MD [address] [place] [address] [phone] [email or web address]@[email or web address] 09/13/2025 10:20 AM EST Treatment [facility] At [facility] Rad Onc [address] [place] [address] 95848 Bret Sharp MD [address] [place] [address] 07685 [email or web address]@[email or web address] 09/14/2025 10:20 AM EST Treatment [facility] At [facility] Rad Onc [address] [place] [address] 84868 Bret Sharp MD [address] [place] [address] 57204 [email or web address]@[facility] 09/16/2025 10:20 AM EST Treatment [facility] At [facility] Rad Onc [address] [place] [address] 91663 Bret Sharp MD [address] [place] [address] 75845 [email or web address]@[facility] 09/19/2025 10:20 AM EST Treatment [facility] At [facility] Rad Onc [address] [place] [address] 07153 Bret Sharp MD [address] [place] [address] [id number] [email or web address]@[email or web address] 09/19/2025 10:30 AM EST Procedure visit [facility] At [facility] Rad Onc [address] [place] [address] 44375 Bret Sharp MD [address] [place] [address] 69431 [email or web address]@[email or web address] 09/20/2025 10:20 AM EST Treatment [facility] At [facility] Rad Onc [address] [place] [address] 19108 Bret Sharp MD [address] [place] [address] [phone] [email or web address]@[facility] 09/21/2025 10:20 AM EST Treatment [facility] At [facility] Rad Onc [address] [place] [address] 64179 Bret Sharp MD [address] [place] [address] 70970 [email or web address] 09/23/2025 10:20 AM EST Treatment [facility] At [facility] Rad Onc [address] [place] [address] 09424 Bret Sharp MD [address] [place] [address] 22563 RAMIREZ@[facility] 09/26/2025 10:20 AM EST Treatment [facility] At [facility] Rad Onc [address] [place] [address] 67424 Bret Sharp MD [address] [place] [address] 48815 RAMIREZ@[facility] 09/26/2025 10:30 AM EST Procedure visit [facility] Rad Onc [address] [place] [address] 31159 Bret Sharp MD [address] [place] [address] 04926 RAMIREZ@[facility] 09/27/2025 10:20 AM EST Treatment [facility] At [facility] Rad Onc [address] [place] [address] 11277 Bret Sharp MD [address] [place] [address] 95790 RAMIREZ@[facility] 09/28/2025 10:20 AM EST Treatment [facility] At [facility] Rad Onc [address] [place] [address] 71116 Bret Sharp MD [address] [place] [address] 13246 [email or web address] 09/29/2025 10:20 AM EST Treatment [facility] At [facility] Rad Onc [address] [place] [address] Bret Sharp MD [address] [place] [address] 11531 [email or web address] 09/30/2025 10:20 AM EST Treatment [facility] At [facility] Rad Onc [address] [place] [address] 96860 Bret Sharp MD [address] [place] [address] 55589 RAMIREZ@[facility] 10/03/2025 10:20 AM EST Treatment [facility] At [facility] Rad Onc [address] [place] [address] 88231 Bret Sharp MD [address] [place] [address] 08636 [email or web address]@[facility] 10/03/2025 10:30 AM EST Procedure visit [facility] At [facility] Rad Onc [address] [place] [address] 51689 Bret Sharp MD [address] [place] [address] 27131 [email or web address]@[facility] 10/04/2025 10:20 AM EST Treatment [facility] At [facility] Rad Onc [address] [place] [address] 94389 Bret Sharp MD [address] [place] [address] 94696 RAMIREZ@[facility] 10/05/2025 10:20 AM EST Treatment [facility] At [facility] Rad Onc [address] [place] [address] 68789 Bret Sharp MD [address] [place] [address] 06329 [email or web address] 10/06/2025 10:20 AM EST Treatment [facility] At [facility] Rad Onc [address] [place] [address] 40089 Bret Sharp MD [address] [place] [address] 11684 RAMIREZ@[facility] 10/07/2025 10:20 AM EST Treatment [facility] At [facility] Rad Onc [address] [place] [address] Bret Sharp MD [address] [place] [address] 72253 [email or web address]@[email or web address] 10/11/2025 9:15 AM EST Office Visit [facility] [address] [place] [address] [address] Floor, [address] [place] [address] Jaguar Palacios DO [address] [place] [address] [place] [address] 76902 [email or web address] 10/11/2025 10:20 AM EST Treatment [facility] At [facility] Rad Onc [address] [place] [address] 42303 Bret Sharp MD [address] [place] [address] 10712 [email or web address]@[facility] 10/11/2025 10:30 AM EST Procedure visit [facility] At [facility] Rad Onc [address] [place] [address] 43536 Bret Sharp MD [address] [place] [address] 60902 [email or web address] 10/12/2025 10:20 AM EST Treatment [facility] At [facility] Rad Onc [address] [place] [address] 87324 Bret Sahrp MD [address] [place] [address] 93330 RAMIREZ@[facility] 10/13/2025 10:20 AM EST Treatment [facility] At [facility] Rad Onc [address] [place] [address] 81337 Bret Sharp MD [address] [place] [address] 39309 RAMIREZ@[facility] 10/14/2025 10:20 AM EST Treatment [facility] At [facility] Rad Onc [address] [place] [address] 38561 Bret Sharp MD [address] [place] [address] 88617 RAMIREZ@[facility] 10/17/2025 10:20 AM EST Treatment [facility] At [facility] Rad Onc [address] [place] [address] 66107 Bret Sharp MD [address] [place] [address] [phone] [email or web address]@[facility] 10/17/2025 10:30 AM EST Procedure visit [facility] At [facility] Rad Onc [address] [place] [address] 57149 Bret Sharp MD [address] [place] [address] 37902 RAMIREZ@[facility] 10/18/2025 10:20 AM EST Treatment [facility] At [facility] Rad Onc [address] [place] [address] 07356 Bret Sharp MD [address] [place] [address] 84565 [email or web address] 10/19/2025 10:20 AM EST Treatment [facility] At [facility] Rad Onc [address] [place] [address] Bret Sharp MD [address] [place] [address] [id number] [email or web address]@[facility] 10/19/2025 10:30 AM EST Procedure visit [facility] At [facility] Rad Onc [address] [place] [address] Bret Sharp MD [address] [place] [address] [email or web address] documented as of this encounter Visit Diagnoses Not on filedocumented in this encounter Care Teams Medical Staff Director Relationship Specialty Start Date End Date Shannon Whipple MD [address] [place] [address] [email or web address] PCP - General 07/08/17 04/24/24 Alicia Thornton PA [address] [facility] [place] [address] [place] [address] 41617 PCP - General Physician Customer Experience Intern 04/25/24 documented as of this encounter Additional Source Comments The information contained in this document represents components of the legal health record. It is not the complete legal health record.[facility]
--- OUTSIDE RECORDS SUMMARY | 2025-09-06 09:46 | XMS_ITS | Encounter Summary ---
Author Organization [facility] Address [address] [employer] [facility] [address] [place] [address] Phone Care Team Providers Care Chief Scientist Name Role Phone Shannon Whipple MD Primary Care Provider Alicia Thornton Primary Care Provider [phone] Encounter Details Date Type Department Care Team (Late st Contact Info) Description 04/24/2024 Procedure Pass [facility], [address] [address] Social History Tobacco Use Types Packs/Day Years [...] 5:30 PM EDT Ellen Gutierrez RN * Tate Suicide Severity Rating Scale (Screener/Recent Self-Report) Question [...] [facility] Rad Onc [address] [place] [address] Bret Sharp MD [address] [place] [id number] [email or web address] 09/08/2025 1:10 PM EST Treatment [facility] At [facility] Rad Onc [address] [place] [address] Bret Sharp MD [address] [place] [address] [email or web address]@[facility] 09/09/2025 10:20 AM EST Treatment [facility] At [facility] Rad Onc [address] [place] [address] Bret Sharp MD [address] [place] [address] [email or web address]@[facility] 09/12/2025 10:20 AM EST Treatment [facility] At [facility] Rad Onc [address] [place] [address] Bret Sharp MD [address] [place] [address] 34070 [email or web address]@[facility] 09/12/2025 10:30 AM EST Procedure visit [facility] At [facility] Rad Onc [address] [place] [address] Bret Sharp MD [address] [place] [address] [id number] RAMIREZ@[facility] 09/13/2025 10:20 AM EST Treatment [facility] At [facility] Rad Onc [address] [place] [address] Bret Sharp MD [address] [place] [address] [id number] RAMIREZ@[facility] 09/14/2025 10:20 AM EST Treatment [facility] At [facility] Rad Onc [address] [place] [address] Bret Sharp MD [address] [place] [address] 11335 RAMIREZ@[facility] 09/16/2025 10:20 AM EST Treatment [facility] At [facility] Rad Onc [address] [place] [address] Bret Sharp MD [address] [place] [address] [id number] RAMIREZ@[facility] 09/19/2025 10:20 AM EST Treatment [facility] Rad Onc [address] [place] [address] Bret Sharp MD [address] [place] [address] 05187 [email or web address]@[facility] 09/19/2025 10:30 AM EST Procedure visit [facility] Rad Onc [address] [place] [address] Bret Sharp MD [address] [place] [address] [id number] [email or web address]@[facility] 09/20/2025 10:20 AM EST Treatment [facility] Rad Onc [address] [place] [address] Bret Sharp MD [address] [place] [address] 72622 RAMIREZ@[facility] 09/21/2025 10:20 AM EST Treatment [facility] Rad Onc [address] [place] [address] Bret Sharp MD [address] [place] [address] [id number] [email or web address]@[email or web address] 09/23/2025 10:20 AM EST Treatment [facility] Rad Onc [address] [place] [address] 339[address] Bret Sharp MD [address] [place] [address] 53297 RAMIREZ@[facility] 09/26/2025 10:20 AM EST Treatment [facility] Rad Onc [address] [place] [address] Bret Sharp MD [address] [place] [address] [id number] [email or web address]@[facility] 09/26/2025 10:30 AM EST Procedure visit [facility] At [facility] Rad Onc [address] [place] [address] Bret Sharp MD [address] [place] [address] 50091 RAMIREZ@[facility] 09/27/2025 10:20 AM EST Treatment [facility] Rad Onc [address] [place] [address] 98[address] Bret Sharp MD [address] [place] [address] 18039 RAMIREZ@[facility] 09/28/2025 10:20 AM EST Treatment [facility] At [facility] Rad Onc [address] [place] [address] 36[address] Brte Sharp MD [address] [place] [address] [phone] [email or web address]@[email or web address] 09/29/2025 10:20 AM EST Treatment [facility] At [facility] Rad Onc [address] [place] [address] Bret Sharp MD [address] [place] [address] [id number] RAMIREZ@[facility] 09/30/2025 10:20 AM EST Treatment [facility] Rad Onc [address] [place] [address] 169[address] Bret Sharp MD [address] [place] [address] [id number] RAMIREZ@[facility] 10/03/2025 10:20 AM EST Treatment [facility] Rad Onc [address] [place] [address] Bret Sharp MD [address] [place] [address] [id number] RAMIREZ@[facility] 10/03/2025 10:30 AM EST Procedure visit [facility] Rad Onc [address] [place] [address] Bret Sharp MD [address] [place] [address] 69344 [email or web address]@[facility] 10/04/2025 10:20 AM EST Treatment [facility] Rad Onc [address] [place] [address] Bret Sharp MD [address] [place] [address] [id number] RAMIREZ@[facility] 10/05/2025 10:20 AM EST Treatment [facility] At [facility] Rad Onc [address] [place] [address] Bret Sharp MD [address] [place] [address] 89447 [email or web address] 10/06/2025 10:20 AM EST Treatment [facility] At [facility] Rad Onc [address] [place] [address] Bret Sharp MD [address] [place] [address] [id number] RAMIREZ@[facility] 10/07/2025 10:20 AM EST Treatment [facility] At [facility] Rad Onc [address] [place] [address] Bret Sharp MD [address] [place] [address] [phone] [email or web address]@[facility] 10/11/2025 9:15 AM EST Office Visit [facility] [address] [place] [address] 3rd Floor, [address] [place] [address] Jaguar Palacios DO 22 [facility] [address] [place] [address] [email or web address] 10/11/2025 10:20 AM EST Treatment [facility] At [facility] Rad Onc [address] [place] [address] Bret Sharp MD [address] [place] [address] [id number] [email or web address]@[facility] 10/11/2025 10:30 AM EST Procedure visit [facility] Rad Onc [address] [place] [address] Bret Sharp MD [address] [place] [address] 94456 RAMIREZ@[facility] 10/12/2025 10:20 AM EST Treatment [facility] Rad Onc [address] [place] [address] 135[address] Bret Sharp MD [address] [place] [address] 00274 RAMIREZ@[facility] 10/13/2025 10:20 AM EST Treatment [facility] At [facility] Rad Onc [address] [place] [address] Bret Sharp MD [address] [place] [address] 91321 RAMIREZ@[facility] 10/14/2025 10:20 AM EST Treatment [facility] Rad Onc [address] [place] [address] Bret Sharp MD [address] [place] [address] [id number] RAMIREZ@[facility] 10/17/2025 10:20 AM EST Treatment [facility] Rad Onc [address] [place] [address] Bret Sharp MD [address] [place] [address] 98163 [email or web address]@[facility] 10/17/2025 10:30 AM EST Procedure visit [facility] At [facility] Rad Onc [address] [place] [address] 216[address] Bret Sharp MD [address] [place] [address] 15753 RAMIREZ@[facility] 10/18/2025 10:20 AM EST Treatment [facility] Rad Onc [address] [place] [address] Bret Sharp MD [address] [place] [address] 70857 [email or web address]@[facility] 10/19/2025 10:20 AM EST Treatment [facility] Rad Onc [address] [place] [address] Bret Sharp MD [address] [place] [address] [phone] RAMIREZ@[facility] 10/19/2025 10:30 AM EST Procedure visit [facility] Rad Onc [address] [place] [address] Bret Sharp MD [address] [place] [address] [email or web address] documented as of this encounter Visit Diagnoses Not on filedocumented in this encounter Care Teams Chief Scientist Relationship Specialty Start Date End Date Shannon Whipple MD [address] [place] [address] [email or web address] PCP - General 07/08/17 04/24/24 Alicia Thornton PA [address] [facility] [address] [place] [address] PCP - General Physician Woods Superintendent 04/25/24 documented as of this encounter Additional Source Comments The information contained in this document represents components of the legal health record. It is not the complete legal health record.[facility]
--- OUTSIDE RECORDS SUMMARY | 2025-09-06 09:46 | XMS_ITS | Encounter Summary ---
Author Organization [facility] Address [address] [place] [address] Phone Care Team Providers Care Associate Brand Manager Name Role Phone Alicia Thornton Primary Care Provider [phone] Encounter Details Date Type Department Care Team (Late st Contact Info) Description 02/11/2025 Procedure Pass [facility] Admitting Dept Virtual Department [address] [place] [address] Social History Tobacco Use Types Packs/Day Years [...] Info) Description 09/07/2025 10:20 AM EST Treatment [facility] [place] [place] [facility] At [facility] Rad [address] [address] Bret Sharp MD [address] [place] [phone] [email or web address]@[email or web address] 09/08/2025 1:10 PM EST Treatment [facility] [place] [place] [facility] Rad Onc [address] [place] [address] Bret Sharp MD [address] [place] [phone] [email or web address]@[facility] 09/09/2025 10:20 AM EST Treatment [facility] [place] [place] [facility] At [facility] Rad Onc [address] [place] [address] Bret Sharp MD [address] [place] [address] 86023 [email or web address]@[email or web address] 09/12/2025 10:20 AM EST Treatment [facility] [place] [place] [facility] At [facility] Rad Onc [address] [place] [address] Bret Sharp MD [address] [place] [id number] RAMIREZ@[email or web address] 09/12/2025 10:30 AM EST Procedure visit [facility] [place] [place] [facility] Rad Onc [address] [place] [address] Bret Sharp MD [address] [place] [id number] [email or web address]@[email or web address] 09/13/2025 10:20 AM EST Treatment [facility] [place] [place] [facility] At [facility] Rad Onc [address] [place] [address] Bret Sharp MD [address] [place] [address] 50979 RAMIREZ@[email or web address] 09/14/2025 10:20 AM EST Treatment [facility] [place] [place] [facility] Rad Onc [address] [place] [address]69 Bret Sharp MD [address] [place] [address] 23701 [email or web address]@[email or web address] 09/16/2025 10:20 AM EST Treatment [facility] [place] [place] [facility] Rad Onc [address] [place] [address] 22734 Bret Sharp MD [address] [place] [address] 60617 [email or web address]@[email or web address] 09/19/2025 10:20 AM EST Treatment [facility] [place] [place] [facility] At [facility] Rad Onc [address] [place] [address] Bret Sharp MD [address] [place] [address] [id number] [email or web address]@[email or web address] 09/19/2025 10:30 AM EST Procedure visit [facility] [place] [place] [facility] Rad Onc [address] [place] [address] 02666 Bret Sharp MD [address] [place] [id number] [email or web address] 09/20/2025 10:20 AM EST Treatment [facility] [place] [place] [facility] Rad Onc [address] [place] [address] 49091 Bret Sharp MD [address] [place] [address] 45421 [email or web address]@[email or web address] 09/21/2025 10:20 AM EST Treatment [facility] [place] [place] [facility] Rad Onc [address] [place] [address] 28378 Bret Sharp MD [address] [place] [id number] [email or web address]@[email or web address] 09/23/2025 10:20 AM EST Treatment [facility] [place] [place] [facility] Rad Onc [address] [place] [address] 92598 Bret Sharp MD [address] [place] [address] 15776 RAMIREZ@[facility] 09/26/2025 10:20 AM EST Treatment [facility] [place] [place] [facility] Rad Onc [address] [place] [address] 06000 Bret Sharp MD [address] [place] [address] [id number] [email or web address]@[facility] 09/26/2025 10:30 AM EST Procedure visit [facility] [place] [place] [facility] At [facility] Rad Onc [address] [place] [address] 74594 Bret Sharp MD [address] [place] [address] [phone] RAMIREZ@[facility] 09/27/2025 10:20 AM EST Treatment [facility] [place] [place] [facility] At [facility] Rad Onc [address] [place] [address] Bret Sharp MD [address] [place] [address] [phone] [email or web address]@[email or web address] 09/28/2025 10:20 AM EST Treatment [facility] [place] [place] [facility] At [facility] Rad Onc [address] [place] [address] Bret Sharp MD [address] [place] [address] [phone] [email or web address]@[email or web address] 09/29/2025 10:20 AM EST Treatment [facility] [place] [place] [facility] At [facility] Rad Onc [address] [place] [address] 23124 Bret Sharp MD [address] [place] [address] [id number] RAMIREZ@[email or web address] 09/30/2025 10:20 AM EST Treatment [facility] [place] [place] [facility] At [facility] Rad Onc [address] [place] [address] Bret Sharp MD [address] [place] [address] [phone] RAMIREZ@[facility] 10/03/2025 10:20 AM EST Treatment [facility] [place] [place] [facility] At [facility] Rad Onc [address] [place] [address] Bret Sharp MD [address] [place] [address]21 [email or web address]@[facility] 10/03/2025 10:30 AM EST Procedure visit [facility] [place] [place] [facility] At [facility] Rad Onc [address] [place] [address] 80375 Bret Sharp MD [address] [place] [address] 60829 RAMIREZ@[facility] 10/04/2025 10:20 AM EST Treatment [facility] [place] [place] [facility] At [facility] Rad Onc [address] [place] [address] Bret Sharp MD [address] [place] [address] [email or web address]@[email or web address] 10/05/2025 10:20 AM EST Treatment [facility] [place] [place] [facility] At [facility] Rad Onc [address] [place] [address] 32773 Bret Sharp MD [address] [place] [address] 36066 [email or web address]@[email or web address] 10/06/2025 10:20 AM EST Treatment [facility] [place] [place] [facility] At [facility] Rad Onc [address] [place] [address]25 Bret Sharp MD [address] [place] [address] 23057 RAMIREZ@[facility] 10/07/2025 10:20 AM EST Treatment [facility] [place] [place] [facility] At [facility] Rad Onc [address] [place] [address] Bret Sharp MD [address] [place] [address] [phone] [email or web address]@[facility] 10/11/2025 9:15 AM EST Office Visit [facility] [address] [place] [address] 3rd Floor, [address] [place] [address] Jaguar Palacios DO 22 [facility] [address] [place] [address] 10/11/2025 10:20 AM EST Treatment [facility] [place] [place] [facility] At [facility] Rad Onc [address] [place] [address] Bret Sharp MD [address] [place] [id number] [email or web address]@[email or web address] 10/11/2025 10:30 AM EST Procedure visit [facility] [place] [place] [facility] At [facility] Rad Onc [address] [place] [address] 23[address] Bret Sharp MD [address] [place] [address]86 RAMIREZ@[facility] 10/12/2025 10:20 AM EST Treatment [facility] [place] [place] [facility] At [facility] Rad Onc [address] [place] [address] Bret Sharp MD [address] [place] [address] [phone] [email or web address]@[facility] 10/13/2025 10:20 AM EST Treatment [facility] [place] [place] [facility] At [facility] Rad Onc [address] [place] [address] Bret Sharp MD [address] [place] [address] 60428 RAMIREZ@[facility] 10/14/2025 10:20 AM EST Treatment [facility] [place] [place] [facility] At [facility] Rad Onc [address] [place] [address] Bret Sharp MD [address] [place] [address] [id number] [email or web address]@[facility] 10/17/2025 10:20 AM EST Treatment [facility] [place] [facility] At [facility] Rad Onc [address] [place] [address] Bret Sharp MD [address] [place] [address] [id number] [email or web address] 10/17/2025 10:30 AM EST Procedure visit [facility] [place] [facility] At [facility] Rad Onc [address] [place] [address] Bret Sharp MD [address] [place] [address] [id number] [email or web address]@[facility] 10/18/2025 10:20 AM EST Treatment [facility] [place] [facility] At [facility] Rad Onc [address] [place] [address] Bret Sharp MD [address] [place] [address] 51278 [email or web address]@[email or web address] 10/19/2025 10:20 AM EST Treatment [facility] [place] [facility] At [facility] Rad Onc [address] [place] [address] Bret Sharp MD [address] [place] [address] 12136 [email or web address]@[email or web address] 10/19/2025 10:30 AM EST Procedure visit [facility] [place] [place] [facility] At [facility] Rad Onc [address] [place] [address] 38092 Bret Sharp MD [address] [place] [address] [phone] [email or web address]@[email or web address] documented as of this encounter Visit Diagnoses Not on filedocumented in this encounter Care Teams Associate Brand Manager Relationship Specialty Start Date End Date Alicia Thorntno PA [facility] [address] [place] [address] PCP - General Physician Hot Car Operator 04/25/24 documented as of this encounter Additional Source Comments The information contained in this document represents components of the legal health record. It is not the complete legal health record.[facility]
--- OUTSIDE RECORDS SUMMARY | 2025-09-06 09:46 | XMS_ITS | Encounter Summary ---
Author Organization [facility] Address [address] [facility] [address] [place] [address] Phone Care Team Providers Care Bottle Capper Name Role Phone Shannon Whipple MD Primary Care Provider [phone] Alicia Thornton Primary Care Provider [phone] Encounter Details Date Type Department Care Team (Late st Contact Info) Description 03/08/2021 Procedure Pass [facility], Ct Scan - [address] [address] Social History Tobacco Use Types Packs/Day Years [...] Info) Description 09/07/2025 10:20 AM EST Treatment [facility] [place] [place] [facility] Rad Onc [address] [place] [address] Bret Sharp MD [address] [place] [address] [email or web address] 09/08/2025 1:10 PM EST Treatment [facility] [place] [place] [facility] Rad Onc [address] [place] [address] Bret Sharp MD [address] [place] [address] 7[address] [email or web address] 09/09/2025 10:20 AM EST Treatment [facility] [place] [place] [facility] Rad Onc [address] [place] [address] Bret Sharp MD [address] [place] [address] 73750 [email or web address] 09/12/2025 10:20 AM EST Treatment [facility] [place] [place] [facility] Rad Onc [address] [place] [address] Bret Sharp MD [address] [place] [address] 18419 [email or web address] 09/12/2025 10:30 AM EST Procedure visit [facility] [place] [place] [facility] Rad Onc [address] [place] [address] Bret Sharp MD [address] [place] [address] 23687 [email or web address] 09/13/2025 10:20 AM EST Treatment [facility] [place] [place] [facility] Rad Onc [address] [place] [address] Bret Sharp MD [address] [place] [address] 28841 [email or web address] 09/14/2025 10:20 AM EST Treatment [facility] [place] [place] [facility] Rad Onc [address] [place] [address] Bret Sharp MD [address] [place] [address] 38170 [email or web address] 09/16/2025 10:20 AM EST Treatment [facility] [place] [place] [facility] Rad Onc [address] [place] [address] Bret Sharp MD [address] [place] [address] 00102 [email or web address] 09/19/2025 10:20 AM EST Treatment [facility] [place] [place] [facility] Rad Onc [address] [place] [address] 220[address] Bret Sharp MD [address] [place] [address] 80794 [email or web address] 09/19/2025 10:30 AM EST Procedure visit [facility] [place] [place] [facility] Rad Onc [address] [place] [address] 49[address] Bret Sharp MD [address] [place] [address] 74352 [email or web address] 09/20/2025 10:20 AM EST Treatment [facility] [place] [place] [facility] Rad Onc [address] [place] [address] 08[address] Bret Sharp MD [address] [place] [address] 47329 [email or web address] 09/21/2025 10:20 AM EST Treatment [facility] [place] [place] [facility] Rad Onc [address] [place] [address] Bret Sharp MD [address] [place] [address] 6[address] [email or web address] 09/23/2025 10:20 AM EST Treatment [facility] [place] [place] [facility] Rad Onc [address] [place] [address] 08776 Bret Sharp MD [address] [place] [address] 13794 [email or web address] 09/26/2025 10:20 AM EST Treatment [facility] [place] [place] [facility] Rad Onc [address] [place] [address] Bret Sharp MD [address] [place] [address] 51131 [email or web address] 09/26/2025 10:30 AM EST Procedure visit [facility] [place] [place] [facility] Rad Onc [address] [place] [address] Bret Sharp MD [address] [place] [address] 19643 [email or web address] 09/27/2025 10:20 AM EST Treatment [facility] [place] [place] [facility] Rad Onc [address] [place] [address] Bret Sharp MD [address] [place] [address] [id number] [email or web address] 09/28/2025 10:20 AM EST Treatment [facility] [place] [place] [facility] Rad Onc [address] [place] [address] Bret Sharp MD [address] [place] [address] 62627 [email or web address] 09/29/2025 10:20 AM EST Treatment [facility] [place] [place] [facility] Rad Onc [address] [place] [address] 28676 Bret Sharp MD [address] [place] [address] 95132 [email or web address] 09/30/2025 10:20 AM EST Treatment [facility] [place] [place] [facility] Rad Onc [address] [place] [address] 84[address] Bret Sharp MD [address] [place] [address] 59967 [email or web address] 10/03/2025 10:20 AM EST Treatment [facility] [place] [place] [facility] Rad Onc [address] [place] [address] 9[address] Bret Sharp MD [address] [place] [address] 97102 [email or web address] 10/03/2025 10:30 AM EST Procedure visit [facility] [place] [place] [facility] Rad Onc [address] [place] [address] 9[address] Bret Sharp MD [address] [place] [address] 53513 [email or web address] 10/04/2025 10:20 AM EST Treatment [facility] [place] [place] [facility] Rad Onc [address] [place] [address] 19272 Bret Sharp MD [address] [place] [address] [id number] [email or web address] 10/05/2025 10:20 AM EST Treatment [facility] [place] [place] [facility] Rad Onc [address] [place] [address] 244[address] Bret Sharp MD [address] [place] [address] 28245 [email or web address] 10/06/2025 10:20 AM EST Treatment [facility] [place] [place] [facility] Rad Onc [address] [place] [address] Bret Sharp MD [address] [place] [address] 69153 [email or web address] 10/07/2025 10:20 AM EST Treatment [facility] [place] [place] [facility] Rad Onc [address] [place] [address] Bret Sharp MD [address] [place] [address] 52693 [email or web address] 10/11/2025 9:15 AM EST Office Visit [facility] [address] [place] [address] 3rd Floor, [address] [place] [address]73 Jaguar Palacios DO [address] [place] [id number] [email or web address] 10/11/2025 10:20 AM EST Treatment [facility] [place] [place] [facility] Rad Onc [address] [place] [address] 15903 Bret Sharp MD [address] [place] [address] 93624 [email or web address] 10/11/2025 10:30 AM EST Procedure visit [facility] [place] [place] [facility] Rad Onc [address] [place] [address] Bret Sharp MD [address] [place] [address] 41806 [email or web address] 10/12/2025 10:20 AM EST Treatment [facility] [place] [place] [facility] Rad Onc [address] [place] [address] 97[address] Bret Sharp MD [address] [place] [address] 43253 [email or web address] 10/13/2025 10:20 AM EST Treatment [facility] [place] [place] [facility] Rad Onc [address] [place] [address] 0[address] Bret Sharp MD [address] [place] [address] 39948 [email or web address] 10/14/2025 10:20 AM EST Treatment [facility] [place] [place] [facility] Rad Onc [address] [place] [address] 599[address] Bret Sharp MD [address] [place] [address] 16158 [email or web address] 10/17/2025 10:20 AM EST Treatment [facility] [place] [place] [facility] Rad Onc [address] [place] [address] 369[address] Bret Sharp MD [address] [place] [address] 86408 [email or web address] 10/17/2025 10:30 AM EST Procedure visit [facility] [place] [place] [facility] Rad Onc [address] [place] [address] 69[address] Bret Sharp MD [address] [place] [address] [id number] [email or web address] 10/18/2025 10:20 AM EST Treatment [facility] [place] [place] [facility] Rad Onc [address] [place] [address] Bret Sharp MD [address] [place] [address] 62059 [email or web address] 10/19/2025 10:20 AM EST Treatment [facility] [place] [place] [facility] Rad Onc [address] [place] [address] Bret Sharp MD [address] [place] [address] [email or web address] 10/19/2025 10:30 AM EST Procedure visit [facility] [place] [place] [facility] Rad Onc [address] [place] [address] Bret Sharp MD [address] [place] [address] 52579 [email or web address] documented as of this encounter Visit Diagnoses Not on filedocumented in this encounter Care Teams Bottle Capper Relationship Specialty Start Date End Date Shannon Whipple MD [address] [place] [address] 535[address] [email or web address] PCP - General 07/08/17 04/24/24 Alicia Thornton PA [address] [facility] [address] [place] [address] PCP - General Physician Buffing Line Set Up Worker 04/25/24 documented as of this encounter Additional Source Comments The information contained in this document represents components of the legal health record. It is not the complete legal health record.[facility]
--- OUTSIDE RECORDS SUMMARY | 2025-09-06 09:47 | XMS_ITS | Encounter Summary ---
Author Organization [facility] Address [address] [employer] [facility] [address] [place] [address] Phone Care Team Providers Care Bench Grinder Name Role Phone Shannon Whipple MD Primary Care Provider [phone] Shannon Whipple MD Unavailable [phone] Alicia Thornton Primary Care Provider [phone] Encounter Details Date Type Department Care Team (Latest Contact Info) Description 03/30/2019 Transcribe Orders [facility] Main [address] [place] [address] Karen Madrigal PA [address] [place], [place] [id number] [email or web address] Elevated LFTs (Primary Dx) Social History Tobacco [...] Info) Description 09/07/2025 10:20 AM EST Treatment [facility] Rad Onc [address] [place] [address] Bret Sharp MD [address] [place] [address] [id number] [email or web address] 09/08/2025 1:10 PM EST Treatment [facility] Rad Onc [address] [place] [address] 6[address] Bret Sharp MD [address] [place] [address] 65087 [email or web address]@[email or web address] 09/09/2025 10:20 AM EST Treatment [facility] Rad Onc [address] [place] [address] 26052 Bret Sharp MD [address] [place] [address] [phone] [email or web address]@[email or web address] 09/12/2025 10:20 AM EST Treatment [facility] Rad Onc [address] [place] [address] Bret Sharp MD [address] [place] [address] 72775 [email or web address] 09/12/2025 10:30 AM EST Procedure visit [facility] Rad Onc [address] [place] [address] 54873 Bret Sharp MD [address] [place] [address] 61337 [email or web address]@[facility] 09/13/2025 10:20 AM EST Treatment [facility] Rad Onc [address] [place] [address] 46779 Bret Sharp MD [address] [place] [address] 11243 [email or web address]@[facility] 09/14/2025 10:20 AM EST Treatment [facility] Rad Onc [address] [place] [address] Bret Sharp MD [address] [place] [address] [phone] [email or web address] 09/16/2025 10:20 AM EST Treatment [facility] Rad Onc [address] [place] [address] 74793 Bret Sharp MD [address] [place] [address] 81659 [email or web address] 09/19/2025 10:20 AM EST Treatment [facility] Rad Onc [address] [place] [address] Bret Sharp MD [address] [place] [address] 83104 [email or web address] 09/19/2025 10:30 AM EST Procedure visit [facility] Rad Onc [address] [place] [address] 61090 Bret Sharp MD [address] [place] [address] 42521 [email or web address] 09/20/2025 10:20 AM EST Treatment [facility] Rad Onc [address] [place] [address] Bret Sharp MD [address] [place] [address] 33318 [email or web address]@[facility] 09/21/2025 10:20 AM EST Treatment [facility] Rad Onc [address] [place] [address] 48289 Bret Sharp MD [address] [place] [address] [phone] [email or web address]@[facility] 09/23/2025 10:20 AM EST Treatment [facility] Rad Onc [address] [place] [address] 62514 Bret Sharp MD [address] [place] [address] [id number] [email or web address]@[facility] 09/26/2025 10:20 AM EST Treatment [facility] Rad Onc [address] [place] [address] 81697 Bret Sharp MD [address] [place] [address] 73074 [email or web address]@[facility] 09/26/2025 10:30 AM EST Procedure visit [facility] Rad Onc [address] [place] [address] 00859 Bret Sharp MD [address] [place] [address] 63298 [email or web address]@[facility] 09/27/2025 10:20 AM EST Treatment [facility] Rad Onc [address] [place] [address] 97733 Bret Sharp MD [address] [place] [address] [phone] [email or web address]@[facility] 09/28/2025 10:20 AM EST Treatment [facility] Rad Onc [address] [place] [address] 16977 Bret Sharp MD [address] [place] [address] 31357 [email or web address] 09/29/2025 10:20 AM EST Treatment [facility] Rad Onc [address] [place] [address] Bret Sharp MD [address] [place] [address] 88079 [email or web address]@[facility] 09/30/2025 10:20 AM EST Treatment [facility] Rad Onc [address] [place] [address] 35706 Bret Sharp MD [address] [place] [address] 64064 [email or web address]@[facility] 10/03/2025 10:20 AM EST Treatment [facility] Rad Onc [address] [place] [address] 91474 Bret Sharp MD [address] [place] [address] [phone] [email or web address] 10/03/2025 10:30 AM EST Procedure visit [facility] Rad Onc [address] [place] [address] 53651 Bret Sharp MD [address] [place] [address] [phone] [email or web address] 10/04/2025 10:20 AM EST Treatment [facility] Rad Onc [address] [place] [address] Bret Sharp MD [address] [place] [address] [phone] [email or web address]@[facility] 10/05/2025 10:20 AM EST Treatment [facility] Rad Onc [address] [place] [address] Bret Sharp MD [address] [place] [address] 66203 [email or web address] 10/06/2025 10:20 AM EST Treatment [facility] Rad Onc [address] [place] [address] Bret Sharp MD [address] [place] [address] [id number] [email or web address]@[facility] 10/07/2025 10:20 AM EST Treatment [facility] Rad Onc [address] [place] [address] 93719 Bret Sharp MD [address] [place] [address] [phone] [email or web address]@[facility] 10/11/2025 9:15 AM EST Office Visit [facility] [address] [place] [address] 3rd Floor, [address] [address] Jaguar Palacios DO [address] [place] [address] 10/11/2025 10:20 AM EST Treatment [facility] Rad Onc [address] [place] [address] Bret Sharp MD [address] [place] [address] [phone] [email or web address] 10/11/2025 10:30 AM EST Procedure visit [facility] Rad Onc [address] [place] [address] 45799 Bret Sharp MD [address] [place] [address] [id number] [email or web address]@[facility] 10/12/2025 10:20 AM EST Treatment [facility] Rad Onc [address] [place] [address] Bret Sharp MD [address] [place] [address] 01527 [email or web address]@[facility] 10/13/2025 10:20 AM EST Treatment [facility] Rad Onc [address] [place] [address] 35526 Bret Sharp MD [address] [place] [address] [phone] [email or web address]@[facility] 10/14/2025 10:20 AM EST Treatment [facility] Rad Onc [address] [place] [address] 38774 Bret Sharp MD [address] [place] [address] 17508 [email or web address]@[facility] 10/17/2025 10:20 AM EST Treatment [facility] Rad Onc [address] [place] [address] 66657 Bret Sharp MD [address] [place] [address] [phone] [email or web address] 10/17/2025 10:30 AM EST Procedure visit [facility] Rad Onc [address] [place] [address] 31193 Bret Sharp MD [address] [place] [address] 14430 [email or web address]@[facility] 10/18/2025 10:20 AM EST Treatment [facility] Rad Onc [address] [place] [address] Bret Sharp MD [address] [place] [address] [phone] [email or web address]@[facility] 10/19/2025 10:20 AM EST Treatment [facility] Rad Onc [address] [place] [address] Bret Sharp MD [address] [place] [address] [phone] [email or web address]@[facility] 10/19/2025 10:30 AM EST Procedure visit [facility] Rad Onc [address] [place] [address] Bret Sharp MD [address] [place] [address] [phone] [email or web address] documented as of this encounter Results * (ABNORMAL) LFTs (hepatic panel) (03/30/2019 10:30 AM EDT) ALKALINE PHOSPHATASE 32(L) 39 - 117 U/L [facility] TOTAL BILIRUBIN 0.3 0.0 - 1.2 mg/dL [facility] DIRECT BILIRUBIN <0.2 0 - 0.3 mg/dL [facility] Bilirubin (Indirect) NOT CALCULATED 0 - 1.5 mg/dL [facility] AST 39(H) 0 - 37 U/L [facility] ALT 40 0 - 40 U/L [facility] TOTAL PROTEIN 7.2 6.5 - 8.0 g/dL [facility] ALBUMIN 3.9 3.9 - 4.8 g/dL [facility] GLOBULIN 3.3 1 - 4.8 g/dL [facility] A/G Ratio 1.18 1.00 - 4.80 RATIO [facility] Blood 03/30/2019 10:3 0 AM EDT 03/30/2019 10:33 AM EDT us Karen LEWIS LAB BLOOD BKR ORDERABLES Final Result [facility] [address] [place] [address] documented in this encounter Visit Diagnoses Diagnosis Elevated LFTs- Primary Other abnormal blood chemistry documented in this encounter Additional Health Concerns Infection Onset Date Last Indicated Resolved Time CoV-Exposed Comment:Recent close contact 04/03/2020 04/03/2020 04/17/2020 4:55 AM EDT documented as of this encounter Care Teams Bench Grinder Relationship Specialty Start Date End Date Shannon Whipple MD [address] [place] [address] [email or web address] PCP - General 07/08/17 04/24/24 Alicia Thornton PA [address] [place] [address] PCP - General Physician Shift Commander 04/25/24 Shannon Whipple MD [address] [place] [address] [email or web address] Insurance Assigned Provider 12/26/18 11/25/20 documented as of this encounter Additional Source Comments The information contained in this document represents components of the legal health record. It is not the complete legal health record.[facility]
--- OUTSIDE RECORDS SUMMARY | 2025-09-06 09:47 | XMS_ITS | Encounter Summary ---
Author Organization [facility] Address [address] [facility] [address] [place] [phone] Phone Care Team Providers Care Construction Executive Name Role Phone Shannon Whipple MD Primary Care Provider Shannon Whipple MD Unavailable [phone] Alicia Thornton Primary Care Provider Encounter Details Date Type Department Care Team (Latest Contact Info) Description 04/26/2019 Transcribe Orders Virtual Department [address] [place] [address] Karen Madrigal PA [address] [place] [address] [email or web address] Elevated LFTs (Primary Dx) Social History Tobacco [...] 09/07/2025 10:20 AM EST Treatment [facility] Onc [address] [place] [address] Bret Sharp MD [address] [place] [id number] [email or web address] 09/08/2025 1:10 PM EST Treatment [facility]c [address] [place] [address] Bret Sharp MD [address] [place] [address] [id number] [email or web address] 09/09/2025 10:20 AM EST Treatment [facility] [address] [place] [address] 33945 Bret Sharp MD [address] [place] [address] [id number] [email or web address] 09/12/2025 10:20 AM EST Treatment [facility] [address] [place] [address] 47039 Bret Sharp MD [address] [place] [address] 76133 [email or web address] 09/12/2025 10:30 AM EST Procedure visit [facility] [address] [place] [address] Bret Shapr MD [address] [place] [address] [id number] [email or web address] 09/13/2025 10:20 AM EST Treatment [facility] [address] [place] [address] 43638 Bret Sharp MD [address] [place] [address] 27601 [email or web address] 09/14/2025 10:20 AM EST Treatment [facility] [address] [place] [address] 22812 Bret Sharp MD [address] [place] [address] 27527 [email or web address] 09/16/2025 10:20 AM EST Treatment [facility] [address] [place] [address] 13892 Bret Sharp MD [address] [place] [address] 76365 [email or web address] 09/19/2025 10:20 AM EST Treatment [facility] [address] [place] [address] 92051 Bret Sharp MD [address] [place] [address] [id number] [email or web address] 09/19/2025 10:30 AM EST Procedure visit [facility] [address] [place] [address] 97013 Bret Sharp MD [address] [place] [address] 59627 [email or web address] 09/20/2025 10:20 AM EST Treatment [facility] On[facility] [address] [place] [address] Bret Sahrp MD [address] [place] [address] 92168 [email or web address] 09/21/2025 10:20 AM EST Treatment [facility] [address] [place] [address] 17392 Bret Sharp MD [address] [place] [address] 40942 [email or web address] 09/23/2025 10:20 AM EST Treatment [facility] [address] [place] [address] 12318 Bret Sharp MD [address] [place] [address] 93942 [email or web address] 09/26/2025 10:20 AM EST Treatment [facility] [address] [place] [address] 06159 Bret Sharp MD [address] [place] [address] 73195 [email or web address] 09/26/2025 10:30 AM EST Procedure visit [facility] [address] [place] [address] 33622 Bret Sharp MD [address] [place] [address] 88426 [email or web address] 09/27/2025 10:20 AM EST Treatment [facility] [address] [place] [address] 36535 Bret Sharp MD [address] [place] [address] 45205 [email or web address] 09/28/2025 10:20 AM EST Treatment [facility] [address] [place] [address] 24482 Bret Sharp MD [address] [place] [address] 20743 [email or web address] 09/29/2025 10:20 AM EST Treatment [facility] [address] [place] [address] 34144 Bret Sharp MD [address] [place] [address] 38830 [email or web address] 09/30/2025 10:20 AM EST Treatment [facility] [address] [place] [address] 99194 Bret Sharp MD [address] [place] [address] 15731 [email or web address] 10/03/2025 10:20 AM EST Treatment [facility] [address] [place] [address] 46074 Bret Sharp MD [address] [place] [address] [id number] [email or web address] 10/03/2025 10:30 AM EST Procedure visit [facility] [address] [place] [address] 70683 Bret Sharp MD [address] [place] [address] 36680 [email or web address] 10/04/2025 10:20 AM EST Treatment [facility] [address] [place] [address] 40248 Bret Sharp MD [address] [place] [address] [id number] [email or web address] 10/05/2025 10:20 AM EST Treatment [facility] [address] [place] [address] Bret Sharp MD [address] [place] [address] 52310 [email or web address] 10/06/2025 10:20 AM EST Treatment [facility] [address] [place] [address] Bret Sharp MD [address] [place] [address] 86723 [email or web address] 10/07/2025 10:20 AM EST Treatment [facility] [address] [place] [address] 35836 Bret Sharp MD [address] [place] [address] 55028 [email or web address] 10/11/2025 9:15 AM EST Office Visit [facility] [address] [place] [address], [address] [place] [address] Jaguar Palacios DO [address] [place] [id number] [email or web address] 10/11/2025 10:20 AM EST Treatment [facility] [address] [place] [address] Bret Sharp MD [address] [place] [address] [phone] [email or web address] 10/11/2025 10:30 AM EST Procedure visit [facility] [address] [place] [address] Bret Sharp MD [address] [place] [address] 44230 [email or web address] 10/12/2025 10:20 AM EST Treatment [facility] [address] [place] [address] 95349 Bret Sharp MD [address] [place] [address] [id number] [email or web address] 10/13/2025 10:20 AM EST Treatment [facility] [address] [place] [address] 21352 Bret Sharp MD [address] [place] [address] 46208 [email or web address] 10/14/2025 10:20 AM EST Treatment [facility] [address] [place] [address] 83582 Bret Sharp MD [address] [place] [address] 40821 [email or web address] 10/17/2025 10:20 AM EST Treatment [facility] [address] [place] [address] 05982 Bret Sharp MD [address] [place] [address] [id number] [email or web address] 10/17/2025 10:30 AM EST Procedure visit [facility] [address] [place] [address] 82006 Bret Sharp MD [address] [place] [address] 22482 [email or web address] 10/18/2025 10:20 AM EST Treatment [facility] [address] [place] [address] Bret Sharp MD [address] [place] [address] [phone] [email or web address] 10/19/2025 10:20 AM EST Treatment [facility] [address] [place] [address] Bret Sharp MD [address] [place] [address] 77049 [email or web address] 10/19/2025 10:30 AM EST Procedure visit [facility] [address] [place] [address] Bret Sharp MD [address] [place] [address] [id number] [email or web address] documented as of this encounter Results * US Abdomen Complete (05/11/2019 9:23 AM EDT) Anatomical Region Laterality Modality Abdomen Ultrasound 05/11/2019 9:29 AM EDT Impressions 05/11/2019 9:32 AM EDT Chronic right hepatic lobe cyst. No other significant abnormality of the visualized upper abdominal visceral structures. POS - [id number] Narrative 05/11/2019 9:32 AM EDT COMPARISON: 07/30/2013 [...] thevisualized upper abdominal visceral structures. POS - [id number] us Karen LEWIS IMG US ABDOMEN Final Result documented in this encounter Visit Diagnoses Diagnosis Elevated LFTs- Primary Other abnormal blood chemistry Elevated LFTs Other abnormal blood chemistry documented in this encounter Additional Health Concerns Infection Onset Date Last Indicated Resolved Time CoV-Exposed Comment:Recent close contact 04/03/2020 04/03/2020 04/17/2020 4:55 AM EDT documented as of this encounter Care Teams Construction Executive Relationship Specialty Start Date End Date Shannon Whipple MD [address] [place] [address] [email or web address] PCP - General 07/08/17 04/24/24 Alicia Thornton PA [address] [place] [address] PCP - General Physician Women Nurse 04/25/24 Shannon Whipple MD [address] [place] [address] [email or web address] Insurance Assigned Provider 12/26/18 11/25/20 documented as of this encounter Additional Source Comments The information contained in this document represents components of the legal health record. It is not the complete legal health record.[facility]
--- OUTSIDE RECORDS SUMMARY | 2025-09-06 09:47 | XMS_ITS | Encounter Summary ---
Author Organization [facility] Address [address] [facility] [address] [place] [phone] Phone Care Team Providers Care Solid Propellant Processor Name Role Phone Shannon Whipple MD Primary Care Provider [phone] Shannon Whipple MD Unavailable [phone] Alicia Thornton Primary Care Provider Encounter Details Date Type Department Care Team (Latest Contact Info) Description 12/11/2017 Transcribe Orders [facility] Phleb Main [address] [place] [address] [phone] Karen Madrigal PA [address] [place] [address] [email or web address] Enlarged prostate (Primary Dx) Social History Tobacco [...] Info) Description 09/07/2025 10:20 AM EST Treatment [facility] Rad Onc [address] [place] [address] Bret Sharp MD [address] [place] [address] [id number] [email or web address] 09/08/2025 1:10 PM EST Treatment [facility] Rad Onc [address] [place] [address] Bret Sharp MD [address] [place] [address] [id number] [email or web address] 09/09/2025 10:20 AM EST Treatment [facility] Rad Onc [address] [place] [address]14 Bret Sharp MD [address] [place] [address] [id number] [email or web address] 09/12/2025 10:20 AM EST Treatment [facility] Rad Onc [address] [place] [address] 37701 Bret Sharp MD [address] [place] [address] [id number] [email or web address] 09/12/2025 10:30 AM EST Procedure visit [facility] Rad Onc [address] [place] [address] Bret Sharp MD [address] [place] [address] [phone] [email or web address] 09/13/2025 10:20 AM EST Treatment [facility] Rad Onc [address] [place] [address] 36616 Bret Sharp MD [address] [place] [address] [id number] [email or web address] 09/14/2025 10:20 AM EST Treatment [facility] Rad Onc [address] [place] [address] Bret Sharp MD [address] [place] [address] [id number] [email or web address] 09/16/2025 10:20 AM EST Treatment [facility] Rad Onc [address] [place] [address] [phone] Bret Sharp MD [address] [place] [address] [phone] [email or web address] 09/19/2025 10:20 AM EST Treatment [facility] Rad Onc [address] [place] [address] 90869 Bret Sharp MD [address] [place] [address] [id number] [email or web address] 09/19/2025 10:30 AM EST Procedure visit [facility] Rad Onc [address] [place] [address] 91442 Bret Sharp MD [address] [place] [address] [phone] [email or web address] 09/20/2025 10:20 AM EST Treatment [facility] Rad Onc [address] [place] [address]14[address] Bret Sharp MD [address] [place] [address] [id number] [email or web address] 09/21/2025 10:20 AM EST Treatment [facility] Onc [address] [place] [address] 87959 Bret Sharp MD [address] [place] [address] [id number] [email or web address] 09/23/2025 10:20 AM EST Treatment [facility] Rad Onc [address] [place] [address] 54398 Bret Sharp MD [address] [place] [address] [phone] [email or web address] 09/26/2025 10:20 AM EST Treatment [facility] Rad Onc [address] [place] [address] 65935 Bret Sharp MD [address] [place] [address] [id number] [email or web address] 09/26/2025 10:30 AM EST Procedure visit [facility] Rad Onc [address] [place] [address] 53966 Bret Sharp MD [address] [place] [address] [id number] [email or web address] 09/27/2025 10:20 AM EST Treatment [facility] Rad Onc [address] [place] [address] 39549 Bret Sharp MD [address] [place] [address] [phone] [email or web address] 09/28/2025 10:20 AM EST Treatment [facility] Rad Onc [address] [place] [address] 12781 Bret Sharp MD [address] [place] [address] [id number] [email or web address] 09/29/2025 10:20 AM EST Treatment [facility] Rad Onc [address] [place] [address] 35950 Bret Sharp MD [address] [place] [address] [id number] [email or web address] 09/30/2025 10:20 AM EST Treatment [facility] Rad Onc [address] [place] [address] 58491 Bret Sharp MD [address] [place] [address] [phone] [email or web address] 10/03/2025 10:20 AM EST Treatment [facility] Rad Onc [address] [place] [address] 70152 Bret Sharp MD [address] [place] [address] [phone] [email or web address] 10/03/2025 10:30 AM EST Procedure visit [facility] Rad Onc [address] [place] [address] 62903 Bret Sharp MD [address] [place] [address] [phone] [email or web address] 10/04/2025 10:20 AM EST Treatment [facility] Rad Onc [address] [place] [address] 33095 Bret Sharp MD [address] [place] [address] [phone] [email or web address] 10/05/2025 10:20 AM EST Treatment [facility] Rad Onc [address] [place] [address] 34786 Bret Sharp MD [address] [place] [address] [id number] [email or web address] 10/06/2025 10:20 AM EST Treatment [facility] Rad Onc [address] [place] [address] Bret Sharp MD [address] [place] [address] [phone] [email or web address] 10/07/2025 10:20 AM EST Treatment [facility] Rad Onc [address] [place] [address] 55259 Bret Sharp MD [address] [place] [address] [id number] [email or web address] 10/11/2025 9:15 AM EST Office Visit [facility] [address] [place] [address], [address] [place] [phone] Jaguar Palacios DO [address] [place] [address] [place] [phone] [email or web address] 10/11/2025 10:20 AM EST Treatment [facility] Rad Onc [address] [place] [address] 46285 Bret Sharp MD [address] [place] [address] [phone] [email or web address] 10/11/2025 10:30 AM EST Procedure visit [facility] Rad Onc [address] [place] [address] 25739 Bret Sharp MD [address] [place] [address] [id number] [email or web address] 10/12/2025 10:20 AM EST Treatment [facility] Rad Onc [address] [place] [address] Bret Sharp MD [address] [place] [address] [id number] [email or web address] 10/13/2025 10:20 AM EST Treatment [facility] Rad Onc [address] [place] [address] 83926 Bret Sharp MD [address] [place] [address] [phone] [email or web address] 10/14/2025 10:20 AM EST Treatment [facility] Rad Onc [address] [place] [address] 09354 Bret Sharp MD [address] [place] [address] [phone] [email or web address] 10/17/2025 10:20 AM EST Treatment [facility] Rad Onc [address] [place] [address] 40824 Bret hSarp MD [address] [place] [address] [phone] [email or web address] 10/17/2025 10:30 AM EST Procedure visit [facility] Rad Onc [address] [place] [address] Bert Sharp MD [address] [place] [address] [phone] [email or web address] 10/18/2025 10:20 AM EST Treatment [facility] Rad Onc [address] [place] [address] 06895 Bret Sharp MD [address] [place] [address] [phone] [email or web address] 10/19/2025 10:20 AM EST Treatment [facility] Rad Onc [address] [place] [address] Bret Sharp MD [address] [place] [address] [phone] [email or web address] 10/19/2025 10:30 AM EST Procedure visit [facility] Rad Onc [address] [place] [address] Bret Sharp MD [address] [place] [address] [id number] [email or web address] documented as of this encounter Results * TSH with reflex (12/11/2017 7:19 AM EDT) TSH 1.74 0.27 - 4.20 uIU/mL [facility] Blood 12/11/2017 7:19 AM EDT 12/11/2017 7:22 AM EDT us [facility] LAB BLOOD BKR ORDERABLES Final Result [address] [address] * Hemoglobin A1c (12/11/2017 7:19 AM EDT) HEMOGLOBIN A1C 5.8 4.3 - 5.8 % [facility] Blood 12/11/2017 7:19 AM EDT 12/11/2017 7:22 AM EDT [facility] LAB BLOOD BKR ORDERABLES Final Result [address] [address] * (ABNORMAL) CBC and differential (12/11/2017 7:19 AM EDT) WBC 5.43 3.40 - 11.20 K/uL [facility] RBC 4.26(L) 4.50 - 5.50 M/uL [facility] HGB 13.4 13.0 - 17.0 g/dL [facility] HCT 40.8 40.0 - 51.0 % [facility] PLT 273 130 - 400 K/uL [facility] MCV 95.8 79.0 - 98.0 fL [facility] MCH 31.5 27.0 - 34.8 pg [facility] MCHC 32.8 31.5 - 36.0 g/dL [facility] RDW 12.9 10.8 - 14.6 % [facility] MPV 9.6 9.4 - 12.4 fl [facility] NRBC 0.00 /100 WBCs [facility] ABSOLUTE NRBC 0.00 K/uL [facility] DIFF METHOD Auto [facility] NEUTS 54.1 45.30 - 77.70 % [facility] LYMPHS 30.9 12.30 - 39.70 % [facility] MONOS 10.9 4.10 - 12.80 % [facility] EOS 3.1 0 - 7.2 % [facility] BASOS 0.6 0 - 2.80 % [facility] Granulocytes, immature (%) 0.4 0.0 - 0.9 % [facility] ABSOLUTE NEUTS 2.94 1.40 - 7.70 K/uL [facility] ABSOLUTE LYMPHS 1.68 0.60 - 3.20 K/uL [facility] ABSOLUTE MONOS 0.59 0.11 - 0.59 K/uL [facility] ABSOLUTE EOS 0.17 0.01 - 0.50 K/uL [facility] ABSOLUTE BASOS 0.03 0.00 - 0.08 K/uL [facility] Granulocytes, immature 0.02 0.00 - 0.05 K/uL [facility] Blood 12/11/2017 7:19 AM EDT 12/11/2017 7:22 AM EDT us Karen LEWIS LAB BLOOD BKR ORDERABLES Final Result Performing Organization Address City/[facility]/ZIP Co de Phone Number [address] [address] * (ABNORMAL) Comprehensive metabolic panel (12/11/2017 7:19 AM EDT) SODIUM 144 133 - 146 mmol/L [facility] POTASSIUM 3.9 3.3 - 5.1 mmol/L [facility] CHLORIDE 105 96 - 108 mmol/L [facility] CO2 24 21 - 35 mmol/L [facility] BUN 19 6 - 19 mg/dL [facility] CREATININE 0.60 0.5 - 1.5 mg/dL [facility] GLUCOSE 105(H) 70 - 99 mg/dL [facility] ALBUMIN 3.4(L) 3.9 - 4.8 g/dL [facility] TOTAL PROTEIN 6.8 6.5 - 8.0 g/dL [facility] CALCIUM 8.9 8.4 - 10.3 mg/dL [facility] ALKALINE PHOSPHATASE 26(L) 39 - 117 U/L [facility] TOTAL BILIRUBIN 0.4 0.0 - 1.2 mg/dL [facility] AST 36 0 - 37 U/L [facility] ALT 35 0 - 40 U/L [facility] GLOBULIN 3.4 1 - 4.8 g/dL [facility] EGFR 106 >59 mL/min/1.7 3m2 [facility] Comment:If patient is black, multiply result by 1.159. The eGFR calculation has changed from the MDRD equation to the CKD-EPI equation as of November 25, 2017. ANION GAP 19 10 - 20 mmol/L [facility] Blood 12/11/2017 7:19 AM EDT 12/11/2017 7:22 AM EDT us Karen Madrigal PA LAB BLOOD BKR ORDERABLES Final Result Performing Organization Address City/[facility]/ZIP Co de Phone Number [address] [address] * (ABNORMAL) Lipid panel (12/11/2017 7:19 AM EDT) HDL 60 mg/dL [facility] Comment: Interpretation: Risk Level Males Decreased >45 mg/dL Average 40-45 mg/dL Increased <40 mg/dL CHOLESTEROL 163 0 - 240 mg/dL [facility] TRIGLYCERIDES 175(H) 30 - 160 mg/dL [facility] LDL 68 50 - 129 mg/dL [facility] Comment: LDL levels in terms of risk for coronary heart disease: <100 mg/dL: Optimal 100-129 mg/dL: Near or above optimal 130-159 mg/dL: Borderline high 160-189 mg/dL: High >190 mg/dL: Very High CARDIAC RISK RATIO 2.7(L) 3.4 - 5.0 [facility] Blood 12/11/2017 7:19 AM EDT 12/11/2017 7:22 AM EDT us Karen LEWIS LAB BLOOD BKR ORDERABLES Final Result [facility] [address] [place] [address] documented in this encounter Visit Diagnoses Diagnosis Enlarged prostate- Primary Hypertrophy of prostate without urinary obstruction and other lower urinary tract symptoms (LUTS) documented in this encounter Additional Health Concerns Infection Onset Date Last Indicated Resolved Time CoV-Exposed Comment:Recent close contact 04/03/2020 04/03/2020 04/17/2020 4:55 AM EDT documented as of this encounter Care Teams Solid Propellant Processor Relationship Specialty Start Date End Date Shannon Whipple MD [address] [place] [address] [email or web address] PCP - General 07/08/17 04/24/24 Alicia Thornton PA [facility] [address] [place] [address] PCP - General Physician Plastics Heat Welder 04/25/24 Shannon Whipple MD [address] [place] [address] [email or web address] Insurance Assigned Provider 12/26/18 11/25/20 documented as of this encounter Additional Source Comments The information contained in this document represents components of the legal health record. It is not the complete legal health record.[facility]
--- OUTSIDE RECORDS SUMMARY | 2025-09-06 09:47 | XMS_ITS | Encounter Summary ---
Author Organization [facility] Address [address] [facility] [address] [place] [address] Phone Care Team Providers Care Weatherization Administrator Name Role Phone Shannon Whipple MD Primary Care Provider [phone] Shannon Whipple MD Unavailable [phone] Alicia Thornton Primary Care Provider Encounter Details Date Type Department Care Team (Latest Contact Info) Description 06/24/2019 Transcribe Orders [facility] Main [address] [place] [address] [id number] Nan Moreira PA [address] [place] [address] Elevated triglycerides with high cholesterol (Primary Dx) [...] Encounters Date Type Department Care Team (Late Contact Info) Description 09/07/2025 10:20 AM EST Treatment [facility] Onc [address] [place] [address] 36590 Bret Sharp MD [address] [place] [address] [id number] [email or web address] 09/08/2025 1:10 PM EST Treatment [facility] Onc [address] [place] [address] 54749 Bret Sharp MD [address] [place] [address] [id number] [email or web address] 09/09/2025 10:20 AM EST Treatment [facility] Rad Onc [address] [place] [address] 66202 Bret Sharp MD [address] [place] [address] 13228 [email or web address] 09/12/2025 10:20 AM EST Treatment [facility] Rad Onc [address] [place] [address] 13671 Bret Sharp MD [address] [place] [address] [id number] [email or web address] 09/12/2025 10:30 AM EST Procedure visit [facility] Onc [address] [place] [address] 16006 Bret Sharp MD [address] [place] [address] [id number] [email or web address] 09/13/2025 10:20 AM EST Treatment [facility] Rad Onc [address] [place] [address] 87796 Bret Sharp MD [address] [place] [address] [id number] [email or web address] 09/14/2025 10:20 AM EST Treatment [facility] Rad Onc [address] [place] [address] Bret Sharp MD [address] [place] [address] [id number] [email or web address] 09/16/2025 10:20 AM EST Treatment [facility] Rad Onc [address] [place] [address] 84923 Bret Sharp MD [address] [place] [address] [id number] [email or web address] 09/19/2025 10:20 AM EST Treatment [facility] Rad Onc [address] [place] [address] 60300 Bret Sharp MD [address] [place] [address] [id number] [email or web address] 09/19/2025 10:30 AM EST Procedure visit [facility] Onc [address] [place] [address] 92750 Bret Sharp MD [address] [place] [address] [id number] [email or web address] 09/20/2025 10:20 AM EST Treatment [facility] Rad Onc [address] [place] [address] Bret Sharp MD [address] [place] [address] [id number] [email or web address] 09/21/2025 10:20 AM EST Treatment [facility] Rad Onc [address] [place] [address] Bret Sharp MD [address] [place] [address] [id number] [email or web address]@[email or web address] 09/23/2025 10:20 AM EST Treatment [facility] Rad Onc [address] [place] [address] Bret Sharp MD [address] [place] [address] [id number] [email or web address]@[email or web address] 09/26/2025 10:20 AM EST Treatment [facility] Rad Onc [address] [place] [address] 89873 Bret Sharp MD [address] [place] [address] [id number] [email or web address] 09/26/2025 10:30 AM EST Procedure visit [facility] Rad Onc [address] [place] [address] 29912 Bret Sharp MD [address] [place] [address] [id number] [email or web address] 09/27/2025 10:20 AM EST Treatment [facility] Rad Onc [address] [place] [address] Bret Sharp MD [address] [place] [address] [id number] [email or web address]@[email or web address] 09/28/2025 10:20 AM EST Treatment [facility] Rad Onc [address] [place] [address] 02436 Bret Sharp MD [address] [place] [address] 13722 [email or web address]@[facility] 09/29/2025 10:20 AM EST Treatment [facility] Rad Onc [address] [place] [address] 37871 Bret Sharp MD [address] [place] [address] [id number] [email or web address]@[email or web address] 09/30/2025 10:20 AM EST Treatment [facility] Rad Onc [address] [place] [address] 94051 Bret Sharp MD [address] [place] [address] [id number] [email or web address]@[email or web address] 10/03/2025 10:20 AM EST Treatment [facility] Rad Onc [address] [place] [address] 63819 Bret Sharp MD [address] [place] [address] [id number] [email or web address] 10/03/2025 10:30 AM EST Procedure visit [facility] Rad Onc [address] [place] [address] 31014 Bret Sharp MD [address] [place] [address] [id number] [email or web address]@[facility] 10/04/2025 10:20 AM EST Treatment [facility] Rad Onc [address] [place] [address] 50812 Bret Sharp MD [address] [place] [address] [id number] [email or web address]@[email or web address] 10/05/2025 10:20 AM EST Treatment [facility] Rad Onc [address] [place] [address] Bret Sharp MD [address] [place] [address] 31811 [email or web address]@[email or web address] 10/06/2025 10:20 AM EST Treatment [facility] Rad Onc [address] [place] [address] Bret Sharp MD [address] [place] [address] [id number] [email or web address]@[facility] 10/07/2025 10:20 AM EST Treatment [facility] Rad Onc [address] [place] [address] 59776 Bret Sharp MD [address] [place] [address] [id number] [email or web address] 10/11/2025 9:15 AM EST Office Visit [facility] [address] [place] [address], [address] [address] Jaguar Palacios DO [address] [place] [address] [id number] [email or web address] 10/11/2025 10:20 AM EST Treatment [facility] Rad Onc [address] [place] [address] Bret Sharp MD [address] [place] [address] [id number] [email or web address] 10/11/2025 10:30 AM EST Procedure visit [facility] Rad Onc [address] [place] [address] 23553 Bret Sharp MD [address] [place] [address] [id number] [email or web address] 10/12/2025 10:20 AM EST Treatment [facility] Rad Onc [address] [place] [address] 87101 Bret Sharp MD [address] [place] [address] [id number] [email or web address] 10/13/2025 10:20 AM EST Treatment [facility] Rad Onc [address] [place] [address] 91910 Bret Sharp MD [address] [place] [address] 45354 [email or web address] 10/14/2025 10:20 AM EST Treatment [facility] Rad Onc [address] [place] [address] 36036 Bret Sharp MD [address] [place] [address] [id number] [email or web address]@[facility] 10/17/2025 10:20 AM EST Treatment [facility] Rad Onc [address] [place] [address] 64244 Bret Sharp MD [address] [place] [address] [id number] [email or web address] 10/17/2025 10:30 AM EST Procedure visit [facility] Rad Onc [address] [place] [address] 55266 Bret Sharp MD [address] [place] [address] 42583 [email or web address]@[email or web address] 10/18/2025 10:20 AM EST Treatment [facility] Rad Onc [address] [place] [address] Bret Sharp MD [address] [place] [address] [id number] [email or web address]@[email or web address] 10/19/2025 10:20 AM EST Treatment [facility] Rad Onc [address] [place] [address] Bret Sharp MD [address] [place] [address] [id number] [email or web address] 10/19/2025 10:30 AM EST Procedure visit [facility] Rad Onc [address] [place] [address] Bret Sharp MD [address] [place] [address] [id number] [email or web address] documented as of this encounter Procedures Procedure Name Priority Date/Time Associated Diagnosis Comments COMPREHENSIVE METABOLIC PANEL (CMP) Routine 06/24/2019 7:35 AM EDT Elevated triglycerides with high cholesterol SMOOTH MUSCLE ANTIBODY Routine 06/24/2019 7:35 AM EDT Elevated triglycerides with high cholesterol LIPID PANEL Routine 06/24/2019 7:35 AM EDT Elevated triglycerides with high cholesterol documented in this encounter Results * Smooth Muscle Antibody (06/24/2019 7:35 AM EDT) SMOOTH MUSCLE AB POSITIVE AT 1:160 [facility] Comment:Normal: Negative at 1:20 Blood 06/24/2019 7:35 AM EDT 06/24/2019 7:37 AM EDT us Nan [facility] ORDERAB[facility] Final Result [address] [address] * (ABNORMAL) Lipid panel (06/24/2019 7:35 AM EDT) HDL 56 mg/dL [facility] Comment: Interpretation <40 mg/dL: Low HDL cholesterol (major risk factor for CHD) Greater than or equal to 60 mg/dL: High HDL cholesterol ( negative risk factor for CHD) HDL - cholesterol is affected by a number of factors, e.g. smoking, excerise, hormones, sex and age. CHOLESTEROL 181 0 - 240 mg/dL [facility] TRIGLYCERIDES 239(H) 30 - 160 mg/dL [facility] LDL 77 50 - 129 mg/dL [facility] Comment: LDL levels in terms of risk for coronary heart disease: <100 mg/dL: Optimal 100-129 mg/dL: Near or above optimal 130-159 mg/dL: Borderline high 160-189 mg/dL: High >190 mg/dL: Very High CARDIAC RISK RATIO 3.2(L) 3.4 - 5.0 [facility] Blood 06/24/2019 7:35 AM EDT 06/24/2019 7:39 AM EDT us Nan [facility]LO[facility] BKR ORDERABLES Fi nal Result [facility] [address] [place] [address] * (ABNORMAL) Comprehensive metabolic panel (06/24/2019 7:35 AM EDT) SODIUM 138 133 - 146 mmol/L [facility] POTASSIUM 4.2 3.3 - 5.1 mmol/L [facility] CHLORIDE 102 96 - 108 mmol/L [facility] CO2 23 21 - 35 mmol/L [facility] BUN 20(H) 6 - 19 mg/dL [facility] CREATININE <0.50(L) 0.5 - 1.5 mg/dL [facility] GLUCOSE 108(H) 70 - 99 mg/dL [facility] ALBUMIN 3.9 3.9 - 4.8 g/dL [facility] TOTAL PROTEIN 7.3 6.5 - 8.0 g/dL [facility] CALCIUM 9.5 8.4 - 10.3 mg/dL [facility] ALKALINE PHOSPHATASE 31(L) 39 - 117 U/L [facility] TOTAL BILIRUBIN 0.4 0.0 - 1.2 mg/dL [facility] AST 34 0 - 37 U/L [facility] ALT 31 0 - 40 U/L [facility] GLOBULIN 3.4 1 - 4.8 g/dL [facility] EGFR Not Done >59 mL/min/1.7 3m2 [facility] ANION GAP 17 10 - 20 mmol/L [facility] Blood 06/24/2019 7:35 AM EDT 06/24/2019 7:39 AM EDT us Nan [facility] BKR ORDERABLES Fi nal Result [facility] [address] [place] [address] documented in this encounter Visit Diagnoses Diagnosis Elevated triglycerides with high cholesterol- Primary Mixed hyperlipidemia documented in this encounter Additional Health Concerns Infection Onset Date Last Indicated Resolved Time CoV-Exposed Comment:Recent close contact 04/03/2020 04/03/2020 04/17/2020 4:55 AM EDT documented as of this encounter Care Teams Weatherization Administrator Relationship Specialty Start Date End Date Shannon Whipple MD [address] [place] [address] [email or web address] PCP - General 07/08/17 04/24/24 Alicia Thornton PA [address] [facility] [address] [place] [address] PCP - General Physician Equipment Services Associate 04/25/24 Shannon Whipple MD [address] [place] [address] [email or web address] Insurance Assigned Provider 12/26/18 11/25/20 documented as of this encounter Additional Source Comments The information contained in this document represents components of the legal health record. It is not the complete legal health record.[facility]
--- OUTSIDE RECORDS SUMMARY | 2025-09-06 09:47 | XMS_ITS | Encounter Summary ---
Author Organization [facility] Address [address] [place] [address] Phone Care Team Providers Care Vp Transportation Name Role Phone Alicia Thornton Primary Care Provider [phone] Encounter Details Date Type Department Care Team (Late st Contact Info) Description 04/25/2024 Procedure Pass Non-Invasive Cardiology [address] [place] [address] Social History Tobacco Use Types Packs/Day Years [...] Description 09/07/2025 10:20 AM EST Treatment [facility] Rad Onc [address] [place] [address] 03964 Bret Sharp MD [address] [place] [address] [id number] [email or web address] 09/08/2025 1:10 PM EST Treatment [facility] Rad Onc [address] [place] [address] 51216 Bret Sharp MD [address] [place] [address] [id number] [email or web address]@[email or web address] 09/09/2025 10:20 AM EST Treatment [facility] Rad Onc [address] [place] [address] 82478 Bret Sharp MD [address] [place] [address] [id number] [email or web address]@[email or web address] 09/12/2025 10:20 AM EST Treatment [facility] Rad Onc [address] [place] [address] Bret Sharp MD [address] [place] [address] [id number] [email or web address] 09/12/2025 10:30 AM EST Procedure visit [facility] Rad Onc [address] [place] [address] Bret Sharp MD [address] [place] [address] 13371 [email or web address] 09/13/2025 10:20 AM EST Treatment [facility] Rad Onc [address] [place] [address] Bret Sharp MD [address] [place] [address] [id number] [email or web address] 09/14/2025 10:20 AM EST Treatment [facility] Rad Onc [address] [place] [address] 46497 Bret Sharp MD [address] [place] [address] [id number] [email or web address] 09/16/2025 10:20 AM EST Treatment [facility] Rad Onc [address] [place] [address] 30727 Bret Sharp MD [address] [place] [address] [id number] [email or web address]@[facility] 09/19/2025 10:20 AM EST Treatment [facility] Rad Onc [address] [place] [address] Bret Sharp MD [address] [place] [address] [id number] [email or web address] 09/19/2025 10:30 AM EST Procedure visit [facility] Rad Onc [address] [place] [address] 22140 Bret Sharp MD [address] [place] [address] [id number] [email or web address]@[facility] 09/20/2025 10:20 AM EST Treatment [facility] Rad Onc [address] [place] [address] Bret Sharp MD [address] [place] [address] [phone] [email or web address]@[facility] 09/21/2025 10:20 AM EST Treatment [facility] Rad Onc [address] [place] [address] 00857 Bret Sharp MD [address] [place] [address] [id number] [email or web address] 09/23/2025 10:20 AM EST Treatment [facility] Rad Onc [address] [place] [address] 23757 Bret Sharp MD [address] [place] [address] [id number] [email or web address]@[email or web address] 09/26/2025 10:20 AM EST Treatment [facility] Rad Onc [address] [place] [address] 37384 Bret Sharp MD [address] [place] [address] [id number] [email or web address]@[email or web address] 09/26/2025 10:30 AM EST Procedure visit [facility] Rad Onc [address] [place] [address] Bret Sharp MD [address] [place] [address] [id number] [email or web address]@[facility] 09/27/2025 10:20 AM EST Treatment [facility] Rad Onc [address] [place] [address] Bret Sharp MD [address] [place] [address] [id number] [email or web address] 09/28/2025 10:20 AM EST Treatment [facility] Rad Onc [address] [place] [address] 49179 Bret Sharp MD [address] [place] [address] [id number] [email or web address]@[facility] 09/29/2025 10:20 AM EST Treatment [facility] Rad Onc [address] [place] [address] 28296 Bret Sharp MD [address] [place] [address] [id number] [email or web address] 09/30/2025 10:20 AM EST Treatment [facility] Rad Onc [address] [place] [address] 91281 Bret Sharp MD [address] [place] [address] [id number] [email or web address]@[email or web address] 10/03/2025 10:20 AM EST Treatment [facility] Rad Onc [address] [place] [address] Bret Sharp MD [address] [place] [address] [id number] [email or web address]@[email or web address] 10/03/2025 10:30 AM EST Procedure visit [facility] Rad Onc [address] [place] [address] 14476 Bret Sharp MD [address] [place] [address] [id number] [email or web address]@[facility] 10/04/2025 10:20 AM EST Treatment [facility] Rad Onc [address] [place] [address] Bret Sharp MD [address] [place] [address] [id number] [email or web address]@[facility] 10/05/2025 10:20 AM EST Treatment [facility] Rad Onc [address] [place] [address] 68963 Bret Sharp MD [address] [place] [address] [id number] [email or web address]@[facility] 10/06/2025 10:20 AM EST Treatment [facility] Rad Onc [address] [place] [address] Bret Sharp MD [address] [place] [address] [phone] [email or web address]@[email or web address] 10/07/2025 10:20 AM EST Treatment [facility] Rad Onc [address] [place] [address] 50725 Bret Sharp MD [address] [place] [address] [id number] [email or web address]@[email or web address] 10/11/2025 9:15 AM EST Office Visit [facility] [address] [place] [address] 3rd Floor, [address] [place] [address] Jaguar Palacios DO [address] [facility] [address] [place] [address] 10/11/2025 10:20 AM EST Treatment [facility] Rad Onc [address] [place] [address] Bret Sharp MD [address] [place] [address] [id number] [email or web address] 10/11/2025 10:30 AM EST Procedure visit [facility] Rad Onc [address] [place] [address] 69511 Bret Sharp MD [address] [place] [address] [id number] [email or web address]@[facility] 10/12/2025 10:20 AM EST Treatment [facility] Rad Onc [address] [place] [address] 19851 Bret Sharp MD [address] [place] [address] [id number] [email or web address]@[facility] 10/13/2025 10:20 AM EST Treatment [facility] Rad Onc [address] [place] [address] 80586 Bret Sharp MD [address] [place] [address] [phone] [email or web address]@[email or web address] 10/14/2025 10:20 AM EST Treatment [facility] Rad Onc [address] [place] [address] 31034 Bert Sharp MD [address] [place] [address] [id number] [email or web address]@[facility] 10/17/2025 10:20 AM EST Treatment [facility] Rad Onc [address] [place] [address] 48299 Bret Sharp MD [address] [place] [address] [id number] [email or web address] 10/17/2025 10:30 AM EST Procedure visit [facility] Rad Onc [address] [place] [address] Bret Sharp MD [address] [place] [address] [id number] [email or web address] 10/18/2025 10:20 AM EST Treatment [facility] Rad Onc [address] [place] [address] 17011 Bret Sharp MD [address] [place] [address] [id number] [email or web address] 10/19/2025 10:20 AM EST Treatment [facility] Rad Onc [address] [place] [address] Bret Sharp MD [address] [place] [address] [id number] [email or web address] 10/19/2025 10:30 AM EST Procedure visit [facility] Rad Onc [address] [place] [address] 24458 Bret Sharp MD [address] [place] [address] [id number] [email or web address] documented as of this encounter Visit Diagnoses Not on filedocumented in this encounter Care Teams Vp Transportation Relationship Specialty Start Date End Date Alicia Thornton PA [address] [place] [address] PCP - General Physician Electric Sign Wirer 04/25/24 documented as of this encounter Additional Source Comments The information contained in this document represents components of the legal health record. It is not the complete legal health record.[facility]
--- OUTSIDE RECORDS SUMMARY | 2025-09-06 09:47 | XMS_ITS | Encounter Summary ---
Author Organization [facility] Address [address] [employer] [facility] [address] [place] [id number] Phone Care Team Providers Care Post Tensioning Ironworker Helper Name Role Phone Shannon Whipple MD Primary Care Provider Alicia Thornton Primary Care Provider [phone] Encounter Details Date Type Department Care Team (Late st Contact Info) Description 04/24/2024 Procedure Pass [facility] [address] [place] [address] Social History Tobacco Use Types Packs/Day Years [...] 5:30 PM EDT Ellen Gutierrez RN * [place] Suicide Severity Rating Scale (Screener/Recent Self-Report) Question [...] [facility] Rad Onc [address] [place] [address] Bret Sharp MD [address] [place] [id number] [email or web address] 09/08/2025 1:10 PM EST Treatment [facility] Rad Onc [address] [place] [address] Bret Sharp MD [address] [place] [address] [email or web address] 09/09/2025 10:20 AM EST Treatment [facility] At [facility] Rad Onc [address] [place] [address] Bret Sharp MD [address] [place] [address] [email or web address] 09/12/2025 10:20 AM EST Treatment [facility] At [facility] Rad Onc [address] [place] [address] Bret Sharp MD [address] [place] [address] [email or web address] 09/12/2025 10:30 AM EST Procedure visit [facility] At [facility] Rad Onc [address] [place] [address] Bret Sharp MD [address] [place] [address] [id number] [email or web address] 09/13/2025 10:20 AM EST Treatment [facility] At [facility] Rad Onc [address] [place] [address] Bret Sharp MD [address] [place] [address]31 [email or web address] 09/14/2025 10:20 AM EST Treatment [facility] At [facility] Rad Onc [address] [place] [address] Bret Sharp MD [address] [place] [address] [email or web address] 09/16/2025 10:20 AM EST Treatment [facility] At [facility] Rad Onc [address] [place] [address] Bret Sharp MD [address] [place] [address] [id number] [email or web address] 09/19/2025 10:20 AM EST Treatment [facility] At [facility] Rad Onc [address] [place] [address] Bret Sharp MD [address] [place] [address] 25931 [email or web address] 09/19/2025 10:30 AM EST Procedure visit [facility] At [facility] Rad Onc [address] [place] [address] Bret Sharp MD [address] [place] [address] 35231 [email or web address] 09/20/2025 10:20 AM EST Treatment [facility] At [facility] Rad Onc [address] [place] [address] Bret Sharp MD [address] [place] [address] 20437 [email or web address] 09/21/2025 10:20 AM EST Treatment [facility] At [facility] Rad Onc [address] [place] [address] Bret Sharp MD [address] [place] [address] 21247 [email or web address] 09/23/2025 10:20 AM EST Treatment [facility] At [facility] Rad Onc [address] [place] [address] Bret Sharp MD [address] [place] [address] 266[address] [email or web address] 09/26/2025 10:20 AM EST Treatment [facility] At [facility] Rad Onc [address] [place] [address] Bret Sharp MD [address] [place] [address]1983 [email or web address] 09/26/2025 10:30 AM EST Procedure visit [facility] At [facility] Rad Onc [address] [place] [address] Bret Sharp MD [address] [place] [address] 48014 [email or web address] 09/27/2025 10:20 AM EST Treatment [facility] At [facility] Rad Onc [address] [place] [address] Bret Sharp MD [address] [place] [address] 36852 [email or web address] 09/28/2025 10:20 AM EST Treatment [facility] At [facility] Rad Onc [address] [place] [address] Bret Sharp MD [address] [place] [address] 71513 [email or web address] 09/29/2025 10:20 AM EST Treatment [facility] At [facility] Rad Onc [address] [place] [address] Bret Sharp MD [address] [place] [address] 47230 [email or web address] 09/30/2025 10:20 AM EST Treatment [facility] At [facility] Rad Onc [address] [place] [address] Bret Sharp MD [address] [place] [address] 46114 [email or web address] 10/03/2025 10:20 AM EST Treatment [facility] At [facility] Rad Onc [address] [place] [address] Bret Sharp MD [address] [place] [address] 06625 [email or web address] 10/03/2025 10:30 AM EST Procedure visit [facility] At [facility] Rad Onc [address] [place] [address] Bret Sharp MD [address] [place] [address] 41400 [email or web address] 10/04/2025 10:20 AM EST Treatment [facility] At [facility] Rad Onc [address] [place] [address] Bret Sharp MD [address] [place] [address] 41773 [email or web address] 10/05/2025 10:20 AM EST Treatment [facility] At [facility] Rad Onc [address] [place] [address] Bret Sharp MD [address] [place] [address] [id number] [email or web address] 10/06/2025 10:20 AM EST Treatment [facility] At [facility] Rad Onc [address] [place] [address] Bret Sharp MD [address] [place] [address] 9[address] [email or web address] 10/07/2025 10:20 AM EST Treatment [facility] At [facility] Rad Onc [address] [place] [address] Bret Sharp MD [address] [place] [address] 345[address] [email or web address] 10/11/2025 9:15 AM EST Office Visit [facility] [address] [facility] 3rd Floor, [address] [place] [address] Jaguar Palacios DO 22 [facility] [address] [place] [address] [email or web address] 10/11/2025 10:20 AM EST Treatment [facility] At [facility] Rad Onc [address] [place] [address] Bret Sharp MD [address] [place] [address] [id number] [email or web address] 10/11/2025 10:30 AM EST Procedure visit [facility] At [facility] Rad Onc [address] [place] [address] Bret Sharp MD [address] [place] [address] [email or web address] 10/12/2025 10:20 AM EST Treatment [facility] At [facility] Rad Onc [address] [place] [address] Bret Sharp MD [address] [place] [address] 6[address] [email or web address] 10/13/2025 10:20 AM EST Treatment [facility] At [facility] Rad Onc [address] [place] [address] Bret Sharp MD [address] [place] [address] 12325 [email or web address] 10/14/2025 10:20 AM EST Treatment [facility] At [facility] Rad Onc [address] [place] [address] 264[address] Bret Sharp MD [address] [place] [address] 27025 [email or web address] 10/17/2025 10:20 AM EST Treatment [facility] At [facility] Rad Onc [address] [place] [address] 85883 Bret Sharp MD [address] [place] [address] 87667 [email or web address] 10/17/2025 10:30 AM EST Procedure visit [facility] At [facility] Rad Onc [address] [place] [address] 384[address] Bret Sharp MD [address] [place] [address] 48511 [email or web address] 10/18/2025 10:20 AM EST Treatment [facility] At [facility] Rad Onc [address] [place] [address] 133[address] Bret Sharp MD [address] [place] [address] 37811 [email or web address] 10/19/2025 10:20 AM EST Treatment [facility] At [facility] Rad Onc [address] [place] [address] Bret Sharp MD [address] [place] [address] 63059 [email or web address] 10/19/2025 10:30 AM EST Procedure visit [facility] On[facility] [address] [place] [address] Bret Sharp MD [address] [place] [address] [email or web address] documented as of this encounter Visit Diagnoses Not on filedocumented in this encounter Care Teams Post Tensioning Ironworker Helper Relationship Specialty Start Date End Date Shannon Whipple MD [address] [place] [address] [email or web address] PCP - General 07/08/17 04/24/24 Alicia Thornton PA [address] [facility] [address] [place] [id number] PCP - General Physician Customer Greeter 04/25/24 documented as of this encounter Additional Source Comments The information contained in this document represents components of the legal health record. It is not the complete legal health record.[facility]
--- OUTSIDE RECORDS SUMMARY | 2025-09-06 09:47 | XMS_ITS | Encounter Summary ---
Author Organization [facility] Address [address] [place] [address] Phone Care Team Providers Care Plant Tour Guide Name Role Phone Shannon Whipple MD Primary Care Provider [phone] Shannon Whipple MD Unavailable [phone] Alicia Thornton Primary Care Provider [phone] Reason for Referral * MRI/CAT Scan - Closed Specialty Diagnoses / Procedures Referred By Holly zhu Referred To Contact Radiology Diagnoses Encounter for screening for lung cancer Procedures CT Chest Lung Cancer Screening Karen Madrigal PA Phone: tel: fax: mailto:[email or web address] Referral ID Status Reason Start Date Expiration Date Visits Re quested Visits Authorized [id number] Closed 11/13/2018 12/13/2018 1 1 Encounter Details Date Type Department Care Team (Late st Contact Info) Description 11/13/2018 Ancillary Orders Virtual Department [address] [place] [address] Karen Madrigal PA [address] [place] [address] [email or web address] Encounter for screening for lung cancer Social [...] Description 09/07/2025 10:20 AM EST Treatment [facility] At [address] [address] Bret Sharp MD [address] [place] [id number] [email or web address] 09/08/2025 1:10 PM EST Treatment [facility] [address] [place] [address] Bret Sharp MD [address] [place] [phone] [email or web address] 09/09/2025 10:20 AM EST Treatment [facility] [address] [place] [address] Bret Sharp MD [address] [place] [phone] [email or web address] 09/12/2025 10:20 AM EST Treatment [facility] Onc [address] [place] [address] Bret Sharp MD [address] [place] [id number] [email or web address] 09/12/2025 10:30 AM EST Procedure visit [facility] Onc [address] [place] [address] Bret Sharp MD [address] [place] [id number] [email or web address] 09/13/2025 10:20 AM EST Treatment [facility] [address] [place] [address] Bret Shrap MD [address] [place] [phone] [email or web address] 09/14/2025 10:20 AM EST Treatment [facility] On[facility] [address] [place] [address] Bret Sharp MD [address] [place] [phone] [email or web address] 09/16/2025 10:20 AM EST Treatment [facility] On[facility] [address] [place] [address] Bret Sharp MD [address] [place] [address] [email or web address] 09/19/2025 10:20 AM EST Treatment [facility] Onc [address] [place] [address] Bret Sharp MD [address] [place] [id number] [email or web address] 09/19/2025 10:30 AM EST Procedure visit [facility] On[facility] [address] [place] [address] Bret Sharp MD [address] [place] [address] [email or web address] 09/20/2025 10:20 AM EST Treatment [facility] On[facility] [address] [place] [address] Bret Sharp MD [address] [place] [id number] [email or web address] 09/21/2025 10:20 AM EST Treatment [facility] On[facility] [address] [place] [address] Bret Sharp MD [address] [place] [address] [email or web address] 09/23/2025 10:20 AM EST Treatment [facility] On[facility] [address] [place] [address] Bret Sharp MD [address] [place] [phone] [email or web address] 09/26/2025 10:20 AM EST Treatment [facility] On[facility] [address] [place] [address] Bret Sharp MD [address] [place] [id number] [email or web address] 09/26/2025 10:30 AM EST Procedure visit [facility] On[facility] [address] [place] [address] Bret Sharp MD [address] [place] [address] [email or web address] 09/27/2025 10:20 AM EST Treatment [facility] On[facility] [address] [place] [address] Bret Sharp MD [address] [place] [address] [email or web address] 09/28/2025 10:20 AM EST Treatment [facility] Onc [address] [place] [address] Bret Sharp MD [address] [place] [address] [email or web address] 09/29/2025 10:20 AM EST Treatment [facility] On[facility] [address] [place] [address] Bret Sharp MD [address] [place] [id number] [email or web address] 09/30/2025 10:20 AM EST Treatment [facility] [address] [place] [address] Bret Sharp MD [address] [place] [phone] [email or web address] 10/03/2025 10:20 AM EST Treatment [facility] Onc [address] [place] [address] Bret Sharp MD [address] [place] [phone] [email or web address] 10/03/2025 10:30 AM EST Procedure visit [facility] [address] [place] [address] Bret Sharp MD [address] [place] [id number] [email or web address] 10/04/2025 10:20 AM EST Treatment [facility] On[facility] [address] [place] [address] Bret Sharp MD [address] [place] [id number] [email or web address] 10/05/2025 10:20 AM EST Treatment [facility] [address] [place] [address] Bret Sharp MD [address] [place] [address] [email or web address] 10/06/2025 10:20 AM EST Treatment [facility] [address] [place] [address] Bret Sharp MD [address] [place] [phone] [email or web address] 10/07/2025 10:20 AM EST Treatment [facility] [address] [place] [address] Bret Sharp MD [address] [place] [phone] [email or web address] 10/11/2025 9:15 AM EST Office [facility] [address] [place] [address] 3rd Floor, [address] [place] [phone] Jaguar Palacios DO [address] [facility] [address] [place] [address] 10/11/2025 10:20 AM EST Treatment [facility] [address] [place] [address] Bret Sharp MD [address] [place] [id number] [email or web address] 10/11/2025 10:30 AM EST Procedure visit [facility] [address] [place] [address] Bret Sharp MD [address] [place] [address] [email or web address] 10/12/2025 10:20 AM EST Treatment [facility] [address] [place] [address] Bret Sharp MD [address] [place] [address] [email or web address] 10/13/2025 10:20 AM EST Treatment [facility] [address] [place] [address] Bret Sharp MD [address] [place] [phone] [email or web address] 10/14/2025 10:20 AM EST Treatment [facility] [address] [place] [address] Bret Sharp MD [address] [place] [address] [email or web address] 10/17/2025 10:20 AM EST Treatment [facility] [address] [place] [address] Bret Sharp MD [address] [place] [address] [email or web address] 10/17/2025 10:30 AM EST Procedure visit [facility] [address] [place] [address] Bret Sharp MD [address] [place] [id number] [email or web address] 10/18/2025 10:20 AM EST Treatment [facility] [address] [place] [address] Bret Sharp MD [address] [place] [address] [email or web address] 10/19/2025 10:20 AM EST Treatment [facility] [address] [place] [address] Bret Sharp MD [address] [place] [address] [id number] [email or web address] 10/19/2025 10:30 AM EST Procedure visit [facility] [address] [place] [address] Bret Sharp MD [address] [place] [phone] [email or web address] documented as of this encounter Results * CT CHEST LUNG CANCER SCREENING FOLLOW UP (11/24/2018 3:28 PM EST) Anatomical Region Laterality Modality Chest Computed Tomogra phy 11/24/2018 3:51 PM EST Impressions 11/24/2018 4:09 PM EST Stable COPD. No findings suspicious for malignancy. LUNG RAD: LUNG RAD CATEGORY 1 - NEGATIVE TOTAL CTDIvol: 1.3 mGy POS [id number] Narrative 11/24/2018 4:09 PM EST HISTORY: Low [...] TOTAL CTDIvol: 1.3 mGy POS [id number] Karen LEWIS IMG CT CHEST Final Result documented in this encounter Visit Diagnoses Diagnosis Encounter for screening for lung cancer Encounter for screening for lung cancer documented in this encounter Additional Health Concerns Infection Onset Date Last Indicated Resolved Time CoV-Exposed Comment:Recent close contact 04/03/2020 04/03/2020 04/17/2020 4:55 AM EDT documented as of this encounter Care Teams Plant Tour Guide Relationship Specialty Start Date End Date Shannon Whipple MD [address] [place] [address] PCP - General 07/08/17 04/24/24 Alicia Thornton PA [address] [facility] [address] [place] [address] PCP - General Physician Labor Operator 04/25/24 Shannon Whipple MD [address] [place] [address] Insurance Assigned Provider 12/26/18 11/25/20 documented as of this encounter Additional Source Comments The information contained in this document represents components of the legal health record. It is not the complete legal health record.[facility]
--- OUTSIDE RECORDS SUMMARY | 2025-09-06 09:47 | XMS_ITS | Encounter Summary ---
Author Organization [facility] Address [address] [facility] [address] [place] [phone] Phone Care Team Providers Care Adoption Coordinator Name Role Phone Shannon Whipple MD Primary Care Provider [phone] Shannon Whipple MD Unavailable [phone] Alicia Thornton Primary Care Provider [phone] Encounter Details Date Type Department Care Team (Latest Contact Info) Description 04/12/2019 Transcribe Orders [facility] Phleb Main [address] [place] [address] Karen Madrigal PA [address] [place], [place] [id number] [email or web address] Elevated LFTs (Primary Dx) Social History Tobacco [...] Description 09/07/2025 10:20 AM EST Treatment [facility] Rad Onc [address] [place] [address] Bret Sharp MD [address] [place] [id number] [email or web address] 09/08/2025 1:10 PM EST Treatment [facility] Rad Onc [address] [place] [address] Bret Sharp MD [address] [place] [id number] [email or web address] 09/09/2025 10:20 AM EST Treatment [facility] Rad Onc [address] [place] [address] Bret Sharp MD [address] [place] [address] [email or web address] 09/12/2025 10:20 AM EST Treatment [facility] Rad Onc [address] [place] [address] Bret Sharp MD [address] [place] [address] [email or web address] 09/12/2025 10:30 AM EST Procedure visit [facility] Rad Onc [address] [place] [address]57 Bret Sharp MD [address] [place] [address] [id number] [email or web address] 09/13/2025 10:20 AM EST Treatment [facility] Rad Onc [address] [place] [address] Bret Sharp MD [address] [place] [address] [email or web address] 09/14/2025 10:20 AM EST Treatment [facility] Rad Onc [address] [place] [address] Bret Sharp MD [address] [place] [address]357 [email or web address] 09/16/2025 10:20 AM EST Treatment [facility] Rad Onc [address] [place] [address] Bret Sharp MD [address] [place] [address] 13435 [email or web address] 09/19/2025 10:20 AM EST Treatment [facility] Rad Onc [address] [place] [address] Bret Sharp MD [address] [place] [address] 99[address] [email or web address] 09/19/2025 10:30 AM EST Procedure visit [facility] Rad Onc [address] [place] [address] Bret Sharp MD [address] [place] [address] [email or web address] 09/20/2025 10:20 AM EST Treatment [facility] Rad Onc [address] [place] [address] Bret Sharp MD [address] [place] [address] 79656 [email or web address] 09/21/2025 10:20 AM EST Treatment [facility] Rad Onc [address] [place] [address] Bret Sharp MD [address] [place] [address] 21482 [email or web address] 09/23/2025 10:20 AM EST Treatment [facility] Rad Onc [address] [place] [address] Bret Sharp MD [address] [place] [address] [phone] [email or web address] 09/26/2025 10:20 AM EST Treatment [facility] Rad Onc [address] [place] [address]684 Bret Sharp MD [address] [place] [address] [id number] [email or web address] 09/26/2025 10:30 AM EST Procedure visit [facility] Rad Onc [address] [place] [address]24 Bret Sharp MD [address] [place] [address] [id number] [email or web address] 09/27/2025 10:20 AM EST Treatment [facility] Rad Onc [address] [place] [address] 12944 Bret Sharp MD [address] [place] [address] 6[address] [email or web address] 09/28/2025 10:20 AM EST Treatment [facility] Rad Onc [address] [place] [address]39 Bret Sharp MD [address] [place] [address] 21422 [email or web address] 09/29/2025 10:20 AM EST Treatment [facility] Rad Onc [address] [place] [address] Bret Sharp MD [address] [place] [address] [phone] [email or web address] 09/30/2025 10:20 AM EST Treatment [facility] Rad Onc [address] [place] [address]132 Bret Sharp MD [address] [place] [address] 48507 [email or web address] 10/03/2025 10:20 AM EST Treatment [facility] Rad Onc [address] [place] [address]38 Bret Sharp MD [address] [place] [address] 31385 [email or web address] 10/03/2025 10:30 AM EST Procedure visit [facility] Rad Onc [address] [place] [address]34 Bret Sharp MD [address] [place] [address] 25888 [email or web address] 10/04/2025 10:20 AM EST Treatment [facility] Rad Onc [address] [place] [address] Bret Sharp MD [address] [place] [address] 9[address] [email or web address] 10/05/2025 10:20 AM EST Treatment [facility] Rad Onc [address] [place] [address] Bret Sharp MD [address] [place] [address] 09990 [email or web address] 10/06/2025 10:20 AM EST Treatment [facility] Rad Onc [address] [place] [address] Bret Sharp MD [address] [place] [address] [phone] [email or web address] 10/07/2025 10:20 AM EST Treatment [facility] Rad Onc [address] [place] [address] Bret Sharp MD [address] [place] [address] 82308 [email or web address] 10/11/2025 9:15 AM EST Office Visit [facility] [address] [place] [address] [address]rd Floor, [address] [address] Jaguar Palacios DO [address] [place] [address] 10/11/2025 10:20 AM EST Treatment [facility] Rad Onc [address] [place] [address] Bret Sharp MD [address] [place] [address] [phone] [email or web address] 10/11/2025 10:30 AM EST Procedure visit [facility] Rad Onc [address] [place] [address]90 Bret Sharp MD [address] [place] [id number] [email or web address] 10/12/2025 10:20 AM EST Treatment [facility] Rad Onc [address] [place] [address] Bret Sharp MD [address] [place] [address] 89335 [email or web address] 10/13/2025 10:20 AM EST Treatment [facility] Rad Onc [address] [place] [address] 8[address]68 Bret Sharp MD [address] [place] [address] 96294 [email or web address] 10/14/2025 10:20 AM EST Treatment [facility] Rad Onc [address] [place] [address] 11882 Bret Sharp MD [address] [place] [address] [phone] [email or web address] 10/17/2025 10:20 AM EST Treatment [facility] Rad Onc [address] [place] [address]72 Bret Sharp MD [address] [place] [phone] [email or web address] 10/17/2025 10:30 AM EST Procedure visit [facility] Rad Onc [address] [place] [address]82 Bret Sharp MD [address] [place] [address] 93931 [email or web address] 10/18/2025 10:20 AM EST Treatment [facility] Rad Onc [address] [place] [address] Bret Sharp MD [address] [place] [address] [phone] [email or web address] 10/19/2025 10:20 AM EST Treatment [facility] Rad Onc [address] [place] [address] Bret Sharp MD [address] [place] [address] 68231 [email or web address] 10/19/2025 10:30 AM EST Procedure visit [facility] Rad Onc [address] [place] [address] Bret Sharp MD [address] [place] [address] 94057 [email or web address] documented as of this encounter Results * Anti-Mitochondrial Antibody (AMA) (04/12/2019 12:59 PM EDT) MITOCHONDRIAL AB NEGATIVE AT 1:20 [facility] Comment:Normal: Negative at 1:20 Blood 04/12/2019 12:5 9 PM EDT 04/12/2019 1:03 PM EDT Karen LEWIS LAB BLOOD ORDERABLES Final Resu lt [facility] [address] [place] [address] * Ceruloplasmin (04/12/2019 12:59 PM EDT) Pathologist [facility] CERULOPLASMIN 25 20 - 60 mg/dL [facility] Blood 04/12/2019 12:5 9 PM EDT 04/12/2019 1:03 PM EDT Karen [employer] PA LAB BLOOD ORDERABLES Final Resu lt [facility] [address] [place] [address] * Hepatitis C antibody, qualitative (04/12/2019 12:59 PM EDT) HCV NON-REACTIV E NON-REACTI VE [facility] Blood 04/12/2019 12:5 9 PM EDT 04/12/2019 1:02 PM EDT us Karen [employer] PA LAB BLOOD BKR ORDERABLES Final Result [address] [address] * Hepatitis B core antibody, total (04/12/2019 12:59 PM EDT) HEP B CORE AB, TOT NON-REACTI VE NON-REACTI VE [facility] Blood 04/12/2019 12:5 9 PM EDT 04/12/2019 1:02 PM EDT [employer] PA LAB BLOOD BKR ORDERABLES Final Result Performing Organization Address City/[facility]/ZIP Co de Phone Number [address] [address] * Hepatitis B surface antigen (04/12/2019 12:59 PM EDT) HBV SURFACE ANTIGEN NON-REACTI VE NON-REACTI VE [facility] Blood 04/12/2019 12:5 9 PM EDT 04/12/2019 1:02 PM EDT us Karen [employer] PA LAB BLOOD BKR ORDERABLES Final Result [address] [address] * Hepatitis B surface antibody (04/12/2019 12:59 PM EDT) HBV SURFACE ANTIBODY Negative [facility] Blood 04/12/2019 12:5 9 PM EDT 04/12/2019 1:02 PM EDT Karen LEWIS LAB BLOOD BKR ORDERABLES Final Result Performing Organization Address City/[facility]/ZIP Co de Phone Number [facility] [address] [place] [address] * Smooth Muscle Antibody (04/12/2019 12:59 PM EDT) SMOOTH MUSCLE AB POSITIVE AT 1:160 [facility] Comment:Normal: Negative at 1:20 Blood 04/12/2019 12:5 9 PM EDT 04/12/2019 1:03 PM [facility]T [facility] B[facility] Final Resu lt Performing Organization Address City/[facility]/ZIP Co de Phone Number [facility] [address] [place] [address] documented in this encounter Visit Diagnoses Diagnosis Elevated LFTs- Primary Other abnormal blood chemistry documented in this encounter Additional Health Concerns Infection Onset Date Last Indicated Resolved Time CoV-Exposed Comment:Recent close contact 04/03/2020 04/03/2020 04/17/2020 4:55 AM EDT documented as of this encounter Care Teams Adoption Coordinator Relationship Specialty Start Date End Date Shannon Whipple MD [address] [place] [address] [email or web address] PCP - General 07/08/17 04/24/24 Alicia Thornton PA [address] [facility] [address] [place] [address] PCP - General Physician [employer] 04/25/24 Shannon Whipple MD [address] [place] [address] [email or web address] Insurance Assigned Provider 12/26/18 11/25/20 documented as of this encounter Additional Source Comments The information contained in this document represents components of the legal health record. It is not the complete legal health record.[facility]
--- OUTSIDE RECORDS SUMMARY | 2025-09-06 09:49 | XMS_ITS | Encounter Summary ---
Author Organization [facility] Address [address] [facility] [address] [facility] [address] [place] [id number] Phone Care Team Providers Care Commissary Superintendent Name Role Phone Shannon Whipple MD Primary Care Provider [phone] Shannon Whipple MD Unavailable [phone] Alicia Thornton Primary Care Provider [phone] Encounter Details Date Type Department Care Team (Late st Contact Info) Description 03/06/2018 Ancillary Orders [facility], X-Ray - [place] [address] [place] [address] Karen Madrigal PA [address] [place] [address] [email or web address] History Tobacco Use Types Packs/Day [facility] Rad Onc [address] [place] [address] Bret Sharp MD [address] [place] [phone] [email or web address] 09/08/2025 1:10 PM EST Treatment [facility] Onc [address] [place] [address] Bret Sharp MD [address] [place] [phone] [email or web address] 09/09/2025 10:20 AM EST Treatment [facility] Rad Onc [address] [place] [phone] Bret Sharp MD [address] [place] [address] [phone] [email or web address] 09/12/2025 10:20 AM EST Treatment [facility] Onc [address] [place] [address] Bret Sharp MD [address] [place] [address] 34207 [email or web address] 09/12/2025 10:30 AM EST Procedure visit [facility] Onc [address] [place] [address] Bret Sharp MD [address] [place] [address] [phone] [email or web address] 09/13/2025 10:20 AM EST Treatment [facility] Rad Onc [address] [place] [address] Bret Sharp MD [address] [place] [address] [phone] [email or web address] 09/14/2025 10:20 AM EST Treatment [facility] Rad Onc [address] [place] [address] Bret Sharp MD [address] [place] [address] [phone] [email or web address] 09/16/2025 10:20 AM EST Treatment [facility] Rad Onc [address] [place] [address] Bret Sharp MD [address] [place] [address] [phone] [email or web address] 09/19/2025 10:20 AM EST Treatment [facility] Rad Onc [address] [place] [address] 65498 Bret Sharp MD [address] [place] [address] [phone] [email or web address] 09/19/2025 10:30 AM EST Procedure visit [facility] Onc [address] [place] [address] 14686 Bret Sharp MD [address] [place] [address] [phone] [email or web address] 09/20/2025 10:20 AM EST Treatment [facility] Rad Onc [address] [place] [address] Bret Sharp MD [address] [place] [address] [phone] [email or web address] 09/21/2025 10:20 AM EST Treatment [facility] Rad Onc [address] [place] [address] 97446 Bret Sharp MD [address] [place] [address] [phone] [email or web address] 09/23/2025 10:20 AM EST Treatment [facility] Onc [address] [place] [address] 38088 Bret Sharp MD [address] [place] [address] [phone] [email or web address] 09/26/2025 10:20 AM EST Treatment [facility] Rad Onc [address] [place] [address] [phone] Bret Sharp MD [address] [place] [address] [phone] [email or web address] 09/26/2025 10:30 AM EST Procedure visit [facility] Rad Onc [address] [place] [address] 89695 Bret Sharp MD [address] [place] [address] [phone] [email or web address] 09/27/2025 10:20 AM EST Treatment [facility] Rad Onc [address] [place] [address] 57580 Bret Sharp MD [address] [place] [address] 54468 [email or web address] 09/28/2025 10:20 AM EST Treatment [facility] Rad Onc [address] [place] [address] 86579 Bret Sharp MD [address] [place] [address] [phone] [email or web address] 09/29/2025 10:20 AM EST Treatment [facility] Rad Onc [address] [place] [address] 15693 Bret Sharp MD [address] [place] [address] [phone] [email or web address] 09/30/2025 10:20 AM EST Treatment [facility] Rad Onc [address] [place] [address] 35768 Bret Sharp MD [address] [place] [address] [phone] [email or web address] 10/03/2025 10:20 AM EST Treatment [facility] Rad Onc [address] [place] [address] 20644 Bret Sharp MD [address] [place] [address] [phone] [email or web address] 10/03/2025 10:30 AM EST Procedure visit [facility] Rad Onc [address] [place] [address] 55995 Bret Sharp MD [address] [place] [address] [phone] [email or web address] 10/04/2025 10:20 AM EST Treatment [facility] Rad Onc [address] [place] [address] 9[address]82 Bret Sharp MD [address] [place] [address] [phone] [email or web address] 10/05/2025 10:20 AM EST Treatment [facility] Rad Onc [address] [place] [address] 91846 Bret Sharp MD [address] [place] [address] 19572 [email or web address] 10/06/2025 10:20 AM EST Treatment [facility] Rad Onc [address] [place] [address] 6[address] Bret Sharp MD [address] [place] [address] [phone] [email or web address] 10/07/2025 10:20 AM EST Treatment [facility] Rad Onc [address] [place] [address] 41608 Bret Sharp MD [address] [place] [address] [phone] [email or web address] 10/11/2025 9:15 AM EST Office Visit [facility] [address] [place] [address], [address] [place] [phone] Jaguar Palacios DO [address] [place] [address] [place] [phone] [email or web address] 10/11/2025 10:20 AM EST Treatment [facility] Rad Onc [address] [place] [address] Bret Sharp MD [address] [place] [phone] [email or web address] 10/11/2025 10:30 AM EST Procedure visit [facility] Rad Onc [address] [place] [address] 76861 Bret Sharp MD [address] [place] [address] [phone] [email or web address] 10/12/2025 10:20 AM EST Treatment [facility] Rad Onc [address] [place] [address] Bret Sharp MD [address] [place] [address] [phone] [email or web address] 10/13/2025 10:20 AM EST Treatment [facility] Rad Onc [address] [place] [address] Bret Sharp MD [address] [place] [address] 14710 [email or web address] 10/14/2025 10:20 AM EST Treatment [facility] Rad Onc [address] [place] [address] 96015 Bret Sharp MD [address] [place] [address] [phone] [email or web address] 10/17/2025 10:20 AM EST Treatment [facility] Rad Onc [address] [place] [address] 68898 Bret Sharp MD [address] [place] [address] [phone] [email or web address] 10/17/2025 10:30 AM EST Procedure visit [facility] Rad Onc [address] [place] [address] Bret Sharp MD [address] [place] [address] [phone] [email or web address] 10/18/2025 10:20 AM EST Treatment [facility] Rad Onc [address] [place] [address] Bret Sharp MD [address] [place] [address] [phone] [email or web address] 10/19/2025 10:20 AM EST Treatment [facility] Rad Onc [address] [place] [address] Bret Sharp MD [address] [place] [address] [email or web address] 10/19/2025 10:30 AM EST Procedure visit [facility] Rad Onc [address] [place] [address] Bret Sharp MD [address] [place] [address] [phone] [email or web address] documented as of this encounter Results * XR RIBS 2 VIEWS (RIGHT) (03/06/2018 1:59 PM EDT) Anatomical Region Laterality Modality Chest Radiographic Jennifer ging 03/06/2018 2:16 PM EDT Impressions 03/06/2018 2:18 PM EDT Unremarkable evaluation of the right ribs. No explanation for right chest wall pain is seen. S/S: Anterior right chest wall pain, trauma POS [facility] Narrative 03/06/2018 2:18 PM EDT COMPARISON: Chest [...] documented as of this encounter Care Teams Commissary Superintendent Relationship Specialty Start Date End Date Shannon Whipple MD [address] [place] [address] [email or web address] PCP - General 07/08/17 04/24/24 Alicia Thornton PA [address] [facility] [address] [place] [address] PCP - General Physician Title Officer 04/25/24 Shannon Whipple MD [address] [place] [address] @[email or web address] Insurance Assigned Provider 12/26/18 11/25/20 documented as of this encounter Additional Source Comments The information contained in this document represents components of the legal health record. It is not the complete legal health record.[facility]
== END 2025-09-06 09:38 | disposition home or self-care (01) ==
LOC: HO.HMCSH 08:52
PROVIDERS: PCP Physician Assistant Medical; Visit Provider Physician Assistant Medical
DX: Z00.00 Encounter for general adult medical examination without abnormal findings (principal); E11.9 Type 2 diabetes mellitus without complications; C61 Malignant neoplasm of prostate; F41.9 Anxiety disorder, unspecified; E04.1 Nontoxic single thyroid nodule; Z23 Encounter for immunization

== ENCOUNTER → 2025-09-06 08:52 | Outpatient (BNVA) | payer MEDICARE, SELFPAY | PROVIDERS: PCP Physician Assistant Medical; Visit Provider Physician Assistant Medical | DX: Z00.00 Encounter for general adult medical examination without abnormal findings (principal); E11.9 Type 2 diabetes mellitus without complications; C61 Malignant neoplasm of prostate; F41.9 Anxiety disorder, unspecified; E04.1 Nontoxic single thyroid nodule; Z13.31 Encounter for screening for depression; Z79.899 Other long term (current) drug therapy | CPT/HCPCS: 83036; 96127; 99397 ==